=== PATIENT | female | born 1955 | race Caucasian/White ===

== ENCOUNTER 2021-05-05 17:00 | Inpatient (IN) | payer MEDICARE ==
[2021-05-05] MEDS ORDERED: Sodium Chloride 0.9% 1000 ML 1,000 ML IV STA ×2 (17:17→19:02)
[2021-05-05] MEDS ORDERED: Sodium Chloride 0.9% 1000 ML 1,000 ML ONE ×2 (17:22→19:10)
[2021-05-05 18:01] LABS: Hematocrit 45.9 % (35-47); Hemoglobin 16.2 gm/dl (12.0-16.0); Mean Cell Volume 93.1 fl (78-100); Mean Corpuscular Hemoglobin 32.9 pg (26-32); Mean Corpuscular Hgb Concent. 35.3 g/dl (32-36); Mean Platelet Volume 10.5 fl (7.5-11.0); Platelet Count 322 K/mm3 (150-450); Red Blood Count 4.93 M/mm3 (4.1-5.4); Red Cell Distribution Width 14.4 % (11.5-14.0); White Blood Count 21.2 K/mm3 (4.0-10.5)
[2021-05-05 18:03] LABS: INR 2.05 (0.8-3.0); PROTIME 24.2 SECONDS (9.4-12.5)
[2021-05-05 18:13] LABS: COVID AG -BINAX NOW RAPID TEST NEGATIVE (NEGATIVE)
--- NOTE | 2021-05-05 18:13 | ERPHSYRPT ---
- History of Present Illness Time Seen by Provider: 05/05/21 17:10 Source: patient Exam Limitations: no limitations Patient Subjective Stated Complaint: pt here for chills, cough, sob, aches and weakness for 9 days now, Triage Nursing Assessment: pt alert, resp easy, skin w/d/p, face mask in place, no edema noted, Physician History: Patient is a 65-year-old white female who has been sick for 9 days with fever weakness coughing body aches and soa. She has been vaccinated fully she has known COVID exposure. She has not to this point been tested for COVID or flu. She has a history of daily alcohol intake but has had none for 9 days. When I went in to discuss admission with the patient she suddenly remembered that she has a diagnosis of large granular leukemia. She is followed by Dr. House in [place] for her leukemia. Timing/Duration: day(s) (9) Cough Quality/Degree: dry cough Possible Cause: no prior episodes Modifying Factors: Improves With: coughing Associated Symptoms: fever (At home), chest pain/soreness, cough, headache, muscle aches, nasal drainage, shortness of breath, wheezing Allergies/Adverse Reactions: codeine Allergy (Mild, Verified 03/03/16 15:21) Swelling SWELLING AND VOMITTING methylprednisolone [From Medrol] Allergy (Mild, Verified 03/03/16 15:21) Swelling Sulfa (Sulfonamide Antibiotics) Allergy (Mild, Verified 03/03/16 15:21) Swelling Home Medications: Amlodipine Besylate 5 mg [Norvasc 5 mg] 1 tab PO DAILY 10/01/14 [History] Atorvastatin Calcium 20 mg PO HS 10/01/14 [History] Citalopram Hydrobromide [Celexa] 1 tab PO DAILY 10/01/14 [History] Duloxetine HCl 1 tab PO DAILY 10/01/14 [History] Estrogens, Conjugated [Premarin] 0.3 mg PO DAILY 10/01/14 [History] Levothyroxine Sodium 75 Mcg [Synthroid 75 Mcg] 1 tab PO DAILY 10/01/14 [History] Medroxyprogesterone 2.5 mg [Provera 2.5 MG] 1 tab PO DAILY 10/01/14 [History] Pantoprazole Sodium [Protonix] 1 tab PO DAILY 10/01/14 [History] Potassium Chloride 1 tab PO DAILY 10/01/14 [History] Pregabalin [Lyrica] 100 mg PO TID 10/01/14 [History] EPINEPHrine [Epipen 2-Ralph] 0.3 mg IM DAILY PRN PRN 01/01/15 [History] Famotidine 20 mg [Pepcid 20 MG] 20 mg PO BID 01/01/15 [History] Metoprolol Succinate 25 mg Xl* [Toprol-Xl 25MG Tablets] 25 mg PO DAILY 01/01/15 [History] Tizanidine HCl 4 mg [Zanaflex 4 MG] 4 mg PO HS 01/01/15 [History] Estradiol 1 mg [Estrace 1 mg] 1 mg PO DAILY 06/19/15 [History] Oxycodone HCl/Acetaminophen [Percocet 5-325 mg Tablet] 1 each PO Q4-6HPRN PRN 03/03/16 [History] Hx Tetanus, Diphtheria Vaccination/Date Given: Yes (up to date) Hx Influenza Vaccination/Date Given: Yes Hx Pneumococcal Vaccination/Date Given: No Immunizations Up to Date: Yes Travel Risk - International Travel Have you traveled outside of the country in past 3 weeks: No - Coronavirus Screening Are you exhibiting any of the following symptoms?: Yes Symptoms: Fever, Cough: New Onset, Shortness of Breath, Headaches/Body Aches/Fatigue - Vaccine Status Have you recieved a Covid-19 vaccination: Yes [place]: Moderna - Vaccination Dates Date of 2cond Vaccination (if applicable): 2020 - Review of Systems Constitutional: No Fever, No Chills Eyes: No Symptoms Ears, Nose, & Throat: No Symptoms, Nose Congestion, Nose Discharge Respiratory: Cough, Dyspnea, Dyspnea on Exertion ([place]) Cardiac: No Chest Pain, No Edema, No Syncope Abdominal/Gastrointestinal: Appetite Changes (Decreased appetite), No Abdominal Pain, No Nausea, No Vomiting, No Diarrhea Genitourinary Symptoms: No Dysuria Musculoskeletal: Arthralgias, Myalgias, No Back Pain, No Neck Pain Skin: No Rash Neurological: Headache, No Dizziness, No Focal Weakness, No Sensory Changes Psychological: No Symptoms Endocrine: No Symptoms All Other Systems: Reviewed and Negative - Past Medical History Pertinent Past Medical History: Yes Neurological History: No Pertinent History ENT History: No Pertinent History Cardiac History: No Pertinent History Respiratory History: Asthma, Bronchitis, COPD, Emphysema, Other Endocrine Medical History: No Pertinent History Musculoskeletal History: Degenerative Disk Disease, Fibromyalgia, Rheumatoid Arthritis, Other GI Medical History: GERD History: No Pertinent History Psycho-Social History: Anxiety, Depression Female Reproductive Disorders: No Pertinent History Other Medical History: lupus, - Past Surgical History Past Surgical History: Yes Neuro Surgical History: No Pertinent History Cardiac: No Pertinent History Respiratory: No Pertinent History Gastrointestinal: Cholecystectomy, Hernia Repair Female Surgical History: Tubal Ligation Other Surgical History: bilat carpal tunnel, left ovarian cyst removed,bilat cataract,. tonsillectomy as a child - Social History Smoking Status: Current every day smoker How long have you smoked: 45 Exposure to second hand smoke: Yes Drug Use: none Patient Lives Alone: No - Female History Hx Last Menstrual Period: post - Nursing Vital Signs Nursing Vital Signs: Initial Vital Signs Temperature 97.2 F 05/05/21 17:00 Pulse Rate 62 05/05/21 17:00 Respiratory Rate 18 05/05/21 17:00 Blood Pressure 142/102 05/05/21 17:00 O2 Sat by Pulse Oximetry 93 L 05/05/21 17:00 Pain Scale Pain Intensity 0 - Physical Exam General Appearance: moderate distress Eye Exam: PERRL/EOMI, eyes nml inspection Ears, Nose, Throat Exam: TMs normal, pharynx normal, dry mucous membranes Neck Exam: normal inspection, non-tender, supple, full range of motion Respiratory Exam: respiratory distress, crackles/rales, rhonchi, wheezing Cardiovascular Exam: regular rate/rhythm, normal heart sounds Gastrointestinal/Abdomen Exam: soft, No tenderness Back Exam: normal inspection, No CVA tenderness, No vertebral tenderness Extremity Exam: normal inspection, normal range of motion Neurologic Exam: alert, oriented x 3, cooperative, normal mood/affect, sensation nml, No motor deficits Skin Exam: normal color SpO2 Interpretation: normal SpO2: 93 O2 Delivery: Room Air - Course Nursing assessment & vital signs reviewed: Yes EKG Interpreted by Me: RATE (87), Sinus Rhythm, NORMAL AXIS, NORMAL INTERVALS, Right Bundle Branch Block, Non-specific ST Changes - Radiology Exams Chest X-ray Interpretation: Reviewed by me, Pneumonia - CT Exams Chest CT Interpretation: Tele-radiologist Report Ordered Tests: Active Orders 24 hr Category Date Time Status EKG-ER Only STAT Care 05/05/21 17:20 Active CHEST 1 VIEW (PORTABLE) Stat Exams 05/05/21 17:29 Taken CHEST WITH CONTRAST [CT] Stat Exams 05/05/21 18:55 Taken BLOOD CULTURE Stat Lab 05/05/21 17:52 Received CBC W DIFF Stat Lab 05/05/21 17:52 Completed CMP Stat Lab 05/05/21 17:52 Completed COVID AG-BINAX NOW RAPID TEST Stat Lab 05/05/21 17:52 Completed CULTURE,URINE Stat Lab 05/05/21 17:25 Received D-DIMER QUANTITATIVE Stat Lab 05/05/21 17:52 Completed INFLUENZA A+B ELISA Stat Lab 05/05/21 17:52 Received Lactic Acid Stat Lab 05/05/21 17:42 Completed Lactic Acid Stat Lab 05/05/21 19:47 Received MAGNESIUM Stat Lab 05/05/21 17:52 Completed Manual Differential NC Stat Lab 05/05/21 17:52 Completed NT PRO BNP Stat Lab 05/05/21 17:52 Completed PROTIME WITH INR Stat Lab 05/05/21 17:52 Completed TROPONIN Q3H Lab 05/05/21 17:52 Completed TROPONIN Q3H Lab 05/05/21 20:30 Ordered TROPONIN Q3H Lab 05/05/21 23:30 Ordered TROPONIN Q3H Lab 05/06/21 02:30 Ordered TROPONIN Q3H Lab 05/06/21 05:30 Ordered UA W/RFX UR CULTURE Stat Lab 05/05/21 17:25 Completed Medication Summary Generic Name Dose Route Start Last Admin Trade Name Freq PRN Reason Stop Dose Admin Sodium Chloride 1,000 mls @ 999 mls/hr 05/05/21 19:02 05/05/21 19:11 Sodium Chloride 0.9% 1000 Ml IV 05/05/21 20:02 999 mls/hr .Q1H1M STA Administration Levofloxacin/Dextrose 750 mg in 150 mls @ 100 mls/hr 05/05/21 19:25 05/05/21 19:30 Levofloxacin 750mg/150ml D5w IV 05/05/21 20:54 100 mls/hr STAT STA 100 mls/hr Administration Discontinued Medications Generic Name Dose Route Start Last Admin Trade Name Freq PRN Reason Stop Dose Admin Sodium Chloride 1,000 mls @ 999 mls/hr 05/05/21 17:17 05/05/21 19:08 Sodium Chloride 0.9% 1000 Ml IV 05/05/21 18:17 Infused .Q1H1M STA Infusion Sodium Chloride Confirm 05/05/21 17:22 Sodium Chloride 0.9% 1000 Ml Administered 05/05/21 17:23 Dose 1,000 mls @ ud .ROUTE .STK-MED ONE Ceftriaxone Sodium/Dextrose 1 g in 50 mls @ 100 mls/hr 05/05/21 18:14 05/05/21 19:08 Rocephin 1 Gm-D5w 50 Ml Bag IV 05/05/21 18:43 Infused STAT STA Infusion Ceftriaxone Sodium/Dextrose Confirm 05/05/21 18:31 Rocephin 1 Gm-D5w 50 Ml Bag Administered 05/05/21 18:32 Dose 1 g in 50 mls @ ud IV .STK-MED ONE Sodium Chloride Confirm 05/05/21 19:10 Sodium Chloride 0.9% 1000 Ml Administered 05/05/21 19:11 Dose 1,000 mls @ ud .ROUTE .STK-MED ONE Levofloxacin/Dextrose Confirm 05/05/21 19:29 Levofloxacin 750mg/150ml D5w Administered 05/05/21 19:30 Dose 750 mg in 150 mls @ ud IV .STK-MED ONE Lab/Rad Data: Laboratory Result Diagrams 05/05/21 17:52 05/05/21 17:52 Laboratory Results 05/05/21 05/05/21 05/05/21 Range/Units 18:28 17:52 17:52 WBC (4.0-10.5) K/mm3 RBC (4.1-5.4) M/mm3 Hgb (12.0-16.0) gm/dl Hct (35-47) % MCV (78-100) fl MCH (26-32) pg MCHC (32-36) g/dl RDW (11.5-14.0) % Plt Count (150-450) K/mm3 MPV (7.5-11.0) fl PT (9.4-12.5) SECONDS INR (0.8-3.0) D-Dimer (215-500) ng/mL Sodium (137-145) mmol/L Potassium (3.5-5.1) mmol/L Chloride (98-107) mmol/L Carbon Dioxide (22-30) mmol/L Anion Gap (5-15) MEQ/L BUN (7-17) mg/dL Creatinine (0.52-1.04) mg/dL Estimated GFR ML/MIN Glucose (74-106) mg/dL Lactic Acid (0.4-2.0) Calcium (8.4-10.2) mg/dL Magnesium (1.6-2.3) mg/dL Total Bilirubin (0.2-1.3) mg/dL AST (14-36) U/L ALT (0-35) U/L Alkaline Phosphatase (38-126) U/L Troponin I < 0.012 (0.000-0.034) ng/mL NT-Pro-B Natriuret Pep (0-900) pg/mL Serum Total Protein (6.3-8.2) g/dL Albumin (3.5-5.0) g/dL Urine Color (YELLOW) Urine Appearance (CLEAR) Urine pH (5-6) Ur Specific [place] (1.005-1.025) Urine Protein (Negative) Urine Ketones (NEGATIVE) Urine Blood (0-5) Serg/ul Urine Nitrite (NEGATIVE) Urine Bilirubin (NEGATIVE) Urine Urobilinogen (0-1) mg/dL Ur Leukocyte Esterase (NEGATIVE) Urine WBC (Auto) (0-5) /HPF Urine RBC (Auto) (0-2) /HPF U Epithel Cells (Auto) (FEW) /HPF Urine Bacteria (Auto) (NEGATIVE) /HPF Urine Mucus (Auto) (NEGATIVE) /HPF Urine Culture Reflexed (NO) Urine Glucose (NEGATIVE) mg/dL Influenza Type A Ag NEGATIVE (NEGATIVE) Influenza Type B Ag NEGATIVE (NEGATIVE) RSV (PCR) NEGATIVE (Negative) SARS-CoV-2 (PCR) NEGATIVE (NEGATIVE) SARS-CoV-2 Ag (Rapid) NEGATIVE (NEGATIVE) 05/05/21 05/05/21 05/05/21 Range/Units 17:52 17:52 17:52 WBC 21.2 H (4.0-10.5) K/mm3 RBC 4.93 (4.1-5.4) M/mm3 Hgb 16.2 H (12.0-16.0) gm/dl Hct 45.9 (35-47) % MCV 93.1 (78-100) fl MCH 32.9 H (26-32) pg MCHC 35.3 (32-36) g/dl RDW 14.4 H (11.5-14.0) % Plt Count 322 (150-450) K/mm3 MPV 10.5 (7.5-11.0) fl PT 24.2 H (9.4-12.5) SECONDS INR 2.05 (0.8-3.0) D-Dimer 1386 H* (215-500) ng/mL Sodium 132 L (137-145) mmol/L Potassium 3.5 (3.5-5.1) mmol/L Chloride 91 L (98-107) mmol/L Carbon Dioxide 27 (22-30) mmol/L Anion Gap 17.6 H (5-15) MEQ/L BUN 22 H (7-17) mg/dL Creatinine 0.66 (0.52-1.04) mg/dL Estimated GFR > 60.0 ML/MIN Glucose 126 H (74-106) mg/dL Lactic Acid (0.4-2.0) Calcium 9.3 (8.4-10.2) mg/dL Magnesium 2.3 (1.6-2.3) mg/dL Total Bilirubin 4.10 H (0.2-1.3) mg/dL AST 554 H (14-36) U/L ALT 1627 H (0-35) U/L Alkaline Phosphatase 240 H (38-126) U/L Troponin I (0.000-0.034) ng/mL NT-Pro-B Natriuret Pep 161 (0-900) pg/mL Serum Total Protein 6.6 (6.3-8.2) g/dL Albumin 3.4 L (3.5-5.0) g/dL Urine Color (YELLOW) Urine Appearance (CLEAR) Urine pH (5-6) Ur Specific [place] (1.005-1.025) Urine Protein (Negative) Urine Ketones (NEGATIVE) Urine Blood (0-5) Serg/ul Urine Nitrite (NEGATIVE) Urine Bilirubin (NEGATIVE) Urine Urobilinogen (0-1) mg/dL Ur Leukocyte Esterase (NEGATIVE) Urine WBC (Auto) (0-5) /HPF Urine RBC (Auto) (0-2) /HPF U Epithel Cells (Auto) (FEW) /HPF Urine Bacteria (Auto) (NEGATIVE) /HPF Urine Mucus (Auto) (NEGATIVE) /HPF Urine Culture Reflexed (NO) Urine Glucose (NEGATIVE) mg/dL Influenza Type A Ag (NEGATIVE) Influenza Type B Ag (NEGATIVE) RSV (PCR) (Negative) SARS-CoV-2 (PCR) (NEGATIVE) SARS-CoV-2 Ag (Rapid) (NEGATIVE) 05/05/21 05/05/21 Range/Units 17:42 17:25 WBC (4.0-10.5) K/mm3 RBC (4.1-5.4) M/mm3 Hgb (12.0-16.0) gm/dl Hct (35-47) % MCV (78-100) fl MCH (26-32) pg MCHC (32-36) g/dl RDW (11.5-14.0) % Plt Count (150-450) K/mm3 MPV (7.5-11.0) fl PT (9.4-12.5) SECONDS INR (0.8-3.0) D-Dimer (215-500) ng/mL Sodium (137-145) mmol/L Potassium (3.5-5.1) mmol/L Chloride (98-107) mmol/L Carbon Dioxide (22-30) mmol/L Anion Gap (5-15) MEQ/L BUN (7-17) mg/dL Creatinine (0.52-1.04) mg/dL Estimated GFR ML/MIN Glucose (74-106) mg/dL Lactic Acid 2.9 H (0.4-2.0) Calcium (8.4-10.2) mg/dL Magnesium (1.6-2.3) mg/dL Total Bilirubin (0.2-1.3) mg/dL AST (14-36) U/L ALT (0-35) U/L Alkaline Phosphatase (38-126) U/L Troponin I (0.000-0.034) ng/mL NT-Pro-B Natriuret Pep (0-900) pg/mL Serum Total Protein (6.3-8.2) g/dL Albumin (3.5-5.0) g/dL Urine Color DREW (YELLOW) Urine Appearance CLOUDY (CLEAR) Urine pH 5.0 (5-6) Ur Specific [place] 1.034 (1.005-1.025) Urine Protein 100 (Negative) Urine Ketones SMALL (NEGATIVE) Urine Blood NEGATIVE (0-5) Serg/ul Urine Nitrite POSITIVE (NEGATIVE) Urine Bilirubin SMALL (NEGATIVE) Urine Urobilinogen 4 (0-1) mg/dL Ur Leukocyte Esterase NEGATIVE (NEGATIVE) Urine WBC (Auto) 6-10 (0-5) /HPF Urine RBC (Auto) 6-10 (0-2) /HPF U Epithel Cells (Auto) MANY (FEW) /HPF Urine Bacteria (Auto) PACKED (NEGATIVE) /HPF Urine Mucus (Auto) MANY (NEGATIVE) /HPF Urine Culture Reflexed YES (NO) Urine Glucose NEGATIVE (NEGATIVE) mg/dL Influenza Type A Ag (NEGATIVE) Influenza Type B Ag (NEGATIVE) RSV (PCR) (Negative) SARS-CoV-2 (PCR) (NEGATIVE) SARS-CoV-2 Ag (Rapid) (NEGATIVE) - Progress Progress: unchanged Air Movement: fair Blood Culture(s) Obtained: Yes Antibiotics given: Yes Discussed with : Riley Will see patient in: hospital (full admit) - Departure Departure Disposition: In-patient Admission Clinical Impression: Left lower lobe pneumonia Condition: Fair Critical Care Time: No Referrals: CLAUDIA CERVANTES NP [Primary Care Provider] - Follow up/PCP as directed
[2021-05-05] MEDS ORDERED: ROCEPHIN 1 Gm-D5w 50 ml Bag** 1 G/50 ML IVPB IV STA (18:14)
[2021-05-05 18:15] LABS: Appearance CLOUDY (CLEAR); Bacteria PACKED /HPF (NEGATIVE); Bilirubin SMALL (NEGATIVE); Blood NEGATIVE Ery/ul (0-5); Epithelial Cells MANY /HPF (FEW); Glucose NEGATIVE (NEGATIVE); Ketones SMALL (NEGATIVE); Leukocyte Esterase NEGATIVE (NEGATIVE); Mucus MANY /HPF (NEGATIVE); Nitrite POSITIVE (NEGATIVE); Protein,Urine Dip 100 (Negative); Specific Gravity 1.034 (1.005-1.025); Urobilinogen 4 mg/dL (0-1)
[2021-05-05 18:16] LABS: ALBUMIN 3.4 g/dL (3.5-5.0); ALKALINE PHOSPHATASE 240 U/L (38-126); ANION GAP 17.6 MEQ/L (5-15); BLOOD UREA NITROGEN 22 mg/dL (7-17); CHLORIDE 91 mmol/L (98-107); Calcium 9.3 mg/dL (8.4-10.2); Carbon Dioxide 27 mmol/L (22-30); Creatinine 1 0.66 mg/dL (0.52-1.04); EST GLOMERULAR FILTRATION RATE > 60.0 ML/MIN; Glucose 126 mg/dL (74-106); MAGNESIUM 2.3 mg/dL (1.6-2.3); NT PRO BNP 161 pg/mL (0-900); Potassium 3.5 mmol/L (3.5-5.1); SGOT/AST 554 U/L (14-36); SODIUM 132 mmol/L (137-145); Total Protein 6.6 g/dL (6.3-8.2)
[2021-05-05 18:21] LABS: SGPT/ALT 1627 U/L (0-35)
[2021-05-05] MEDS ORDERED: ROCEPHIN 1 Gm-D5w 50 ml Bag** 1 G/50 ML IVPB IV ONE (18:31)
[2021-05-05 19:11] LABS: INFLUENZA A NEGATIVE (NEGATIVE); INFLUENZA B NEGATIVE (NEGATIVE); RESPIRATORY SYNCTIAL VIRUS NEGATIVE (Negative); SARS-CoV-2 Xpert Express NEGATIVE (NEGATIVE)
[2021-05-05] MEDS ORDERED: LEVOFLOXACIN 750MG/150ML D5W 750 MG/150 ML BAG IV STA (19:25)
[2021-05-05] MEDS ORDERED: LEVOFLOXACIN 750MG/150ML D5W 750 MG/150 ML BAG IV ONE (19:29)
[2021-05-05 19:50] LABS: BAND 11 % (0.0-2.0); Dohle Bodies 1+; Lymphocytes 14 % (24-44); Monocyte 5 % (0.0-12.0); Neutrophils 70 % (36.0-66.0); Platelet Estimate NORMAL (NORMAL); Total Cells Counted 100; Toxic Granulation 1+
[2021-05-05 19:51] LABS: INFLUENZA A NEGATIVE (NEGATIVE); INFLUENZA B NEGATIVE (NEGATIVE)
[2021-05-05] MEDS: Sodium Chloride 0.9% 1000 ML 1,000 ML IV SCH (21:44)
[2021-05-05] MEDS: LYRICA 100MG PO SCH (21:44)
[2021-05-05] MEDS: Zofran 4 MG/2 ML VIAL IV PRN (21:53)
[2021-05-05] MEDS ORDERED: VENTOLIN COMMON CANISTER IH PRN (22:15)
[2021-05-05 22:23] LABS: A-aADO2 105; ABG POTASSIUM 3.3 (3.5-5.1); ABG SITE LEFT BRACHIAL; ARTERIAL BLD GAS O2 SATURATION 98.7 % (95-100); ARTERIAL BLOOD GAS BASE EXCESS 0.3 (-2.0-2.0); ARTERIAL BLOOD GAS FIO2 36 %; ARTERIAL BLOOD GAS PCO2 33 mmHg (35-45); ARTERIAL BLOOD GAS PO2 110 mmHg (75-100); ARTERIAL BLOOD GAS pH 7.46 (7.35-7.45); CARBOXYHEMOGLOBIN 0.9 % THgb (0.0-6.9); HCO3- 23.5 (22-28); HGB O2 SAT 96.6 g/dF (94-100); Methhemoglobin 1.2 % (1.4-1.5)
[2021-05-06 05:54] LABS: Hematocrit 38.8 % (35-47); Hemoglobin 13.5 gm/dl (12.0-16.0); Mean Cell Volume 94.2 fl (78-100); Mean Corpuscular Hemoglobin 32.8 pg (26-32); Mean Corpuscular Hgb Concent. 34.8 g/dl (32-36); Mean Platelet Volume 10.6 fl (7.5-11.0); Platelet Count 286 K/mm3 (150-450); Red Blood Count 4.12 M/mm3 (4.1-5.4); Red Cell Distribution Width 14.6 % (11.5-14.0); White Blood Count 24.1 K/mm3 (4.0-10.5)
[2021-05-06 06:13] LABS: ALBUMIN 2.7 g/dL (3.5-5.0); ALKALINE PHOSPHATASE 213 U/L (38-126); ANION GAP 15.7 MEQ/L (5-15); BLOOD UREA NITROGEN 13 mg/dL (7-17); CHLORIDE 95 mmol/L (98-107); Calcium 7.9 mg/dL (8.4-10.2); Carbon Dioxide 24 mmol/L (22-30); Creatinine 1 0.59 mg/dL (0.52-1.04); EST GLOMERULAR FILTRATION RATE > 60.0 ML/MIN; Glucose 60 mg/dL (74-106); Potassium 3.6 mmol/L (3.5-5.1); SGOT/AST 237 U/L (14-36); SODIUM 131 mmol/L (137-145); Total Protein 5.7 g/dL (6.3-8.2)
[2021-05-06 06:43] LABS: SGPT/ALT 1004 U/L (0-35)
[2021-05-06] MEDS ORDERED: Advair Hfa 230/21 Mcg COMMON CANISTER IH SCH (07:00)
[2021-05-06 07:47] LABS: BAND 2 % (0.0-2.0); Lymphocytes 8 % (24-44); Monocyte 2 % (0.0-12.0); Neutrophils 88 % (36.0-66.0); Total Cells Counted 100
[2021-05-06 07:48] LABS: Platelet Estimate NORMAL (NORMAL)
[2021-05-06] MEDS: Sodium Chloride 0.9% 1000 ML 1,000 ML IV SCH ×2 (08:27→19:32)
--- NOTE | 2021-05-06 08:59 | XRAY ---
Indication: Short of breath. Elevated d-dimer. Multiple contiguous axial images obtained through the chest using 80 cc Isovue 370 contrast and PE protocol. Comparison: March 10, 2018. There is good opacification of the pulmonary arteries including lobar and segmental branches. No pulmonary embolus. Heart is not enlarged. Aorta is mildly arteriosclerotic without aneurysm/dissection. Stable small mediastinal and right hilar calcified nodes. No pathologic mediastinal/hilar lymphadenopathy. Lungs demonstrates new left lower lobe consolidating/nonconsolidating airspace disease without effusion. Remaining lungs again demonstrate scattered peripheral fibrosis/scarring. Bony thorax intact again with mild osteopenia and mild/moderate degenerative changes throughout the thoracic spine. Incidental new finding nondisplaced right humeral head fracture. Limited upper abdomen including adrenal glands are unremarkable. Impression: 1. Negative pulmonary embolus. 2. New left lower lobe consolidating/nonconsolidating pneumonia. 3. New nondisplaced right humeral head fracture. 4. Again scattered pulmonary fibrosis/scarring, chronic bony findings, and old granulomatous disease. Comment: Preliminary interpretation made by [facility]. No critical discrepancy.
--- NOTE | 2021-05-06 09:03 | XRAY ---
Indication: Fever, cough, body ache, and weakness. Suspect Covid 19. Comparison: January 01, 2015. Portable apical lordotic chest demonstrates new left lower lobe consolidating pneumonia. Remaining heart and lungs unremarkable. Bony thorax demonstrates osteopenia and new nondisplaced right humeral head fracture of uncertain chronicity.
[2021-05-06] MEDS: SYNTHROID 75 MCG PO SCH (10:35)
[2021-05-06] MEDS: LYRICA 100MG PO SCH ×2 (10:35→23:01)
[2021-05-06] MEDS ORDERED: TYLENOL 325 MG ONE (13:51)
[2021-05-06] MEDS: TYLENOL 325 MG PO PRN (13:52)
[2021-05-06] MEDS: Zofran 4 MG/2 ML VIAL IV PRN ×2 (13:52→23:01)
[2021-05-06] MEDS ORDERED: Ventolin Hfa MDI IH ONE (18:53)
[2021-05-06] MEDS ORDERED: LEVOFLOXACIN 750MG/150ML D5W 750 MG/150 ML BAG IV SCH (22:00)
[2021-05-06] MEDS: ROCEPHIN 1 Gm-D5w 50 ml Bag** 1 G/50 ML IVPB IV SCH (23:02)
[2021-05-07] MEDS: TYLENOL 325 MG PO PRN ×3 (02:51→19:47)
[2021-05-07] MEDS: SYNTHROID 75 MCG PO SCH (07:03)
[2021-05-07] MEDS: Sodium Chloride 0.9% 1000 ML 1,000 ML IV SCH ×2 (07:54→17:43)
[2021-05-07] MEDS: Cymbalta 30 MG Capsule PO SCH ×2 (10:26→10:51)
[2021-05-07] MEDS ORDERED: Cymbalta 30 MG Capsule PO SCH (10:45)
[2021-05-07] MEDS ORDERED: Advair Hfa 115/21 Common canister IH SCH (10:45)
[2021-05-07] MEDS: FOLATE 1 MG PO SCH (10:51)
[2021-05-07] MEDS: LYRICA 100MG PO SCH ×2 (10:51→22:27)
[2021-05-07] MEDS: MYRBETRIQ PO SCH (10:52)
[2021-05-07] MEDS: VITAMIN D PO SCH (10:52)
[2021-05-07 11:32] LABS: Hematocrit 34.7 % (35-47); Hemoglobin 11.9 gm/dl (12.0-16.0); Mean Cell Volume 96.1 fl (78-100); Mean Corpuscular Hgb Concent. 34.3 g/dl (32-36); Platelet Count 242 K/mm3 (150-450); Red Blood Count 3.61 M/mm3 (4.1-5.4); Red Cell Distribution Width 14.9 % (11.5-14.0); White Blood Count 15.6 K/mm3 (4.0-10.5)
[2021-05-07] MEDS: Vitamin E 400 UNIT SOFTGEL PO SCH (12:39)
[2021-05-07] MEDS ORDERED: LYRICA 100MG PO SCH (15:00)
[2021-05-07] MEDS ORDERED: Zithromax 500 MG/ 250 ML NaCl Premix 500 MG/250 ML IVPB IV SCH (18:00)
[2021-05-07] MEDS ORDERED: NON-FORMULARY ITEM (Duloxetine Hcl [Duloxetine Hcl] 60 MG Capsule.Dr) PO SCH (22:00)
[2021-05-07] MEDS: ROCEPHIN 1 Gm-D5w 50 ml Bag** 1 G/50 ML IVPB IV SCH (22:26)
[2021-05-08] MEDS: Sodium Chloride 0.9% 1000 ML 1,000 ML IV SCH ×2 (00:48→03:39)
[2021-05-08 05:19] LABS: Hematocrit 32.8 % (35-47); Hemoglobin 11.2 gm/dl (12.0-16.0); Mean Cell Volume 95.9 fl (78-100); Mean Corpuscular Hemoglobin 32.7 pg (26-32); Mean Corpuscular Hgb Concent. 34.1 g/dl (32-36); Mean Platelet Volume 10.2 fl (7.5-11.0); Platelet Count 229 K/mm3 (150-450); Red Blood Count 3.42 M/mm3 (4.1-5.4); Red Cell Distribution Width 15.2 % (11.5-14.0); White Blood Count 11.1 K/mm3 (4.0-10.5)
[2021-05-08 05:51] LABS: ANION GAP 9.3 MEQ/L (5-15); BLOOD UREA NITROGEN 5 mg/dL (7-17); CHLORIDE 98 mmol/L (98-107); Calcium 7.2 mg/dL (8.4-10.2); Carbon Dioxide 27 mmol/L (22-30); Creatinine 1 0.35 mg/dL (0.52-1.04); EST GLOMERULAR FILTRATION RATE > 60.0 ML/MIN; Glucose 90 mg/dL (74-106); SODIUM 131 mmol/L (137-145)
[2021-05-08] MEDS: SYNTHROID 75 MCG PO SCH (06:11)
[2021-05-08 06:13] LABS: Potassium 3.7 mmol/L (3.5-5.1)
[2021-05-08 07:27] LABS: ANISOCYTOSIS 1+; ATYPICAL LYMPHS 1 %; Lymphocytes 22 % (24-44); Monocyte 6 % (0.0-12.0); Neutrophils 71 % (36.0-66.0); Platelet Estimate NORMAL (NORMAL); Total Cells Counted 100; Toxic Granulation 1+
[2021-05-08] MEDS: TYLENOL 325 MG PO PRN (07:34)
[2021-05-08 08:12] VITALS: PULSE 80; O2SAT 94
[2021-05-08] MEDS: VITAMIN D PO SCH (09:24)
[2021-05-08] MEDS: Vitamin E 400 UNIT SOFTGEL PO SCH (09:25)
[2021-05-08] MEDS: Cymbalta 30 MG Capsule PO SCH (09:25)
[2021-05-08] MEDS: MYRBETRIQ PO SCH (09:25)
[2021-05-08] MEDS: FOLATE 1 MG PO SCH (09:25)
[2021-05-08] MEDS: LYRICA 100MG PO SCH (09:25)
[2021-05-08] MEDS ORDERED: NON-FORMULARY ITEM (Fluticasone/Vilanterol [Breo Ellipta 100-25 Mcg Inh] 1 EACH Blst.W.Dev IH SCH (10:00)
[2021-05-08] MEDS ORDERED: NON-FORMULARY ITEM (Cholecalciferol (Vitamin D3) [Vitamin D3] 50 MCG Tablet) PO SCH (10:00)
[2021-05-08] MEDS ORDERED: LIORESAL 10 MG PO SCH (10:00)
[2021-05-08] MEDS ORDERED: NON-FORMULARY ITEM (Mirabegron [Myrbetriq] 50 MG Tab.Er.24h) PO SCH (10:00)
[2021-05-08] MEDS ORDERED: SYNTHROID 75 MCG PO SCH (10:00)
[2021-05-08] MEDS ORDERED: VITAMIN E 180 MG PO SCH (10:00)
[2021-05-08 12:22] VITALS: BP 123/78
--- NOTE | 2021-05-08 17:08 | PCM.HP ---
History of Present Illness - Chief Complaint Chief Complaint: LLL pneumonia Date: 05/06/21 History of Present Illness: is a 65 year old female. Presented to Er with history of 9 days of fever, cough, dyspnea and general malaise, found to be hypoxic and had a LLL pneuonia in ER and was admitted for iv hydration, antibiotics and oxygen supplementation with scheduled nebulizer treatments. - Review of Systems Constitutional: Fever Eyes: No Symptoms Ears, Nose, & Throat: No Symptoms Respiratory: Cough, Short Of Breath, Wheezing Cardiac: No Chest Pain, No Edema, No Syncope Abdominal/Gastrointestinal: No Abdominal Pain, No Nausea, No Vomiting, No Diarrhea Genitourinary Symptoms: No Dysuria Musculoskeletal: No Back Pain, No Neck Pain Skin: No Rash Neurological: No Dizziness, No Focal Weakness, No Sensory Changes Psychological: No Symptoms Endocrine: No Symptoms Hematologic/Lymphatic: No Symptoms Immunological/Allergic: No Symptoms Medications & Allergies Home Medications: Home Medication List Atorvastatin Calcium 20 mg PO HS 10/01/14 [History Confirmed 05/05/21] Duloxetine HCl 2 tab PO BID 10/01/14 [History Confirmed 05/05/21] Levothyroxine Sodium 75 Mcg [Synthroid 75 Mcg] 1 tab PO DAILY 10/01/14 [History Confirmed 05/05/21] Pregabalin [Lyrica] 200 mg PO TID 10/01/14 [History Confirmed 05/05/21] Albuterol/Ipratropium 3ml Neb* [DUONEB 0.5-3 MG/3 ml Neb] 3 ml IH Q4H PRN PRN #30 ampul.neb 03/03/16 [Rx Confirmed 05/05/21] Baclofen 10 mg [Lioresal 10 mg] 10 mg PO DAILY 05/05/21 [History Confirmed 05/05/21] Cholecalciferol (Vitamin D3) [Vitamin D3] 50 mcg PO DAILY 05/05/21 [History Confirmed 05/05/21] Fluticasone/Vilanterol [Breo Ellipta 100-25 Mcg INH] 1 puff IH DAILY 05/05/21 [History Confirmed 05/05/21] Folic Acid 1 mg [Folate 1 mg] 1 mg PO DAILY 05/05/21 [History Confirmed 05/05/21] Mirabegron [Myrbetriq] 1 tab PO DAILY 05/05/21 [History Confirmed 05/05/21] Vitamin E (Dl,Tocopheryl Acet) [Vitamin E] 180 mg PO DAILY 05/05/21 [History Confirmed 05/05/21] Amoxicillin/Potassium Clav [Augmentin 875-125 Tablet] 1 each PO BID 10 Days #20 tablet 05/08/21 [Rx] Azithromycin [Azithromycin 250 mg Pack] 250 mg PO UD #6 tablet 05/08/21 [Rx] Allergies/Adverse Reactions: Allergies Allergy/AdvReac Type Severity Reaction Status Date / Time codeine Allergy Mild Swelling Verified 03/03/16 15:21 methylprednisolone Allergy Mild Swelling Verified 03/03/16 15:21 [From Medrol] Sulfa (Sulfonamide Allergy Mild Swelling Verified 03/03/16 15:21 Antibiotics) - Past Medical History Past Medical History: Yes Neurological History: No Pertinent History ENT History: No Pertinent History Cardiac History: No Pertinent History Respiratory History: Asthma, Bronchitis, COPD, Emphysema, Other Endocrine Medical History: No Pertinent History Musculoskelatal History: Degenerative Disk Disease, Fibromyalgia, Rheumatoid Arthritis, Other GI Medical History: GERD History: No Pertinent History Pyscho-Social History: Anxiety, Depression Reproductive Disorders: No Pertinent History Comment: lupus, - Female History Hx Last Menstrual Period: post Are you now?: No - Past Surgical History Past Surgical History: Yes Neuro Surgical History: No Pertinent History Cardiac History: No Pertinent History Respiratory Surgery: No Pertinent History GI Surgical History: Cholecystectomy, Hernia Repair Female Surgical History: Tubal Ligation Other Surgical History: bilat carpal tunnel, left ovarian cyst removed,bilat cataract,. tonsillectomy as a child - Social History Smoking Status: Current every day smoker How long have you smoked: 45 Exposure to second hand smoke: Yes Alcohol: Daily Drug Use: none - Physical Exam Vital Signs: Vital Signs - 24 hr Temp Pulse Resp BP Pulse Ox 05/08/21 12:00 96.3 F 80 16 123/78 94 L 05/08/21 08:10 80 18 94 L 05/08/21 07:36 97.2 F 77 17 132/72 90 L 05/08/21 04:00 97.3 F 77 18 142/84 96 05/08/21 00:00 96.3 F 78 18 121/71 95 05/07/21 20:00 98.0 F 83 18 122/78 93 L 05/07/21 18:39 83 18 93 L General Appearance: no apparent distress, alert Neurologic Exam: alert, oriented x 3, cooperative, normal mood/affect, nml cerebellar function, nml station & gait, sensation nml, No motor deficits Eye Exam: PERRL/EOMI, eyes nml inspection Ears, Nose, Throat Exam: normal ENT inspection, TMs normal, pharynx normal, moist mucous membranes Neck Exam: normal inspection, non-tender, supple, full range of motion Respiratory Exam: lungs clear, diminished breath sounds, prolonged expirations, No respiratory distress Cardiovascular Exam: regular rate/rhythm, normal heart sounds, normal peripheral pulses Gastrointestinal/Abdomen Exam: soft, normal bowel sounds, No tenderness, No mass Back Exam: normal inspection, normal range of motion, No CVA tenderness, No vertebral tenderness Extremity Exam: normal inspection, normal range of motion, pelvis stable Skin Exam: normal color, warm, dry, No rash Lymphatic Exam: No adenopathy Results - Labs Lab/Micro Results: Lab Results-Last 24 Hours 05/07/21 05/08/21 05/08/21 Range/Units 20:34 05:13 05:13 WBC 11.1 H (4.0-10.5) K/mm3 RBC 3.42 L (4.1-5.4) M/mm3 Hgb 11.2 L (12.0-16.0) gm/dl Hct 32.8 L (35-47) % MCV 95.9 (78-100) fl MCH 32.7 H (26-32) pg MCHC 34.1 (32-36) g/dl RDW 15.2 H (11.5-14.0) % Plt Count 229 (150-450) K/mm3 MPV 10.2 (7.5-11.0) fl Segmented Neutrophils 71 H (36.0-66.0) % Lymphocytes (Manual) 22 L (24-44) % Monocytes (Manual) 6 (0.0-12.0) % Atypical Lymphocytes 1 % Toxic Granulation 1+ Platelet Estimate NORMAL (NORMAL) RBC Morphology ABNORMAL Anisocytosis 1+ Sodium 131 L (137-145) mmol/L Potassium 3.7 (3.5-5.1) mmol/L Chloride 98 (98-107) mmol/L Carbon Dioxide 27 (22-30) mmol/L Anion Gap 9.3 (5-15) MEQ/L BUN 5 L (7-17) mg/dL Creatinine 0.35 L (0.52-1.04) mg/dL Estimated GFR > 60.0 ML/MIN Glucose 90 (74-106) mg/dL POC Glucometer 136 H (74 to 106) mg/dL Calcium 7.2 L (8.4-10.2) mg/dL 05/08/21 05/08/21 Range/Units 07:20 11:38 WBC (4.0-10.5) K/mm3 RBC (4.1-5.4) M/mm3 Hgb (12.0-16.0) gm/dl Hct (35-47) % MCV (78-100) fl MCH (26-32) pg MCHC (32-36) g/dl RDW (11.5-14.0) % Plt Count (150-450) K/mm3 MPV (7.5-11.0) fl Segmented Neutrophils (36.0-66.0) % Lymphocytes (Manual) (24-44) % Monocytes (Manual) (0.0-12.0) % Atypical Lymphocytes % Toxic Granulation Platelet Estimate (NORMAL) RBC Morphology Anisocytosis Sodium (137-145) mmol/L Potassium (3.5-5.1) mmol/L Chloride (98-107) mmol/L Carbon Dioxide (22-30) mmol/L Anion Gap (5-15) MEQ/L BUN (7-17) mg/dL Creatinine (0.52-1.04) mg/dL Estimated GFR ML/MIN Glucose (74-106) mg/dL POC Glucometer 104 118 H (74 to 106) mg/dL Calcium (8.4-10.2) mg/dL Microbiology 05/05/21 17:25 Urine Culture - Final Urine, Void Escherichia Coli 05/05/21 17:51 Blood Culture - Preliminary Blood NO GROWTH TO DATE 05/05/21 17:52 Blood Culture - Preliminary Blood NO GROWTH TO DATE Accuchecks Date 05/08/21 Date 05/07/21 Time 07:36 Time 22:00 Assessment/Plan (1) COPD exacerbation Status: Acute Assessment & Plan: iv antibiotics, steroids and oxygen supplementation Code(s): J44.1 - CHRONIC OBSTRUCTIVE PULMONARY DISEASE W (ACUTE) EXACERBATION (2) Left lower lobe pneumonia Status: Acute Code(s): J18.9 - PNEUMONIA, UNSPECIFIED ORGANISM
--- NOTE | 2021-05-08 17:11 | PCM.DS ---
Discharge Summary Date of Admission: 05/05/21 20:17 Date of Discharge: 05/08/2021 Admitting Physician: YOVANA SORENSEN Primary Care Provider: CLAUDIA CERVANTES Allergies Allergies codeine Allergy (Mild, Verified 03/03/16 15:21) Swelling SWELLING AND VOMITTING methylprednisolone [From Medrol] Allergy (Mild, Verified 03/03/16 15:21) Swelling Sulfa (Sulfonamide Antibiotics) Allergy (Mild, Verified 03/03/16 15:21) Swelling Hospital Summary - Hospital Course Hospital Course: Pt. admitted to hospital with dyspnea, LLL pneumonia. Pt. initially saw a bump in wbc, but slowly improved and by 05/08 was no longer requiring additional oxygen support and holding 94% on room air. Pt. feeling much better and very ready to go home with home health care and continued oral antibiotics. - Vitals & Intake/Output Vital Signs: Vital Signs Temperature 96.3 F 05/08/21 12:00 Pulse Rate 80 05/08/21 12:00 Respiratory Rate 16 05/08/21 12:00 Blood Pressure 123/78 05/08/21 12:00 O2 Sat by Pulse Oximetry 94 L 05/08/21 12:00 Intake & Output: Intake & Output 05/06/21 05/07/21 05/08/21 05/09/21 11:59 11:59 11:59 11:59 Intake Total 480 2944 3367 Output Total 1300 Balance 480 1644 3367 Weight 69.5 kg 70 kg 70 kg - Lab Result Diagrams: 05/08/21 05:13 05/08/21 05:13 Lab Results-Last 24 Hrs: Lab Results-Last 24 Hours 05/07/21 05/08/21 05/08/21 Range/Units 20:34 05:13 05:13 WBC 11.1 H (4.0-10.5) K/mm3 RBC 3.42 L (4.1-5.4) M/mm3 Hgb 11.2 L (12.0-16.0) gm/dl Hct 32.8 L (35-47) % MCV 95.9 (78-100) fl MCH 32.7 H (26-32) pg MCHC 34.1 (32-36) g/dl RDW 15.2 H (11.5-14.0) % Plt Count 229 (150-450) K/mm3 MPV 10.2 (7.5-11.0) fl Segmented Neutrophils 71 H (36.0-66.0) % Lymphocytes (Manual) 22 L (24-44) % Monocytes (Manual) 6 (0.0-12.0) % Atypical Lymphocytes 1 % Toxic Granulation 1+ Platelet Estimate NORMAL (NORMAL) RBC Morphology ABNORMAL Anisocytosis 1+ Sodium 131 L (137-145) mmol/L Potassium 3.7 (3.5-5.1) mmol/L Chloride 98 (98-107) mmol/L Carbon Dioxide 27 (22-30) mmol/L Anion Gap 9.3 (5-15) MEQ/L BUN 5 L (7-17) mg/dL Creatinine 0.35 L (0.52-1.04) mg/dL Estimated GFR > 60.0 ML/MIN Glucose 90 (74-106) mg/dL POC Glucometer 136 H (74 to 106) mg/dL Calcium 7.2 L (8.4-10.2) mg/dL 05/08/21 05/08/21 Range/Units 07:20 11:38 WBC (4.0-10.5) K/mm3 RBC (4.1-5.4) M/mm3 Hgb (12.0-16.0) gm/dl Hct (35-47) % MCV (78-100) fl MCH (26-32) pg MCHC (32-36) g/dl RDW (11.5-14.0) % Plt Count (150-450) K/mm3 MPV (7.5-11.0) fl Segmented Neutrophils (36.0-66.0) % Lymphocytes (Manual) (24-44) % Monocytes (Manual) (0.0-12.0) % Atypical Lymphocytes % Toxic Granulation Platelet Estimate (NORMAL) RBC Morphology Anisocytosis Sodium (137-145) mmol/L Potassium (3.5-5.1) mmol/L Chloride (98-107) mmol/L Carbon Dioxide (22-30) mmol/L Anion Gap (5-15) MEQ/L BUN (7-17) mg/dL Creatinine (0.52-1.04) mg/dL Estimated GFR ML/MIN Glucose (74-106) mg/dL POC Glucometer 104 118 H (74 to 106) mg/dL Calcium (8.4-10.2) mg/dL Micro Results-Entire Visit: Microbiology 05/05/21 17:25 Urine Culture - Final Urine, Void Escherichia Coli 05/05/21 17:51 Blood Culture - Preliminary Blood NO GROWTH TO DATE 05/05/21 17:52 Blood Culture - Preliminary Blood NO GROWTH TO DATE Accuchecks Date 05/08/21 Date 05/07/21 Time 07:36 Time 22:00 - Procedures and Test Procedures and Tests throughout Hospitalization: Therapy Orders & Screens 05/05/21 19:53 Oxygen Nasal Cannula 2 lpm Comment: Respiratory Therapy Consult ROUTINE Comment: Reason For Exam: 05/05/21 22:17 Respiratory Therapy Assessment DAILY Comment: Diagnosis: LLL pneumonia 05/06/21 19:50 Flutter Therapy UD Comment: Diagnosis: LLL pneumonia Discharge Exam General Appearance: no apparent distress, alert Neurologic Exam: alert, oriented x 3, cooperative, normal mood/affect, nml cerebellar function, sensation nml, No motor deficits Eye Exam: PERRL, EOMI, eyes nml inspection Ears, Nose, Throat Exam: normal ENT inspection, pharynx normal, moist mucous membranes Neck Exam: normal inspection, non-tender, supple, full range of motion Respiratory Exam: normal breath sounds, lungs clear, No respiratory distress Cardiovascular Exam: regular rate/rhythm, normal heart sounds Gastrointestinal/Abdomen Exam: soft, No tenderness, No mass Pelvic Exam: deferred Rectal Exam: deferred Back Exam: normal inspection, normal range of motion, No CVA tenderness, No vertebral tenderness Extremity Exam: normal inspection, normal range of motion Skin Exam: normal color, warm, dry Final Diagnosis/Problem List - Final Discharge Diagnosis/Problem (1) COPD exacerbation Status: Acute Code(s): J44.1 - CHRONIC OBSTRUCTIVE PULMONARY DISEASE W (ACUTE) EXACERBATION (2) Left lower lobe pneumonia Status: Acute Code(s): J18.9 - PNEUMONIA, UNSPECIFIED ORGANISM - Discharge Discharge Date: 05/08/21 Disposition: HOME HEALTH SERVICE Condition: Fair Prescriptions: New Amoxicillin/Potassium Clav [Augmentin 875-125 Tablet] 1 each PO BID 10 Days #20 tablet Azithromycin [Azithromycin 250 mg Pack] 250 mg PO UD #6 tablet Continue Atorvastatin Calcium 20 mg PO HS Levothyroxine Sodium 75 Mcg [Synthroid 75 Mcg] 1 tab PO DAILY Duloxetine HCl 2 tab PO BID Pregabalin [Lyrica] 200 mg PO TID Albuterol/Ipratropium 3ml Neb* [DUONEB 0.5-3 MG/3 ml Neb] 3 ml IH Q4H PRN PRN #30 ampul.neb PRN Reason: DIFFICULTY BREATHING Vitamin E (Dl,Tocopheryl Acet) [Vitamin E] 180 mg PO DAILY Fluticasone/Vilanterol [Breo Ellipta 100-25 Mcg INH] 1 puff IH DAILY Cholecalciferol (Vitamin D3) [Vitamin D3] 50 mcg PO DAILY Baclofen 10 mg [Lioresal 10 mg] 10 mg PO DAILY Folic Acid 1 mg [Folate 1 mg] 1 mg PO DAILY Mirabegron [Myrbetriq] 1 tab PO DAILY Instructions: Pneumonia, Adult (DC) Additional Instructions: [facility] HAS ACCEPTED FOR FOLLOW UP CARE AFTER DISCHARGE. THEY WILL CALL YOU FOR YOUR FIRST VISIT, BUT YOU MAY CALL THEM AT [phone] WITH ANY NEEDS. Follow up with: CLAUDIA CERVANTES NP [Primary Care Provider] - Call for Appointment (CALL FOR APPT IN 1 WEEK.) Forms: Discharge Instructions
== END 2021-05-08 13:40 | disposition home health service (06) | DRG 190 ==
LOC: ED 17:00 → MED SURG 20:17
PROVIDERS: ADMIT Family Medicine; ATTEND Family Medicine
DX: J44.1 Chronic obstructive pulmonary disease with (acute) exacerbation (principal); J18.9 Pneumonia, unspecified organism; R09.02 Hypoxemia; Z79.899 Other long term (current) drug therapy; Z72.0 Tobacco use; Z20.828 Contact with and (suspected) exposure to other viral communicable diseases
CPT/HCPCS: 0241U; 36000; 36415; 36600; 71045; 71260; 80048; 80053; 81001; 82375; 82803; 82947; 83605; 83735; 83880; 84484; 85025; 85027; 85379; 85610; 87040; 87077; 87086; 87186; 87400; 93005; 94640; 94667; 94762; 96360; 99000; 99285; J0456; J0696; J1956; J2405; A9270-GY

== ENCOUNTER 2021-09-21 10:29 | Emergency (ER) | payer MEDICARE ==
[2021-09-21] MEDS ORDERED: DUONEB 0.5-3 MG/3 ml Neb IH ONE ×3 (10:57→11:53)
[2021-09-21] MEDS ORDERED: PULMICORT 0.5 MG/2 ML RESPULES IH ONE ×2 (10:59→11:41)
--- NOTE | 2021-09-21 11:23 | ERPHSYRPT ---
- History of Present Illness Time Seen by Provider: 09/21/21 11:21 Source: patient Patient Subjective Stated Complaint: Pt became short of breath yesterday but did not do a breathing treatment today Triage Nursing Assessment: Pt brought self to the ER, hypertensive, denies pain, pulses normal, skin n/w/d, smokes, no edema, doesn't appear to be in any distress Physician History: Patient is 65-year-old female came to the emergency room with complaining of worsening shortness of breath for last 2 days. Patient states that her shortness of breath started last Thursday and she thought it will get better but it got worse in last 2 days and today she could not breathe so she came to the emergency room. She was tachypneic when she came to the emergency room although she walked into the emergency room and got into the room by herself. She has a long history of COPD and rheumatoid arthritis. She is using nebulizer treatment but she has not been using it yesterday and today. She denies any fever chills nausea vomiting diarrhea chest pain headache. Timing/Duration: day(s) (5 days), worse Activities at Onset: none Severity of Dyspnea-Max: moderate Severity of Dyspnea-Current: moderate Possible Cause: frequent episodes Modifying Factors: Improves With: activity, exertion Associated Symptoms: denies symptoms Allergies/Adverse Reactions: codeine Allergy (Mild, Verified 09/21/21 10:48) Swelling SWELLING AND VOMITTING methylprednisolone [From Medrol] Allergy (Mild, Verified 09/21/21 10:48) Swelling Sulfa (Sulfonamide Antibiotics) Allergy (Mild, Verified 09/21/21 10:48) Swelling Home Medications: Atorvastatin Calcium 20 mg PO HS 10/01/14 [History] Duloxetine HCl 2 tab PO BID 10/01/14 [History] Levothyroxine Sodium 75 Mcg [Synthroid 75 Mcg] 1 tab PO DAILY 10/01/14 [History] Pregabalin [Lyrica] 200 mg PO TID 10/01/14 [History] Baclofen 10 mg [Lioresal 10 mg] 10 mg PO DAILY 05/05/21 [History] Cholecalciferol (Vitamin D3) [Vitamin D3] 50 mcg PO DAILY 05/05/21 [History] Fluticasone/Vilanterol [Breo Ellipta 100-25 Mcg INH] 1 puff IH DAILY 05/05/21 [History] Folic Acid 1 mg [Folate 1 mg] 1 mg PO DAILY 05/05/21 [History] Mirabegron [Myrbetriq] 1 tab PO DAILY 05/05/21 [History] Vitamin E (Dl,Tocopheryl Acet) [Vitamin E] 180 mg PO DAILY 05/05/21 [History] Hx Tetanus, Diphtheria Vaccination/Date Given: Yes (up to date) Hx Influenza Vaccination/Date Given: Yes Hx Pneumococcal Vaccination/Date Given: No Travel Risk - International Travel Have you traveled outside of the country in past 3 weeks: No - Coronavirus Screening Are you exhibiting any of the following symptoms?: No - Vaccine Status Have you recieved a Covid-19 vaccination: Yes [employer]arf [employer]: Moderna - Vaccination Dates Date of 2cond Vaccination (if applicable): unknown Comment: unknown vacination dates - Review of Systems Constitutional: No Fever, No Chills Eyes: No Symptoms Ears, Nose, & Throat: No Symptoms Respiratory: Dyspnea, Dyspnea on Exertion ([place]), Wheezing, No Cough Cardiac: No Chest Pain, No Edema, No Syncope Abdominal/Gastrointestinal: No Abdominal Pain, No Nausea, No Vomiting, No Diarrhea Genitourinary Symptoms: No Dysuria Musculoskeletal: No Back Pain, No Neck Pain Skin: No Rash Neurological: No Dizziness, No Focal Weakness, No Sensory Changes Psychological: No Symptoms Endocrine: No Symptoms All Other Systems: Reviewed and Negative - Past Medical History Pertinent Past Medical History: Yes Neurological History: No Pertinent History ENT History: No Pertinent History Cardiac History: No Pertinent History Respiratory History: Asthma, Bronchitis, COPD, Emphysema, Other Endocrine Medical History: No Pertinent History Musculoskeletal History: Degenerative Disk Disease, Fibromyalgia, Rheumatoid Arthritis, Other GI Medical History: GERD History: No Pertinent History Psycho-Social History: Anxiety, Depression Female Reproductive Disorders: No Pertinent History Other Medical History: lupus, - Past Surgical History Past Surgical History: Yes Neuro Surgical History: No Pertinent History Cardiac: No Pertinent History Respiratory: No Pertinent History Gastrointestinal: Cholecystectomy, Hernia Repair Female Surgical History: Tubal Ligation Other Surgical History: bilat carpal tunnel, left ovarian cyst removed,bilat cataract,. tonsillectomy as a child - Social History Smoking Status: Current every day smoker How long have you smoked: 45 Exposure to second hand smoke: Yes Drug Use: none Patient Lives Alone: No - Nursing Vital Signs Nursing Vital Signs: Initial Vital Signs Pulse Rate 88 09/21/21 10:36 Respiratory Rate 22 09/21/21 10:36 Blood Pressure 170/100 09/21/21 10:36 O2 Sat by Pulse Oximetry 95 09/21/21 10:36 Pain Scale Pain Intensity 0 - Physical Exam General Appearance: no apparent distress, alert Eye Exam: PERRL/EOMI Neck Exam: normal inspection, supple Respiratory Exam: diminished breath sounds, accessory muscle use, rhonchi, wheezing Cardiovascular/Chest Exam: normal heart sounds, regular rate/rhythm Abdominal/Gastrointestinal Exam: soft, No tenderness, No distention, No mass Extremity Exam: non-tender, normal range of motion, normal inspection, no calf tenderness, no pedal edema Neurologic Exam: alert, oriented x 3, cooperative, camp coordinator II-XII nml as tested, sensation nml, No motor deficits Skin Exam: normal color, warm, No dry SpO2 Interpretation: normal SpO2: 95 O2 Delivery: Room Air - Course Nursing assessment & vital signs reviewed: Yes EKG Interpreted by Me: Sinus Rhythm - Radiology Exams Chest X-ray Interpretation: Reviewed by me Ordered Tests: Active Orders 24 hr Category Date Time Status CHEST 2 VIEWS (PA AND LAT) Stat Exams 09/21/21 10:58 Taken CBC W DIFF Stat Lab 09/21/21 11:21 Completed CMP Stat Lab 09/21/21 11:21 Completed CULTURE,URINE Stat Lab 09/21/21 Received NT PRO BNP Stat Lab 09/21/21 11:21 Completed TROPONIN Stat Lab 09/21/21 11:21 Completed UA W/RFX CULTURE Stat Lab 09/21/21 Completed Respiratory Therapy Assessment DAILY RT 09/21/21 12:03 Completed Medication Summary Discontinued Medications Generic Name Dose Route Start Last Admin Trade Name Freq PRN Reason Stop Dose Admin Albuterol/Ipratropium 3 ml 09/21/21 10:57 09/21/21 11:46 Ipratropium/Albuterol Sulfate 3 Ml Ampul.Neb IH 09/21/21 10:58 3 ml STAT ONE Administration Albuterol/Ipratropium Confirm 09/21/21 11:45 Ipratropium/Albuterol Sulfate 3 Ml Ampul.Neb Administered 09/21/21 11:46 Dose 3 ml IH .STK-MED ONE Albuterol/Ipratropium Confirm 09/21/21 11:53 Ipratropium/Albuterol Sulfate 3 Ml Ampul.Neb Administered 09/21/21 11:54 Dose 3 ml IH .STK-MED ONE Budesonide 0.5 mg 09/21/21 10:59 09/21/21 11:47 Budesonide 0.5 Mg/2 Ml Ampul.Neb. IH 09/21/21 11:00 0.5 mg ONCE ONE Administration Ceftriaxone Sodium/Dextrose 1 g in 50 mls @ 100 mls/hr 09/21/21 12:08 09/21/21 12:21 Rocephin 1 Gm-D5w 50 Ml Bag IV 09/21/21 12:37 100 mls/hr STAT STA 100 mls/hr Administration Ceftriaxone Sodium/Dextrose Confirm 09/21/21 12:18 Rocephin 1 Gm-D5w 50 Ml Bag Administered 09/21/21 12:19 Dose 1 g in 50 mls @ ud IV .STK-MED ONE Lab/Rad Data: Laboratory Result Diagrams 09/21/21 11:21 09/21/21 11:21 Laboratory Results 09/21/21 09/21/21 09/21/21 Range/Units Unknown 11:21 11:21 WBC 15.9 H (4.0-10.5) x10^3/uL RBC 4.61 (4.1-5.4) x10^6/uL Hgb 14.9 (12.0-16.0) g/dL Hct 45.0 (35-47) % MCV 97.6 (78-100) fL MCH 32.3 H (26-32) pg MCHC 33.1 (32-36) g/dL RDW 13.5 (11.5-14.0) % Plt Count 266 (150-450) x10^3/uL MPV 10.0 (7.5-11.0) fL Gran % 67.3 H (36.0-66.0) % Immature Gran % (Auto) 0.5 H (0.00-0.4) % Nucleat RBC Rel Count 0.0 (0.00-0.1) % Eos # (Auto) 0.09 (0-0.5) x10^3/uL Immature Gran # (Auto) 0.08 H (0.00-0.03) x10^3u/L Absolute Lymphs (auto) 3.27 (1.0-4.6) x10^3/uL Absolute Monos (auto) 1.70 H (0.0-1.3) x10^3/uL Absolute Nucleated RBC 0.00 (0.00-0.01) x10^3u/L Lymphocytes % 20.5 L (24.0-44.0) % Monocytes % 10.7 (0.0-12.0) % Eosinophils % 0.6 (0.00-5.0) % Basophils % 0.4 (0.0-0.4) % Absolute Granulocytes 10.72 H (1.4-6.9) x10^3/uL Basophils # 0.06 (0-0.4) x10^3/uL Sodium 137 (137-145) mmol/L Potassium 3.4 L (3.5-5.1) mmol/L Chloride 96 L (98-107) mmol/L Carbon Dioxide 32 H (22-30) mmol/L Anion Gap 12.7 (5-15) MEQ/L BUN 5 L (7-17) mg/dL Creatinine 0.56 (0.52-1.04) mg/dL Estimated GFR > 60.0 ML/MIN Glucose 124 H (74-106) mg/dL Calcium 9.7 (8.4-10.2) mg/dL Total Bilirubin 1.00 (0.2-1.3) mg/dL AST 37 H (14-36) U/L ALT 46 H (0-35) U/L Alkaline Phosphatase 103 (38-126) U/L Troponin I < 0.012 (0.000-0.034) ng/mL NT-Pro-B Natriuret Pep 308 (0-900) pg/mL Serum Total Protein 8.4 H (6.3-8.2) g/dL Albumin 4.5 (3.5-5.0) g/dL Urinalys Dipstick Clnc MAIN LAB Urine Color YELLOW (YELLOW) Urine Appearance SLIGHTLY CLOUDY (CLEAR) Urine pH 5.5 (5-6) Ur Specific [place] 1.025 (1.005-1.025) POC Urine Protein Conf 100 (Negative) Urine Ketones SMALL-15 (NEGATIVE) Urine Nitrite POSITIVE (NEGATIVE) Urine Bilirubin MODERATE (NEGATIVE) Urine Urobilinogen 0.2 (0-1) mg/dL Urine Leukocytes SMALL (NEGATIVE) Urine WBC (Auto) 26-50 (0-5) /HPF Urine RBC (Auto) 3-5 (0-2) /HPF U Epithel Cells (Auto) FEW (FEW) /HPF Urine Bacteria (Auto) MODERATE (NEGATIVE) /HPF Urine RBC NEGATIVE (0-5) Serg/ul Urine Mucus (Auto) SLIGHT (NEGATIVE) /HPF Ur Culture Indicated? YES Urine Glucose NEGATIVE (NEGATIVE) mg/dL - Progress Progress: improved, re-examined Air Movement: good Blood Culture(s) Obtained: No Antibiotics given: Yes Counseled pt/family regarding: lab results, diagnosis, need for follow-up, rad results, smoking cessation - Departure Departure Disposition: Home Clinical Impression: COPD exacerbation, UTI (urinary tract infection) due to Enterococcus Condition: Stable Critical Care Time: Yes Critical Care Time(excluding separately billable procedures): Critical 30-74 mins Referrals: CLAUDIA CERVANTES NP [Primary Care Provider] - Follow up/PCP as directed Instructions: Chronic Obstructive Pulmonary Disease, Exacerbation of COPD (DC), Shortness of Breath (Dyspnea) (DC), Urinary Tract Infection, Adult (DC) Additional Instructions: Discharge/Care Plan JOSEFINA YOUNGER was seen on 09/21/21 in the Emergency Room. The patient was counseled regarding Diagnosis,Lab results, Imaging studies, need for follow up and when to return to the Emergency Room. Prescriptions given: Discharge Note I have spoken with the patient and/or caregivers. I have explained the patient's condition, diagnosis and treatment plan based on the information available to me at this time. I have answered the patient's and/or caregiver's questions and addressed any concerns. The patient and/or caregivers have as good understanding of the patient's diagnosis, condition and treatment plan as can be expected at this point. The vital signs have been stable. The patient's condition is stable and appropriate for discharge from the emergency department. The patient will pursue further outpatient evaluation with the primary care physician or other designated or consulting physician as outlined in the discharge instructions. The patient and/or caregivers are agreeable to this plan of care and follow-up instructions have been explained in detail. The patient and/or caregivers have received these instruction. The patient/and or caregivers are aware that any significant change in condition or worsening of symptoms should prompt an immediate return to this or the closest emergency department or call 911. JOSEFINA YOUNGER was seen on 09/21/21 n the Emergency Room. At that time you were treated for an emergent condition, during your visit Laboratory, Radiology and /or other procedures may have been ordered. It is very important that you follow-up with your Primary Care Physician CLAUDIA CERVANTES within the next 24-48 hours to review your Emergency Room visit and the final results of testing that was ordered. Some test results such as Urine Cultures, Blood Cultures, and other cultures if ordered will not be finalized for 24-48 hours. If you do not have a Primary Care Provider please call the medical records d epartment at [phone] ext [phone] to obtain a copy of your results or you may sign into our patient portal to obtain these results by visiting us @ [email or web address] and completing the following steps: 1. Click on the Patient Portal link 2. Click the Patient Self Enrollment Link to complete the enrollment form and entering your 3. Once the enrollment form is completed you will receive an email with a temporary ID and password at the email address you provided. 4. Next choose a user name and password. Your user name must be at least 4 characters long and your password must be at least 4 characters long. 5. Choose a security question from the list and provide your answer to the question. If you already have signed into the Health Portal you may access your Health Care Information 03/11 by the following steps: 1. Login to our website @ [email or web address] 2. Enter your original user name and password. FAQS The [facility] Portal is an online tool that contains your Lab Results, Radiology Reports, Visit History, Discharge Instructions and Health Summary Lab and Radiology Results will not be available for 72 hours on the portal. The Portal is a secure site, passwords are encryted and URLs are re-written so they cannot be copied and pasted. You and authorized family members are the only ones who can access your Portal. Also there is a timeout feature that protects your information if you leave the Portal page open. If you have technical difficulty please use the Contact Us link on the page this will allow you to submit any questions you have regarding the Portal or you may contact the Medical Record Department at [phone] ext [phone]. Continue using nebulizer treatment at home every 6 hours. Please try to quit smoking VLADIMIR as it is affecting your lungs more and more. Follow-up with your primary care physician in next 2 to 3 days. Prescriptions: Levofloxacin [Levaquin 500 MG Tablet] 500 mg PO QAM #7 tablet
[2021-09-21 11:24] LABS: Absolute Neutrophil Ct (ANC) 10.72 x10^3/uL (1.4-6.9); Basophil (Absolute #) 0.06 x10^3/uL (0-0.4); Eosinophil % 0.6 % (0.00-5.0); Eosinophil (Absolute #) 0.09 x10^3/uL (0-0.5); Hemoglobin 14.9 g/dL (12.0-16.0); Lymphocyte (Absolute #) 3.27 x10^3/uL (1.0-4.6); Lymphocytes % 20.5 % (24.0-44.0); Mean Cell Volume 97.6 fL (78-100); Mean Corpuscular Hemoglobin 32.3 pg (26-32); Mean Corpuscular Hgb Concent. 33.1 g/dL (32-36); Monocytes % 10.7 % (0.0-12.0); Neutrophil % 67.3 % (36.0-66.0); Platelet Count 266 x10^3/uL (150-450); Red Blood Count 4.61 x10^6/uL (4.1-5.4); Red Cell Distribution Width 13.5 % (11.5-14.0); White Blood Count 15.9 x10^3/uL (4.0-10.5)
[2021-09-21 11:44] VITALS: BP 168/88
[2021-09-21 11:44] LABS: ALBUMIN 4.5 g/dL (3.5-5.0); ALKALINE PHOSPHATASE 103 U/L (38-126); ANION GAP 12.7 MEQ/L (5-15); BLOOD UREA NITROGEN 5 mg/dL (7-17); CHLORIDE 96 mmol/L (98-107); Calcium 9.7 mg/dL (8.4-10.2); Carbon Dioxide 32 mmol/L (22-30); Creatinine 1 0.56 mg/dL (0.52-1.04); EST GLOMERULAR FILTRATION RATE > 60.0 ML/MIN; Glucose 124 mg/dL (74-106); NT PRO BNP 308 pg/mL (0-900); Potassium 3.4 mmol/L (3.5-5.1); SGOT/AST 37 U/L (14-36); SGPT/ALT 46 U/L (0-35); SODIUM 137 mmol/L (137-145); TROPONIN < 0.012 ng/mL (0.000-0.034); Total Protein 8.4 g/dL (6.3-8.2)
[2021-09-21 12:00] LABS: Appearance SLIGHTLY CLOUDY (CLEAR); Bacteria MODERATE /HPF (NEGATIVE); Bilirubin MODERATE (NEGATIVE); Epithelial Cells FEW /HPF (FEW); Glucose NEGATIVE (NEGATIVE); Ketones SMALL-15 (NEGATIVE); Mucus SLIGHT /HPF (NEGATIVE); WBC 26-50 /HPF (0-5)
[2021-09-21 12:01] LABS: Dipstick done @ ? MAIN LAB; Nitrite POSITIVE (NEGATIVE); Ph 5.5 (5-6); Protein,Urine Dip 100 (Negative); RBC NEGATIVE Ery/ul (0-5); Specific Gravity 1.025 (1.005-1.025); Urine Cultured Indicated? YES; Urobilinogen 0.2 mg/dL (0-1)
[2021-09-21] MEDS ORDERED: ROCEPHIN 1 Gm-D5w 50 ml Bag** 1 G/50 ML IVPB IV STA (12:08)
[2021-09-21] MEDS ORDERED: ROCEPHIN 1 Gm-D5w 50 ml Bag** 1 G/50 ML IVPB IV ONE (12:18)
[2021-09-21 12:55] VITALS: PULSE 66
[2021-09-21 12:57] VITALS: O2SAT 95
[2021-09-21 14:32] LABS: Slide Review 1 YES
--- NOTE | 2021-09-21 19:36 | XRAY ---
Indication: Cough and short of breath. COPD. Comparison: May 05, 2021. PA/lateral chest demonstrates clearing previous left lung airspace disease with now minimal residual and left base pleural tenting. Remaining heart and right lung unremarkable. Bony thorax intact again with osteopenia.
== END 2021-09-21 13:07 | disposition home or self-care (01) ==
LOC: ED 10:29
DX: J44.1 Chronic obstructive pulmonary disease with (acute) exacerbation (principal); N39.0 Urinary tract infection, site not specified; B95.2 Enterococcus as the cause of diseases classified elsewhere; R06.02 Shortness of breath; Z72.0 Tobacco use; Z79.899 Other long term (current) drug therapy
CPT/HCPCS: 36000; 36415; 71046; 80053; 81015; 83880; 84484; 85025; 87077; 87086; 87186; 94640; 96365; 99284; J0696; A9270-GY

== ENCOUNTER 2021-12-13 11:12 | Emergency (ER) | payer MEDICARE ==
[2021-12-13 11:33] VITALS: BP 172/98
[2021-12-13] MEDS ORDERED: MORPHINE SULFATE 4 MG INJ IM ONE (12:05)
--- NOTE | 2021-12-13 12:13 | XRAY ---
Indication: Pain and swelling following fall. Comparison: None 3 view left wrist demonstrates tiny cortical fracture triquetrium best seen oblique view with soft tissue swelling. Elsewhere osteopenia, mild/moderate 1st metacarpal multangular scaphoid degenerative changes, ulnar carpal degenerative chondrocalcinosis, and tiny hamate heterotopic ossification presumed degenerative versus old injury.
[2021-12-13] MEDS ORDERED: MORPHINE SULFATE 4 MG INJ ONE (12:29)
--- NOTE | 2021-12-13 12:42 | ERPHSYRPT ---
- History of Present Illness Time Seen by Provider: 12/13/21 12:05 Source: patient Exam Limitations: no limitations Patient Subjective Stated Complaint: pt fell backwards yesterday and tried to catch self with her left hand and injured her left wrist/hand with deformity Triage Nursing Assessment: Pt brought to the ER by her , hypertensive, rates pain as 8/10, left wrist swollen and disfigured, pulses normal, cap refill normal, no other c/o at this time Physician History: 66-year-old female presented in the ER with chief complaint of left wrist pain after she fell backward yesterday and tried to catch self with outstretched hand. Patient reports moderate to severe sharp pain with movements at rest and partial relief with ice and being still. Has pain with movements of fingers but no tingling or numbness. Did not hit her head, no loss of consciousness. Has swelling more on the medial aspect of the wrist. Occurred: yesterday Method of Injury: fell Quality: sharpness Severity of Pain-Max: severe Severity of Pain-Current: moderate Extremities Pain Location: wrist: left, hand: left Modifying Factors: Improves With: immobilization. Worsens With: movement Associated Symptoms: none Allergies/Adverse Reactions: codeine Allergy (Mild, Verified 09/21/21 10:48) Swelling SWELLING AND VOMITTING methylprednisolone [From Medrol] Allergy (Mild, Verified 09/21/21 10:48) Swelling Sulfa (Sulfonamide Antibiotics) Allergy (Mild, Verified 12/13/21 11:33) Swelling Home Medications: Atorvastatin Calcium 20 mg PO HS 10/01/14 [History] Duloxetine HCl 2 tab PO BID 10/01/14 [History] Levothyroxine Sodium 75 Mcg [Synthroid 75 Mcg] 1 tab PO DAILY 10/01/14 [History] Pregabalin [Lyrica] 200 mg PO TID 10/01/14 [History] Baclofen 10 mg [Lioresal 10 mg] 10 mg PO DAILY 05/05/21 [History] Cholecalciferol (Vitamin D3) [Vitamin D3] 50 mcg PO DAILY 05/05/21 [History] Fluticasone/Vilanterol [Breo Ellipta 100-25 Mcg INH] 1 puff IH DAILY 05/05/21 [History] Folic Acid 1 mg [Folate 1 mg] 1 mg PO DAILY 05/05/21 [History] Mirabegron [Myrbetriq] 1 tab PO DAILY 05/05/21 [History] Vitamin E (Dl,Tocopheryl Acet) [Vitamin E] 180 mg PO DAILY 05/05/21 [History] Amlodipine Besylate 10 mg PO DAILY 12/13/21 [History] Aripiprazole 10 mg [Abilify 10 MG] 10 mg PO DAILY 12/13/21 [History] PANTOPRAZOLE 40 mg Tablet [Protonix 40MG Tablet] 40 mg PO QAM 12/13/21 [History] Hx Tetanus, Diphtheria Vaccination/Date Given: No Hx Influenza Vaccination/Date Given: Yes Hx Pneumococcal Vaccination/Date Given: No Travel Risk - International Travel Have you traveled outside of the country in past 3 weeks: No - Coronavirus Screening Are you exhibiting any of the following symptoms?: No - Vaccine Status Have you recieved a Covid-19 vaccination: Yes Therapy Assistant: [employer] - Vaccination Dates Date of 2cond Vaccination (if applicable): unknown Comment: unknown vacination dates - Review of Systems Constitutional: No Symptoms Eyes: No Symptoms Ears, Nose, & Throat: No Symptoms Respiratory: No Symptoms Cardiac: No Symptoms Abdominal/Gastrointestinal: No Symptoms Genitourinary Symptoms: No Symptoms Musculoskeletal: Fall, Injury, Joint Pain, Joint Swelling Neurological: No Symptoms Psychological: No Symptoms Endocrine: No Symptoms Hematologic/Lymphatic: No Symptoms Immunological/Allergic: No Symptoms - Past Medical History Pertinent Past Medical History: Yes Neurological History: No Pertinent History ENT History: No Pertinent History Cardiac History: No Pertinent History Respiratory History: Asthma, Bronchitis, COPD, Emphysema, Other Endocrine Medical History: No Pertinent History Musculoskeletal History: Degenerative Disk Disease, Fibromyalgia, Rheumatoid Arthritis, Other GI Medical History: GERD History: No Pertinent History Psycho-Social History: Anxiety, Depression Female Reproductive Disorders: No Pertinent History Other Medical History: lupus, - Past Surgical History Past Surgical History: Yes Neuro Surgical History: No Pertinent History Cardiac: No Pertinent History Respiratory: No Pertinent History Gastrointestinal: Cholecystectomy, Hernia Repair Female Surgical History: Tubal Ligation Other Surgical History: bilat carpal tunnel, left ovarian cyst removed,bilat cataract,. tonsillectomy as a child - Social History Smoking Status: Current every day smoker How long have you smoked: 45 Exposure to second hand smoke: Yes Drug Use: none, marijuana Patient Lives Alone: No - Nursing Vital Signs Nursing Vital Signs: Initial Vital Signs Temperature 96.9 F 12/13/21 11:18 Blood Pressure 172/98 12/13/21 11:18 Pain Scale Pain Intensity 8 - Physical Exam General Appearance: no apparent distress, alert Eyes, Ears, Nose, Throat Exam: normal ENT inspection, pharynx normal Neck Exam: normal inspection, non-tender, supple, full range of motion Cardiovascular/Respiratory Exam: chest non-tender, normal breath sounds, regular rate/rhythm Abdominal Exam: non-tender, soft Back Exam: normal inspection, normal range of motion Shoulder Exam: normal inspection, non-tender Elbow/Forearm Exam: normal inspection, non-tender, no evidence of injury, normal ROM Wrist Exam: bone tenderness, limited ROM (Left wrist with swelling, tenderness specially on the medial aspect. Also having soft tissue swelling on medial aspect), pain, soft tissue tenderness, swelling Hand Exam: normal inspection Neuro/Tendon Exam: normal sensation, normal motor functions Mental Status Exam: alert, oriented x 3, cooperative Skin Exam: normal color SpO2 Interpretation: normal SpO2: 96 O2 Delivery: Room Air Ordered Tests: Active Orders 24 hr Category Date Time Status Cold Application STAT Care 12/13/21 11:25 Active WRIST (MIN 3 VIEWS) Stat Exams 12/13/21 11:24 Completed Medication Summary Discontinued Medications Generic Name Dose Route Start Last Admin Trade Name Courtney PRN Reason Stop Dose Admin Morphine Sulfate 4 mg 12/13/21 12:05 Morphine Sulfate 4 Mg/Ml Injection IM 12/13/21 12:06 STAT ONE - Progress Progress: improved, pain not gone completely, re-examined Progress Note: 12/13/21 12:28 She is given symptomatic treatment for pain. She has a fracture triquetral with adjacent soft tissue swelling. Placed in a posterior splint Ortho-Glass by RN. Intact distal neurovascular before and after splint placement. Recommended outpatient Ortho/hand surgery follow-up. Discussed signs symptoms of worsening needing return to ER which he seems understanding. Counseled pt/family regarding: diagnosis, need for follow-up, rad results - Departure Departure Disposition: Home Clinical Impression: Hand fracture, left, Fall Condition: Stable Critical Care Time: No Referrals: CLAUDIA CERVANTES NP [Primary Care Provider] - Follow up/PCP as directed EAGLE HOPPER MD [NON-STAFF PHY W/O PRIVILEGES] - Follow up/PCP as directed (Call for appointment for reevaluation) ORTHO - SHREYA SKELTON NP [NON-STAFF PHY W/O PRIVILEGES] - Follow up/PCP as directed (In 3 days for reevaluation) Instructions: Hand Fracture (DC), Common Wrist Injuries (DC) Additional Instructions: Take pain medications as needed. Follow-up with hand surgery/Ortho for reevaluation. Intermittent ice application, keep it elevated. Return to ER for worsening pain swelling, difficulty movements of fingers etc. Prescriptions: Hydrocodone/Acetaminophen [Hydrocodone-Acetamin 5-325 mg] 1 tab PO Q6HPRN PRN 3 Days #12 tablet MDD 4 PRN Reason: Pain
[2021-12-13 12:52] VITALS: PULSE 69; O2SAT 95
== END 2021-12-13 12:58 | disposition home or self-care (01) ==
LOC: ED 11:12
DX: S62.112A Displaced fracture of triquetrum [cuneiform] bone, left wrist, initial encounter for closed fracture (principal); W19.XXXA Unspecified fall, initial encounter; M25.532 Pain in left wrist; J43.9 Emphysema, unspecified; Z72.0 Tobacco use; Z79.899 Other long term (current) drug therapy; Z79.891 Long term (current) use of opiate analgesic
CPT/HCPCS: 29125; 73110; 96372; 99283; J2270

== ENCOUNTER 2023-03-17 13:53 | Observation (INO) | payer MEDICARE ==
[2023-03-17] MEDS ORDERED: solu-MEDROL 125 MG, Sterile H2O 10 ml 2 ML IV ONE ×2 (14:50)
--- NOTE | 2023-03-17 14:50 | ERPHSYRPT ---
- History of Present Illness Time Seen by Provider: 03/17/23 14:47 Source: patient Exam Limitations: no limitations Patient Subjective Stated Complaint: pt states that she has been sick for the past couple weeks. pt states that she is on her second z-ralph. pt states that she is more short of breath Triage Nursing Assessment: pt ambulated into the er; pt is axo x4; c/o SOB; pt states her chest feels full; expiratory wheezing in all lobes; clear apical heart tone; moist, hacking cough; hypoxia on arrival; O2 88% on arrival, pt placed on 3L via NC; hypertensive; tachypnea Physician History: Patient is a 67-year-old female history of COPD current smoker who presents to our ED for evaluation of shortness of breath and cough. Patient states she has been experiencing the symptoms for 2 weeks. Patient tested negative for COVID shortly after onset of symptoms approximately 2 weeks ago. Patient states she requires oxygen at home however apparently has not been applying the supplemental oxygen. Upon arrival to our ED patient's saturation on room air was 88%. Patient states she also completed 2 courses of antibiotics. Patient reports being on Z-Ralph's. Patient has had no significant improvement. Symptoms have been progressive. Symptoms are moderate in intensity. No specific worsening improving factors. No associated nausea vomiting or diaphoresis. No chest pain. Family at bedside. Patient voices no other complaints or concerns at this time. Portions of this note were created with voice recognition technology. There may be grammatical, spelling, punctuation or sound alike errors Timing/Duration: today Activities at Onset: none Severity of Dyspnea-Max: moderate Severity of Dyspnea-Current: mild Possible Cause: occasional episodes Modifying Factors: Improves With: activity Associated Symptoms: cough, No dizziness Allergies/Adverse Reactions: codeine Allergy (Mild, Verified 03/17/23 13:56) Swelling SWELLING AND VOMITTING Sulfa (Sulfonamide Antibiotics) Allergy (Mild, Verified 03/17/23 13:56) Swelling Home Medications: Atorvastatin Calcium 20 mg PO HS 10/01/14 [History] Duloxetine HCl 1 tab PO BID 10/01/14 [History] Levothyroxine Sodium 75 Mcg [Synthroid 75 Mcg] 50 mcg PO DAILY 10/01/14 [History] Baclofen 10 mg [Lioresal 10 mg] 10 mg PO TID 05/05/21 [History] Cholecalciferol (Vitamin D3) [Vitamin D3] 50 mcg PO DAILY 05/05/21 [History] Fluticasone/Vilanterol [Breo Ellipta 100-25 Mcg Inhalr] 1 puff IH DAILY 05/05/21 [History] Folic Acid 1 mg [Folate 1 mg] 1 mg PO DAILY 05/05/21 [History] Mirabegron [Myrbetriq] 1 tab PO DAILY 05/05/21 [History] Vitamin E (Dl,Tocopheryl Acet) [Vitamin E] 180 mg PO DAILY 05/05/21 [History] Amlodipine Besylate 10 mg PO DAILY 12/13/21 [History] Aripiprazole 10 mg [Abilify 10 MG] 10 mg PO DAILY 12/13/21 [History] PANTOPRAZOLE 40 mg Tablet [Protonix 40MG Tablet] 40 mg PO QAM 12/13/21 [History] Azithromycin [Azithromycin 250 mg Pack] 250 mg PO UD 03/17/23 [History] Prednisone 10 mg [Deltasone 10 mg] 20 mg PO DAILY 03/17/23 [History] Hx Tetanus, Diphtheria Vaccination/Date Given: No Hx Influenza Vaccination/Date Given: No Hx Pneumococcal Vaccination/Date Given: Yes Travel Risk - International Travel Have you traveled outside of the country in past 3 weeks: No - Coronavirus Screening Are you exhibiting any of the following symptoms?: Yes Symptoms: Fever, Cough: New Onset, Shortness of Breath, Headaches/Body Aches/Fatigue Close contact with a COVID-19 positive Pt in past 14-21 Days: No - Vaccine Status Have you recieved a Covid-19 vaccination: Yes Sand Filler: Moderna - Vaccination Dates Date of 2cond Vaccination (if applicable): 2020 - Review of Systems Constitutional: No Symptoms Eyes: No Symptoms Ears, Nose, & Throat: No Symptoms Respiratory: No Symptoms Cardiac: No Symptoms Abdominal/Gastrointestinal: No Symptoms Genitourinary Symptoms: No Symptoms Musculoskeletal: No Symptoms Skin: No Symptoms Neurological: No Symptoms Psychological: No Symptoms Endocrine: No Symptoms Hematologic/Lymphatic: No Symptoms Immunological/Allergic: No Symptoms - Past Medical History Pertinent Past Medical History: Yes Neurological History: No Pertinent History ENT History: No Pertinent History Cardiac History: No Pertinent History Respiratory History: Asthma, Bronchitis, COPD, Emphysema, Other Endocrine Medical History: No Pertinent History Musculoskeletal History: Degenerative Disk Disease, Fibromyalgia, Rheumatoid Arthritis, Other GI Medical History: GERD History: No Pertinent History Psycho-Social History: Anxiety, Depression Female Reproductive Disorders: No Pertinent History Other Medical History: lupus, - Past Surgical History Past Surgical History: Yes Neuro Surgical History: No Pertinent History Cardiac: No Pertinent History Respiratory: No Pertinent History Gastrointestinal: Cholecystectomy, Hernia Repair Genitourinary: No Pertinent History Female Surgical History: Tubal Ligation Other Surgical History: bilat carpal tunnel, left ovarian cyst removed,bilat cataract,. tonsillectomy as a child - Social History Smoking Status: Current every day smoker How long have you smoked: 45 Exposure to second hand smoke: Yes Drug Use: marijuana Patient Lives Alone: No - Nursing Vital Signs Nursing Vital Signs: Initial Vital Signs Temperature 98.1 F 03/17/23 13:53 Pulse Rate 90 03/17/23 13:53 Respiratory Rate 25 H 03/17/23 13:53 Blood Pressure 153/97 03/17/23 13:53 O2 Sat by Pulse Oximetry 88 L 03/17/23 13:53 Pain Scale Pain Intensity 0 - Physical Exam General Appearance: no apparent distress, alert, other (Intact oxygen nasal cannula) Eye Exam: PERRL/EOMI, eyes nml inspection Ears, Nose, Throat Exam: hearing grossly normal, normal ENT inspection, normal pharynx Neck Exam: normal inspection, supple Respiratory Exam: airway intact, diminished breath sounds, crackles/rales, wheezing, No respiratory distress Cardiovascular/Chest Exam: normal heart sounds, regular rate/rhythm Abdominal/Gastrointestinal Exam: soft, No tenderness, No distention, No mass Extremity Exam: non-tender, normal range of motion, normal inspection, no calf tenderness, no pedal edema Neurologic Exam: alert, oriented x 3, cooperative, file drawer finisher II-XII nml as tested, sensation nml, No motor deficits Skin Exam: normal color, warm, No dry Lymphatic Exam: No adenopathy SpO2 Interpretation: normal SpO2: 94 O2 Delivery: Room Air - Course Nursing assessment & vital signs reviewed: Yes EKG Interpreted by Me: RATE ([id number]), Sinus Rhythm, NORMAL AXIS, NORMAL INTERVALS Ordered Tests: Active Orders 24 hr Category Date Time Status Procedures Rn STAT Care 03/17/23 14:26 Active EKG-ER Only STAT Care 03/17/23 14:26 Active IV Insertion STAT Care 03/17/23 14:26 Active Pulse Oximetry (ED) STAT Care 03/17/23 14:26 Active Telemetry q6h Care 03/17/23 15:59 Active BLOOD CULTURE Stat Lab 03/17/23 14:52 Received CBC W DIFF Stat Lab 03/17/23 14:43 Completed CMP Stat Lab 03/17/23 14:43 Completed D-DIMER QUANTITATIVE Stat Lab 03/17/23 14:43 Completed NT PRO BNPII Stat Lab 03/17/23 14:43 Completed PROTIME WITH INR Stat Lab 03/17/23 14:43 Completed PTT Stat Lab 03/17/23 14:43 Completed TROPONIN Q4H Lab 03/17/23 14:43 Completed TROPONIN Q4H Lab 03/17/23 18:10 Completed TROPONIN Q4H Lab 03/17/23 22:50 Completed Respiratory Therapy Assessment DAILY RT 03/17/23 15:15 Active Medication Summary Generic Name Dose Route Start Last Admin Trade Name Freq PRN Reason Stop Dose Admin Albuterol Sulfate 2.5 mg 03/17/23 17:48 Albuterol Sulfate 2.5 Mg/3 Ml [facility] 04/16/23 17:47 Q2H PRN PRN SHORTNESS OF BREATH/WHEEZING Albuterol/Ipratropium 3 ml 03/17/23 19:00 03/17/23 19:17 Ipratropium/Albuterol Sulfate 3 Ml Ampul.[facility] 04/16/23 18:59 3 ml QIDRT CANDY Administration Albuterol/Ipratropium 3 ml 03/17/23 18:42 Ipratropium/Albuterol Sulfate 3 Ml Ampul.[facility] 04/16/23 18:41 Q4H PRN PRN DIFFICULTY BREATHING Aripiprazole 10 mg 03/18/23 10:00 Aripiprazole 10 Mg Tablet PO 04/17/23 09:59 DAILY CANDY Baclofen 10 mg 03/17/23 22:00 03/17/23 20:34 Baclofen 10 Mg Tablet PO 04/16/23 21:59 10 mg TID CANDY Administration Methylprednisolone Sodium 0 mg 03/17/23 22:00 03/17/23 20:31 Succinate 40 mg/ Sterile Water IV 04/16/23 21:59 40 mg 1 ml Q8HT CANDY Administration Duloxetine HCl 60 mg 03/17/23 22:00 03/17/23 20:39 Duloxetine Hcl 30 Mg Cap PO 04/16/23 21:59 60 mg BID CANDY Administration Enoxaparin Sodium 40 mg 03/18/23 10:00 Enoxaparin Sodium 40 Mg/0.4 Ml Syringe SQ 04/17/23 09:59 DAILY CANDY Folic Acid 1 mg 03/18/23 10:00 Folic Acid 1 Mg Tablet PO 04/17/23 09:59 DAILY CANDY Sodium Chloride 1,000 mls @ 100 mls/hr 03/17/23 16:15 03/17/23 16:12 Sodium Chloride 0.9% 1000 Ml IV 04/16/23 16:14 100 mls/hr .Q10H CANDY Administration Ceftriaxone Sodium/Dextrose 1 g in 50 mls @ 100 mls/hr 03/18/23 10:00 Rocephin 1 Gm-D5w 50 Ml Bag IV 03/21/23 09:59 Q24H10 CANDY Azithromycin 500 mg in 250 mls @ 250 mls/hr 03/18/23 10:00 Zithromax 500 Mg/ 250 Ml Nacl Premix IV 04/17/23 09:59 Q24H10 CANDY Potassium Chloride 20 meq in 100 mls @ 50 mls/hr 03/17/23 19:00 03/18/23 01:39 Potassium Chloride 20 Meq In Water 100ml IV 03/17/23 22:59 Not Given Q2H CANDY Levothyroxine Sodium 50 mcg 03/18/23 10:00 Levothyroxine Sodium 75 Mcg Tablet PO 04/17/23 09:59 DAILY CANDY Nicotine 14 mg 03/17/23 18:45 03/17/23 20:35 Nicotine 14 Mg/Patch Patch TOP 04/16/23 18:44 Not Given Q24H CANDY Non-Formulary Medication 10 mg 03/18/23 10:00 Amlodipine Besylate [Amlodipine Besylate] PO 04/17/23 09:59 DAILY CANDY Non-Formulary Medication 1 puff 03/18/23 10:00 Fluticasone/Vilanterol [Breo Ellipta 100-25 Mcg Inhalr] IH 04/17/23 09:59 DAILY CANDY Non-Formulary Medication 1 tab 03/18/23 10:00 Mirabegron [Myrbetriq] PO 04/17/23 09:59 DAILY CANDY Non-Formulary Medication 50 mcg 03/18/23 10:00 Cholecalciferol (Vitamin D3) [Vitamin D3] PO 04/17/23 09:59 DAILY CANDY Pantoprazole Sodium 40 mg 03/18/23 10:00 Protonix (Pantoprazole) 40 Mg Tablet PO 04/17/23 09:59 QAM CANDY Patient Own Medication 1 each 03/18/23 10:00 Patient Own Med Misc 04/17/23 09:59 DAILY CANDY Simvastatin 20 mg 03/17/23 22:00 03/17/23 20:40 Simvastatin 20 Mg Tablet PO 04/16/23 21:59 20 mg HS CANDY Administration Discontinued Medications Generic Name Dose Route Start Last Admin Trade Name Freq PRN Reason Stop Dose Admin Albuterol/Ipratropium 3 ml 03/17/23 14:51 03/17/23 15:12 Ipratropium/Albuterol Sulfate 3 Ml Ampul.Neb IH 03/17/23 14:52 3 ml STAT ONE Administration Albuterol/Ipratropium Confirm 03/17/23 15:11 Ipratropium/Albuterol Sulfate 3 Ml Ampul.Neb Administered 03/17/23 15:12 Dose 3 ml IH .STK-MED ONE Methylprednisolone Sodium 0 mg 03/17/23 14:50 03/17/23 14:52 Succinate 125 mg/ Sterile IV 03/17/23 14:51 125 mg Water 2 ml STAT ONE Administration Duloxetine HCl Confirm 03/17/23 20:12 Duloxetine Hcl 30 Mg Cap Administered 03/17/23 20:13 Dose 60 mg .ROUTE .STK-MED ONE Magnesium Sulfate/Dextrose 100 mls @ 100 mls/hr 03/17/23 16:00 03/17/23 16:44 Magnesium 1 Gm / 100 Ml D5w IV 03/17/23 17:59 100 mls/hr Q1H CANDY Administration Potassium Chloride 20 meq in 100 mls @ 50 mls/hr 03/17/23 16:00 03/17/23 19:56 Potassium Chloride 20 Meq In Water 100ml IV 03/17/23 19:59 50 mls/hr Q2H CANDY Administration Ceftriaxone Sodium/Dextrose 2 g in 50 mls @ 100 mls/hr 03/17/23 15:59 03/17/23 16:28 Rocephin 2 Gm-D5w 50ml Bag IV 03/17/23 16:28 100 mls/hr STAT STA 100 mls/hr Administration Azithromycin 500 mg in 250 mls @ 250 mls/hr 03/17/23 15:59 03/17/23 17:42 Zithromax 500 Mg/ 250 Ml Nacl Premix IV 03/17/23 16:58 250 mls/hr STAT STA Administration Sodium Chloride Confirm 03/17/23 16:01 Sodium Chloride 0.9% 1000 Ml Administered 03/17/23 16:02 Dose 1,000 mls @ ud .ROUTE .STK-MED ONE Ceftriaxone Sodium/Dextrose Confirm 03/17/23 16:26 Rocephin 2 Gm-D5w 50ml Bag Administered 03/17/23 16:27 Dose 2 g in 50 mls @ ud IV .STK-MED ONE Methylprednisolone Sodium Succinate Confirm 03/17/23 14:51 Methylprednis Sod Succ 125 Mg/2 Ml Vial Administered 03/17/23 14:52 Dose 125 mg .ROUTE .STK-MED ONE Methylprednisolone Sodium Succinate Confirm 03/17/23 20:12 Methylprednisolone Sod Suc 40m 40 Mg/Ml Vial Administered 03/17/23 20:13 Dose 40 mg .ROUTE .STK-MED ONE Non-Formulary Medication 20 mg 03/17/23 22:00 Atorvastatin Calcium [Atorvastatin Calcium] PO 04/16/23 21:59 HS [facility] Non-Formulary Medication 1 tab 03/17/23 22:00 Duloxetine Hcl [Duloxetine Hcl] PO 04/16/23 21:59 BID CANDY Simvastatin Confirm 03/17/23 20:13 Simvastatin 20 Mg Tablet Administered 03/17/23 20:14 Dose 20 mg .ROUTE .STK-MED ONE Sterile Water Confirm 03/17/23 14:51 Water For Injection,Sterile 10 Ml Vial Administered 03/17/23 14:52 Dose 10 ml IJ .STK-MED ONE Sterile Water Confirm 03/17/23 20:14 Water For Injection,Sterile 10 Ml Vial Administered 03/17/23 20:15 Dose 10 ml IJ .STK-MED ONE Lab/Rad Data: Laboratory Result Diagrams 03/17/23 14:43 03/17/23 14:43 Laboratory Results 03/17/23 03/17/23 03/17/23 Range/Units 14:43 14:43 14:43 WBC (4.0-10.5) x10^3/uL RBC (4.1-5.4) x10^6/uL Hgb (12.0-16.0) g/dL Hct (35-47) % MCV (78-100) fL MCH (26-32) pg MCHC (32-36) g/dL RDW (11.5-14.0) % Plt Count (150-450) x10^3/uL MPV (7.5-11.0) fL Gran % (36.0-66.0) % Immature Gran % (Auto) (0.00-0.4) % Nucleat RBC Rel Count (0.00-0.1) % Eos # (Auto) (0-0.5) x10^3/uL Immature Gran # (Auto) (0.00-0.03) x10^3u/L Absolute Lymphs (auto) (1.0-4.6) x10^3/uL Absolute Monos (auto) (0.0-1.3) x10^3/uL Absolute Nucleated RBC (0.00-0.01) x10^3u/L Lymphocytes % (24.0-44.0) % Monocytes % (0.0-12.0) % Eosinophils % (0.00-5.0) % Basophils % (0.0-0.4) % Absolute Granulocytes (1.4-6.9) x10^3/uL Basophils # (0-0.4) x10^3/uL PT 10.3 (9.4-12.5) SECONDS INR 0.94 (0.8-3.0) APTT 24.1 L (25.1-36.5) SECONDS D-Dimer 0.55 H (0.0-0.50) mg/L Sodium (137-145) mmol/L Potassium (3.5-5.1) mmol/L Chloride (98-107) mmol/L Carbon Dioxide (22-30) mmol/L Anion Gap (5-15) MEQ/L BUN (7-17) mg/dL Creatinine (0.52-1.04) mg/dL Estimated GFR ML/MIN Glucose (74-106) mg/dL Calcium (8.4-10.2) mg/dL Total Bilirubin (0.2-1.3) mg/dL AST (14-36) U/L ALT (0-35) U/L Alkaline Phosphatase (38-126) U/L Troponin I < 0.012 (0.000-0.034) ng/mL NT-Pro-B Natriuret Pep 274 (<300) pg/mL Serum Total Protein (6.3-8.2) g/dL Albumin (3.5-5.0) g/dL 03/17/23 03/17/23 Range/Units 14:43 14:43 WBC 5.3 (4.0-10.5) x10^3/uL RBC 3.75 L (4.1-5.4) x10^6/uL Hgb 13.0 (12.0-16.0) g/dL Hct 37.3 (35-47) % MCV 99.5 (78-100) fL MCH 34.7 H (26-32) pg MCHC 34.9 (32-36) g/dL RDW 12.7 (11.5-14.0) % Plt Count 355 (150-450) x10^3/uL MPV 8.4 (7.5-11.0) fL Gran % 37.5 (36.0-66.0) % Immature Gran % (Auto) 0.8 H (0.00-0.4) % Nucleat RBC Rel Count 0.0 (0.00-0.1) % Eos # (Auto) 0 (0-0.5) x10^3/uL Immature Gran # (Auto) 0.04 H (0.00-0.03) x10^3u/L Absolute Lymphs (auto) 2.85 (1.0-4.6) x10^3/uL Absolute Monos (auto) 0.40 (0.0-1.3) x10^3/uL Absolute Nucleated RBC 0.00 (0.00-0.01) x10^3u/L Lymphocytes % 53.9 H (24.0-44.0) % Monocytes % 7.6 (0.0-12.0) % Eosinophils % 0.0 (0.00-5.0) % Basophils % 0.2 (0.0-0.4) % Absolute Granulocytes 1.99 (1.4-6.9) x10^3/uL Basophils # 0.01 (0-0.4) x10^3/uL PT (9.4-12.5) SECONDS INR (0.8-3.0) APTT (25.1-36.5) SECONDS D-Dimer (0.0-0.50) mg/L Sodium 134 L (137-145) mmol/L Potassium 2.8 L* (3.5-5.1) mmol/L Chloride 96 L (98-107) mmol/L Carbon Dioxide 29 (22-30) mmol/L Anion Gap 12.3 (5-15) MEQ/L BUN 6 L (7-17) mg/dL Creatinine 0.48 L (0.52-1.04) mg/dL Estimated GFR 103.1 ML/MIN Glucose 133 H (74-106) mg/dL Calcium 9.1 (8.4-10.2) mg/dL Total Bilirubin 0.70 (0.2-1.3) mg/dL AST 51 H (14-36) U/L ALT 35 (0-35) U/L Alkaline Phosphatase 57 (38-126) U/L Troponin I (0.000-0.034) ng/mL NT-Pro-B Natriuret Pep (<300) pg/mL Serum Total Protein 7.4 (6.3-8.2) g/dL Albumin 4.5 (3.5-5.0) g/dL - Progress Progress: improved Air Movement: good Progress Note: Patient states she is not allergic to methylprednisolone 03/17/23 14:50 67-year-old female history of COPD presents to our ED for evaluation of shortness of breath. Treatment rendered. Patient reassessed. Symptoms improved but not resolved. CBC essentially nonre markable. CMP reveals a potassium of 2.8. Patient received potassium replacement along with magnesium. Patient received Solu-Medrol DuoNeb and antibiotic coverage including Rocephin and azithromycin. D-dimer positive however age-adjusted D-dimer is negative. Patient agrees to admission at [facility] for further evaluation and treatment. Case discussed with hospitalist who accepts admission to observation. Patient sent to floor before COVID testing and chest x-ray could be completed. Chest x-ray not initially ordered is aware awaiting results of D-dimer. Complexity of problems addressed is moderate acute complicated No critical care time Complex of data reviewed and analyzed is extensive. Test ordered test reviewed. Results analyzed and correlated clinically. Management discussed with hospitalist who accepts admission to observation. Risk complication and a risk morbidity/mortality of patient management is high. Patient requires hospitalization for further evaluation and treatment. Patient received nebulizer treatment. Vital stable. Plan of care established for shared decision making. Patient voiced no other complaints or concerns at this time. Portions of this note were created with voice recognition technology. There may be grammatical, spelling, punctuation or sound alike errors 03/18/23 03:29 Blood Culture(s) Obtained: Yes Antibiotics given: Yes Counseled pt/family regarding: lab results, diagnosis, rad results - Departure Departure Disposition: Observation Clinical Impression: COPD exacerbation, Hypokalemia, Shortness of breath Condition: Stable Critical Care Time: No
[2023-03-17] MEDS ORDERED: Sterile H2O 10 ml IJ ONE ×2 (14:51→20:14)
[2023-03-17] MEDS ORDERED: solu-MEDROL ONE ×2 (14:51→20:12)
[2023-03-17] MEDS ORDERED: DUONEB 0.5-3 MG/3 ml Neb IH ONE ×2 (14:51→15:11)
[2023-03-17 14:56] LABS: Absolute Neutrophil Ct (ANC) 1.99 x10^3/uL (1.4-6.9); BASOPHIL % 0.2 % (0.0-0.4); Basophil (Absolute #) 0.01 x10^3/uL (0-0.4); Eosinophil (Absolute #) 0 x10^3/uL (0-0.5); Hematocrit 37.3 % (35-47); IMMATURE GRAN # 0.04 x10^3u/L (0.00-0.03); IMMATURE GRAN % 0.8 % (0.00-0.4); Lymphocyte (Absolute #) 2.85 x10^3/uL (1.0-4.6); Lymphocytes % 53.9 % (24.0-44.0); Mean Cell Volume 99.5 fL (78-100); Mean Corpuscular Hemoglobin 34.7 pg (26-32); Mean Corpuscular Hgb Concent. 34.9 g/dL (32-36); Mean Platelet Volume 8.4 fL (7.5-11.0); Monocytes % 7.6 % (0.0-12.0); Neutrophil % 37.5 % (36.0-66.0); Platelet Count 355 x10^3/uL (150-450); Red Blood Count 3.75 x10^6/uL (4.1-5.4); Red Cell Distribution Width 12.7 % (11.5-14.0); White Blood Count 5.3 x10^3/uL (4.0-10.5)
[2023-03-17 15:13] LABS: D-DIMER QUANTITATIVE 0.55 mg/L (0.0-0.50); INR 0.94 (0.8-3.0); PROTIME 10.3 SECONDS (9.4-12.5); PTT 24.1 SECONDS (25.1-36.5)
[2023-03-17 15:26] LABS: ALBUMIN 4.5 g/dL (3.5-5.0); ANION GAP 12.3 MEQ/L (5-15); BILIRUBIN,TOTAL 0.7 mg/dL (0.2-1.3); Calcium 9.1 mg/dL (8.4-10.2); Creatinine 1 0.48 mg/dL (0.52-1.04); EST GLOMERULAR FILTRATION RATE 103.1 ML/MIN; Total Protein 7.4 g/dL (6.3-8.2)
[2023-03-17 15:37] LABS: Potassium 2.8 mmol/L (3.5-5.1)
[2023-03-17] MEDS ORDERED: Zithromax 500 MG/ 250 ML NaCl Premix 500 MG/250 ML IVPB IV STA (15:59)
[2023-03-17] MEDS ORDERED: ROCEPHIN 2 Gm-D5w 50ML BAG** 2 G/50 ML IVPB IV STA (15:59)
[2023-03-17] MEDS ORDERED: Sodium Chloride 0.9% 1000 ML 1,000 ML ONE (16:01)
[2023-03-17] MEDS: Sodium Chloride 0.9% 1000 ML 1,000 ML IV SCH (16:12)
[2023-03-17] MEDS: POTASSIUM CHLORIDE 20 mEq IN WATER 100ML 20 MEQ/100 ML BAG IV SCH ×2 (16:13→19:56)
[2023-03-17] MEDS: Magnesium 1 Gm / 100 Ml D5W*** 100 ML IV SCH ×2 (16:13→16:44)
[2023-03-17] MEDS ORDERED: ROCEPHIN 2 Gm-D5w 50ML BAG** 2 G/50 ML IVPB IV ONE (16:26)
[2023-03-17] MEDS ORDERED: PROVENTIL 2.5 MG/3 ML NEB IH PRN (17:48)
--- NOTE | 2023-03-17 18:32 | PCM.HP ---
History of Present Illness - Chief Complaint Chief Complaint: COPD Exac, SOB Date: 03/17/23 (1800) History of Present Illness: is a 67 year old female who is admitted with dyspnea and cough. She reports dyspnea for a couple of weeks. She came in today because it was her 3rd day of Zithromax and she was not getting better. She has had cough productive of yellow phlegm. She reports fever to 99.7 and chills. She reports sore throat and had nause and vomiting yesterday. She's had mild diarrhea for several days. No chest pain and no edema. PMH includes HTN, HLD, hypothyroid, COPD, Fibromyalgia, RA, and lupus. 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 - Review of Systems Constitutional: Fever, Chills, Fatigue Eyes: No Symptoms Ears, Nose, & Throat: Throat Pain, No Ear Pain Respiratory: Cough, Orthopnea, Short Of Breath Cardiac: No Chest Pain, No Edema, No Palpitations, No Syncope Abdominal/Gastrointestinal: Nausea, No No Symptoms Genitourinary Symptoms: No Symptoms, No Dysuria, No Frequency Musculoskeletal: No Symptoms Skin: No Symptoms Neurological: No Symptoms Psychological: No Symptoms Endocrine: No Symptoms Hematologic/Lymphatic: No Symptoms Immunological/Allergic: No Symptoms All Other Systems: Reviewed and Negative Medications & Allergies Home Medications: Home Medication List Atorvastatin Calcium 20 mg PO HS 10/01/14 [History Confirmed 03/17/23] Duloxetine HCl 1 tab PO BID 10/01/14 [History Confirmed 03/17/23] Levothyroxine Sodium 75 Mcg [Synthroid 75 Mcg] 50 mcg PO DAILY 10/01/14 [History Confirmed 03/17/23] Albuterol/Ipratropium 3ml Neb* [DUONEB 0.5-3 MG/3 ml Neb] 3 ml IH Q4H PRN PRN #30 ampul.neb 03/03/16 [Rx Confirmed 03/17/23] Baclofen 10 mg [Lioresal 10 mg] 10 mg PO TID 05/05/21 [History Confirmed 03/17/23] Cholecalciferol (Vitamin D3) [Vitamin D3] 50 mcg PO DAILY 05/05/21 [History Confirmed 03/17/23] Fluticasone/Vilanterol [Breo Ellipta 100-25 Mcg Inhalr] 1 puff IH DAILY 05/05/21 [History Confirmed 03/17/23] Folic Acid 1 mg [Folate 1 mg] 1 mg PO DAILY 05/05/21 [History Confirmed 03/17/23] Mirabegron [Myrbetriq] 1 tab PO DAILY 05/05/21 [History Confirmed 03/17/23] Vitamin E (Dl,Tocopheryl Acet) [Vitamin E] 180 mg PO DAILY 05/05/21 [History Confirmed 03/17/23] Amlodipine Besylate 10 mg PO DAILY 12/13/21 [History Confirmed 03/17/23] Aripiprazole 10 mg [Abilify 10 MG] 10 mg PO DAILY 12/13/21 [History Confirmed 03/17/23] PANTOPRAZOLE 40 mg Tablet [Protonix 40MG Tablet] 40 mg PO QAM 12/13/21 [History Confirmed 03/17/23] Azithromycin [Azithromycin 250 mg Pack] 250 mg PO UD 03/17/23 [History Confirmed 03/17/23] Prednisone 10 mg [Deltasone 10 mg] 20 mg PO DAILY 03/17/23 [History Confirmed 03/17/23] Allergies/Adverse Reactions: Allergies Allergy/AdvReac Type Severity Reaction Status Date / Time codeine Allergy Mild Swelling Verified 03/17/23 13:56 Sulfa (Sulfonamide Allergy Mild Swelling Verified 03/17/23 13:56 Antibiotics) - Past Medical History Past Medical History: Yes (history of leukemia) Neurological History: No Pertinent History ENT History: No Pertinent History Cardiac History: No Pertinent History Respiratory History: Asthma, Bronchitis, COPD, Emphysema, Other Endocrine Medical History: No Pertinent History Musculoskelatal History: Degenerative Disk Disease, Fibromyalgia, Rheumatoid Arthritis, Other GI Medical History: GERD History: No Pertinent History Pyscho-Social History: Anxiety, Depression Reproductive Disorders: No Pertinent History Comment: lupus, - Female History Are you now?: No - Past Surgical History Past Surgical History: Yes Neuro Surgical History: No Pertinent History Cardiac History: No Pertinent History Respiratory Surgery: No Pertinent History GI Surgical History: Cholecystectomy, Hernia Repair Genitourinary Surgical Hx: No Pertinent History Female Surgical History: Tubal Ligation Other Surgical History: bilat carpal tunnel, left ovarian cyst removed,bilat cataract,. tonsillectomy as a child - Social History Smoking Status: Current every day smoker How long have you smoked: 45 Exposure to second hand smoke: Yes Alcohol: Daily (admits to 3-4 daily) Drug Use: marijuana (several times daily) - Physical Exam Vital Signs: Vital Signs - 24 hr Temp Pulse Resp BP BP Pulse Ox 03/17/23 17:49 81 24 95 03/17/23 17:05 97.2 F 79 20 116/82 92 L 03/17/23 16:30 79 20 120/78 93 L 03/17/23 16:01 94 L 03/17/23 16:00 82 23 111/72 91 L 03/17/23 15:30 120/76 96 03/17/23 15:15 83 22 96 03/17/23 15:05 127/85 95 03/17/23 15:03 82 127/85 96 03/17/23 14:30 80 113/81 96 03/17/23 14:26 94 L 03/17/23 14:00 83 21 137/84 94 L 03/17/23 13:53 98.1 F 90 25 H 153/97 88 L General Appearance: moderate distress, cachetic, thin Neurologic Exam: alert, oriented x 3, cooperative, 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 Eye Exam: PERRL/EOMI, eyes nml inspection Ears, Nose, Throat Exam: normal ENT inspection Neck Exam: normal inspection, non-tender, supple, full range of motion Respiratory Exam: crackles/rales, rhonchi, wheezing Cardiovascular Exam: regular rate/rhythm, normal heart sounds, normal peripheral pulses Gastrointestinal/Abdomen Exam: soft, normal bowel sounds, No tenderness, No distention, No mass Pelvic Exam: not done Rectal Exam: deferred Back Exam: normal inspection Extremity Exam: normal inspection, No pedal edema Skin Exam: normal color, warm, dry Lymphatic Exam: No adenopathy Results - Labs Lab/Micro Results: Lab Results-Last 24 Hours 03/17/23 03/17/23 03/17/23 Range/Units 14:43 14:43 14:43 WBC 5.3 (4.0-10.5) x10^3/uL RBC 3.75 L (4.1-5.4) x10^6/uL Hgb 13.0 (12.0-16.0) g/dL Hct 37.3 (35-47) % MCV 99.5 (78-100) fL MCH 34.7 H (26-32) pg MCHC 34.9 (32-36) g/dL RDW 12.7 (11.5-14.0) % Plt Count 355 (150-450) x10^3/uL MPV 8.4 (7.5-11.0) fL Gran % 37.5 (36.0-66.0) % Immature Gran % (Auto) 0.8 H (0.00-0.4) % Nucleat RBC Rel Count 0.0 (0.00-0.1) % Eos # (Auto) 0 (0-0.5) x10^3/uL Immature Gran # (Auto) 0.04 H (0.00-0.03) x10^3u/L Absolute Lymphs (auto) 2.85 (1.0-4.6) x10^3/uL Absolute Monos (auto) 0.40 (0.0-1.3) x10^3/uL Absolute Nucleated RBC 0.00 (0.00-0.01) x10^3u/L Lymphocytes % 53.9 H (24.0-44.0) % Monocytes % 7.6 (0.0-12.0) % Eosinophils % 0.0 (0.00-5.0) % Basophils % 0.2 (0.0-0.4) % Absolute Granulocytes 1.99 (1.4-6.9) x10^3/uL Basophils # 0.01 (0-0.4) x10^3/uL PT 10.3 (9.4-12.5) SECONDS INR 0.94 (0.8-3.0) APTT 24.1 L (25.1-36.5) SECONDS D-Dimer 0.55 H (0.0-0.50) mg/L Sodium 134 L (137-145) mmol/L Potassium 2.8 L* (3.5-5.1) mmol/L Chloride 96 L (98-107) mmol/L Carbon Dioxide 29 (22-30) mmol/L Anion Gap 12.3 (5-15) MEQ/L BUN 6 L (7-17) mg/dL Creatinine 0.48 L (0.52-1.04) mg/dL Estimated GFR 103.1 ML/MIN Glucose 133 H (74-106) mg/dL Calcium 9.1 (8.4-10.2) mg/dL Total Bilirubin 0.70 (0.2-1.3) mg/dL AST 51 H (14-36) U/L ALT 35 (0-35) U/L Alkaline Phosphatase 57 (38-126) U/L Troponin I (0.000-0.034) ng/mL NT-Pro-B Natriuret Pep (<300) pg/mL Serum Total Protein 7.4 (6.3-8.2) g/dL Albumin 4.5 (3.5-5.0) g/dL 03/17/23 03/17/23 Range/Units 14:43 14:43 WBC (4.0-10.5) x10^3/uL RBC (4.1-5.4) x10^6/uL Hgb (12.0-16.0) g/dL Hct (35-47) % MCV (78-100) fL MCH (26-32) pg MCHC (32-36) g/dL RDW (11.5-14.0) % Plt Count (150-450) x10^3/uL MPV (7.5-11.0) fL Gran % (36.0-66.0) % Immature Gran % (Auto) (0.00-0.4) % Nucleat RBC Rel Count (0.00-0.1) % Eos # (Auto) (0-0.5) x10^3/uL Immature Gran # (Auto) (0.00-0.03) x10^3u/L Absolute Lymphs (auto) (1.0-4.6) x10^3/uL Absolute Monos (auto) (0.0-1.3) x10^3/uL Absolute Nucleated RBC (0.00-0.01) x10^3u/L Lymphocytes % (24.0-44.0) % Monocytes % (0.0-12.0) % Eosinophils % (0.00-5.0) % Basophils % (0.0-0.4) % Absolute Granulocytes (1.4-6.9) x10^3/uL Basophils # (0-0.4) x10^3/uL PT (9.4-12.5) SECONDS INR (0.8-3.0) APTT (25.1-36.5) SECONDS D-Dimer (0.0-0.50) mg/L Sodium (137-145) mmol/L Potassium (3.5-5.1) mmol/L Chloride (98-107) mmol/L Carbon Dioxide (22-30) mmol/L Anion Gap (5-15) MEQ/L BUN (7-17) mg/dL Creatinine (0.52-1.04) mg/dL Estimated GFR ML/MIN Glucose (74-106) mg/dL Calcium (8.4-10.2) mg/dL Total Bilirubin (0.2-1.3) mg/dL AST (14-36) U/L ALT (0-35) U/L Alkaline Phosphatase (38-126) U/L Troponin I < 0.012 (0.000-0.034) ng/mL NT-Pro-B Natriuret Pep 274 (<300) pg/mL Serum Total Protein (6.3-8.2) g/dL Albumin (3.5-5.0) g/dL - Other Procedures and Tests Respiratory Therapy 03/17/23 15:15 Respiratory Therapy Assessment DAILY 03/17/23 17:47 Oxygen Nasal Cannula 2 lpm Assessment/Plan (1) COPD exacerbation Current Visit: Yes Status: Acute Assessment & Plan: Patient admitted with COPD and dyspnea. Hypoxia in ER. Continue oxygen as needed. Productive cough. No edema. No cxray or CT was done. Will order these No COVID, Influenza testing or RSV was ordered. Will order these Plan IV antibiotics. Treat for community acquired infection. Unclear if she has pneumonia. Treat with steroids and bronchodilators. Code(s): J44.1 - CHRONIC OBSTRUCTIVE PULMONARY DISEASE W (ACUTE) EXACERBATION (2) Hypokalemia Current Visit: Yes Status: Acute Assessment & Plan: K=2.8. Replacement ordered. Code(s): E87.6 - HYPOKALEMIA (3) Hypertension Current Visit: Yes Status: Chronic Assessment & Plan: Continue home meds Code(s): I10 - ESSENTIAL (PRIMARY) HYPERTENSION (4) Hyperlipidemia Current Visit: Yes Status: Chronic Assessment & Plan: Continue home meds Code(s): E78.5 - HYPERLIPIDEMIA, UNSPECIFIED (5) Arthritis Current Visit: Yes Status: Acute Assessment & Plan: Patient reports history of fibromyalgia, RA and Lupus. No symptoms reported at present. Code(s): M19.90 - UNSPECIFIED OSTEOARTHRITIS, UNSPECIFIED SITE Telemedicine Encounter - Telemedicine Encounter Telemedicine Encounter: The entirety of this encounter was performed via Telemedicine after consent obtained. Labs and imaging reviewed. Discussed with ER provider. 70 minutes spent on the care of this patient. Dhiraj Miranda MD [facility]
[2023-03-17] MEDS ORDERED: DUONEB 0.5-3 MG/3 ml Neb IH PRN (18:42)
[2023-03-17] MEDS ORDERED: NICODERM CQ 14 MG TOP SCH (18:45)
[2023-03-17 18:55] LABS: INFLUENZA A NEGATIVE (NEGATIVE); INFLUENZA B NEGATIVE (NEGATIVE); RESPIRATORY SYNCTIAL VIRUS NEGATIVE (NEGATIVE); SARS-CoV-2 Xpert Express NEGATIVE (NEGATIVE)
[2023-03-17] MEDS: DUONEB 0.5-3 MG/3 ml Neb IH SCH (19:17)
[2023-03-17] MEDS ORDERED: Cymbalta 30 MG Capsule ONE (20:12)
[2023-03-17] MEDS ORDERED: ZOCOR 20MG ONE (20:13)
[2023-03-17] MEDS: solu-MEDROL 40 MG, Sterile H2O 10 ml 1 ML IV SCH ×2 (20:31)
[2023-03-17] MEDS: LIORESAL 10 MG PO SCH (20:34)
[2023-03-17] MEDS: Cymbalta 30 MG Capsule PO SCH (20:39)
[2023-03-17] MEDS: ZOCOR 20MG PO SCH (20:40)
[2023-03-17] MEDS ORDERED: NON-FORMULARY ITEM (Duloxetine Hcl [Duloxetine Hcl] 60 MG Capsule.Dr) PO SCH (22:00)
[2023-03-17] MEDS ORDERED: NON-FORMULARY ITEM (Atorvastatin Calcium [Atorvastatin Calcium] 20 MG Tablet) PO SCH (22:00)
[2023-03-18] MEDS: POTASSIUM CHLORIDE 20 mEq IN WATER 100ML 20 MEQ/100 ML BAG IV SCH (01:39)
[2023-03-18] MEDS: Sodium Chloride 0.9% 1000 ML 1,000 ML IV SCH (02:50)
[2023-03-18] MEDS: DUONEB 0.5-3 MG/3 ml Neb IH SCH ×4 (05:09→19:17)
[2023-03-18 05:12] LABS: A-aADO2 60; ABG HEMOGLOBIN 11.3; ABG POTASSIUM 3.3 (3.5-5.1); ABG SITE RIGHT BRACHIAL; ARTERIAL BLOOD GAS BASE EXCESS 4.2 (-2.0-2.0); ARTERIAL BLOOD GAS FIO2 28 %; ARTERIAL BLOOD GAS PCO2 40 mmHg (35-45); ARTERIAL BLOOD GAS PO2 90 mmHg (75-100); ARTERIAL BLOOD GAS pH 7.46 (7.35-7.45); CARBOXYHEMOGLOBIN 0.1 % THgb (0.0-6.9); HCO3- 28.4 (22-28); HGB O2 SAT 96.9 g/dF (94-100)
[2023-03-18 05:18] LABS: ADD URINE CULTURE? NO (NO); Appearance Clear (Clear); Bacteria None Seen /HPF (None Seen); Bilirubin Negative (Negative); Blood Negative (Negative); Epithelial Cells Rare /HPF (None Seen); Glucose, Urine Negative (Negative); Hyaline Casts NONE SEEN /LPF (0-2); Ketones Negative (Negative); Leukocyte Esterase Negative (Negative); Nitrite Negative (Negative); Ph 6.5 (4.6-8.0); Protein,Urine Dip Trace (Negative); RBC 0-2 /HPF (0-5); Specific Gravity 1.015 (1.005-1.030); Urobilinogen 0.2 mg/dL (0.2); WBC 0-2 /HPF (0-5)
[2023-03-18 05:28] LABS: Absolute Neutrophil Ct (ANC) 2.98 x10^3/uL (1.4-6.9); BASOPHIL % 0.2 % (0.0-0.4); Basophil (Absolute #) 0.01 x10^3/uL (0-0.4); Eosinophil (Absolute #) 0 x10^3/uL (0-0.5); IMMATURE GRAN # 0.08 x10^3u/L (0.00-0.03); IMMATURE GRAN % 1.7 % (0.00-0.4); Lymphocyte (Absolute #) 1.44 x10^3/uL (1.0-4.6); Lymphocytes % 30.1 % (24.0-44.0); Mean Cell Volume 100.6 fL (78-100); Mean Corpuscular Hemoglobin 34.6 pg (26-32); Mean Corpuscular Hgb Concent. 34.4 g/dL (32-36); Mean Platelet Volume 8.7 fL (7.5-11.0); Monocyte (Absolute #) 0.28 x10^3/uL (0.0-1.3); Monocytes % 5.8 % (0.0-12.0); Neutrophil % 62.2 % (36.0-66.0); Platelet Count 311 x10^3/uL (150-450); Red Blood Count 3.18 x10^6/uL (4.1-5.4); Red Cell Distribution Width 12.5 % (11.5-14.0); White Blood Count 4.8 x10^3/uL (4.0-10.5)
[2023-03-18] MEDS ORDERED: Sterile H2O 10 ml IJ ONE (06:04)
[2023-03-18] MEDS ORDERED: solu-MEDROL ONE (06:04)
[2023-03-18] MEDS: solu-MEDROL 40 MG, Sterile H2O 10 ml 1 ML IV SCH ×6 (06:06→21:25)
[2023-03-18 06:12] LABS: ALBUMIN 3.8 g/dL (3.5-5.0); ANION GAP 10.5 MEQ/L (5-15); BILIRUBIN,TOTAL 0.3 mg/dL (0.2-1.3); Calcium 8.2 mg/dL (8.4-10.2); Creatinine 1 0.4 mg/dL (0.52-1.04); EST GLOMERULAR FILTRATION RATE 107.7 ML/MIN; Potassium 3.3 mmol/L (3.5-5.1); Total Protein 6.4 g/dL (6.3-8.2)
[2023-03-18] MEDS ORDERED: PATIENT OWN MEDICATION IH SCH (07:00)
[2023-03-18] MEDS ORDERED: Klor Con PO ONE (07:41)
--- NOTE | 2023-03-18 08:46 | XRAY ---
Indication: Dyspnea. Hypoxia. Comparison: September 21, 2021 PA/lateral chest again demonstrates COPD and left base pleural tenting. No focal infiltrate, consolidation, or large effusion. Heart and mediastinal structures within normal limits. Bony thorax intact again with osteopenia and mild degenerative changes. Impression: Nonacute chest with chronic features.
[2023-03-18] MEDS ORDERED: NON-FORMULARY ITEM (Fluticasone/Vilanterol [Breo Ellipta 100-25 Mcg Inhalr] 1 EACH Blst.W. IH SCH (10:00)
[2023-03-18] MEDS: Protonix 40MG Tablet PO SCH (10:03)
[2023-03-18] MEDS: VITAMIN D PO SCH (10:03)
[2023-03-18] MEDS: MYRBETRIQ PO SCH (10:03)
[2023-03-18] MEDS: SYNTHROID 50 MCG PO SCH (10:04)
[2023-03-18] MEDS: NORVASC 5 MG PO SCH (10:04)
[2023-03-18] MEDS: FOLATE 1 MG PO SCH (10:04)
[2023-03-18] MEDS: Abilify 10 MG PO SCH (10:04)
[2023-03-18] MEDS: Cymbalta 30 MG Capsule PO SCH ×2 (10:04→21:24)
[2023-03-18] MEDS: LIORESAL 10 MG PO SCH ×4 (10:04→21:24)
[2023-03-18] MEDS: ENOXAPARIN SODIUM SQ SCH (10:04)
[2023-03-18] MEDS: NICODERM CQ 14 MG TOP SCH (10:26)
[2023-03-18] MEDS: ROCEPHIN 1 Gm-D5w 50 ml Bag** 1 G/50 ML IVPB IV SCH (10:27)
[2023-03-18] MEDS: Zithromax 500 MG/ 250 ML NaCl Premix 500 MG/250 ML IVPB IV SCH (11:52)
[2023-03-18] MEDS ORDERED: TYLENOL 325 MG PO PRN (12:14)
--- NOTE | 2023-03-18 13:01 | PCM.NOTE ---
Date and Time: 03/18/23 4632 Subjective Assessment: is a 67 year old female with PMHX of asthma, bronchitis, COPD, empyysema, DDD, fibromyalgia, RA, GERD, anxiety, depression, lupus, sleep apnea (wears Cpap @ [facility]), and daily smoker. 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 She was admitted yesterday with dyspnea and cough. She reports dyspnea for a couple of weeks. She came in because it was her 3rd day of Zithromax and she was not getting better. She has had cough productive of yellow phlegm. She reported a fever of 99.7 and chills. She reports she also had a sore throat, nausea, and vomiting. She's had mild diarrhea for several days. No chest pain and no edema. She is feeling better today and wanting to go home however she is SOB, wheezing, and requiring 2LNC. Advised pt on smoking cessation she then asked to go out and smoke. Advised against this. She is refusing a nicotine patch. She denies CP, Abd. pain, N/V/D - Review of Systems Constitutional: No Fever, No Chills Eyes: No Symptoms Ears, Nose, & Throat: No Symptoms Respiratory: Wheezing, No Cough, No Short Of Breath Cardiac: No Chest Pain, No Edema, No Syncope Abdominal/Gastrointestinal: No Abdominal Pain, No Nausea, No Vomiting, No Diarrhea Genitourinary Symptoms: No Dysuria Musculoskeletal: No Back Pain, No Neck Pain Skin: No Rash Neurological: No Dizziness, No Focal Weakness, No Sensory Changes Psychological: No Symptoms Endocrine: No Symptoms Hematologic/Lymphatic: No Symptoms Immunological/Allergic: No Symptoms Objective Exam General Appearance: no apparent distress, alert, thin Neurologic Exam: alert, oriented x 3, cooperative, normal mood/affect, nml cerebellar function, sensation nml, No motor deficits Skin Exam: normal color, warm, dry Eye Exam: PERRL, EOMI, eyes nml inspection Ears, Nose, Throat Exam: normal ENT inspection, pharynx normal, moist mucous membranes Neck Exam: normal inspection, non-tender, supple, full range of motion Respiratory Exam: wheezing (throughout), No respiratory distress Cardiovascular Exam: regular rate/rhythm, normal heart sounds Gastrointestinal/Abdomen Exam: soft, No tenderness, No mass Extremity Exam: normal inspection, normal range of motion Back Exam: normal inspection, normal range of motion, No CVA tenderness, No vertebral tenderness Pelvic Exam: deferred Rectal Exam: deferred OBJECTIVE DATA Vital Signs: Vital Signs - 24 hr Temp Pulse Resp BP BP Pulse Ox 03/18/23 12:00 97.5 F 85 22 133/72 98 03/18/23 11:24 84 18 93 L 03/18/23 08:00 97.4 F 82 18 122/63 82 L 03/18/23 05:12 74 22 93 L 03/18/23 04:00 96.8 F 96 H 22 148/83 98 03/18/23 03:45 94 L 03/18/23 00:00 97.8 F 79 20 137/79 91 L 03/17/23 21:00 97.8 F 80 20 108/58 94 L 03/17/23 19:15 100 H 26 H 88 L 03/17/23 17:49 81 24 95 03/17/23 17:05 97.2 F 79 20 116/82 92 L 03/17/23 16:30 79 20 120/78 93 L 03/17/23 16:00 82 23 111/72 91 L 03/17/23 15:30 120/76 96 03/17/23 15:15 83 22 96 03/17/23 15:05 127/85 95 03/17/23 15:03 82 127/85 96 03/17/23 14:30 80 113/81 96 03/17/23 14:26 94 L 03/17/23 14:00 83 21 137/84 94 L 03/17/23 13:53 98.1 F 90 25 H 153/97 88 L Pain Assessment - Last Documented Pain Intensity 0 Intake and Output: Intake & Output 03/16/23 03/17/23 03/18/23 03/19/23 11:59 11:59 11:59 11:59 Intake Total 2498 120 Balance 2498 120 Weight 54.9 kg Lab Results: Lab Results-Last 24 Hours 03/17/23 03/17/23 03/17/23 Range/Units 05:08 14:43 14:43 WBC 5.3 (4.0-10.5) x10^3/uL RBC 3.75 L (4.1-5.4) x10^6/uL Hgb 13.0 (12.0-16.0) g/dL Hct 37.3 (35-47) % MCV 99.5 (78-100) fL MCH 34.7 H (26-32) pg MCHC 34.9 (32-36) g/dL RDW 12.7 (11.5-14.0) % Plt Count 355 (150-450) x10^3/uL MPV 8.4 (7.5-11.0) fL Gran % 37.5 (36.0-66.0) % Immature Gran % (Auto) 0.8 H (0.00-0.4) % Nucleat RBC Rel Count 0.0 (0.00-0.1) % Eos # (Auto) 0 (0-0.5) x10^3/uL Immature Gran # (Auto) 0.04 H (0.00-0.03) x10^3u/L Absolute Lymphs (auto) 2.85 (1.0-4.6) x10^3/uL Absolute Monos (auto) 0.40 (0.0-1.3) x10^3/uL Absolute Nucleated RBC 0.00 (0.00-0.01) x10^3u/L Lymphocytes % 53.9 H (24.0-44.0) % Monocytes % 7.6 (0.0-12.0) % Eosinophils % 0.0 (0.00-5.0) % Basophils % 0.2 (0.0-0.4) % Absolute Granulocytes 1.99 (1.4-6.9) x10^3/uL Basophils # 0.01 (0-0.4) x10^3/uL PT (9.4-12.5) SECONDS INR (0.8-3.0) APTT (25.1-36.5) SECONDS D-Dimer (0.0-0.50) mg/L Puncture Site pCO2 (35-45) mmHg pO2 (75-100) mmHg Base Excess (-2.0-2.0) O2 Saturation (94-100) g/dF ABG pH (7.35-7.45) ABG HCO3 (22-28) ABG O2 Sat (Measured) (95-100) % Alejandro Test A-a Gradient a/A Ratio Hemoglobin Carboxyhemoglobin (0.0-6.9) % THgb Methemoglobin (1.4-1.5) % Temperature C POC O2 Flow Rate % Sodium 134 L (137-145) mmol/L Potassium 2.8 L* (3.5-5.1) mmol/L Chloride 96 L (98-107) mmol/L Carbon Dioxide 29 (22-30) mmol/L Anion Gap 12.3 (5-15) MEQ/L BUN 6 L (7-17) mg/dL Creatinine 0.48 L (0.52-1.04) mg/dL Estimated GFR 103.1 ML/MIN Glucose 133 H (74-106) mg/dL Calcium 9.1 (8.4-10.2) mg/dL Total Bilirubin 0.70 (0.2-1.3) mg/dL AST 51 H (14-36) U/L ALT 35 (0-35) U/L Alkaline Phosphatase 57 (38-126) U/L Troponin I (0.000-0.034) ng/mL NT-Pro-B Natriuret Pep (<300) pg/mL Serum Total Protein 7.4 (6.3-8.2) g/dL Albumin 4.5 (3.5-5.0) g/dL Urine Color Yellow (Yellow) Urine Appearance Clear (Clear) Urine pH 6.5 (4.6-8.0) Ur Specific [place] 1.015 (1.005-1.030) Urine Protein Trace A (Negative) Urine Glucose (UA) Negative (Negative) mg/dL Urine Ketones Negative (Negative) Urine Blood Negative (Negative) Urine Nitrite Negative (Negative) Urine Bilirubin Negative (Negative) Urine Urobilinogen 0.2 (0.2) mg/dL Ur Leukocyte Esterase Negative (Negative) U Hyaline Cast (Auto) NONE SEEN (0-2) /LPF Urine Microscopic RBC 0-2 (0-5) /HPF Urine Microscopic WBC 0-2 (0-5) /HPF Ur Epithelial Cells Rare (None Seen) /HPF Urine Bacteria None Seen (None Seen) /HPF Urine Culture Reflexed NO (NO) Influenza Type A Ag (NEGATIVE) Influenza Type B Ag (NEGATIVE) RSV (PCR) (NEGATIVE) SARS-CoV-2 (PCR) (NEGATIVE) 03/17/23 03/17/23 03/17/23 Range/Units 14:43 14:43 14:43 WBC (4.0-10.5) x10^3/uL RBC (4.1-5.4) x10^6/uL Hgb (12.0-16.0) g/dL Hct (35-47) % MCV (78-100) fL MCH (26-32) pg MCHC (32-36) g/dL RDW (11.5-14.0) % Plt Count (150-450) x10^3/uL MPV (7.5-11.0) fL Gran % (36.0-66.0) % Immature Gran % (Auto) (0.00-0.4) % Nucleat RBC Rel Count (0.00-0.1) % Eos # (Auto) (0-0.5) x10^3/uL Immature Gran # (Auto) (0.00-0.03) x10^3u/L Absolute Lymphs (auto) (1.0-4.6) x10^3/uL Absolute Monos (auto) (0.0-1.3) x10^3/uL Absolute Nucleated RBC (0.00-0.01) x10^3u/L Lymphocytes % (24.0-44.0) % Monocytes % (0.0-12.0) % Eosinophils % (0.00-5.0) % Basophils % (0.0-0.4) % Absolute Granulocytes (1.4-6.9) x10^3/uL Basophils # (0-0.4) x10^3/uL PT 10.3 (9.4-12.5) SECONDS INR 0.94 (0.8-3.0) APTT 24.1 L (25.1-36.5) SECONDS D-Dimer 0.55 H (0.0-0.50) mg/L Puncture Site pCO2 (35-45) mmHg pO2 (75-100) mmHg Base Excess (-2.0-2.0) O2 Saturation (94-100) g/dF ABG pH (7.35-7.45) ABG HCO3 (22-28) ABG O2 Sat (Measured) (95-100) % Alejandro Test A-a Gradient a/A Ratio Hemoglobin Carboxyhemoglobin (0.0-6.9) % THgb Methemoglobin (1.4-1.5) % Temperature C POC O2 Flow Rate % Sodium (137-145) mmol/L Potassium (3.5-5.1) mmol/L Chloride (98-107) mmol/L Carbon Dioxide (22-30) mmol/L Anion Gap (5-15) MEQ/L BUN (7-17) mg/dL Creatinine (0.52-1.04) mg/dL Estimated GFR ML/MIN Glucose (74-106) mg/dL Calcium (8.4-10.2) mg/dL Total Bilirubin (0.2-1.3) mg/dL AST (14-36) U/L ALT (0-35) U/L Alkaline Phosphatase (38-126) U/L Troponin I < 0.012 (0.000-0.034) ng/mL NT-Pro-B Natriuret Pep 274 (<300) pg/mL Serum Total Protein (6.3-8.2) g/dL Albumin (3.5-5.0) g/dL Urine Color (Yellow) Urine Appearance (Clear) Urine pH (4.6-8.0) Ur Specific [place] (1.005-1.030) Urine Protein (Negative) Urine Glucose (UA) (Negative) mg/dL Urine Ketones (Negative) Urine Blood (Negative) Urine Nitrite (Negative) Urine Bilirubin (Negative) Urine Urobilinogen (0.2) mg/dL Ur Leukocyte Esterase (Negative) U Hyaline Cast (Auto) (0-2) /LPF Urine Microscopic RBC (0-5) /HPF Urine Microscopic WBC (0-5) /HPF Ur Epithelial Cells (None Seen) /HPF Urine Bacteria (None Seen) /HPF Urine Culture Reflexed (NO) Influenza Type A Ag (NEGATIVE) Influenza Type B Ag (NEGATIVE) RSV (PCR) (NEGATIVE) SARS-CoV-2 (PCR) (NEGATIVE) 03/17/23 03/17/23 03/17/23 Range/Units 18:10 18:10 22:50 WBC (4.0-10.5) x10^3/uL RBC (4.1-5.4) x10^6/uL Hgb (12.0-16.0) g/dL Hct (35-47) % MCV (78-100) fL MCH (26-32) pg MCHC (32-36) g/dL RDW (11.5-14.0) % Plt Count (150-450) x10^3/uL MPV (7.5-11.0) fL Gran % (36.0-66.0) % Immature Gran % (Auto) (0.00-0.4) % Nucleat RBC Rel Count (0.00-0.1) % Eos # (Auto) (0-0.5) x10^3/uL Immature Gran # (Auto) (0.00-0.03) x10^3u/L Absolute Lymphs (auto) (1.0-4.6) x10^3/uL Absolute Monos (auto) (0.0-1.3) x10^3/uL Absolute Nucleated RBC (0.00-0.01) x10^3u/L Lymphocytes % (24.0-44.0) % Monocytes % (0.0-12.0) % Eosinophils % (0.00-5.0) % Basophils % (0.0-0.4) % Absolute Granulocytes (1.4-6.9) x10^3/uL Basophils # (0-0.4) x10^3/uL PT (9.4-12.5) SECONDS INR (0.8-3.0) APTT (25.1-36.5) SECONDS D-Dimer (0.0-0.50) mg/L Puncture Site pCO2 (35-45) mmHg pO2 (75-100) mmHg Base Excess (-2.0-2.0) O2 Saturation (94-100) g/dF ABG pH (7.35-7.45) ABG HCO3 (22-28) ABG O2 Sat (Measured) (95-100) % Alejandro Test A-a Gradient a/A Ratio Hemoglobin Carboxyhemoglobin (0.0-6.9) % THgb Methemoglobin (1.4-1.5) % Temperature C POC O2 Flow Rate % Sodium (137-145) mmol/L Potassium (3.5-5.1) mmol/L Chloride (98-107) mmol/L Carbon Dioxide (22-30) mmol/L Anion Gap (5-15) MEQ/L BUN (7-17) mg/dL Creatinine (0.52-1.04) mg/dL Estimated GFR ML/MIN Glucose (74-106) mg/dL Calcium (8.4-10.2) mg/dL Total Bilirubin (0.2-1.3) mg/dL AST (14-36) U/L ALT (0-35) U/L Alkaline Phosphatase (38-126) U/L Troponin I < 0.012 < 0.012 (0.000-0.034) ng/mL NT-Pro-B Natriuret Pep (<300) pg/mL Serum Total Protein (6.3-8.2) g/dL Albumin (3.5-5.0) g/dL Urine Color (Yellow) Urine Appearance (Clear) Urine pH (4.6-8.0) Ur Specific [place] (1.005-1.030) Urine Protein (Negative) Urine Glucose (UA) (Negative) mg/dL Urine Ketones (Negative) Urine Blood (Negative) Urine Nitrite (Negative) Urine Bilirubin (Negative) Urine Urobilinogen (0.2) mg/dL Ur Leukocyte Esterase (Negative) U Hyaline Cast (Auto) (0-2) /LPF Urine Microscopic RBC (0-5) /HPF Urine Microscopic WBC (0-5) /HPF Ur Epithelial Cells (None Seen) /HPF Urine Bacteria (None Seen) /HPF Urine Culture Reflexed (NO) Influenza Type A Ag NEGATIVE (NEGATIVE) Influenza Type B Ag NEGATIVE (NEGATIVE) RSV (PCR) NEGATIVE (NEGATIVE) SARS-CoV-2 (PCR) NEGATIVE (NEGATIVE) 03/18/23 03/18/23 03/18/23 Range/Units 00:15 04:41 04:41 WBC 4.8 (4.0-10.5) x10^3/uL RBC 3.18 L (4.1-5.4) x10^6/uL Hgb 11.0 L (12.0-16.0) g/dL Hct 32.0 L (35-47) % MCV 100.6 H (78-100) fL MCH 34.6 H (26-32) pg MCHC 34.4 (32-36) g/dL RDW 12.5 (11.5-14.0) % Plt Count 311 (150-450) x10^3/uL MPV 8.7 (7.5-11.0) fL Gran % 62.2 (36.0-66.0) % Immature Gran % (Auto) 1.7 H (0.00-0.4) % Nucleat RBC Rel Count 0.0 (0.00-0.1) % Eos # (Auto) 0 (0-0.5) x10^3/uL Immature Gran # (Auto) 0.08 H (0.00-0.03) x10^3u/L Absolute Lymphs (auto) 1.44 (1.0-4.6) x10^3/uL Absolute Monos (auto) 0.28 (0.0-1.3) x10^3/uL Absolute Nucleated RBC 0.00 (0.00-0.01) x10^3u/L Lymphocytes % 30.1 (24.0-44.0) % Monocytes % 5.8 (0.0-12.0) % Eosinophils % 0.0 (0.00-5.0) % Basophils % 0.2 (0.0-0.4) % Absolute Granulocytes 2.98 (1.4-6.9) x10^3/uL Basophils # 0.01 (0-0.4) x10^3/uL PT (9.4-12.5) SECONDS INR (0.8-3.0) APTT (25.1-36.5) SECONDS D-Dimer (0.0-0.50) mg/L Puncture Site pCO2 (35-45) mmHg pO2 (75-100) mmHg Base Excess (-2.0-2.0) O2 Saturation (94-100) g/dF ABG pH (7.35-7.45) ABG HCO3 (22-28) ABG O2 Sat (Measured) (95-100) % Alejandro Test A-a Gradient a/A Ratio Hemoglobin Carboxyhemoglobin (0.0-6.9) % THgb Methemoglobin (1.4-1.5) % Temperature C POC O2 Flow Rate % Sodium 131 L (137-145) mmol/L Potassium 3.4 L D 3.3 L (3.5-5.1) mmol/L Chloride 99 (98-107) mmol/L Carbon Dioxide 25 (22-30) mmol/L Anion Gap 10.5 (5-15) MEQ/L BUN 6 L (7-17) mg/dL Creatinine 0.40 L (0.52-1.04) mg/dL Estimated GFR 107.7 ML/MIN Glucose 148 H (74-106) mg/dL Calcium 8.2 L (8.4-10.2) mg/dL Total Bilirubin 0.30 (0.2-1.3) mg/dL AST 34 (14-36) U/L ALT 30 (0-35) U/L Alkaline Phosphatase 48 (38-126) U/L Troponin I (0.000-0.034) ng/mL NT-Pro-B Natriuret Pep (<300) pg/mL Serum Total Protein 6.4 (6.3-8.2) g/dL Albumin 3.8 (3.5-5.0) g/dL Urine Color (Yellow) Urine Appearance (Clear) Urine pH (4.6-8.0) Ur Specific [place] (1.005-1.030) Urine Protein (Negative) Urine Glucose (UA) (Negative) mg/dL Urine Ketones (Negative) Urine Blood (Negative) Urine Nitrite (Negative) Urine Bilirubin (Negative) Urine Urobilinogen (0.2) mg/dL Ur Leukocyte Esterase (Negative) U Hyaline Cast (Auto) (0-2) /LPF Urine Microscopic RBC (0-5) /HPF Urine Microscopic WBC (0-5) /HPF Ur Epithelial Cells (None Seen) /HPF Urine Bacteria (None Seen) /HPF Urine Culture Reflexed (NO) Influenza Type A Ag (NEGATIVE) Influenza Type B Ag (NEGATIVE) RSV (PCR) (NEGATIVE) SARS-CoV-2 (PCR) (NEGATIVE) 03/18/23 Range/Units 05:00 WBC (4.0-10.5) x10^3/uL RBC (4.1-5.4) x10^6/uL Hgb (12.0-16.0) g/dL Hct (35-47) % MCV (78-100) fL MCH (26-32) pg MCHC (32-36) g/dL RDW (11.5-14.0) % Plt Count (150-450) x10^3/uL MPV (7.5-11.0) fL Gran % (36.0-66.0) % Immature Gran % (Auto) (0.00-0.4) % Nucleat RBC Rel Count (0.00-0.1) % Eos # (Auto) (0-0.5) x10^3/uL Immature Gran # (Auto) (0.00-0.03) x10^3u/L Absolute Lymphs (auto) (1.0-4.6) x10^3/uL Absolute Monos (auto) (0.0-1.3) x10^3/uL Absolute Nucleated RBC (0.00-0.01) x10^3u/L Lymphocytes % (24.0-44.0) % Monocytes % (0.0-12.0) % Eosinophils % (0.00-5.0) % Basophils % (0.0-0.4) % Absolute Granulocytes (1.4-6.9) x10^3/uL Basophils # (0-0.4) x10^3/uL PT (9.4-12.5) SECONDS INR (0.8-3.0) APTT (25.1-36.5) SECONDS D-Dimer (0.0-0.50) mg/L Puncture Site RIGHT BRACHIAL pCO2 40 (35-45) mmHg pO2 90 (75-100) mmHg Base Excess 4.2 H (-2.0-2.0) O2 Saturation 96.9 (94-100) g/dF ABG pH 7.46 H (7.35-7.45) ABG HCO3 28.4 H (22-28) ABG O2 Sat (Measured) 97.0 (95-100) % Alejandro Test NOT APPLICABLE A-a Gradient 60 a/A Ratio 0.60 Hemoglobin 11.3 Carboxyhemoglobin 0.1 (0.0-6.9) % THgb Methemoglobin 0.0 L (1.4-1.5) % Temperature 37.0 C POC O2 Flow Rate 28 % Sodium (137-145) mmol/L Potassium 3.3 L (3.5-5.1) mmol/L Chloride (98-107) mmol/L Carbon Dioxide (22-30) mmol/L Anion Gap (5-15) MEQ/L BUN (7-17) mg/dL Creatinine (0.52-1.04) mg/dL Estimated GFR ML/MIN Glucose (74-106) mg/dL Calcium (8.4-10.2) mg/dL Total Bilirubin (0.2-1.3) mg/dL AST (14-36) U/L ALT (0-35) U/L Alkaline Phosphatase (38-126) U/L Troponin I (0.000-0.034) ng/mL NT-Pro-B Natriuret Pep (<300) pg/mL Serum Total Protein (6.3-8.2) g/dL Albumin (3.5-5.0) g/dL Urine Color (Yellow) Urine Appearance (Clear) Urine pH (4.6-8.0) Ur Specific [place] (1.005-1.030) Urine Protein (Negative) Urine Glucose (UA) (Negative) mg/dL Urine Ketones (Negative) Urine Blood (Negative) Urine Nitrite (Negative) Urine Bilirubin (Negative) Urine Urobilinogen (0.2) mg/dL Ur Leukocyte Esterase (Negative) U Hyaline Cast (Auto) (0-2) /LPF Urine Microscopic RBC (0-5) /HPF Urine Microscopic WBC (0-5) /HPF Ur Epithelial Cells (None Seen) /HPF Urine Bacteria (None Seen) /HPF Urine Culture Reflexed (NO) Influenza Type A Ag (NEGATIVE) Influenza Type B Ag (NEGATIVE) RSV (PCR) (NEGATIVE) SARS-CoV-2 (PCR) (NEGATIVE) Radiology Exams: Radiology Procedures Category Date Time Status CHEST 2 VIEWS (PA AND LAT) Stat Exams 03/17/23 18:43 Completed Assessment/Plan (1) COPD exacerbation Current Visit: Yes Status: Acute Assessment & Plan: Patient admitted with COPD and dyspnea. Hypoxia in ER. Continue oxygen as needed. Productive cough. No edema. No cxray or CT was done. Will order these No COVID, Influenza testing or RSV was ordered. Will order these Plan IV antibiotics. Treat for community acquired infection. Unclear if she has pneumonia. Treat with steroids and bronchodilators. 03/18 -Chest XR 03/17/23 Impression: Nonacute chest with chronic features. - 2LNC- 93%,- BL RA - COVID Flu, RSV negative Code(s): J44.1 - CHRONIC OBSTRUCTIVE PULMONARY DISEASE W (ACUTE) EXACERBATION (2) Hypokalemia Current Visit: Yes Status: Acute Assessment & Plan: K=2.8. Replacement ordered. 03/18 - K+ 3.3- replaced - recheck at 14:00 Code(s): E87.6 - HYPOKALEMIA (3) Hypertension Current Visit: Yes Status: Chronic Assessment & Plan: -Continue home meds - BP stable Code(s): I10 - ESSENTIAL (PRIMARY) HYPERTENSION (4) Hyperlipidemia Current Visit: Yes Status: Chronic Assessment & Plan: -Continue home meds Code(s): E78.5 - HYPERLIPIDEMIA, UNSPECIFIED (5) Smoker Current Visit: Yes Status: Acute Assessment & Plan: - advised smoking cessation - refused nicotine patch Code(s): F17.200 - NICOTINE DEPENDENCE, UNSPECIFIED, UNCOMPLICATED (6) Sleep apnea Current Visit: Yes Status: Acute Assessment & Plan: - Cpap at [facility] Code(s): G47.30 - SLEEP APNEA, UNSPECIFIED (7) Arthritis Current Visit: Yes Status: Acute Assessment & Plan: -Patient reports history of fibromyalgia, RA and Lupus. - Continue home meds - Tylenol for pain VTE: Lovenox PPI: protonix Next of Kin:Friend- Jeremias Mcleod, D/C plan: 1-2 days Code(s): M19.90 - UNSPECIFIED OSTEOARTHRITIS, UNSPECIFIED SITE
[2023-03-18 13:29] LABS: ANION GAP 12.1 MEQ/L (5-15); Potassium 3.6 mmol/L (3.5-5.1)
[2023-03-18] MEDS: PATIENT OWN MEDICATION IH SCH (18:19)
[2023-03-18] MEDS: ZOCOR 20MG PO SCH (21:24)
[2023-03-19] MEDS: solu-MEDROL 40 MG, Sterile H2O 10 ml 1 ML IV SCH ×2 (06:15)
[2023-03-19] MEDS: DUONEB 0.5-3 MG/3 ml Neb IH SCH ×2 (07:20→12:11)
[2023-03-19] MEDS: PATIENT OWN MEDICATION IH SCH (07:24)
[2023-03-19 08:25] VITALS: BP 133/83; PULSE 79; RESP 16; TEMP 97.8; O2SAT 97
[2023-03-19] MEDS: ROCEPHIN 1 Gm-D5w 50 ml Bag** 1 G/50 ML IVPB IV SCH (08:47)
[2023-03-19] MEDS: Zithromax 500 MG/ 250 ML NaCl Premix 500 MG/250 ML IVPB IV SCH (08:47)
[2023-03-19] MEDS: LIORESAL 10 MG PO SCH (08:48)
[2023-03-19] MEDS: NICODERM CQ 14 MG TOP SCH (08:49)
[2023-03-19 09:07] LABS: Hematocrit 35.7 % (35-47); Hemoglobin 11.9 g/dL (12.0-16.0); Mean Cell Volume 103.5 fL (78-100); Mean Corpuscular Hemoglobin 34.5 pg (26-32); Mean Corpuscular Hgb Concent. 33.3 g/dL (32-36); Mean Platelet Volume 8.6 fL (7.5-11.0); Platelet Count 427 x10^3/uL (150-450); Red Blood Count 3.45 x10^6/uL (4.1-5.4); Red Cell Distribution Width 13.5 % (11.5-14.0); White Blood Count 14.2 x10^3/uL (4.0-10.5)
[2023-03-19] MEDS: NORVASC 5 MG PO SCH (09:10)
[2023-03-19] MEDS: VITAMIN D PO SCH (09:10)
[2023-03-19] MEDS: Cymbalta 30 MG Capsule PO SCH (09:10)
[2023-03-19] MEDS: Protonix 40MG Tablet PO SCH (09:10)
[2023-03-19] MEDS: MYRBETRIQ PO SCH (09:10)
[2023-03-19] MEDS: SYNTHROID 50 MCG PO SCH (09:10)
[2023-03-19] MEDS: FOLATE 1 MG PO SCH (09:10)
[2023-03-19] MEDS: Abilify 10 MG PO SCH (09:11)
[2023-03-19] MEDS: ENOXAPARIN SODIUM SQ SCH (09:13)
[2023-03-19 09:23] LABS: ANION GAP 17.6 MEQ/L (5-15); BILIRUBIN,TOTAL 0.5 mg/dL (0.2-1.3); Creatinine 1 0.43 mg/dL (0.52-1.04); EST GLOMERULAR FILTRATION RATE 105.9 ML/MIN; Total Protein 7.8 g/dL (6.3-8.2)
[2023-03-19 09:39] LABS: Potassium 2.8 mmol/L (3.5-5.1)
[2023-03-19] MEDS ORDERED: Klor Con PO ONE (11:09)
--- NOTE | 2023-03-19 11:16 | PCM.DS ---
Discharge Summary Date of Admission: 03/17/23 16:53 Date of Discharge: 03/19/23 Admitting Physician: ULI CARMICHAEL MD Primary Care Provider: CLAUDIA CERVANTES Allergies Allergies codeine Allergy (Mild, Verified 03/17/23 13:56) Swelling SWELLING AND VOMITTING Sulfa (Sulfonamide Antibiotics) Allergy (Mild, Verified 03/17/23 13:56) Swelling Hospital Summary - Hospital Course Hospital Course: 03/18/23 is a 67 year old female with PMHX of asthma, bronchitis, COPD, empyysema, DDD, fibromyalgia, RA, GERD, anxiety, depression, lupus, sleep apnea (wears Cpap @ [facility]), and daily smoker. 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 She was admitted yesterday with dyspnea and cough. She reports dyspnea for a couple of weeks. She came in because it was her 3rd day of Zithromax and she was not getting better. She has had cough p roductive of yellow phlegm. She reported a fever of 99.7 and chills. She reports she also had a sore throat, nausea, and vomiting. She's had mild diarrhea for several days. No chest pain and no edema. She is feeling better today and wanting to go home however she is SOB, wheezing, and requiring 2LNC. Advised pt on smoking cessation she then asked to go out and smoke. Advised against this. She is refusing a nicotine patch. She denies CP, Abd. pain, N/V/D. 03/19/23 Pt sitting up in the chair. She is feeling much better and wants to go home. She is no longer SOB. She is agreeable to smoking cessation. potassium is low and replaced. Will d/c with antibiotics, steroids, potassium, and nicotine patches. She has an upcoming appointment with pulmonology. She would be a good candidate for pulmonary rehab and will make a referral. - Vitals & Intake/Output Vital Signs: Vital Signs Temperature 97.8 F 03/19/23 08:00 Pulse Rate 79 03/19/23 08:00 Respiratory Rate 16 03/19/23 08:00 Blood Pressure 133/83 03/19/23 08:00 O2 Sat by Pulse Oximetry 97 03/19/23 08:00 Intake & Output: Intake & Output 12/04/03/17/23 03/18/23 03/19/23 11:59 11:59 11:59 11:59 Intake Total 2498 1100 Output Total 1800 Balance 2498 -700 Weight 54.9 kg - Lab Result Diagrams: 03/19/23 08:47 03/19/23 08:47 Lab Results-Last 24 Hrs: Lab Results-Last 24 Hours 03/18/23 03/19/23 03/19/23 Range/Units 14:00 08:47 08:47 WBC 14.2 H (4.0-10.5) x10^3/uL RBC 3.45 L (4.1-5.4) x10^6/uL Hgb 11.9 L (12.0-16.0) g/dL Hct 35.7 (35-47) % MCV 103.5 H (78-100) fL MCH 34.5 H (26-32) pg MCHC 33.3 (32-36) g/dL RDW 13.5 (11.5-14.0) % Plt Count 427 D (150-450) x10^3/uL MPV 8.6 (7.5-11.0) fL Sodium 132 L 133 L (137-145) mmol/L Potassium 3.6 2.8 L* D (3.5-5.1) mmol/L Chloride 99 94 L (98-107) mmol/L Carbon Dioxide 25 25 (22-30) mmol/L Anion Gap 12.1 17.6 H (5-15) MEQ/L BUN 5 L (7-17) mg/dL Creatinine 0.43 L (0.52-1.04) mg/dL Estimated GFR 105.9 ML/MIN Glucose 157 H (74-106) mg/dL Calcium 9.0 (8.4-10.2) mg/dL Magnesium (1.6-2.3) mg/dL Total Bilirubin 0.50 (0.2-1.3) mg/dL AST 104 H (14-36) U/L ALT 94 H (0-35) U/L Alkaline Phosphatase 49 (38-126) U/L Serum Total Protein 7.8 (6.3-8.2) g/dL Albumin 5.0 (3.5-5.0) g/dL 03/19/23 Range/Units 09:27 WBC (4.0-10.5) x10^3/uL RBC (4.1-5.4) x10^6/uL Hgb (12.0-16.0) g/dL Hct (35-47) % MCV (78-100) fL MCH (26-32) pg MCHC (32-36) g/dL RDW (11.5-14.0) % Plt Count (150-450) x10^3/uL MPV (7.5-11.0) fL Sodium (137-145) mmol/L Potassium (3.5-5.1) mmol/L Chloride (98-107) mmol/L Carbon Dioxide (22-30) mmol/L Anion Gap (5-15) MEQ/L BUN (7-17) mg/dL Creatinine (0.52-1.04) mg/dL Estimated GFR ML/MIN Glucose (74-106) mg/dL Calcium (8.4-10.2) mg/dL Magnesium 1.7 (1.6-2.3) mg/dL Total Bilirubin (0.2-1.3) mg/dL AST (14-36) U/L ALT (0-35) U/L Alkaline Phosphatase (38-126) U/L Serum Total Protein (6.3-8.2) g/dL Albumin (3.5-5.0) g/dL - Radiology Exams Ordered Rad Exams-Entire Visit: Radiology Procedures Category Date Time Status CHEST 2 VIEWS (PA AND LAT) Stat Exams 03/17/23 18:43 Completed - Procedures and Test Procedures and Tests throughout Hospitalization: Therapy Orders & Screens 03/17/23 15:15 Respiratory Therapy Assessment DAILY Comment: 03/17/23 17:16 Smoking Cessation Education ONCE Comment: Diagnosis: COPD Exac, SOB Smoking Status: Current every day smoker How long have you smoked: 45 Have you smoked in the past 12 months: Yes Approximately how many cigarettes per day: one pack a day Do you dip or chew tobacco: No 03/17/23 17:47 Oxygen Nasal Cannula 2 lpm Comment: Diagnosis: COPD Exac, SOB 03/18/23 02:51 BiPap/CPAP ROUTINE Comment: Diagnosis: COPD Exac, SOB 03/19/23 07:00 Respiratory MDI DAILY Comment: Diagnosis: COPD Exac, SOB Discharge Exam General Appearance: no apparent distress, alert Neurologic Exam: alert, oriented x 3, cooperative, normal mood/affect, nml cerebellar function, sensation nml, No motor deficits Eye Exam: PERRL, EOMI, eyes nml inspection Ears, Nose, Throat Exam: normal ENT inspection, pharynx normal, moist mucous membranes Neck Exam: normal inspection, non-tender, supple, full range of motion Respiratory Exam: normal breath sounds, lungs clear, No respiratory distress Cardiovascular Exam: regular rate/rhythm, normal heart sounds Gastrointestinal/Abdomen Exam: soft, No tenderness, No mass Pelvic Exam: deferred Rectal Exam: deferred Back Exam: normal inspection, normal range of motion, No CVA tenderness, No vertebral tenderness Extremity Exam: normal inspection, normal range of motion Skin Exam: normal color, warm, dry Final Diagnosis/Problem List - Final Discharge Diagnosis/Problem (1) COPD exacerbation Current Visit: Yes Status: Acute Code(s): J44.1 - CHRONIC OBSTRUCTIVE PULMONARY DISEASE W (ACUTE) EXACERBATION (2) Hypokalemia Current Visit: Yes Status: Acute Code(s): E87.6 - HYPOKALEMIA (3) Hypertension Current Visit: Yes Status: Chronic Code(s): I10 - ESSENTIAL (PRIMARY) HY PERTENSION (4) Hyperlipidemia Current Visit: Yes Status: Chronic Code(s): E78.5 - HYPERLIPIDEMIA, UNSPEC IFIED (5) Smoker Current Visit: Yes Status: Acute Code(s): F17.200 - NICOTINE DEPENDENCE, UNSPECIFIED, UNCOMPLICATED (6) Sleep apnea Current Visit: Yes Status: Acute Code(s): G47.30 - SLEEP APNEA, UNSPECIFIED (7) Arthritis Current Visit: Yes Status: Acute Assessment & Plan: (1) COPD exacerbation Current Visit: Yes Status: Acute Assessment & Plan: Patient admitted with COPD and dyspnea. Hypoxia in ER. Continue oxygen as needed. Productive cough. No edema. No cxray or CT was done. Will order these No COVID, Influenza testing or RSV was ordered. Will order these Plan IV antibiotics. Treat for community acquired infection. Unclear if she has pneumonia. Treat with steroids and bronchodilators. 03/18 -Chest XR 03/17/23 Impression: Nonacute chest with chronic features. - 2LNC- 93%,- BL RA - COVID Flu, RSV negative 03/19/23 - Pulm rehab consult - RA 91% - D/C with antibiotics and steroids - F/u withing the week with PCP Code(s): J44.1 - CHRONIC OBSTRUCTIVE PULMONARY DISEASE W (ACUTE) EXACERBATION (2) Hypokalemia Current Visit: Yes Status: Acute Assessment & Plan: K=2.8. Replacement ordered. 03/18 - K+ 3.3- replaced - recheck at 14:00 03/19 -K+ 2.8 replaced - Will d/c with potassium - F/U with PCP for lab recheck Code(s): E87.6 - HYPOKALEMIA (3) Hypertension Current Visit: Yes Status: Chronic Assessment & Plan: -Continue home meds - BP stable Code(s): I10 - ESSENTIAL (PRIMARY) HYPERTENSION (4) Hyperlipidemia Current Visit: Yes Status: Chronic Assessment & Plan: -Continue home meds Code(s): E78.5 - HYPERLIPIDEMIA, UNSPECIFIED (5) Smoker Current Visit: Yes Status: Acute Assessment & Plan: - advised smoking cessation - refused nicotine patch 03/19 - agreeable to smoking cessation Code(s): F17.200 - NICOTINE DEPENDENCE, UNSPECIFIED, UNCOMPLICATED (6) Sleep apnea Current Visit: Yes Status: Acute Assessment & Plan: - Cpap at [facility] 03/19 - OP Cpap broken per pt, advised to f/u with company that supplied and [employer] for new Cpap machine Code(s): G47.30 - SLEEP APNEA, UNSPECIFIED (7) Arthritis Current Visit: Yes Status: Acute Assessment & Plan: - Patient reports history of fibromyalgia, RA and Lupus. - Continue home meds - Tylenol for pain Code(s): M19.90 - UNSPECIFIED OSTEOARTHRITIS, UNSPECIFIED SITE - Discharge Discharge Date: 03/19/23 Disposition: Home, Self-Care Condition: Stable Prescriptions: New Nicotine 14 mg [Nicoderm Cq 14 mg] 14 mg TOP Q24H10 28 Days #28 patch Continue Atorvastatin Calcium 20 mg PO HS Levothyroxine Sodium 75 Mcg [Synthroid 75 Mcg] 50 mcg PO DAILY Duloxetine HCl 1 tab PO BID Albuterol/Ipratropium 3ml Neb* [DUONEB 0.5-3 MG/3 ml Neb] 3 ml IH Q4H PRN PRN #30 ampul.neb PRN Reason: DIFFICULTY BREATHING Vitamin E (Dl,Tocopheryl Acet) [Vitamin E] 180 mg PO DAILY Cholecalciferol (Vitamin D3) [Vitamin D3] 50 mcg PO DAILY Baclofen 10 mg [Lioresal 10 mg] 10 mg PO TID Folic Acid 1 mg [Folate 1 mg] 1 mg PO DAILY Mirabegron [Myrbetriq] 1 tab PO DAILY PANTOPRAZOLE 40 mg Tablet [Protonix 40MG Tablet] 40 mg PO QAM Aripiprazole 10 mg [Abilify 10 MG] 10 mg PO DAILY Amlodipine Besylate 10 mg PO DAILY Prednisone 10 mg [Deltasone 10 mg] 20 mg PO DAILY Azithromycin [Azithromycin 250 mg Pack] 250 mg PO UD Fluticasone/Umeclidin/Vilanter [Trelegy Ellipta 100-62.5-25] 1 inh IH DAILY Follow up with: BONINE GARNER [NON-STAFF PHY W/O PRIVILEGES] - 04/01/23 10:00 am (April Santana) CLAUDIA CERVANTES NP [Primary Care Provider] - 03/27/23 10:45 am
== END 2023-03-19 11:46 | disposition home or self-care (01) ==
LOC: ED 13:53 → MED SURG 16:53
PROVIDERS: ADMIT Internal Medicine; ATTEND Internal Medicine
DX: J44.1 Chronic obstructive pulmonary disease with (acute) exacerbation (principal); E87.6 Hypokalemia; I10 Essential (primary) hypertension; E78.5 Hyperlipidemia, unspecified; F17.200 Nicotine dependence, unspecified, uncomplicated; G47.30 Sleep apnea, unspecified; M19.90 Unspecified osteoarthritis, unspecified site; R06.02 Shortness of breath; R19.7 Diarrhea, unspecified; E03.9 Hypothyroidism, unspecified; Z79.899 Other long term (current) drug therapy; Z20.828 Contact with and (suspected) exposure to other viral communicable diseases
CPT/HCPCS: 0241U; 36000; 36415; 36600; 71046; 80051; 80053; 81001; 82375; 82803; 83735; 83880; 84132; 84484; 85025; 85027; 85379; 85610; 85730; 87040; 93005; 93268; 94640; 94760; 94762; 96374; 99285; J0456; J0696; J1650; J2920; J2930; J3475; J3480; Q3014; A9270-GY; G0378

== ENCOUNTER 2023-05-13 16:57 | Inpatient (IN) | payer MEDICARE ==
[2023-05-13 17:40] LABS: A-aADO2 618; ABG HEMOGLOBIN 14.1; ABG POTASSIUM 3.3 (3.5-5.1); ARTERIAL BLD GAS O2 SATURATION 89.5 % (95-100); ARTERIAL BLOOD GAS BASE EXCESS -3.2 (-2.0-2.0); ARTERIAL BLOOD GAS FIO2 100 %; ARTERIAL BLOOD GAS PCO2 29 mmHg (35-45); ARTERIAL BLOOD GAS PO2 59 mmHg (75-100); ARTERIAL BLOOD GAS pH 7.44 (7.35-7.45); CARBOXYHEMOGLOBIN 1.1 % THgb (0.0-6.9); HCO3- 19.7 (22-28); HGB O2 SAT 88.2 g/dF (94-100); Lactic Acid 5.1 (0.4-2.0); Methhemoglobin 0.3 % (1.4-1.5); paO2 pAO1 0.09
[2023-05-13 17:41] LABS: ABG SITE RIGHT BRACHIAL
--- NOTE | 2023-05-13 18:16 | ERPHSYRPT ---
- History of Present Illness Time Seen by Provider: 05/13/23 17:00 Source: patient, EMS, old records Exam Limitations: clinical condition Patient Subjective Stated Complaint: C/O SOB that is worse today. Unsure of onset of SOB. Triage Nursing Assessment: Patient arrived by ambulance wearing a CPAP when entering the ER. She is alert and anxious. Patient only able to give one word answers due to SOB. She is incontinent of stool. Skin is cool to touch. Knees appear slightly mottled. RT is at bedside. Cough is present. No edema. Patient denies pain. Physician History: 67 y/o white female pt brought into ED by paramedics on cpap secondary to sob. pt has sig copd. covid positive dx last week. continues to smoke cigarettes daily. o2 sats on cpap 88%. denies cp. denies fever. always has a cough. denies abd pain Timing/Duration: today, worse Activities at Onset: activity Severity of Dyspnea-Max: moderate Severity of Dyspnea-Current: moderate Possible Cause: frequent episodes Modifying Factors: Improves With: activity, coughing Associated Symptoms: anxiety, No chest pain/discomfort Allergies/Adverse Reactions: codeine Allergy (Mild, Verified 05/13/23 17:21) Swelling SWELLING AND VOMITTING Sulfa (Sulfonamide Antibiotics) Allergy (Mild, Verified 05/13/23 17:21) Swelling Home Medications: Atorvastatin Calcium 20 mg PO HS 10/01/14 [History] Duloxetine HCl 1 tab PO BID 10/01/14 [History] Levothyroxine Sodium 75 Mcg [Synthroid 75 Mcg] 50 mcg PO DAILY 10/01/14 [History] Baclofen 10 mg [Lioresal 10 mg] 10 mg PO TID 05/05/21 [History] Cholecalciferol (Vitamin D3) [Vitamin D3] 50 mcg PO DAILY 05/05/21 [History] Folic Acid 1 mg [Folate 1 mg] 1 mg PO DAILY 05/05/21 [History] Mirabegron [Myrbetriq] 1 tab PO DAILY 05/05/21 [History] Vitamin E (Dl,Tocopheryl Acet) [Vitamin E] 180 mg PO DAILY 05/05/21 [History] Amlodipine Besylate 10 mg PO DAILY 12/13/21 [History] Aripiprazole 10 mg [Abilify 10 MG] 10 mg PO DAILY 12/13/21 [History] PANTOPRAZOLE 40 mg Tablet [Protonix 40MG Tablet] 40 mg PO QAM 12/13/21 [History] Azithromycin [Azithromycin 250 mg Pack] 250 mg PO UD 03/17/23 [History] Prednisone 10 mg [Deltasone 10 mg] 20 mg PO DAILY 03/17/23 [History] Fluticasone/Umeclidin/Vilanter [Trelegy Ellipta 100-62.5-25] 1 inh IH DAILY 03/18/23 [History] Hx Tetanus, Diphtheria Vaccination/Date Given: No Hx Influenza Vaccination/Date Given: No Hx Pneumococcal Vaccination/Date Given: Yes Travel Risk - International Travel Have you traveled outside of the country in past 3 weeks: No - Coronavirus Screening Are you exhibiting any of the following symptoms?: Yes Symptoms: Cough: New Onset, Shortness of Breath Close contact with a COVID-19 positive Pt in past 14-21 Days: No - Vaccine Status Have you recieved a Covid-19 vaccination: Yes Protective Signal Installer: Moderna - Vaccination Dates Date of 2cond Vaccination (if applicable): 2020 - Review of Systems Constitutional: No Symptoms Eyes: No Symptoms Ears, Nose, & Throat: No Symptoms Respiratory: Cough, Dyspnea, Wheezing Cardiac: No Symptoms Abdominal/Gastrointestinal: No Symptoms Genitourinary Symptoms: No Symptoms Musculoskeletal: No Symptoms Skin: No Symptoms Neurological: No Symptoms Psychological: No Symptoms Endocrine: No Symptoms Hematologic/Lymphatic: No Symptoms Immunological/Allergic: No Symptoms All Other Systems: Reviewed and Negative - Past Medical History Pertinent Past Medical History: Yes Neurological History: No Pertinent History ENT History: No Pertinent History Cardiac History: No Pertinent History Respiratory History: Asthma, Bronchitis, COPD, Emphysema, Other Endocrine Medical History: No Pertinent History Musculoskeletal History: Degenerative Disk Disease, Fibromyalgia, Rheumatoid Arthritis, Other GI Medical History: GERD, Gallbladder Disease, Hernia History: No Pertinent History Psycho-Social History: Anxiety, Depression Female Reproductive Disorders: No Pertinent History Other Medical History: lupus, - Past Surgical History Past Surgical History: Yes Neuro Surgical History: No Pertinent History Cardiac: No Pertinent History Respiratory: No Pertinent History Gastrointestinal: Cholecystectomy, Hernia Repair Genitourinary: No Pertinent History Female Surgical History: Tubal Ligation Other Surgical History: bilat carpal tunnel, left ovarian cyst removed,bilat cataract,. tonsillectomy as a child - Social History Smoking Status: Current every day smoker How long have you smoked: "years" Exposure to second hand smoke: Yes Drug Use: marijuana Patient Lives Alone: No - Nursing Vital Signs Nursing Vital Signs: Initial Vital Signs Temperature 96.7 F 05/13/23 16:57 Pulse Rate 130 H 05/13/23 16:57 Respiratory Rate 24 05/13/23 16:57 Blood Pressure 80/50 05/13/23 16:57 O2 Sat by Pulse Oximetry 84 L 05/13/23 16:57 Pain Scale Pain Intensity 0 - Physical Exam General Appearance: mild distress (to mod) Eye Exam: PERRL/EOMI, eyes nml inspection Ears, Nose, Throat Exam: hearing grossly normal, normal ENT inspection, normal pharynx Neck Exam: normal inspection, non-tender, supple, full range of motion Respiratory Exam: respiratory distress, rhonchi, wheezing, No chest tenderness Cardiovascular/Chest Exam: tachycardia Abdominal/Gastrointestinal Exam: soft, normal bowel sounds, No tenderness Rectal Exam: not done Extremity Exam: non-tender, normal range of motion, pelvis stable Neurologic Exam: alert, oriented x 3, cooperative, joy operator helper II-XII nml as tested Skin Exam: mottled Lymphatic Exam: No adenopathy SpO2 Interpretation: hypoxic SpO2: 82 - Course Nursing assessment & vital signs reviewed: Yes EKG Interpreted by Me: RATE ([id number]), Sinus Tach, NORMAL AXIS, NORMAL INTERVALS, NORMAL QRS, Other (no acute ischemia. computer read out supraventricular bigeminy) Ordered Tests: Active Orders 24 hr Category Date Time Status IV Insertion STAT Care 05/13/23 17:40 Active Telemetry q4h Care 05/13/23 18:54 Active CHEST 1 VIEW (PORTABLE) Stat Exams 05/13/23 17:45 Taken ABG [ARTERIAL BLOOD GASES] Stat Lab 05/13/23 17:15 Completed BLOOD CULTURE Stat Lab 05/13/23 17:09 Received CBC W DIFF Stat Lab 05/13/23 18:15 Completed CMP Stat Lab 05/13/23 18:15 Completed D-DIMER QUANTITATIVE Stat Lab 05/13/23 18:21 Completed Lactic Acid Stat Lab 05/13/23 17:15 Completed Manual Differential NC Stat Lab 05/13/23 18:15 Completed NT PRO BNPII Stat Lab 05/13/23 18:15 Completed TROPONIN Q4H Lab 05/13/23 18:15 Completed TROPONIN Q4H Lab 05/13/23 21:45 Ordered TROPONIN Q4H Lab 05/14/23 01:45 Ordered BiPap/CPAP STAT RT 05/13/23 17:24 Active Transfer Order Routine Transfer 05/13/23 Ordered Medication Summary Generic Name Dose Route Start Last Admin Trade Name Courtney PRN Reason Stop Dose Admin Potassium Chloride 20 meq in 100 mls @ 50 mls/hr 05/13/23 18:54 05/13/23 19:29 Potassium Chloride 20 Meq In Water 100ml IV 05/13/23 20:53 50 mls/hr STAT ONE Administration Magnesium Sulfate/Water 2 gm in 50 mls @ 100 mls/hr 05/13/23 19:13 05/13/23 19:30 Magnesium Sulf 2 G/50 Ml Bag IV 05/13/23 19:42 100 ml/hr ONCE ONE 100 mls/hr Administration Sodium Chloride 1,000 mls @ 100 mls/hr 05/13/23 19:30 05/13/23 19:30 Sodium Chloride 0.9% 1000 Ml IV 06/12/23 19:29 100 mls/hr .Q10H CANDY Administration Discontinued Medications Generic Name Dose Route Start Last Admin Trade Name Courtney PRN Reason Stop Dose Admin Methylprednisolone Sodium 0 mg 05/13/23 18:20 05/13/23 18:31 Succinate 125 mg/ Sterile IV 05/13/23 18:21 125 mg Water 2 ml STAT ONE Administration Furosemide 40 mg 05/13/23 19:14 05/13/23 19:29 Furosemide 40 Mg/4 Ml Vial IV 05/13/23 19:15 40 mg STAT ONE Administration Furosemide Confirm 05/13/23 19:24 Furosemide 40 Mg/4 Ml Vial Administered 05/13/23 19:25 Dose 40 mg .ROUTE .STK-MED ONE Magnesium Sulfate/Water Confirm 05/13/23 19:24 Magnesium Sulf 2 G/50 Ml Bag Administered 05/13/23 19:25 Dose 2 gm in 50 mls @ ud IV .STK-MED ONE Potassium Chloride Confirm 05/13/23 19:24 Potassium Chloride 20 Meq In Water 100ml Administered 05/13/23 19:25 Dose 100 mls @ ud IV .STK-MED ONE Methylprednisolone Sodium Succinate Confirm 05/13/23 18:31 Methylprednis Sod Succ 125 Mg/2 Ml Vial Administered 05/13/23 18:32 Dose 125 mg .ROUTE .STK-MED ONE Sterile Water Confirm 05/13/23 18:31 Water For Injection,Sterile 10 Ml Vial Administered 05/13/23 18:32 Dose 10 ml IJ .STK-MED ONE Lab/Rad Data: Laboratory Result Diagrams 05/13/23 18:15 05/13/23 18:15 Laboratory Results 05/13/23 05/13/23 05/13/23 Range/Units 18:21 18:15 18:15 WBC (4.0-10.5) x10^3/uL RBC (4.1-5.4) x10^6/uL Hgb (12.0-16.0) g/dL Hct (35-47) % MCV (78-100) fL MCH (26-32) pg MCHC (32-36) g/dL RDW (11.5-14.0) % Plt Count (150-450) x10^3/uL MPV (7.5-11.0) fL D-Dimer 0.69 H* (0.0-0.50) mg/L Puncture Site pCO2 (35-45) mmHg pO2 (75-100) mmHg Base Excess (-2.0-2.0) O2 Saturation (94-100) g/dF ABG pH (7.35-7.45) ABG HCO3 (22-28) ABG O2 Sat (Measured) (95-100) % Alejandro Test A-a Gradient a/A Ratio Hemoglobin Carboxyhemoglobin (0.0-6.9) % THgb Methemoglobin (1.4-1.5) % Potassium 3.0 L* (3.5-5.1) Temperature C POC O2 Flow Rate % Sodium 130 L (137-145) mmol/L Chloride 94 L (98-107) mmol/L Carbon Dioxide 24 (22-30) mmol/L Anion Gap 14.9 (5-15) MEQ/L BUN 21 H (7-17) mg/dL Creatinine 1.74 H (0.52-1.04) mg/dL Estimated GFR 31.6 ML/MIN Glucose 96 (74-106) mg/dL Lactic Acid (0.4-2.0) Calcium 8.3 L (8.4-10.2) mg/dL Total Bilirubin 1.30 (0.2-1.3) mg/dL AST 62 H (14-36) U/L ALT 35 (0-35) U/L Alkaline Phosphatase 37 L (38-126) U/L Troponin I 0.026 (0.000-0.034) ng/mL NT-Pro-B Natriuret Pep 01381 (<300) pg/mL Serum Total Protein 6.5 (6.3-8.2) g/dL Albumin 4.0 (3.5-5.0) g/dL 05/13/23 05/13/23 Range/Units 18:15 17:15 WBC 5.3 (4.0-10.5) x10^3/uL RBC 3.88 L (4.1-5.4) x10^6/uL Hgb 13.4 (12.0-16.0) g/dL Hct 40.1 (35-47) % MCV 103.4 H (78-100) fL MCH 34.5 H (26-32) pg MCHC 33.4 (32-36) g/dL RDW 13.4 (11.5-14.0) % Plt Count 355 (150-450) x10^3/uL MPV 8.8 (7.5-11.0) fL D-Dimer (0.0-0.50) mg/L Puncture Site RIGHT BRACHIAL pCO2 29 L (35-45) mmHg pO2 59 L (75-100) mmHg Base Excess -3.2 L (-2.0-2.0) O2 Saturation 88.2 L (94-100) g/dF ABG pH 7.44 (7.35-7.45) ABG HCO3 19.7 L (22-28) ABG O2 Sat (Measured) 89.5 L (95-100) % Alejandro Test NOT APPLICABLE A-a Gradient 618 a/A Ratio 0.09 Hemoglobin 14.1 Carboxyhemoglobin 1.1 (0.0-6.9) % THgb Methemoglobin 0.3 L (1.4-1.5) % Potassium 3.3 L (3.5-5.1) Temperature 37.0 C POC O2 Flow Rate 100 % Sodium (137-145) mmol/L Chloride (98-107) mmol/L Carbon Dioxide (22-30) mmol/L Anion Gap (5-15) MEQ/L BUN (7-17) mg/dL Creatinine (0.52-1.04) mg/dL Estimated GFR ML/MIN Glucose (74-106) mg/dL Lactic Acid 5.1 H (0.4-2.0) Calcium (8.4-10.2) mg/dL Total Bilirubin (0.2-1.3) mg/dL AST (14-36) U/L ALT (0-35) U/L Alkaline Phosphatase (38-126) U/L Troponin I (0.000-0.034) ng/mL NT-Pro-B Natriuret Pep (<300) pg/mL Serum Total Protein (6.3-8.2) g/dL Albumin (3.5-5.0) g/dL - Progress Progress: improved, re-examined Air Movement: poor Progress Note: 05/13/23 18:18 moderate to high complexity. pt with sig copd. recent dx of covid positive. reviewed medlist, allergy list, hx and performed exam. iv, abg, rt eval, solumedrol, bipap cxr, bnp, ddimer, troponin, ekg, cbc, cmp 05/13/23 19:[address] acevedo. he is aware. transfer of care to dr. leonard at shift change. he will follow up on tests and admit to hospital pending lab results Blood Culture(s) Obtained: No Antibiotics given: No Counseled pt/family regarding: lab results, diagnosis, rad results Medical Desision Making - Independent Historian Additional History obtained from: Medicinal Chemist/EMT - Diagnostic Testing Diagnostic test were ordered, analyzed, and reviewed by me: Yes - Risk of complications The pt has a high risk of morbidity or mortality based on: Decision regarding h ospitilization or escalation of hosp level of care - Departure Departure Disposition: In-patient Admission Clinical Impression: SOB (shortness of breath), Hypoxia Condition: Fair Critical Care Time: No Referrals: CLAUDIA CERVANTES, CERTIFIED CODING SPECIALIST [Primary Care Provider] - Follow up/PCP as directed
[2023-05-13] MEDS ORDERED: solu-MEDROL 125 MG, Sterile H2O 10 ml 2 ML IV ONE ×2 (18:20)
[2023-05-13 18:23] LABS: Hematocrit 40.1 % (35-47); Hemoglobin 13.4 g/dL (12.0-16.0); Mean Cell Volume 103.4 fL (78-100); Mean Corpuscular Hemoglobin 34.5 pg (26-32); Mean Corpuscular Hgb Concent. 33.4 g/dL (32-36); Mean Platelet Volume 8.8 fL (7.5-11.0); Platelet Count 355 x10^3/uL (150-450); Red Blood Count 3.88 x10^6/uL (4.1-5.4); Red Cell Distribution Width 13.4 % (11.5-14.0); White Blood Count 5.3 x10^3/uL (4.0-10.5)
[2023-05-13] MEDS ORDERED: Sterile H2O 10 ml IJ ONE (18:31)
[2023-05-13] MEDS ORDERED: solu-MEDROL ONE (18:31)
[2023-05-13 18:36] LABS: ANION GAP 14.9 MEQ/L (5-15); BILIRUBIN,TOTAL 1.3 mg/dL (0.2-1.3); Calcium 8.3 mg/dL (8.4-10.2); Creatinine 1 1.74 mg/dL (0.52-1.04); EST GLOMERULAR FILTRATION RATE 31.6 ML/MIN; Total Protein 6.5 g/dL (6.3-8.2)
[2023-05-13] MEDS ORDERED: POTASSIUM CHLORIDE 20 mEq IN WATER 100ML 20 MEQ/100 ML BAG IV ONE (18:54)
[2023-05-13] MEDS ORDERED: MAGNESIUM SULF 2 G/50 ML BAG 2 GM/50 ML PIGGYBACK IV ONE ×2 (19:13→19:24)
[2023-05-13] MEDS ORDERED: Lasix 40 MG/4 ML IV ONE (19:14)
[2023-05-13] MEDS ORDERED: Lasix 40 MG/4 ML ONE (19:24)
[2023-05-13] MEDS ORDERED: Sodium Chloride 0.9% 1000 ML 1,000 ML ONE (19:24)
[2023-05-13] MEDS ORDERED: POTASSIUM CHLORIDE 20 mEq IN WATER 100ML 100 ML IV ONE (19:24)
[2023-05-13] MEDS ORDERED: Sodium Chloride 0.9% 1000 ML 1,000 ML IV SCH (19:30)
[2023-05-13 19:45] LABS: BAND 17 % (0.0-2.0); Lymphocytes 26 % (24-44); Monocyte 16 % (0.0-12.0); Neutrophils 41 % (36.0-66.0); Platelet Estimate NORMAL (NORMAL); Total Cells Counted 100
[2023-05-13 19:46] LABS: ANISOCYTOSIS 2+
[2023-05-13] MEDS ORDERED: Docusate Sodium 100 MG PO PRN (23:51)
[2023-05-13] MEDS ORDERED: TYLENOL 325 MG PO PRN (23:51)
[2023-05-13 23:56] LABS: INFLUENZA A NEGATIVE (NEGATIVE); INFLUENZA B NEGATIVE (NEGATIVE); RESPIRATORY SYNCTIAL VIRUS NEGATIVE (NEGATIVE); SARS-CoV-2 Xpert Express NEGATIVE (NEGATIVE)
[2023-05-13] MEDS ORDERED: DUONEB 0.5-3 MG/3 ml Neb IH ONE (23:58)
[2023-05-14] MEDS: DUONEB 0.5-3 MG/3 ml Neb IH SCH ×4 (00:06→19:24)
--- NOTE | 2023-05-14 00:07 | PCM.HP ---
History of Present Illness - Chief Complaint Chief Complaint: respiratory distress, covid positive Date: 05/13/23 History of Present Illness: is a 67 year old female with a known history of COPD (not on home oxygen, and follows with Dr. Colindres) and a recent COVID infection last week who now presents to the hospital with significant dyspnea. She also reported stool incontinence but denied chest pain or history of CHF. She has had a cough but denies hemoptysis or cough productive of sputum. The shortness of breath was worse with activity. She was brought to the hospital wearing a CPAP and was placed on supplemental oxygen. Due to the persistent hypoxia despite treatment, a request for admission was placed. - Review of Systems Constitutional: No Symptoms Eyes: No Symptoms Ears, Nose, & Throat: No Symptoms Respiratory: Cough, Short Of Breath, Wheezing Cardiac: No Symptoms Abdominal/Gastrointestinal: No Symptoms Genitourinary Symptoms: No Symptoms Musculoskeletal: No Symptoms Skin: No Symptoms Neurological: No Symptoms Psychological: No Symptoms Endocrine: No Symptoms Hematologic/Lymphatic: No Symptoms Immunological/Allergic: No Symptoms All Other Systems: Reviewed and Negative Medications & Allergies Home Medications: Home Medication List Atorvastatin Calcium 20 mg PO HS 10/01/14 [History Confirmed 03/17/23] Duloxetine HCl 1 tab PO BID 10/01/14 [History Confirmed 03/17/23] Levothyroxine Sodium 75 Mcg [Synthroid 75 Mcg] 50 mcg PO DAILY 10/01/14 [History Confirmed 03/17/23] Albuterol/Ipratropium 3ml Neb* [DUONEB 0.5-3 MG/3 ml Neb] 3 ml IH Q4H PRN PRN #30 ampul.neb 03/03/16 [Rx Confirmed 03/17/23] Baclofen 10 mg [Lioresal 10 mg] 10 mg PO TID 05/05/21 [History Confirmed 03/18/23] Cholecalciferol (Vitamin D3) [Vitamin D3] 50 mcg PO DAILY 05/05/21 [History Confirmed 03/17/23] Folic Acid 1 mg [Folate 1 mg] 1 mg PO DAILY 05/05/21 [History Confirmed 03/17/23] Mirabegron [Myrbetriq] 1 tab PO DAILY 05/05/21 [History Confirmed 03/17/23] Vitamin E (Dl,Tocopheryl Acet) [Vitamin E] 180 mg PO DAILY 05/05/21 [History Confirmed 03/17/23] Amlodipine Besylate 10 mg PO DAILY 12/13/21 [History Confirmed 03/17/23] Aripiprazole 10 mg [Abilify 10 MG] 10 mg PO DAILY 12/13/21 [History Confirmed 03/17/23] PANTOPRAZOLE 40 mg Tablet [Protonix 40MG Tablet] 40 mg PO QAM 12/13/21 [History Confirmed 03/17/23] Azithromycin [Azithromycin 250 mg Pack] 250 mg PO UD 03/17/23 [History Confirmed 03/17/23] Prednisone 10 mg [Deltasone 10 mg] 20 mg PO DAILY 03/17/23 [History Confirmed 03/17/23] Fluticasone/Umeclidin/Vilanter [Trelegy Ellipta 100-62.5-25] 1 inh IH DAILY 03/18/23 [History Confirmed 03/18/23] Doxycycline Monohydrate 100 mg PO BID PRN 5 Days #10 cap 03/19/23 [Rx] Nicotine 14 mg [Nicoderm Cq 14 mg] 14 mg TOP Q24H10 28 Days #28 patch 03/19/23 [Rx] Potassium Chloride Tab* [Klor Con] 20 meq PO BID 5 Days #20 tab 03/19/23 [Rx] Potassium Chloride Tab* [Klor Con] 40 meq PO HS 1 Days #4 tab 03/19/23 [Rx] Prednisone 20 mg [Deltasone 20 mg] 20 mg PO BID 5 Days #10 tablet 03/19/23 [Rx] Allergies/Adverse Reactions: Allergies Allergy/AdvReac Type Severity Reaction Status Date / Time codeine Allergy Mild Swelling Verified 05/13/23 17:21 Sulfa (Sulfonamide Allergy Mild Swelling Verified 05/13/23 17:21 Antibiotics) - Past Medical History Past Medical History: Yes Neurological History: No Pertinent History ENT History: No Pertinent History Cardiac History: No Pertinent History Respiratory History: Asthma, Bronchitis, COPD, Emphysema, Other Endocrine Medical History: No Pertinent History Musculoskelatal History: Degenerative Disk Disease, Fibromyalgia, Rheumatoid Arthritis, Other GI Medical History: GERD, Gallbladder Disease, Hernia History: No Pertinent History Pyscho-Social History: Anxiety, Depression Reproductive Disorders: No Pertinent History Comment: lupus, - Past Surgical History Past Surgical History: Yes Neuro Surgical History: No Pertinent History Cardiac History: No Pertinent History Respiratory Surgery: No Pertinent History GI Surgical History: Cholecystectomy, Hernia Repair Genitourinary Surgical Hx: No Pertinent History Female Surgical History: Tubal Ligation Other Surgical History: bilat carpal tunnel, left ovarian cyst removed,bilat cataract,. tonsillectomy as a child - Social History Smoking Status: Current every day smoker How long have you smoked: 50y Exposure to second hand smoke: Yes Alcohol: Daily Drug Use: marijuana - Physical Exam Vital Signs: Vital Signs - 24 hr Temp Pulse Resp BP BP Pulse Ox 05/13/23 22:41 97.6 F 100 H 25 H 115/76 80 L 05/13/23 19:41 82 L 05/13/23 19:01 26 H 149/102 90 L 05/13/23 19:00 104 H 35 H 98 05/13/23 18:50 109 H 29 H 99 05/13/23 18:40 109 H 29 H 100 05/13/23 18:32 109 H 34 H 100 05/13/23 18:01 112 H 34 H 181/53 100 05/13/23 17:43 104 H 32 H 164/69 82 L 05/13/23 17:42 102 H 31 H 85 L 05/13/23 17:40 103 H 33 H 05/13/23 17:30 110 H 28 H 90 L 05/13/23 17:20 122 H 29 H 05/13/23 17:10 114 H 18 89 L 05/13/23 16:57 96.7 F 130 H 24 80/50 84 L General Appearance: moderate distress, alert Neurologic Exam: alert, oriented x 3, cooperative, deputy director of nursing II-XII nml as tested, normal mood/affect, nml cerebellar function Eye Exam: PERRL/EOMI, eyes nml inspection Ears, Nose, Throat Exam: normal ENT inspection Neck Exam: normal inspection, non-tender, supple, full range of motion Respiratory Exam: respiratory distress, diminished breath sounds, accessory muscle use, prolonged expirations, wheezing Cardiovascular Exam: regular rate/rhythm, normal heart sounds Gastrointestinal/Abdomen Exam: soft, normal bowel sounds Back Exam: normal range of motion Extremity Exam: normal inspection, normal range of motion Skin Exam: normal color Results - Labs Lab/Micro Results: Lab Results-Last 24 Hours 05/13/23 05/13/23 05/13/23 Range/Units 17:15 18:15 18:15 WBC 5.3 (4.0-10.5) x10^3/uL RBC 3.88 L (4.1-5.4) x10^6/uL Hgb 13.4 (12.0-16.0) g/dL Hct 40.1 (35-47) % MCV 103.4 H (78-100) fL MCH 34.5 H (26-32) pg MCHC 33.4 (32-36) g/dL RDW 13.4 (11.5-14.0) % Plt Count 355 (150-450) x10^3/uL MPV 8.8 (7.5-11.0) fL Segmented Neutrophils 41 (36.0-66.0) % Band Neutrophils 17 H (0.0-2.0) % Lymphocytes (Manual) 26 (24-44) % Monocytes (Manual) 16 H (0.0-12.0) % Platelet Estimate NORMAL (NORMAL) RBC Morphology ABNORMAL Anisocytosis 2+ D-Dimer (0.0-0.50) mg/L Puncture Site RIGHT BRACHIAL pCO2 29 L (35-45) mmHg pO2 59 L (75-100) mmHg Base Excess -3.2 L (-2.0-2.0) O2 Saturation 88.2 L (94-100) g/dF ABG pH 7.44 (7.35-7.45) ABG HCO3 19.7 L (22-28) ABG O2 Sat (Measured) 89.5 L (95-100) % Alejandro Test NOT APPLICABLE A-a Gradient 618 a/A Ratio 0.09 Hemoglobin 14.1 Carboxyhemoglobin 1.1 (0.0-6.9) % THgb Methemoglobin 0.3 L (1.4-1.5) % Potassium 3.3 L 3.0 L* (3.5-5.1) Temperature 37.0 C POC O2 Flow Rate 100 % Sodium 130 L (137-145) mmol/L Chloride 94 L (98-107) mmol/L Carbon Dioxide 24 (22-30) mmol/L Anion Gap 14.9 (5-15) MEQ/L BUN 21 H (7-17) mg/dL Creatinine 1.74 H (0.52-1.04) mg/dL Estimated GFR 31.6 ML/MIN Glucose 96 (74-106) mg/dL Lactic Acid 5.1 H (0.4-2.0) Calcium 8.3 L (8.4-10.2) mg/dL Total Bilirubin 1.30 (0.2-1.3) mg/dL AST 62 H (14-36) U/L ALT 35 (0-35) U/L Alkaline Phosphatase 37 L (38-126) U/L Troponin I (0.000-0.034) ng/mL NT-Pro-B Natriuret Pep 63717 (<300) pg/mL Serum Total Protein 6.5 (6.3-8.2) g/dL Albumin 4.0 (3.5-5.0) g/dL Influenza Type A Ag (NEGATIVE) Influenza Type B Ag (NEGATIVE) RSV (PCR) (NEGATIVE) SARS-CoV-2 (PCR) (NEGATIVE) 05/13/23 05/13/23 05/13/23 Range/Units 18:15 18:21 19:55 WBC (4.0-10.5) x10^3/uL RBC (4.1-5.4) x10^6/uL Hgb (12.0-16.0) g/dL Hct (35-47) % MCV (78-100) fL MCH (26-32) pg MCHC (32-36) g/dL RDW (11.5-14.0) % Plt Count (150-450) x10^3/uL MPV (7.5-11.0) fL Segmented Neutrophils (36.0-66.0) % Band Neutrophils (0.0-2.0) % Lymphocytes (Manual) (24-44) % Monocytes (Manual) (0.0-12.0) % Platelet Estimate (NORMAL) RBC Morphology Anisocytosis D-Dimer 0.69 H* (0.0-0.50) mg/L Puncture Site pCO2 (35-45) mmHg pO2 (75-100) mmHg Base Excess (-2.0-2.0) O2 Saturation (94-100) g/dF ABG pH (7.35-7.45) ABG HCO3 (22-28) ABG O2 Sat (Measured) (95-100) % Alejandro Test A-a Gradient a/A Ratio Hemoglobin Carboxyhemoglobin (0.0-6.9) % THgb Methemoglobin (1.4-1.5) % Potassium (3.5-5.1) Temperature C POC O2 Flow Rate % Sodium (137-145) mmol/L Chloride (98-107) mmol/L Carbon Dioxide (22-30) mmol/L Anion Gap (5-15) MEQ/L BUN (7-17) mg/dL Creatinine (0.52-1.04) mg/dL Estimated GFR ML/MIN Glucose (74-106) mg/dL Lactic Acid 3.8 H (0.4-2.0) Calcium (8.4-10.2) mg/dL Total Bilirubin (0.2-1.3) mg/dL AST (14-36) U/L ALT (0-35) U/L Alkaline Phosphatase (38-126) U/L Troponin I 0.026 (0.000-0.034) ng/mL NT-Pro-B Natriuret Pep (<300) pg/mL Serum Total Protein (6.3-8.2) g/dL Albumin (3.5-5.0) g/dL Influenza Type A Ag (NEGATIVE) Influenza Type B Ag (NEGATIVE) RSV (PCR) (NEGATIVE) SARS-CoV-2 (PCR) (NEGATIVE) 05/13/23 05/13/23 Range/Units 20:10 23:10 WBC (4.0-10.5) x10^3/uL RBC (4.1-5.4) x10^6/uL Hgb (12.0-16.0) g/dL Hct (35-47) % MCV (78-100) fL MCH (26-32) pg MCHC (32-36) g/dL RDW (11.5-14.0) % Plt Count (150-450) x10^3/uL MPV (7.5-11.0) fL Segmented Neutrophils (36.0-66.0) % Band Neutrophils (0.0-2.0) % Lymphocytes (Manual) (24-44) % Monocytes (Manual) (0.0-12.0) % Platelet Estimate (NORMAL) RBC Morphology Anisocytosis D-Dimer (0.0-0.50) mg/L Puncture Site pCO2 (35-45) mmHg pO2 (75-100) mmHg Base Excess (-2.0-2.0) O2 Saturation (94-100) g/dF ABG pH (7.35-7.45) ABG HCO3 (22-28) ABG O2 Sat (Measured) (95-100) % Alejandro Test A-a Gradient a/A Ratio Hemoglobin Carboxyhemoglobin (0.0-6.9) % THgb Methemoglobin (1.4-1.5) % Potassium (3.5-5.1) Temperature C POC O2 Flow Rate % Sodium (137-145) mmol/L Chloride (98-107) mmol/L Carbon Dioxide (22-30) mmol/L Anion Gap (5-15) MEQ/L BUN (7-17) mg/dL Creatinine (0.52-1.04) mg/dL Estimated GFR ML/MIN Glucose (74-106) mg/dL Lactic Acid (0.4-2.0) Calcium (8.4-10.2) mg/dL Total Bilirubin (0.2-1.3) mg/dL AST (14-36) U/L ALT (0-35) U/L Alkaline Phosphatase (38-126) U/L Troponin I 0.026 (0.000-0.034) ng/mL NT-Pro-B Natriuret Pep (<300) pg/mL Serum Total Protein (6.3-8.2) g/dL Albumin (3.5-5.0) g/dL Influenza Type A Ag NEGATIVE (NEGATIVE) Influenza Type B Ag NEGATIVE (NEGATIVE) RSV (PCR) NEGATIVE (NEGATIVE) SARS-CoV-2 (PCR) NEGATIVE (NEGATIVE) - Radiology Impressions Radiology Exams & Impressions: Radiology Procedures Category Date Time Status CHEST 1 VIEW (PORTABLE) Routine Exams 05/14/23 07:00 Ordered CHEST 1 VIEW (PORTABLE) Stat Exams 05/13/23 17:45 Taken - Other Procedures and Tests Respiratory Therapy 05/13/23 22:15 Oxygen High Flow per RT 50% 05/13/23 23:45 Respiratory Therapy Assessment DAILY 05/14/23 09:00 RT Screen per Nursing Assess ONCE Smoking Cessation Education ONCE Assessment/Plan (1) COPD exacerbation Current Visit: No Status: Acute Assessment & Plan: Patient will require admission to the ICU for closer monitoring and administration of CPAP and potentially BIPAP. Patient is full code. Preliminary CXR read conveyed by ED was that it was negative for infiltrate or pulmonary edema; will need to follow up on final read. Nebulizers and steroids. This is carmela brito represents post COVID sequelae with acute hypoxic respiratory failure. Code(s): J44.1 - CHRONIC OBSTRUCTIVE PULMONARY DISEASE W (ACUTE) EXACERBATION (2) Hypoxia Current Visit: Yes Status: Acute Assessment & Plan: Plan as above. D-dimer noted to be elevated but cannot have a CTA due to acute kidney injury. If creatinine improved in AM, could consider CTA or alternatively pursue a VQ scan. Not on home oxygen so will need eventually to have ambulatory oxygen assessment prior to discharge. Code(s): R09.02 - HYPOXEMIA (3) Hypokalemia Current Visit: No Status: Acute Assessment & Plan: Acute kidney injury with hypokalemia noted. Received K and Mg in ED. Will trend and monitor on tele. Code(s): E87.6 - HYPOKALEMIA Telemedicine Encounter - Telemedicine Encounter Telemedicine Encounter: The entirety of this encounter was performed via Telemedicine" Please note that this critical care encounter required 92 minutes to complete.
[2023-05-14] MEDS ORDERED: Nicoderm CQ 21 MG TOP SCH (00:15)
[2023-05-14] MEDS ORDERED: Sterile H2O 10 ml IJ ONE ×2 (01:23→05:34)
[2023-05-14] MEDS ORDERED: solu-MEDROL ONE ×2 (01:23→05:34)
[2023-05-14] MEDS: solu-MEDROL 40 MG, Sterile H2O 10 ml 1 ML IV SCH ×12 (01:30→23:56)
[2023-05-14] MEDS: xanAX 0.5 MG PO PRN ×2 (02:50→22:15)
[2023-05-14 05:01] LABS: Hematocrit 36.2 % (35-47); Hemoglobin 12.2 g/dL (12.0-16.0); Mean Cell Volume 104.6 fL (78-100); Mean Corpuscular Hemoglobin 35.3 pg (26-32); Mean Corpuscular Hgb Concent. 33.7 g/dL (32-36); Platelet Count 277 x10^3/uL (150-450); Red Blood Count 3.46 x10^6/uL (4.1-5.4); Red Cell Distribution Width 13.4 % (11.5-14.0); White Blood Count 13.4 x10^3/uL (4.0-10.5)
[2023-05-14 05:18] LABS: A-aADO2 337; ABG HEMOGLOBIN 12.7; ABG POTASSIUM 3.4 (3.5-5.1); ARTERIAL BLD GAS O2 SATURATION 98.7 % (95-100); ARTERIAL BLOOD GAS BASE EXCESS -4.1 (-2.0-2.0); ARTERIAL BLOOD GAS FIO2 70 %; ARTERIAL BLOOD GAS PCO2 32 mmHg (35-45); ARTERIAL BLOOD GAS PO2 122 mmHg (75-100); CARBOXYHEMOGLOBIN 0.5 % THgb (0.0-6.9); HCO3- 19.8 (22-28); HGB O2 SAT 98.1 g/dF (94-100); Methhemoglobin 0.1 % (1.4-1.5); paO2 pAO1 0.27
[2023-05-14 05:26] LABS: ABG SITE LEFT RADIAL; ALLEN TEST OK? Yes
[2023-05-14 05:27] LABS: BIPAP(E) 8; BIPAP(I) 16
--- NOTE | 2023-05-14 05:36 | PCM.NOTE ---
Date and Time: 05/14/23526 Subjective Assessment: is a 67 year old female with a known history of COPD (not on home oxygen, and follows with Dr. Colindres), leukemia (sees Dr. Miguel, no treatment) smoker, and recent COVID positive last week presented to ED 05/12/23 with complaints of dysnea and non productive cough. Upon arrival spo2 was @ 84% on cpap she brought from EMS, hypotensive, and tachypneic. EKG interpreted by ED physician showed RATE (113), Sinus Tach, NORMAL AXIS, NORMAL INTERVALS, NORMAL QRS, Other (no acute ischemia. CXR with showing Right middle and lower lobe consolidation. Lab findings significant for hyponatremia with sodium at 130, hypokalemia with potassium at 3.0, LEONA with BUN at 21 and creat at 1.74, lactic acid 2.4<3.8, BNP 24245 trops x 2 negative. Respiratory viral panel negative. Patient currently on 8L oxymizer. 05/14: Met with patient and bedside. Patient states that her shortness of breath has improved, still with cough. Coarse lung sounds on auscultation. Discussed lab findings, LEONA improving although creat still at 1.38, GFR 42.4. Will have to obtain VQ vs CTA due to LEONA. WBC elevated at 13.4. Blood cultures positive for gram + cocci in chains x 2. Will repeat. Plan to start empiric abx vanc/zosyn, continue with steroids, obtain echo/vq scan. Fluid restriction. Will consult pulm, julia recs. - Review of Systems Constitutional: No Symptoms Eyes: No Symptoms Ears, Nose, & Throat: No Symptoms Respiratory: Cough, Short Of Breath Cardiac: No Symptoms Abdominal/Gastrointestinal: No Symptoms Genitourinary Symptoms: No Symptoms Musculoskeletal: No Symptoms Skin: No Symptoms Neurological: No Symptoms Psychological: No Symptoms Endocrine: No Symptoms Hematologic/Lymphatic: No Symptoms Immunological/Allergic: No Symptoms Objective Exam General Appearance: mild distress Neurologic Exam: alert, oriented x 3, cooperative Skin Exam: normal color Wound Assessment: Skin/Wound Assessment Wound/Incision Assessment Start: 05/13/23 23:57 Text: Status: Active Freq: Q6H Protocol: Document 05/14/23 02:00 AB (Rec: 05/14/23 02:47 AB [id number]) Wound Photo Photo Taken No Eye Exam: PERRL Ears, Nose, Throat Exam: normal ENT inspection Neck Exam: normal inspection Respiratory Exam: diminished breath sounds, crackles/rales Cardiovascular Exam: regular rate/rhythm, normal heart sounds Gastrointestinal/Abdomen Exam: soft, normal bowel sounds Extremity Exam: normal inspection Back Exam: normal inspection Pelvic Exam: deferred Rectal Exam: deferred OBJECTIVE DATA Vital Signs: Vital Signs - 24 hr Temp Pulse Resp BP BP Pulse Ox 05/14/23 03:45 90 21 84/68 93 L 05/14/23 03:40 93 H 22 96 05/14/23 03:33 102 H 28 H 91 L 05/14/23 03:15 107 H 32 H 115/71 92 L 05/14/23 03:00 86 22 99/71 100 05/14/23 02:45 87 30 H 109/68 80 L 05/14/23 02:31 90 20 104/80 99 05/14/23 02:15 97 H 19 117/47 91 L 05/14/23 02:01 84 22 98/70 91 L 05/14/23 01:31 86 18 100/65 93 L 05/14/23 01:22 90 24 83/64 95 05/14/23 01:21 94 H 26 H 05/14/23 01:20 94 H 19 86 L 05/14/23 01:10 94 H 22 95 05/14/23 01:00 90 21 52 L 05/14/23 00:50 89 24 99 05/14/23 00:40 92 H 23 98 05/14/23 00:30 89 22 96 05/14/23 00:24 92 H 24 99 05/14/23 00:20 94 H 21 98 05/14/23 00:10 96 H 29 H 05/14/23 00:00 97 H 22 95 05/13/23 23:50 99 H 21 96 05/13/23 23:40 95 H 21 92 L 05/13/23 23:30 94 H 27 H 96 05/13/23 23:16 86 L 05/13/23 22:50 28 H 89 L 05/13/23 22:41 97.6 F 100 H 25 H 115/76 80 L 05/13/23 19:41 82 L 05/13/23 19:01 26 H 149/102 90 L 05/13/23 19:00 104 H 35 H 98 05/13/23 18:50 109 H 29 H 99 05/13/23 18:40 109 H 29 H 100 05/13/23 18:32 109 H 34 H 100 05/13/23 18:01 112 H 34 H 181/53 100 05/13/23 17:43 104 H 32 H 164/69 82 L 05/13/23 17:42 102 H 31 H 85 L 05/13/23 17:40 103 H 33 H 05/13/23 17:30 110 H 28 H 90 L 05/13/23 17:20 122 H 29 H 05/13/23 17:10 114 H 18 89 L 05/13/23 16:57 96.7 F 130 H 24 80/50 84 L Pain Assessment - Last Documented Pain Intensity 0 Intake and Output: Intake & Output 05/11/23 05/12/23 05/13/23 05/14/23 11:59 11:59 11:59 11:59 Intake Total 300 Output Total 0 Balance 300 Weight 53.3 kg Lab Results: Lab Results-Last 24 Hours 05/13/23 05/13/23 05/13/23 Range/Units 17:15 18:15 18:15 WBC 5.3 (4.0-10.5) x10^3/uL RBC 3.88 L (4.1-5.4) x10^6/uL Hgb 13.4 (12.0-16.0) g/dL Hct 40.1 (35-47) % MCV 103.4 H (78-100) fL MCH 34.5 H (26-32) pg MCHC 33.4 (32-36) g/dL RDW 13.4 (11.5-14.0) % Plt Count 355 (150-450) x10^3/uL MPV 8.8 (7.5-11.0) fL Segmented Neutrophils 41 (36.0-66.0) % Band Neutrophils 17 H (0.0-2.0) % Lymphocytes (Manual) 26 (24-44) % Monocytes (Manual) 16 H (0.0-12.0) % Platelet Estimate NORMAL (NORMAL) RBC Morphology ABNORMAL Anisocytosis 2+ D-Dimer (0.0-0.50) mg/L Puncture Site RIGHT BRACHIAL pCO2 29 L (35-45) mmHg pO2 59 L (75-100) mmHg Base Excess -3.2 L (-2.0-2.0) O2 Saturation 88.2 L (94-100) g/dF ABG pH 7.44 (7.35-7.45) ABG HCO3 19.7 L (22-28) ABG O2 Sat (Measured) 89.5 L (95-100) % Alejandro Test NOT APPLICABLE A-a Gradient 618 a/A Ratio 0.09 Hemoglobin 14.1 Carboxyhemoglobin 1.1 (0.0-6.9) % THgb Methemoglobin 0.3 L (1.4-1.5) % Potassium 3.3 L 3.0 L* (3.5-5.1) Temperature 37.0 C POC O2 Flow Rate 100 % Sodium 130 L (137-145) mmol/L Chloride 94 L (98-107) mmol/L Carbon Dioxide 24 (22-30) mmol/L Anion Gap 14.9 (5-15) MEQ/L BUN 21 H (7-17) mg/dL Creatinine 1.74 H (0.52-1.04) mg/dL Estimated GFR 31.6 ML/MIN Glucose 96 (74-106) mg/dL Lactic Acid 5.1 H (0.4-2.0) Calcium 8.3 L (8.4-10.2) mg/dL Total Bilirubin 1.30 (0.2-1.3) mg/dL AST 62 H (14-36) U/L ALT 35 (0-35) U/L Alkaline Phosphatase 37 L (38-126) U/L Troponin I (0.000-0.034) ng/mL NT-Pro-B Natriuret Pep 35808 (<300) pg/mL Serum Total Protein 6.5 (6.3-8.2) g/dL Albumin 4.0 (3.5-5.0) g/dL Influenza Type A Ag (NEGATIVE) Influenza Type B Ag (NEGATIVE) RSV (PCR) (NEGATIVE) SARS-CoV-2 (PCR) (NEGATIVE) 05/13/23 05/13/23 05/13/23 Range/Units 18:15 18:21 19:55 WBC (4.0-10.5) x10^3/uL RBC (4.1-5.4) x10^6/uL Hgb (12.0-16.0) g/dL Hct (35-47) % MCV (78-100) fL MCH (26-32) pg MCHC (32-36) g/dL RDW (11.5-14.0) % Plt Count (150-450) x10^3/uL MPV (7.5-11.0) fL Segmented Neutrophils (36.0-66.0) % Band Neutrophils (0.0-2.0) % Lymphocytes (Manual) (24-44) % Monocytes (Manual) (0.0-12.0) % Platelet Estimate (NORMAL) RBC Morphology Anisocytosis D-Dimer 0.69 H* (0.0-0.50) mg/L Puncture Site pCO2 (35-45) mmHg pO2 (75-100) mmHg Base Excess (-2.0-2.0) O2 Saturation (94-100) g/dF ABG pH (7.35-7.45) ABG HCO3 (22-28) ABG O2 Sat (Measured) (95-100) % Alejandro Test A-a Gradient a/A Ratio Hemoglobin Carboxyhemoglobin (0.0-6.9) % THgb Methemoglobin (1.4-1.5) % Potassium (3.5-5.1) Temperature C POC O2 Flow Rate % Sodium (137-145) mmol/L Chloride (98-107) mmol/L Carbon Dioxide (22-30) mmol/L Anion Gap (5-15) MEQ/L BUN (7-17) mg/dL Creatinine (0.52-1.04) mg/dL Estimated GFR ML/MIN Glucose (74-106) mg/dL Lactic Acid 3.8 H (0.4-2.0) Calcium (8.4-10.2) mg/dL Total Bilirubin (0.2-1.3) mg/dL AST (14-36) U/L ALT (0-35) U/L Alkaline Phosphatase (38-126) U/L Troponin I 0.026 (0.000-0.034) ng/mL NT-Pro-B Natriuret Pep (<300) pg/mL Serum Total Protein (6.3-8.2) g/dL Albumin (3.5-5.0) g/dL Influenza Type A Ag (NEGATIVE) Influenza Type B Ag (NEGATIVE) RSV (PCR) (NEGATIVE) SARS-CoV-2 (PCR) (NEGATIVE) 05/13/23 05/13/23 05/14/23 Range/Units 20:10 23:10 04:35 WBC (4.0-10.5) x10^3/uL RBC (4.1-5.4) x10^6/uL Hgb (12.0-16.0) g/dL Hct (35-47) % MCV (78-100) fL MCH (26-32) pg MCHC (32-36) g/dL RDW (11.5-14.0) % Plt Count (150-450) x10^3/uL MPV (7.5-11.0) fL Segmented Neutrophils (36.0-66.0) % Band Neutrophils (0.0-2.0) % Lymphocytes (Manual) (24-44) % Monocytes (Manual) (0.0-12.0) % Platelet Estimate (NORMAL) RBC Morphology Anisocytosis D-Dimer (0.0-0.50) mg/L Puncture Site Pending pCO2 32 L (35-45) mmHg pO2 122 H* (75-100) mmHg Base Excess -4.1 L (-2.0-2.0) O2 Saturation 98.1 (94-100) g/dF ABG pH 7.40 (7.35-7.45) ABG HCO3 19.8 L (22-28) ABG O2 Sat (Measured) 98.7 (95-100) % Alejandro Test Pending A-a Gradient 337 a/A Ratio 0.27 Hemoglobin 12.7 Carboxyhemoglobin 0.5 (0.0-6.9) % THgb Methemoglobin 0.1 L (1.4-1.5) % Potassium 3.4 L (3.5-5.1) Temperature 37.0 C POC O2 Flow Rate 70 % Sodium (137-145) mmol/L Chloride (98-107) mmol/L Carbon Dioxide (22-30) mmol/L Anion Gap (5-15) MEQ/L BUN (7-17) mg/dL Creatinine (0.52-1.04) mg/dL Estimated GFR ML/MIN Glucose (74-106) mg/dL Lactic Acid (0.4-2.0) Calcium (8.4-10.2) mg/dL Total Bilirubin (0.2-1.3) mg/dL AST (14-36) U/L ALT (0-35) U/L Alkaline Phosphatase (38-126) U/L Troponin I 0.026 (0.000-0.034) ng/mL NT-Pro-B Natriuret Pep (<300) pg/mL Serum Total Protein (6.3-8.2) g/dL Albumin (3.5-5.0) g/dL Influenza Type A Ag NEGATIVE (NEGATIVE) Influenza Type B Ag NEGATIVE (NEGATIVE) RSV (PCR) NEGATIVE (NEGATIVE) SARS-CoV-2 (PCR) NEGATIVE (NEGATIVE) 05/14/23 Range/Units 04:35 WBC (4.0-10.5) x10^3/uL RBC (4.1-5.4) x10^6/uL Hgb (12.0-16.0) g/dL Hct (35-47) % MCV (78-100) fL MCH (26-32) pg MCHC (32-36) g/dL RDW (11.5-14.0) % Plt Count (150-450) x10^3/uL MPV (7.5-11.0) fL Segmented Neutrophils (36.0-66.0) % Band Neutrophils (0.0-2.0) % Lymphocytes (Manual) (24-44) % Monocytes (Manual) (0.0-12.0) % Platelet Estimate (NORMAL) RBC Morphology Anisocytosis D-Dimer (0.0-0.50) mg/L Puncture Site pCO2 (35-45) mmHg pO2 (75-100) mmHg Base Excess (-2.0-2.0) O2 Saturation (94-100) g/dF ABG pH (7.35-7.45) ABG HCO3 (22-28) ABG O2 Sat (Measured) (95-100) % Alejandro Test A-a Gradient a/A Ratio Hemoglobin Carboxyhemoglobin (0.0-6.9) % THgb Methemoglobin (1.4-1.5) % Potassium (3.5-5.1) Temperature C POC O2 Flow Rate % Sodium (137-145) mmol/L Chloride (98-107) mmol/L Carbon Dioxide (22-30) mmol/L Anion Gap (5-15) MEQ/L BUN (7-17) mg/dL Creatinine (0.52-1.04) mg/dL Estimated GFR ML/MIN Glucose (74-106) mg/dL Lactic Acid 2.4 H (0.4-2.0) Calcium (8.4-10.2) mg/dL Total Bilirubin (0.2-1.3) mg/dL AST (14-36) U/L ALT (0-35) U/L Alkaline Phosphatase (38-126) U/L Troponin I (0.000-0.034) ng/mL NT-Pro-B Natriuret Pep (<300) pg/mL Serum Total Protein (6.3-8.2) g/dL Albumin (3.5-5.0) g/dL Influenza Type A Ag (NEGATIVE) Influenza Type B Ag (NEGATIVE) RSV (PCR) (NEGATIVE) SARS-CoV-2 (PCR) (NEGATIVE) Radiology Exams: Radiology Procedures Category Date Time Status CHEST 1 VIEW (PORTABLE) Routine Exams 05/14/23 07:00 Ordered CHEST 1 VIEW (PORTABLE) Stat Exams 05/13/23 17:45 Taken Multi-Disciplinary Progress Notes: Multi-Disciplinary Progress Notes 05/13/23 22:52 Respiratory Note by Richelle Acevedo 2250 increased FiO2 to 100% for desat while moving patient Initialized on 05/13/23 22:52 - END OF NOTE 05/13/23 22:18 Respiratory Note by Richelle Acevedo 2100 patient remains on Heated high flow @ 50LPM and 90% FIO2, sat 96% Initialized on 05/13/23 22:18 - END OF NOTE 05/13/23 22:17 Respiratory Note by Richelle Acevedo 1830 weaned FiO2 to 90% Initialized on 05/13/23 22:17 - END OF NOTE 05/13/23 22:17 Respiratory Note by Richelle Acevedo 1800 patient off BiPAP, on O2 via heated high flow, 50LPM, 100% FiO2 Initialized on 05/13/23 22:17 - END OF NOTE 05/13/23 18:36 Respiratory Note by Mary Kate Real PLACED ON 50L HHF @ 100% Initialized on 05/13/23 18:36 - END OF NOTE Assessment/Plan (1) Sepsis Current Visit: Yes Status: Acute Onset Date: ~05/13/23 Qualifiers: Sepsis acute organ dysfunction status: with acute organ dysfunction Severe sepsis acute organ dysfunction type: acute renal failure Severe sepsis shock status: without septic shock Assessment & Plan: -Unknown source of infection -Aggressive hydration contraindicated -Bcult positive x 2 for gram +cocci in rods -Vanc/zosyn initiated -LA downtrending 2.4<3.8 -Procal elevated at 31.100 -Plan for VQ scan -Urinalysis -ECHO -DVT prophylaxis (2) Bacteremia Current Visit: Yes Status: Acute Assessment & Plan: -Blood cultures pre-stevens positive for gram + cocci in rods -Procal 31.100 -Vanc/zosyn started Code(s): R78.81 - BACTEREMIA (3) Acute respiratory failure with hypoxia Current Visit: Yes Status: Acute Assessment & Plan: -Ddimer elevated -Initial cxr with no cardiopulmonary process -supplemental oxygen with spo2 goal >92% -RT eval CPAP/BIPAP as needed -DuoNebs/bronchodilators/steroids -VQ scan as kidney function elevated -vanc/zosyn for bacteremia Code(s): J96.01 - ACUTE RESPIRATORY FAILURE WITH HYPOXIA (4) LEONA (acute kidney injury) Current Visit: Yes Status: Acute Assessment & Plan: -creat improving 1.22 -Monitor renal/lytes daily -gentle hydration -avoid nephrotoxic agents NSAIDS/MARILU/ARB Code(s): N17.9 - ACUTE KIDNEY FAILURE, UNSPECIFIED (5) Lactic acid acidosis Current Visit: Yes Status: Acute Assessment & Plan: -Secondary to infection, positive bcult x 2 Vanc/zosyn started, VQ scan pendidng continue to trend Code(s): E87.20 - ACIDOSIS, UNSPECIFIED (6) COPD exacerbation Current Visit: No Status: Acute Assessment & Plan: -see ARF Code(s): J44.1 - CHRONIC OBSTRUCTIVE PULMONARY DISEASE W (ACUTE) EXACERBATION (7) Hypokalemia Current Visit: No Status: Acute Assessment & Plan: -Patient received potassium 20meq in ED, will re-eval, potassium at 3.4, will continue potassium protocol, replenish -tele -continue to monitor renal/lytes daily Code(s): E87.6 - HYPOKALEMIA (8) Hyponatremia Current Visit: Yes Status: Acute Assessment & Plan: -urine sodium, unable to obtain serum osmo at this facility -Pt received lasix in ED, may be secondary to hypovolemia Code(s): E87.1 - HYPO-OSMOLALITY AND HYPONATREMIA
[2023-05-14 07:30] LABS: BAND 30 % (0.0-2.0); Lymphocytes 5 % (24-44); Monocyte 2 % (0.0-12.0); Neutrophils 63 % (36.0-66.0); Platelet Estimate NORMAL (NORMAL); Total Cells Counted 100
[2023-05-14 07:32] LABS: ANISOCYTOSIS 1+; Macrocytosis 1+
--- NOTE | 2023-05-14 08:42 | XRAY ---
Indication: Short of breath. Comparison: March 17, 2023 Portable apical lordotic chest again hyperinflated with new consolidating/nonconsolidating right mid to lower lung airspace disease. Remaining heart and left lung unremarkable. Bony thorax intact again with osteopenia, mild degenerative changes, and partial healing distal left clavicle fracture.
--- NOTE | 2023-05-14 08:44 | XRAY ---
Indication: Hypoxia. Comparison: One day earlier Portable apical lordotic chest again hyperinflated with minimally improving right mid to lower lung consolidating/nonconsolidating airspace disease. Remaining heart and left lung unremarkable. No new cardiopulmonary abnormalities.
[2023-05-14 08:46] LABS: ALBUMIN 3.6 g/dL (3.5-5.0); ANION GAP 16.7 MEQ/L (5-15); BILIRUBIN,TOTAL 0.9 mg/dL (0.2-1.3); Calcium 7.9 mg/dL (8.4-10.2); Creatinine 1 1.36 mg/dL (0.52-1.04); EST GLOMERULAR FILTRATION RATE 42.4 ML/MIN; MAGNESIUM 1.6 mg/dL (1.6-2.3); PREALBUMIN 16.32 mg/dL (17.6-36.0); Potassium 3.4 mmol/L (3.5-5.1); Total Protein 6.2 g/dL (6.3-8.2)
[2023-05-14] MEDS ORDERED: ROCEPHIN 1 GM / 100 ML NaCl 1 GM/100 ML IVPB IV SCH (09:30)
[2023-05-14] MEDS ORDERED: Zithromax 500 MG/ 250 ML NaCl Premix 500 MG/250 ML IVPB IV SCH (10:00)
[2023-05-14] MEDS ORDERED: MEDICATION INTERVENTION MC SCH (10:00)
[2023-05-14] MEDS ORDERED: UPADACITINIB 15 MG PO SCH (10:00)
[2023-05-14] MEDS: Pepcid 20 MG PO SCH ×2 (10:19→22:15)
[2023-05-14] MEDS: NORVASC 5 MG PO SCH (10:19)
[2023-05-14] MEDS: MYRBETRIQ PO SCH (10:19)
[2023-05-14] MEDS: Requip 0.5 MG PO SCH ×3 (10:19→22:15)
[2023-05-14] MEDS: Klor Con PO SCH ×4 (10:19→15:36)
[2023-05-14] MEDS: SYNTHROID 25 MCG PO SCH (10:19)
[2023-05-14] MEDS: Vitamin B-6 (Pyridoxine) 100 MG PO SCH (10:20)
[2023-05-14] MEDS: SODIUM BICARBONATE PO SCH ×2 (10:21→22:15)
[2023-05-14] MEDS: HEPARIN 5000 UNITS/0.5 ML (HIGH RISK MED) SQ SCH ×2 (10:23→22:16)
[2023-05-14] MEDS: Sodium Chloride 0.9% 1000 ML 1,000 ML IV SCH ×2 (10:27→19:12)
[2023-05-14] MEDS ORDERED: PHARMACY DOSING REQUEST MC ONE (10:47)
[2023-05-14] MEDS ORDERED: PHARMACY RENAL DOSING MC ONE (10:47)
[2023-05-14] MEDS: Piperacillin/Tazobactam 2.25 GM 2.25 GM in Sodium Chloride 100ML MINI-BAG PLUS 100 ML IV SCH ×3 (12:19→23:55)
[2023-05-14 12:31] LABS: ANION GAP 15.4 MEQ/L (5-15); Calcium 7.4 mg/dL (8.4-10.2); Creatinine 1 1.22 mg/dL (0.52-1.04); EST GLOMERULAR FILTRATION RATE 48.3 ML/MIN; Potassium 3.3 mmol/L (3.5-5.1)
--- NOTE | 2023-05-14 12:53 | ECHO ---
Transthoracic echocardiographic examination and color Doppler was done on 05/14/2023. INDICATION: Shortness of breath, elevated BNP. IMPRESSION: 1) NO REGIONAL WALL MOTION ABNORMALITY. ESTIMATED GLOBAL LEFT VENTRICULAR EJECTION FRACTION BETWEEN 55 TO 60%. 2) TRACE MITRAL REGURGITATION. 3) MILD TRICUSPID REGURGITATION. RIGHT VENTRICULAR SYSTOLIC PRESSURE OF 25 MM OF MERCURY. 4) LEFT VENTRICULAR HYPERTROPHY. 5) MILDLY DILATED RIGHT SIDED CHAMBER. The left ventricle is visualized and demonstrated adequate motion of all the segments. Estimated global left ventricular ejection fraction between 55 to 60%. There is mild left ventricular hypertrophy. The mitral valve is seen and this opens adequately. There is trace mitral regurgitation. Left atrium is normal. The aortic valve opens adequately. The peak gradient across the aortic valve is 7 mm of Mercury. The right side chambers are mildly dilated. There is trace tricuspid regurgitation. The right ventricular systolic pressure of 25 mm of Mercury.
[2023-05-14] MEDS ORDERED: VANCOCIN 500 MG VIAL*** 500 MG in Sodium Chloride 100ML MINI-BAG PLUS 100 ML IV SCH (14:00)
[2023-05-14] MEDS ORDERED: Sodium Chloride 0.9% 500 ML 500 ML IV ONE ×2 (14:00→16:30)
[2023-05-14 15:57] LABS: ANION GAP 12.6 MEQ/L (5-15); Calcium 6.7 mg/dL (8.4-10.2); Creatinine 1 0.95 mg/dL (0.52-1.04); EST GLOMERULAR FILTRATION RATE 65.3 ML/MIN; Potassium 3.5 mmol/L (3.5-5.1)
--- NOTE | 2023-05-14 16:33 | XRAY ---
Indication: Hypoxia. COPD. Elevated d-dimer. Multiple contiguous axial images obtained through the chest using 80 cc Isovue 370 contrast and PE protocol. Comparison: May 05, 2021 Good opacification of the pulmonary arteries to include the lobar and segmental branches. Again no pulmonary embolus. Heart not enlarged. Aorta is normal in course and caliber again with minimal scattered arteriosclerotic calcifications. Stable tiny mediastinal and right hilar calcified nodes pain no pathologic mediastinal/hilar lymphadenopathy. Lungs demonstrates new diffuse right lower lobe consolidating/nonconsolidating airspace disease without effusion. Remaining lungs again demonstrates scattered peripheral fibrosis/scarring bilaterally. Bony thorax intact again with osteopenia and mild/moderate degenerative changes throughout the thoracic spine. Limited upper abdomen including adrenal glands are unremarkable. Impression: 1. Continued negative pulmonary embolus. 2. New right lower lobe consolidating/nonconsolidating airspace disease. 3. Again chronic findings including pulmonary fibrosis/scarring, chronic bony findings, and old granulomatous disease.
[2023-05-14 17:20] LABS: Appearance Cloudy (Clear); Bilirubin Negative (Negative); Blood Trace (Negative); Epithelial Cells Many /HPF (None Seen); Glucose, Urine Negative (Negative); Ketones Negative (Negative); Leukocyte Esterase Negative (Negative); Nitrite Negative (Negative); Ph 5.5 (4.6-8.0); Protein,Urine Dip 30 (Negative); RBC 0-2 /HPF (0-5); Specific Gravity >=1.030 (1.005-1.030); Urobilinogen 0.2 mg/dL (0.2); WBC 0-2 /HPF (0-5)
[2023-05-14 17:21] LABS: ADD URINE CULTURE? YES (NO); Bacteria Few /HPF (None Seen); Hyaline Casts None Seen /LPF (0-2)
[2023-05-14 18:26] LABS: CREATININE,URINE RANDOM 52.2 MG/DL; Sodium, Urine < 5 mmol/L (30-90)
[2023-05-14 19:44] LABS: ANION GAP 13.4 MEQ/L (5-15); Calcium 6.9 mg/dL (8.4-10.2); Creatinine 1 0.83 mg/dL (0.52-1.04); EST GLOMERULAR FILTRATION RATE 76.7 ML/MIN; Potassium 3.7 mmol/L (3.5-5.1)
[2023-05-14] MEDS: ZOCOR 20MG PO SCH (22:16)
[2023-05-14] MEDS: Nicoderm CQ 21 MG TOP SCH (22:16)
[2023-05-14 23:39] LABS: ANION GAP 10.9 MEQ/L (5-15); Calcium 6.4 mg/dL (8.4-10.2); Creatinine 1 0.77 mg/dL (0.52-1.04); Potassium 3.2 mmol/L (3.5-5.1)
[2023-05-15] MEDS: DUONEB 0.5-3 MG/3 ml Neb IH SCH ×4 (00:59→19:03)
[2023-05-15 04:50] LABS: Hematocrit 30.6 % (35-47); Hemoglobin 10.4 g/dL (12.0-16.0); Mean Cell Volume 103.7 fL (78-100); Mean Corpuscular Hemoglobin 35.3 pg (26-32); Mean Platelet Volume 9.3 fL (7.5-11.0); Platelet Count 244 x10^3/uL (150-450); Red Blood Count 2.95 x10^6/uL (4.1-5.4); Red Cell Distribution Width 13.6 % (11.5-14.0); White Blood Count 17.3 x10^3/uL (4.0-10.5)
[2023-05-15 05:04] LABS: ALBUMIN 3.4 g/dL (3.5-5.0); ANION GAP 10.1 MEQ/L (5-15); BILIRUBIN,TOTAL 0.8 mg/dL (0.2-1.3); Calcium 6.8 mg/dL (8.4-10.2); Creatinine 1 0.71 mg/dL (0.52-1.04); EST GLOMERULAR FILTRATION RATE 92.6 ML/MIN; Potassium 3.4 mmol/L (3.5-5.1); Total Protein 6.1 g/dL (6.3-8.2)
--- NOTE | 2023-05-15 05:47 | PCM.NOTE ---
Date and Time: 05/15/23 0536 Subjective Assessment: is a 67 year old female with a known history of COPD (not on home oxygen, and follows with Dr. Colindres), leukemia (sees Dr. Miguel, no treatment) smoker, and recent COVID positive last week presented to ED 05/12/23 with complaints of dysnea and non productive cough. Upon arrival spo2 was @ 84% on cpap she brought from EMS, hypotensive, and tachypneic. EKG interpreted by ED physician showed RATE (113), Sinus Tach, NORMAL AXIS, NORMAL INTERVALS, NORMAL QRS, Other (no acute ischemia). CXR with showing Right middle and lower lobe consolidation. CT chest demonstrating no PE and New right lower lobe consolidating/nonconsolidating airspace disease Lab findings on presentation significant for hyponatremia with sodium at 130, hypokalemia with potassium at 3.0, LEONA with BUN at 21 and creat at 1.74, lactic acid 2.4<3.8, BNP 28831 trops x 2 negative. Respiratory viral panel negative. Patient admitted with acute respiratory failure/hypoxia with sepsis secondary to pneumonia/copd exacerbation. Blood culture x 2 positive for gram + cocci in rods. Current treatment with vanc/zosyn. 2/2: Met with patient bedside. No overnight events noted. Endorses improvement of dyspnea and cough. Weaned to 2L NC. Lung sounds with increased aeration with fine crackles in bilateral bases, no wheezing. Discussed CT of chest findings showing new right lower lobe consolidating/nonconsolidating airspace disease. Blood cultures were positive x 2 with gram+cocci in rods. These have been redrawn and pending. Will continue current management with vanc/zosyn for now. Patient reports to me this morning that she has been having watery diarrhea for about a week now. Will collect stools for evaluation of infectious process. Denies fever,cp, abdominal pain, HAGAN, dizziness, N/V/D. - Review of Systems Constitutional: No Symptoms Eyes: No Symptoms Ears, Nose, & Throat: No Symptoms Respiratory: Cough, Short Of Breath Cardiac: No Symptoms Abdominal/Gastrointestinal: Diarrhea Genitourinary Symptoms: No Symptoms Musculoskeletal: No Symptoms Skin: No Symptoms Neurological: No Symptoms Psychological: No Symptoms Endocrine: No Symptoms Hematologic/Lymphatic: No Symptoms Immunological/Allergic: No Symptoms Objective Exam General Appearance: no apparent distress Neurologic Exam: alert, oriented x 3, cooperative Skin Exam: normal color Eye Exam: PERRL Ears, Nose, Throat Exam: normal ENT inspection Neck Exam: normal inspection Respiratory Exam: crackles/rales Cardiovascular Exam: regular rate/rhythm, normal heart sounds Gastrointestinal/Abdomen Exam: soft, normal bowel sounds Extremity Exam: normal inspection Back Exam: normal inspection Pelvic Exam: deferred Rectal Exam: deferred OBJECTIVE DATA Vital Signs: Vital Signs - 24 hr Temp Pulse Resp BP Pulse Ox 05/15/23 05:30 79 20 107/73 100 05/15/23 05:00 78 14 123/80 82 L 05/15/23 04:59 75 19 100 05/15/23 04:45 78 18 100 05/15/23 04:32 81 21 86 L 05/15/23 04:00 77 23 92/65 100 05/15/23 03:30 86 19 89/65 100 05/15/23 03:00 82 20 103/70 100 05/15/23 02:30 81 20 110/77 100 05/15/23 02:01 80 23 116/85 100 05/15/23 01:30 83 20 111/76 99 05/15/23 01:18 84 24 100 05/15/23 01:00 86 22 125/83 98 05/15/23 00:30 87 28 H 117/87 100 05/15/23 00:00 87 22 99/68 99 05/14/23 23:30 88 20 112/79 100 05/14/23 23:01 87 20 114/72 96 05/14/23 22:30 94 H 21 122/83 88 L 05/14/23 22:00 91 H 29 H 128/88 97 05/14/23 21:30 104 H 21 127/91 92 L 05/14/23 21:00 86 18 115/77 97 05/14/23 20:33 92 H 23 109/76 96 05/14/23 20:31 90 30 H 70/52 96 05/14/23 20:00 90 24 111/84 98 05/14/23 19:30 98.3 F 93 H 24 116/77 97 05/14/23 19:27 88 22 98 05/14/23 18:30 90 20 115/77 98 05/14/23 18:00 88 21 97/77 98 05/14/23 17:33 90 25 H 118/84 97 05/14/23 17:00 87 20 125/77 05/14/23 16:00 97.4 F 91 H 27 H 100/76 100 05/14/23 15:31 91 H 18 112/82 99 05/14/23 15:25 93 H 22 94 L 05/14/23 14:31 91 H 26 H 107/69 98 05/14/23 14:30 93 H 18 99 05/14/23 14:15 92 H 17 99 05/14/23 13:31 106/60 05/14/23 13:30 91 H 26 H 96 05/14/23 12:47 93 L 05/14/23 12:00 97.6 F 91 H 23 118/72 97 05/14/23 11:30 85 19 112/76 95 05/14/23 11:00 93 H 104/79 99 05/14/23 10:30 88 23 125/81 97 05/14/23 10:00 86 19 123/80 97 05/14/23 09:00 92 H 24 113/79 98 05/14/23 08:45 97.9 F 84 26 H 99 05/14/23 08:01 84 32 H 106/67 96 05/14/23 08:00 82 05/14/23 07:45 91 H 21 103/65 98 05/14/23 07:30 94 H 21 104/65 98 05/14/23 07:08 86 21 104/68 100 05/14/23 06:45 84 30 H 128/89 100 05/14/23 06:32 100 05/14/23 06:30 94 H 23 110/73 98 05/14/23 06:15 87 21 106/88 99 05/14/23 06:00 90 21 111/68 100 05/14/23 05:46 85 20 92/55 100 05/14/23 05:40 83 21 100 Pain Assessment - Last Documented Pain Intensity 0 Intake and Output: Intake & Output 05/12/23 05/13/23 05/14/23 05/15/23 11:59 11:59 11:59 11:59 Intake Total 500 2787 Output Total 0 650 Balance 500 2137 Weight 53.3 kg Lab Results: Lab Results-Last 24 Hours 05/14/23 05/14/23 05/14/23 Range/Units 05:00 05:00 05:00 WBC 13.4 H (4.0-10.5) x10^3/uL RBC 3.46 L (4.1-5.4) x10^6/uL Hgb 12.2 (12.0-16.0) g/dL Hct 36.2 (35-47) % MCV 104.6 H (78-100) fL MCH 35.3 H (26-32) pg MCHC 33.7 (32-36) g/dL RDW 13.4 (11.5-14.0) % Plt Count 277 (150-450) x10^3/uL MPV 9.0 (7.5-11.0) fL Segmented Neutrophils 63 (36.0-66.0) % Band Neutrophils 30 H (0.0-2.0) % Lymphocytes (Manual) 5 L (24-44) % Monocytes (Manual) 2 (0.0-12.0) % Platelet Estimate NORMAL (NORMAL) RBC Morphology ABNORMAL Anisocytosis 1+ Macrocytosis 1+ Sodium 126 L (137-145) mmol/L Potassium 3.4 L (3.5-5.1) mmol/L Chloride 97 L (98-107) mmol/L Carbon Dioxide 16 L* (22-30) mmol/L Anion Gap 16.7 H (5-15) MEQ/L BUN 28 H (7-17) mg/dL Creatinine 1.36 H (0.52-1.04) mg/dL Estimated GFR 42.4 ML/MIN Glucose 119 H (74-106) mg/dL Calcium 7.9 L (8.4-10.2) mg/dL Magnesium 1.6 (1.6-2.3) mg/dL Total Bilirubin 0.90 (0.2-1.3) mg/dL AST 54 H (14-36) U/L ALT 34 (0-35) U/L Alkaline Phosphatase 32 L (38-126) U/L Troponin I 0.013 (0.000-0.034) ng/mL NT-Pro-B Natriuret Pep 81708 (<300) pg/mL Serum Total Protein 6.2 L (6.3-8.2) g/dL Albumin 3.6 (3.5-5.0) g/dL Prealbumin 16.32 L (17.6-36.0) mg/dL Procalcitonin (0.030-0.080) ng/mL Urine Color (Yellow) Urine Appearance (Clear) Urine pH (4.6-8.0) Ur Specific [place] (1.005-1.030) Urine Protein (Negative) Urine Glucose (UA) (Negative) mg/dL Urine Ketones (Negative) Urine Blood (Negative) Urine Nitrite (Negative) Urine Bilirubin (Negative) Urine Urobilinogen (0.2) mg/dL Ur Leukocyte Esterase (Negative) U Hyaline Cast (Auto) (0-2) /LPF Urine Microscopic RBC (0-5) /HPF Urine Microscopic WBC (0-5) /HPF Ur Epithelial Cells (None Seen) /HPF Urine Bacteria (None Seen) /HPF Urine Culture Reflexed (NO) Ur Random Creatinine MG/DL Urine Sodium (30-90) mmol/L 05/14/23 05/14/23 05/14/23 Range/Units 05:20 12:10 15:35 WBC (4.0-10.5) x10^3/uL RBC (4.1-5.4) x10^6/uL Hgb (12.0-16.0) g/dL Hct (35-47) % MCV (78-100) fL MCH (26-32) pg MCHC (32-36) g/dL RDW (11.5-14.0) % Plt Count (150-450) x10^3/uL MPV (7.5-11.0) fL Segmented Neutrophils (36.0-66.0) % Band Neutrophils (0.0-2.0) % Lymphocytes (Manual) (24-44) % Monocytes (Manual) (0.0-12.0) % Platelet Estimate (NORMAL) RBC Morphology Anisocytosis Macrocytosis Sodium 127 L 126 L (137-145) mmol/L Potassium 3.3 L 3.5 (3.5-5.1) mmol/L Chloride 95 L 95 L (98-107) mmol/L Carbon Dioxide 20 L 22 (22-30) mmol/L Anion Gap 15.4 H 12.6 (5-15) MEQ/L BUN 31 H 31 H (7-17) mg/dL Creatinine 1.22 H 0.95 (0.52-1.04) mg/dL Estimated GFR 48.3 65.3 ML/MIN Glucose 140 H 128 H (74-106) mg/dL Calcium 7.4 L 6.7 L (8.4-10.2) mg/dL Magnesium (1.6-2.3) mg/dL Total Bilirubin (0.2-1.3) mg/dL AST (14-36) U/L ALT (0-35) U/L Alkaline Phosphatase (38-126) U/L Troponin I (0.000-0.034) ng/mL NT-Pro-B Natriuret Pep (<300) pg/mL Serum Total Protein (6.3-8.2) g/dL Albumin (3.5-5.0) g/dL Prealbumin (17.6-36.0) mg/dL Procalcitonin 31.100 H* (0.030-0.080) ng/mL Urine Color (Yellow) Urine Appearance (Clear) Urine pH (4.6-8.0) Ur Specific [place] (1.005-1.030) Urine Protein (Negative) Urine Glucose (UA) (Negative) mg/dL Urine Ketones (Negative) Urine Blood (Negative) Urine Nitrite (Negative) Urine Bilirubin (Negative) Urine Urobilinogen (0.2) mg/dL Ur Leukocyte Esterase (Negative) U Hyaline Cast (Auto) (0-2) /LPF Urine Microscopic RBC (0-5) /HPF Urine Microscopic WBC (0-5) /HPF Ur Epithelial Cells (None Seen) /HPF Urine Bacteria (None Seen) /HPF Urine Culture Reflexed (NO) Ur Random Creatinine MG/DL Urine Sodium (30-90) mmol/L 05/14/23 05/14/23 05/14/23 Range/Units 16:40 16:40 19:20 WBC (4.0-10.5) x10^3/uL RBC (4.1-5.4) x10^6/uL Hgb (12.0-16.0) g/dL Hct (35-47) % MCV (78-100) fL MCH (26-32) pg MCHC (32-36) g/dL RDW (11.5-14.0) % Plt Count (150-450) x10^3/uL MPV (7.5-11.0) fL Segmented Neutrophils (36.0-66.0) % Band Neutrophils (0.0-2.0) % Lymphocytes (Manual) (24-44) % Monocytes (Manual) (0.0-12.0) % Platelet Estimate (NORMAL) RBC Morphology Anisocytosis Macrocytosis Sodium 127 L (137-145) mmol/L Potassium 3.7 (3.5-5.1) mmol/L Chloride 98 (98-107) mmol/L Carbon Dioxide 19 L (22-30) mmol/L Anion Gap 13.4 (5-15) MEQ/L BUN 29 H (7-17) mg/dL Creatinine 0.83 (0.52-1.04) mg/dL Estimated GFR 76.7 ML/MIN Glucose 131 H (74-106) mg/dL Calcium 6.9 L (8.4-10.2) mg/dL Magnesium (1.6-2.3) mg/dL Total Bilirubin (0.2-1.3) mg/dL AST (14-36) U/L ALT (0-35) U/L Alkaline Phosphatase (38-126) U/L Troponin I (0.000-0.034) ng/mL NT-Pro-B Natriuret Pep (<300) pg/mL Serum Total Protein (6.3-8.2) g/dL Albumin (3.5-5.0) g/dL Prealbumin (17.6-36.0) mg/dL Procalcitonin (0.030-0.080) ng/mL Urine Color Yellow (Yellow) Urine Appearance Cloudy A (Clear) Urine pH 5.5 (4.6-8.0) Ur Specific [place] >=1.030 A (1.005-1.030) Urine Protein 30 (Negative) Urine Glucose (UA) Negative (Negative) mg/dL Urine Ketones Negative (Negative) Urine Blood Trace (Negative) Urine Nitrite Negative (Negative) Urine Bilirubin Negative (Negative) Urine Urobilinogen 0.2 (0.2) mg/dL Ur Leukocyte Esterase Negative (Negative) U Hyaline Cast (Auto) None Seen (0-2) /LPF Urine Microscopic RBC 0-2 (0-5) /HPF Urine Microscopic WBC 0-2 (0-5) /HPF Ur Epithelial Cells Many A (None Seen) /HPF Urine Bacteria Few A (None Seen) /HPF Urine Culture Reflexed YES (NO) Ur Random Creatinine 52.2 MG/DL Urine Sodium < 5 L (30-90) mmol/L 05/14/23 05/15/23 Range/Units 23:24 04:45 WBC 17.3 H (4.0-10.5) x10^3/uL RBC 2.95 L (4.1-5.4) x10^6/uL Hgb 10.4 L (12.0-16.0) g/dL Hct 30.6 L (35-47) % MCV 103.7 H (78-100) fL MCH 35.3 H (26-32) pg MCHC 34.0 (32-36) g/dL RDW 13.6 (11.5-14.0) % Plt Count 244 (150-450) x10^3/uL MPV 9.3 (7.5-11.0) fL Segmented Neutrophils (36.0-66.0) % Band Neutrophils (0.0-2.0) % Lymphocytes (Manual) (24-44) % Monocytes (Manual) (0.0-12.0) % Platelet Estimate (NORMAL) RBC Morphology Anisocytosis Macrocytosis Sodium 127 L (137-145) mmol/L Potassium 3.2 L (3.5-5.1) mmol/L Chloride 101 (98-107) mmol/L Carbon Dioxide 18 L (22-30) mmol/L Anion Gap 10.9 (5-15) MEQ/L BUN 24 H (7-17) mg/dL Creatinine 0.77 (0.52-1.04) mg/dL Estimated GFR 84.0 ML/MIN Glucose 129 H (74-106) mg/dL Calcium 6.4 L (8.4-10.2) mg/dL Magnesium (1.6-2.3) mg/dL Total Bilirubin (0.2-1.3) mg/dL AST (14-36) U/L ALT (0-35) U/L Alkaline Phosphatase (38-126) U/L Troponin I (0.000-0.034) ng/mL NT-Pro-B Natriuret Pep (<300) pg/mL Serum Total Protein (6.3-8.2) g/dL Albumin (3.5-5.0) g/dL Prealbumin (17.6-36.0) mg/dL Procalcitonin (0.030-0.080) ng/mL Urine Color (Yellow) Urine Appearance (Clear) Urine pH (4.6-8.0) Ur Specific [place] (1.005-1.030) Urine Protein (Negative) Urine Glucose (UA) (Negative) mg/dL Urine Ketones (Negative) Urine Blood (Negative) Urine Nitrite (Negative) Urine Bilirubin (Negative) Urine Urobilinogen (0.2) mg/dL Ur Leukocyte Esterase (Negative) U Hyaline Cast (Auto) (0-2) /LPF Urine Microscopic RBC (0-5) /HPF Urine Microscopic WBC (0-5) /HPF Ur Epithelial Cells (None Seen) /HPF Urine Bacteria (None Seen) /HPF Urine Culture Reflexed (NO) Ur Random Creatinine MG/DL Urine Sodium (30-90) mmol/L Radiology Exams: Radiology Procedures Category Date Time Status CHEST 1 VIEW (PORTABLE) Routine Exams 05/14/23 07:00 Completed CHEST 1 VIEW (PORTABLE) Stat Exams 05/13/23 17:45 Completed CHEST WITH CONTRAST [CT] Urgent Exams 05/14/23 13:22 Completed ECHO W/2D AND DOPPLER [US] Urgent Exams 05/14/23 09:34 Draft Multi-Disciplinary Progress Notes: Multi-Disciplinary Progress Notes 05/14/23 23:43 Respiratory Note by Kaley Arroyo Placed pt on bipap 16/8 with 40% fio2 for the night. Pt wears cpap at home. Initialized on 05/14/23 23:43 - END OF NOTE 05/14/23 11:04 Pharmacy Note by Rodrigo White Profile reviewed for renal dosing. Meds are ok at current doses. Will continue to monitor. Initialized on 05/14/23 11:04 - END OF NOTE 05/14/23 11:03 Pharmacy Note by Rodrigo White Zosyn renally dosed at 2.25gm iv q6h. Vancomycin dosed at 500mg iv q18h. Will watch creat and order levels and adjust as needed. Initialized on 05/14/23 11:03 - END OF NOTE Assessment/Plan (1) Sepsis Current Visit: Yes Status: Acute Onset Date: ~05/13/23 Qualifiers: Sepsis acute organ dysfunction status: with acute organ dysfunction Severe sepsis acute organ dysfunction type: acute renal failure Severe sepsis shock status: without septic shock Assessment & Plan: -Unknown source of infection -most likely pneumonia -Aggressive hydration contraindicated -Bcult positive x 2 for gram +cocci in rods -Vanc/zosyn initiated -LA downtrending 2.4<3.8 -Procal elevated at 31.100 -Plan for VQ scan -Urinalysis -ECHO -DVT prophylaxis 2/2: -WBC uptrending but is on steroids, will continue to monitor -continue zosyn, blood cultures with possible strep pneumo- sensitivity pending -bcult repeated, final read pending -UA unremarkable (2) Bacteremia Current Visit: Yes Status: Acute Assessment & Plan: -Blood cultures pre-stevens positive for gram + cocci in rods, possible strep pneumo, sent out for confirmation, pending -Procal 31.100 -Dc vanc, continut zosyn Code(s): R78.81 - BACTEREMIA (3) Acute respiratory failure with hypoxia Current Visit: Yes Status: Acute Assessment & Plan: -Ddimer elevated -supplemental oxygen with spo2 goal >92% -RT eval CPAP/BIPAP as needed -DuoNebs/bronchodilators/steroids -VQ scan as kidney function elevated -vanc/zosyn for bacteremia 2/2: -CT showing diffuse consolidation, no PE -taper solumedrol Code(s): J96.01 - ACUTE RESPIRATORY FAILURE WITH HYPOXIA (4) LEONA (acute kidney injury) Current Visit: Yes Status: Acute Assessment & Plan: -creat improving 1.22 -Monitor renal/lytes daily -gentle hydration -avoid nephrotoxic agents NSAIDS/MARILU/ARB 2/2: -CREAT now wnl, continue to monitor Code(s): N17.9 - ACUTE KIDNEY FAILURE, UNSPECIFIED (5) Lactic acid acidosis Current Visit: Yes Status: Acute Assessment & Plan: -Secondary to infection, positive bcult x 2 Vanc/zosyn started, CTA showing consolidation, will continue current management with vanc/zosyn pending final cultures (6) COPD exacerbation Current Visit: No Status: Acute Assessment & Plan: -see ARF Code(s): J44.1 - CHRONIC OBSTRUCTIVE PULMONARY DISEASE W (ACUTE) EXACERBATION (7) Hypokalemia Current Visit: No Status: Acute Assessment & Plan: -Patient received potassium 20meq in ED, will re-eval, potassium at 3.4, will continue potassium protocol, replenish -tele -continue to monitor renal/lytes daily /2: -Potassium at 3.4 today, will replenish per protocol Code(s): E87.6 - HYPOKALEMIA (8) Hyponatremia Current Visit: Yes Status: Acute Assessment & Plan: -urine sodium, unable to obtain serum osmo at this facility -Pt received lasix in ED, may be secondary to hypovolemia 2/2: -improving, increase fluids to 100ml/hr (9) [place] [address] -ECHO from 05/14/23 IMPRESSION: 1) NO REGIONAL WALL MOTION ABNORMALITY. ESTIMATED GLOBAL LEFT VENTRICULAR EJECTION FRACTION BETWEEN 55 TO 60%. 2) TRACE MITRAL REGURGITATION. 3) MILD TRICUSPID REGURGITATION. RIGHT VENTRICULAR SYSTOLIC PRESSURE OF 25 MM OF MERCURY. 4) LEFT VENTRICULAR HYPERTROPHY. 5) MILDLY DILATED RIGHT SIDED CHAMBER. (10) Diarrhea -Stool studies for cdiff, culture, O&P, giardia (2) Bacteremia Current Visit: Yes Status: Acute Code(s): R78.81 - BACTEREMIA (3) Acute respiratory failure with hypoxia Current Visit: Yes Status: Acute Code(s): J96.01 - ACUTE RESPIRATORY FAILURE WITH HYPOXIA (4) LEONA (acute kidney injury) Current Visit: Yes Status: Acute Code(s): N17.9 - ACUTE KIDNEY FAILURE, UNSPECIFIED (5) Lactic acid acidosis Current Visit: Yes Status: Acute Code(s): E87.20 - ACIDOSIS, UNSPECIFIED (6) COPD exacerbation Current Visit: No Status: Acute Code(s): J44.1 - CHRONIC OBSTRUCTIVE PULMONARY DISEASE W (ACUTE) EXACERBATION (7) Hypokalemia Current Visit: No Status: Acute Code(s): E87.6 - HYPOKALEMIA (8) Hyponatremia Current Visit: Yes Status: Acute Code(s): E87.1 - HYPO-OSMOLALITY AND HYPONATREMIA
[2023-05-15] MEDS: Sodium Chloride 0.9% 1000 ML 1,000 ML IV SCH ×3 (06:20→22:32)
[2023-05-15] MEDS: Piperacillin/Tazobactam 2.25 GM 2.25 GM in Sodium Chloride 100ML MINI-BAG PLUS 100 ML IV SCH (06:25)
[2023-05-15] MEDS: solu-MEDROL 40 MG, Sterile H2O 10 ml 1 ML IV SCH ×6 (06:25→22:34)
[2023-05-15] MEDS ORDERED: VANCOCIN 500 MG VIAL*** 500 MG in Sodium Chloride 100ML MINI-BAG PLUS 100 ML IV SCH (08:00)
[2023-05-15] MEDS: Klor Con PO SCH ×4 (08:14→14:38)
[2023-05-15] MEDS: Requip 0.5 MG PO SCH ×3 (09:13→22:33)
[2023-05-15] MEDS: SYNTHROID 25 MCG PO SCH (09:13)
[2023-05-15] MEDS: NORVASC 5 MG PO SCH (09:13)
[2023-05-15] MEDS: MYRBETRIQ PO SCH (09:13)
[2023-05-15] MEDS: Pepcid 20 MG PO SCH ×2 (09:14→22:33)
[2023-05-15] MEDS: Vitamin B-6 (Pyridoxine) 100 MG PO SCH (09:14)
[2023-05-15] MEDS: SODIUM BICARBONATE PO SCH (09:14)
[2023-05-15] MEDS: HEPARIN 5000 UNITS/0.5 ML (HIGH RISK MED) SQ SCH ×2 (09:14→22:34)
[2023-05-15 11:33] LABS: ISTAT CREA 0.6 mg/dL (0.6-1.3); ISTAT K 3.4 mmol/L (3.5-4.9); ISTAT iCA 0.89 mmol/L (1.12-1.32)
[2023-05-15] MEDS: Zofran 4 MG/2 ML VIAL IV PRN (11:36)
[2023-05-15] MEDS: PIPERACILLIN/TAZOBACTAM 3.375 GM in Sodium Chloride 100ML MINI-BAG PLUS 100 ML IV SCH ×2 (11:36→18:33)
[2023-05-15 11:38] LABS: 027 TOX PROD PRESUMPTIVE NEGATIVE (NEGATIVE)
[2023-05-15 11:47] LABS: TOXIGENIC C. DIFF ORG POSITIVE (NEGATIVE)
[2023-05-15] MEDS: VANCOMYCIN HCL CAPSULE PO SCH ×3 (12:29→22:34)
[2023-05-15] MEDS ORDERED: VANCOCIN 500 MG VIAL PO SCH (13:00)
[2023-05-15] MEDS: ZOCOR 20MG PO SCH (22:33)
[2023-05-15] MEDS: Nicoderm CQ 21 MG TOP SCH (22:34)
[2023-05-16] MEDS: DUONEB 0.5-3 MG/3 ml Neb IH SCH ×4 (01:10→18:41)
[2023-05-16] MEDS: PIPERACILLIN/TAZOBACTAM 3.375 GM in Sodium Chloride 100ML MINI-BAG PLUS 100 ML IV SCH ×4 (01:14→17:12)
--- NOTE | 2023-05-16 05:08 | PCM.NOTE ---
Date and Time: 05/16/23 0505 Subjective Assessment: Subjective Assessment: is a 67 year old female with a known history of COPD (not on home oxygen, and follows with Dr. Colindres), leukemia (sees Dr. Miguel, no treatment) smoker, and recent COVID positive last week presented to ED 05/12/23 with complaints of dysnea and non productive cough. Upon arrival spo2 was @ 84% on cpap she brought from EMS, hypotensive, and tachypneic. EKG interpreted by ED physician showed RATE (113), Sinus Tach, NORMAL AXIS, NORMAL INTERVALS, NORMAL QRS, Other (no acute ischemia). CXR with showing Right middle and lower lobe consolidation. CT chest demonstrating no PE and New right lower lobe consolidating/nonconsolidating airspace disease Lab findings on presentation si gnificant for hyponatremia with sodium at 130, hypokalemia with potassium at 3.0, LEONA with BUN at 21 and creat at 1.74, lactic acid 2.4<3.8, BNP 66657 trops x 2 negative. Respiratory viral panel negative. Patient admitted with acute respiratory failure/hypoxia with sepsis secondary to pneumonia/copd exacerbation. Blood culture x 2 positive for Strep pneumo. Repeat bcult NGTD. CDiff also negative. Current treatment with IV zosyn. 2/3: Met with patient bedside. No overnight events noted. Endorses improvement of dyspnea and cough. Oxygen remains at 2L NC. Lung sounds with increased aeration with fine crackles in bilateral bases, as well as exp wheezing. Blood cultures were positive x 2 with strep pneumo and pending sensitivity. These have been redrawn and current negative. Diarrhea has improved. CDIff negative, stool cultures pending. Plan to continue zosyn one more day and start oral abx tomorrow, taper steroid.Denies fever,cp, abdominal pain, HAGAN, dizziness, N/V/D. - Review of Systems Constitutional: No Symptoms Eyes: No Symptoms Ears, Nose, & Throat: No Symptoms Respiratory: Cough, Short Of Breath, Wheezing Cardiac: No Symptoms Abdominal/Gastrointestinal: No Symptoms Genitourinary Symptoms: No Symptoms Musculoskeletal: No Symptoms Skin: No Symptoms Neurological: No Symptoms Psychological: No Symptoms Hematologic/Lymphatic: No Symptoms Immunological/Allergic: No Symptoms Objective Exam General Appearance: no apparent distress Neurologic Exam: alert, oriented x 3, cooperative Skin Exam: normal color Eye Exam: PERRL Ears, Nose, Throat Exam: normal ENT inspection Neck Exam: normal inspection Respiratory Exam: diminished breath sounds, crackles/rales, wheezing Cardiovascular Exam: regular rate/rhythm, normal heart sounds Gastrointestinal/Abdomen Exam: soft, normal bowel sounds Extremity Exam: normal inspection Back Exam: normal inspection Pelvic Exam: deferred Rectal Exam: deferred OBJECTIVE DATA Vital Signs: Vital Signs - 24 hr Temp Pulse Resp BP BP Pulse Ox 05/16/23 03:00 76 20 108/78 97 05/16/23 02:10 88 24 97 05/15/23 23:00 98.7 F 79 20 99/70 99 05/15/23 19:42 97.7 F 90 20 117/82 94 L 05/15/23 19:06 86 18 97 05/15/23 16:00 97.7 F 86 24 136/70 93 L 05/15/23 14:01 85 17 114/73 94 L 05/15/23 13:00 95 H 34 H 107/91 05/15/23 12:02 83 20 98 05/15/23 12:01 97.5 F 81 22 102/68 100 05/15/23 12:00 87 05/15/23 11:01 87 18 117/74 94 L 05/15/23 10:00 92 H 22 131/86 05/15/23 09:45 85 18 05/15/23 09:30 82 16 05/15/23 09:15 107 H 20 97 05/15/23 09:02 87 16 98 05/15/23 08:59 84 15 110/74 87 L 05/15/23 08:30 82 19 121/89 99 05/15/23 08:22 83 22 123/98 97 05/15/23 08:21 81 18 97 05/15/23 08:15 79 21 95 05/15/23 08:02 78 15 97 05/15/23 07:50 97.6 F 78 32 H 114/81 91 L 05/15/23 07:39 89 05/15/23 07:31 71 16 139/114 97 05/15/23 07:30 95 05/15/23 07:26 79 18 122/81 84 L 05/15/23 07:02 89 27 H 135/93 96 05/15/23 06:54 75 20 95 05/15/23 06:31 77 21 122/93 89 L 05/15/23 06:00 80 18 102/68 97 05/15/23 05:30 79 20 107/73 100 Pain Assessment - Last Documented Pain Intensity 0 Pain Scale Used [facility] Intake and Output: Intake & Output 05/13/23 05/14/23 05/15/23 05/16/23 11:59 11:59 11:59 11:59 Intake Total 500 3027 840 Output Total 0 950 Balance 500 2077 840 Weight 53.3 kg 52 kg 52 kg Lab Results: Lab Results-Last 24 Hours 05/15/23 05/15/23 05/15/23 Range/Units 04:45 04:45 10:49 Sodium 127 L (137-145) mmol/L Sodium Direct 131 L (138-146) mmol/L Potassium 3.4 L 3.4 L (3.5-5.1) mmol/L Chloride 99 98 (98-107) mmol/L Carbon Dioxide 22 23 L (22-30) mmol/L Anion Gap 10.1 (5-15) MEQ/L BUN 23 H (7-17) mg/dL Venous BUN 22 (8-26) mg/dL Creatinine 0.71 0.6 (0.52-1.04) mg/dL Estimated GFR 92.6 ML/MIN Glucose 130 H 172 H (74-106) mg/dL Calcium 6.8 L (8.4-10.2) mg/dL Ionized Calcium 0.89 L (1.12-1.32) mmol/L Magnesium 1.7 (1.6-2.3) mg/dL Total Bilirubin 0.80 (0.2-1.3) mg/dL AST 42 H (14-36) U/L ALT 37 H (0-35) U/L Alkaline Phosphatase 44 (38-126) U/L Serum Total Protein 6.1 L (6.3-8.2) g/dL Albumin 3.4 L (3.5-5.0) g/dL C. difficile Screen (NEGATIVE) C.difficile 027-NAP1-B1 (NEGATIVE) 05/15/23 05/15/23 Range/Units 10:50 17:55 Sodium (137-145) mmol/L Sodium Direct (138-146) mmol/L Potassium 4.0 (3.5-5.1) mmol/L Chloride (98-107) mmol/L Carbon Dioxide (22-30) mmol/L Anion Gap (5-15) MEQ/L BUN (7-17) mg/dL Venous BUN (8-26) mg/dL Creatinine (0.52-1.04) mg/dL Estimated GFR ML/MIN Glucose (74-106) mg/dL Calcium (8.4-10.2) mg/dL Ionized Calcium (1.12-1.32) mmol/L Magnesium (1.6-2.3) mg/dL Total Bilirubin (0.2-1.3) mg/dL AST (14-36) U/L ALT (0-35) U/L Alkaline Phosphatase (38-126) U/L Serum Total Protein (6.3-8.2) g/dL Albumin (3.5-5.0) g/dL C. difficile Screen POSITIVE (NEGATIVE) C.difficile 027-NAP1-B1 PRESUMPTIVE NEGATIVE (NEGATIVE) Radiology Exams: Radiology Procedures Category Date Time Status CHEST 1 VIEW (PORTABLE) Routine Exams 05/14/23 07:00 Completed CHEST WITH CONTRAST [CT] Urgent Exams 05/14/23 13:22 Completed ECHO W/2D AND DOPPLER [US] Urgent Exams 05/14/23 09:34 Draft Multi-Disciplinary Progress Notes: Multi-Disciplinary Progress Notes 05/15/23 12:00 (created 05/15/23 12:59) Case Management Note by Estella Mir S/W PATIENT AGAIN ABOUT NEEDS AT DC. SHE WOULD LIKE TO PLAN TO RETURN HOME WITH [facility] IF STRONG ENOUGH AT TIME OF DC. SHE REPORTS SHE HAS HAD [facility] IN THE PAST AND WOULD LIKE TO HAVE THEM AGAIN. REFERRAL SENT. PATIENT GIVEN DME OPTIONS IF SHE HAS TO HAVE OXYGEN - SHE WOULD LIKE TO USE [facility]. PROVIDER PREFERENCE FORM GIVEN AND SIGNED FOR BOTH [facility] DME PROVIDERS. [facility] GIVEN OXYGEN ORDER FORM FOR WEEKEND IF NEEDED. PATIENT REPORTS HER IS HOME ON THE WEEKENDS BUT DURING THE WEEK SHE WILL NOT HAVE ASSISTANCE. IF PATIENT FEELS SHE NEEDS REHAB AT TIME OF DC, REFERRAL PROCESS CAN BE STARTED. IT WILL REQUIRE A PRECERT. AGAIN PATIENT IS HOPEFUL TO RETURN HOME WITH [facility] Initialized on 05/15/23 12:59 - END OF NOTE 05/15/23 11:32 Case Management Note by Estella Mir REFERRAL FAXED TO [facility]. THEY WILL NEED NOTIFIED AT TIME OF DC AT [phone]. THEY WILL NEED FAXED THE DC INSTRUCTIONS, DC MED LIST, AND DC SUMMARY TO [phone] Initialized on 05/15/23 11:32 - END OF NOTE 05/15/23 09:47 Pharmacy Note by Rodrigo White Zosyn dose increased to 3.375gm. Creat improved to. 0.7. Initialized on 05/15/23 09:47 - END OF NOTE Assessment/Plan (1) Sepsis Current Visit: Yes Status: Acute Onset Date: ~05/13/23 Qualifiers: Sepsis acute organ dysfunction status: with acute organ dysfunction Severe sepsis acute organ dysfunction type: acute renal failure Severe sepsis shock status: without septic shock Assessment & Plan: -Unknown source of infection -most likely pneumonia -Aggressive hydration contraindicated -Bcult positive x 2 for gram +cocci in rods -Vanc/zosyn initiated -LA downtrending 2.4<3.8 -Procal elevated at 31.100 -Plan for VQ scan -Urinalysis -ECHO -DVT prophylaxis 2/2: -WBC uptrending but is on steroids, will continue to monitor -continue zosyn, blood cultures with possible strep pneumo- sensitivity pending -bcult repeated, final read pending -UA unremarkable 2/3: -No longer meets criteria -Repeat bcult NGTD -Continue Zosyn (2) Bacteremia Current Visit: Yes Status: Acute Assessment & Plan: -Blood cultures pre-stevens positive for gram + cocci in rods, possible strep pneumo, sent out for confirmation, pending -Procal 31.100 -Dc vanc, continue zosyn -change to oral abx tomorrow -Repeat cultures NGTD Code(s): R78.81 - BACTEREMIA (3) Acute respiratory failure with hypoxia Current Visit: Yes Status: Acute Assessment & Plan: -Ddimer elevated -supplemental oxygen with spo2 goal >92% -RT eval CPAP/BIPAP as needed -DuoNebs/bronchodilators/steroids -VQ scan as kidney function elevated -vanc/zosyn for bacteremia 2/2: -CT showing diffuse consolidation, no PE -taper solumedrol Code(s): J96.01 - ACUTE RESPIRATORY FAILURE WITH HYPOXIA (4) LEONA (acute kidney injury) Current Visit: Yes Status: Acute Assessment & Plan: -creat improving 1.22 -Monitor renal/lytes daily -gentle hydration -avoid nephrotoxic agents NSAIDS/MARILU/ARB 2/2: -CREAT now wnl, continue to monitor Code(s): N17.9 - ACUTE KIDNEY FAILURE, UNSPECIFIED (5) Lactic acid acidosis Current Visit: Yes Status: Acute Assessment & Plan: -Secondary to infection, positive bcult x 2 Vanc/zosyn started, CTA showing consolidation, will continue current management with vanc/zosyn pending final cultures 2/3: -no longer meeting sepsis criteria, underlying infection treatment with zosyn (6) COPD exacerbation Current Visit: No Status: Acute Assessment & Plan: -see ARF Code(s): J44.1 - CHRONIC OBSTRUCTIVE PULMONARY DISEASE W (ACUTE) EXACERBATION (7) Hypokalemia Current Visit: No Status: Acute Assessment & Plan: -Patient received potassium 20meq in ED, will re-eval, potassium at 3.4, will continue potassium protocol, replenish -tele -continue to monitor renal/lytes daily 2/2: -Potassium at 3.4 today, will replenish per protocol 2/3: -Resolved Code(s): E87.6 - HYPOKALEMIA (8) Hyponatremia Current Visit: Yes Status: Acute Assessment & Plan: -urine sodium, unable to obtain serum osmo at this facility -Pt received lasix in ED, may be secondary to hypovolemia 2/2: -improving, increase fluids to 100ml/hr (9) [place] [address] -ECHO from 05/14/23 IMPRESSION: 1) NO REGIONAL WALL MOTION ABNORMALITY. ESTIMATED GLOBAL LEFT VENTRICULAR EJECTION FRACTION BETWEEN 55 TO 60%. 2) TRACE MITRAL REGURGITATION. 3) MILD TRICUSPID REGURGITATION. RIGHT VENTRICULAR SYSTOLIC PRESSURE OF 25 MM OF MERCURY. 4) LEFT VENTRICULAR HYPERTROPHY. 5) MILDLY DILATED RIGHT SIDED CHAMBER. (10) Diarrhea -Stool studies for cdiff, culture, O&P, giardia 2/3: -CDiff negative (2) Bacteremia Current Visit: Yes Status: Acute Code(s): R78.81 - BACTEREMIA (3) Acute respiratory failure with hypoxia Current Visit: Yes Status: Acute Code(s): J96.01 - ACUTE RESPIRATORY FAILURE WITH HYPOXIA (4) LEONA (acute kidney injury) Current Visit: Yes Status: Acute Code(s): N17.9 - ACUTE KIDNEY FAILURE, UNSPECIFIED (5) Lactic acid acidosis Current Visit: Yes Status: Acute Code(s): E87.20 - ACIDOSIS, UNSPECIFIED (6) COPD exacerbation Current Visit: No Status: Acute Code(s): J44.1 - CHRONIC OBSTRUCTIVE PULMONARY DISEASE W (ACUTE) EXACERBATION (7) Hypokalemia Current Visit: No Status: Acute Code(s): E87.6 - HYPOKALEMIA (8) Hyponatremia Current Visit: Yes Status: Acute Code(s): E87.1 - HYPO-OSMOLALITY AND HYPONATREMIA
[2023-05-16 05:38] LABS: Hematocrit 31.1 % (35-47); Hemoglobin 10.3 g/dL (12.0-16.0); Mean Cell Volume 105.1 fL (78-100); Mean Corpuscular Hemoglobin 34.8 pg (26-32); Mean Corpuscular Hgb Concent. 33.1 g/dL (32-36); Mean Platelet Volume 9.5 fL (7.5-11.0); Platelet Count 245 x10^3/uL (150-450); Red Blood Count 2.96 x10^6/uL (4.1-5.4); Red Cell Distribution Width 13.6 % (11.5-14.0)
[2023-05-16 05:52] LABS: ALBUMIN 3.5 g/dL (3.5-5.0); ANION GAP 10.8 MEQ/L (5-15); BILIRUBIN,TOTAL 0.9 mg/dL (0.2-1.3); Calcium 7.3 mg/dL (8.4-10.2); Creatinine 1 0.55 mg/dL (0.52-1.04); EST GLOMERULAR FILTRATION RATE 99.8 ML/MIN; Potassium 3.8 mmol/L (3.5-5.1); Total Protein 6.3 g/dL (6.3-8.2)
[2023-05-16] MEDS ORDERED: solu-MEDROL ONE (06:23)
[2023-05-16] MEDS: solu-MEDROL 40 MG, Sterile H2O 10 ml 1 ML IV SCH ×4 (06:28→22:02)
[2023-05-16] MEDS ORDERED: TROUGH DRUG LEVELS IJ ONE (07:30)
[2023-05-16] MEDS: Sodium Chloride 0.9% 1000 ML 1,000 ML IV SCH ×3 (07:55→17:11)
[2023-05-16] MEDS: MYRBETRIQ PO SCH (09:15)
[2023-05-16] MEDS: Requip 0.5 MG PO SCH ×3 (09:16→22:03)
[2023-05-16] MEDS: HEPARIN 5000 UNITS/0.5 ML (HIGH RISK MED) SQ SCH ×2 (09:16→22:03)
[2023-05-16] MEDS: SYNTHROID 25 MCG PO SCH (09:16)
[2023-05-16] MEDS: Pepcid 20 MG PO SCH ×2 (09:16→22:03)
[2023-05-16] MEDS: NORVASC 5 MG PO SCH (09:16)
[2023-05-16] MEDS: Vitamin B-6 (Pyridoxine) 100 MG PO SCH (09:18)
[2023-05-16] MEDS ORDERED: solu-MEDROL 40 MG, Sterile H2O 10 ml 1 ML IV SCH ×2 (10:00)
[2023-05-16] MEDS: MARY'S MOUTHWASH PO PRN ×2 (10:04→14:13)
[2023-05-16] MEDS: Zofran 4 MG/2 ML VIAL IV PRN (11:24)
[2023-05-16] MEDS: ZOCOR 20MG PO SCH (22:00)
[2023-05-16] MEDS: Nicoderm CQ 21 MG TOP SCH (22:04)
[2023-05-17] MEDS: PIPERACILLIN/TAZOBACTAM 3.375 GM in Sodium Chloride 100ML MINI-BAG PLUS 100 ML IV SCH ×3 (00:37→12:21)
[2023-05-17] MEDS: DUONEB 0.5-3 MG/3 ml Neb IH SCH ×3 (01:40→13:28)
--- NOTE | 2023-05-17 05:25 | PCM.NOTE ---
Date and Time: 05/17/23523 Subjective Assessment: is a 67 year old female with a known history of COPD (not on home oxygen, and follows with Dr. Colindres), leukemia (sees Dr. Miguel, no treatment) smoker, and recent COVID positive last week presented to ED 05/12/23 with complaints of dysnea and non productive cough. Upon arrival spo2 was @ 84% on cpap she brought from EMS, hypotensive, and tachypneic. EKG interpreted by ED physician showed RATE (113), Sinus Tach, NORMAL AXIS, NORMAL INTERVALS, NORMAL QRS, Other (no acute ischemia). CXR with showing Right middle and lower lobe consolidation. CT chest demonstrating no PE and New right lower lobe consolidating/nonconsolidating airspace disease Lab findings on presentation significant for hyponatremia with sodium at 130, hypokalemia with potassium at 3.0, LEONA with BUN at 21 and creat at 1.74, lactic acid 2.4<3.8, BNP 85750 trops x 2 negative. Respiratory viral panel negative. Patient admitted with acute respiratory failure/hypoxia with sepsis secondary to pneumonia/copd exacerbation. Blood culture x 2 positive for Strep pneumo. Repeat bcult NGTD. CDiff also negative. Current treatment with IV zosyn. OBJECTIVE DATA Vital Signs: Vital Signs - 24 hr Temp Pulse Resp BP Pulse Ox 05/17/23 03:43 98.5 F 81 28 H 127/84 97 05/17/23 02:01 73 22 98 05/16/23 23:53 85 19 95 05/16/23 19:43 98.5 F 85 23 127/76 92 L 05/16/23 18:41 82 18 92 L 05/16/23 16:00 98.0 F 83 23 132/56 96 05/16/23 13:49 85 18 95 05/16/23 11:00 97.6 F 88 21 124/82 95 05/16/23 07:40 74 17 96 05/16/23 07:00 97.9 F 74 17 150/86 94 L Pain Assessment - Last Documented Pain Intensity 0 Pain Scale Used [facility] Intake and Output: Intake & Output 05/14/23 05/15/23 05/16/23 05/17/23 11:59 11:59 11:59 11:59 Intake Total 500 3027 4539 3122 Output Total 0 950 1500 480 Balance 500 4467 9170 7248 Weight 53.3 kg 52 kg 52 kg Lab Results: Lab Results-Last 24 Hours 05/16/23 05/16/23 05/16/23 Range/Units 05:30 05:30 09:40 WBC 18.0 H (4.0-10.5) x10^3/uL RBC 2.96 L (4.1-5.4) x10^6/uL Hgb 10.3 L (12.0-16.0) g/dL Hct 31.1 L (35-47) % MCV 105.1 H (78-100) fL MCH 34.8 H (26-32) pg MCHC 33.1 (32-36) g/dL RDW 13.6 (11.5-14.0) % Plt Count 245 (150-450) x10^3/uL MPV 9.5 (7.5-11.0) fL Sodium 131 L (137-145) mmol/L Potassium 3.8 (3.5-5.1) mmol/L Chloride 103 (98-107) mmol/L Carbon Dioxide 21 L (22-30) mmol/L Anion Gap 10.8 (5-15) MEQ/L BUN 9 (7-17) mg/dL Creatinine 0.55 (0.52-1.04) mg/dL Estimated GFR 99.8 ML/MIN Glucose 134 H (74-106) mg/dL Lactic Acid 4.6 H (0.4-2.0) Calcium 7.3 L (8.4-10.2) mg/dL Total Bilirubin 0.90 (0.2-1.3) mg/dL AST 47 H (14-36) U/L ALT 48 H (0-35) U/L Alkaline Phosphatase 66 (38-126) U/L Serum Total Protein 6.3 (6.3-8.2) g/dL Albumin 3.5 (3.5-5.0) g/dL Assessment/Plan (1) Sepsis Current Visit: Yes Status: Acute Onset Date: ~05/13/23 Qualifiers: Sepsis acute organ dysfunction status: with acute organ dysfunction Severe sepsis acute organ dysfunction type: acute renal failure Severe sepsis shock status: without septic shock Assessment & Plan: - -most likely secondary to pneumonia -Aggressive hydration contraindicated -Bcult positive x 2 for gram +cocci in rods -Vanc/zosyn initiated -LA downtrending 2.4<3.8 -Procal elevated at 31.100 -Plan for VQ scan -Urinalysis -ECHO -DVT prophylaxis 2/2: -WBC uptrending but is on steroids, will continue to monitor -continue zosyn, blood cultures with possible strep pneumo- sensitivity pending -bcult repeated, final read pending -UA unremarkable 2/3: -No longer meets criteria -Repeat bcult NGTD -Continue Zosyn (2) Bacteremia Current Visit: Yes Status: Acute Assessment & Plan: -Blood cultures pre-stevens positive for gram + cocci in rods, possible strep pneumo, sent out for confirmation, pending -Procal 31.100 -Dc vanc, continue zosyn -change to oral abx tomorrow -Repeat cultures NGTD Code(s): R78.81 - BACTEREMIA (3) Acute respiratory failure with hypoxia Current Visit: Yes Status: Acute Assessment & Plan: -Ddimer elevated -supplemental oxygen with spo2 goal >92% -RT eval CPAP/BIPAP as needed -DuoNebs/bronchodilators/steroids -VQ scan as kidney function elevated -vanc/zosyn for bacteremia 2/2: -CT showing diffuse consolidation, no PE -taper solumedrol Code(s): J96.01 - ACUTE RESPIRATORY FAILURE WITH HYPOXIA (4) LEONA (acute kidney injury) Current Visit: Yes Status: Acute Assessment & Plan: -creat improving 1.22 -Monitor renal/lytes daily -gentle hydration -avoid nephrotoxic agents NSAIDS/MARILU/ARB 2/2: -CREAT now wnl, continue to monitor Code(s): N17.9 - ACUTE KIDNEY FAILURE, UNSPECIFIED (5) Lactic acid acidosis Current Visit: Yes Status: Acute Assessment & Plan: -Secondary to infection, positive bcult x 2 Vanc/zosyn started, CTA showing consolidation, will continue current management with vanc/zosyn pending final cultures 2/3: -no longer meeting sepsis criteria, underlying infection treatment with zosyn (6) COPD exacerbation Current Visit: No Status: Acute Assessment & Plan: -see ARF Code(s): J44.1 - CHRONIC OBSTRUCTIVE PULMONARY DISEASE W (ACUTE) EXACERBATION (7) Hypokalemia Current Visit: No Status: Acute Assessment & Plan: -Patient received potassium 20meq in ED, will re-eval, potassium at 3.4, will continue potassium protocol, replenish -tele -continue to monitor renal/lytes daily 05/15: -Potassium at 3.4 today, will replenish per protocol 05/16: -Resolved Code(s): E87.6 - HYPOKALEMIA (8) Hyponatremia Current Visit: Yes Status: Acute Assessment & Plan: -urine sodium, unable to obtain serum osmo at this facility -Pt received lasix in ED, may be secondary to hypovolemia /: -improving, increase fluids to 100ml/hr (9) [place] [address] -ECHO from 05/14/23 IMPRESSION: 1) NO REGIONAL WALL MOTION ABNORMALITY. ESTIMATED GLOBAL LEFT VENTRICULAR EJECTION FRACTION BETWEEN 55 TO 60%. 2) TRACE MITRAL REGURGITATION. 3) MILD TRICUSPID REGURGITATION. RIGHT VENTRICULAR SYSTOLIC PRESSURE OF 25 MM OF MERCURY. 4) LEFT VENTRICULAR HYPERTROPHY. 5) MILDLY DILATED RIGHT SIDED CHAMBER. (10) Diarrhea -Stool studies for cdiff, culture, O&P, giardia 2: -CDiff negative (2) Bacteremia Current Visit: Yes Status: Acute Code(s): R78.81 - BACTEREMIA (3) Acute respiratory failure with hypoxia Current Visit: Yes Status: Acute Code(s): J96.01 - ACUTE RESPIRATORY FAILURE WITH HYPOXIA (4) LEONA (acute kidney injury) Current Visit: Yes Status: Acute Code(s): N17.9 - ACUTE KIDNEY FAILURE, UNSPECIFIED (5) Lactic acid acidosis Current Visit: Yes Status: Acute Code(s): E87.20 - ACIDOSIS, UNSPECIFIED (6) COPD exacerbation Current Visit: No Status: Acute Code(s): J44.1 - CHRONIC OBSTRUCTIVE PULMONARY DISEASE W (ACUTE) EXACERBATION (7) Hypokalemia Current Visit: No Status: Acute Code(s): E87.6 - HYPOKALEMIA (8) Hyponatremia Current Visit: Yes Status: Acute Code(s): E87.1 - HYPO-OSMOLALITY AND HYPONATREMIA
[2023-05-17] MEDS: Sodium Chloride 0.9% 1000 ML 1,000 ML IV SCH (05:39)
[2023-05-17 05:54] LABS: Hematocrit 31.4 % (35-47); Hemoglobin 10.5 g/dL (12.0-16.0); Mean Cell Volume 104.3 fL (78-100); Mean Corpuscular Hemoglobin 34.9 pg (26-32); Mean Corpuscular Hgb Concent. 33.4 g/dL (32-36); Mean Platelet Volume 9.7 fL (7.5-11.0); Platelet Count 234 x10^3/uL (150-450); Red Blood Count 3.01 x10^6/uL (4.1-5.4); Red Cell Distribution Width 13.7 % (11.5-14.0); White Blood Count 14.1 x10^3/uL (4.0-10.5)
[2023-05-17 06:24] LABS: ALBUMIN 3.5 g/dL (3.5-5.0); ANION GAP 10.6 MEQ/L (5-15); BILIRUBIN,TOTAL 0.7 mg/dL (0.2-1.3); Creatinine 1 0.49 mg/dL (0.52-1.04); EST GLOMERULAR FILTRATION RATE 102.6 ML/MIN; Potassium 3.5 mmol/L (3.5-5.1); Total Protein 6.3 g/dL (6.3-8.2)
[2023-05-17] MEDS: MYRBETRIQ PO SCH (09:46)
[2023-05-17] MEDS: Pepcid 20 MG PO SCH (09:47)
[2023-05-17] MEDS: Requip 0.5 MG PO SCH (09:47)
[2023-05-17] MEDS: NORVASC 5 MG PO SCH (09:47)
[2023-05-17] MEDS: SYNTHROID 25 MCG PO SCH (09:47)
[2023-05-17] MEDS: Vitamin B-6 (Pyridoxine) 100 MG PO SCH (09:48)
[2023-05-17] MEDS: solu-MEDROL 40 MG, Sterile H2O 10 ml 1 ML IV SCH ×2 (09:48)
[2023-05-17] MEDS: HEPARIN 5000 UNITS/0.5 ML (HIGH RISK MED) SQ SCH (09:49)
[2023-05-17] MEDS: MARY'S MOUTHWASH PO PRN (09:56)
--- NOTE | 2023-05-17 10:47 | PCM.DS ---
Discharge Summary Date of Admission: 05/13/23 23:51 Date of Discharge: 05/17/23 Admitting Physician: ENRICO RAUSCH MD Consults: Consults on Case 05/14/23 09:36 Consult Pulmonology ROUTINE Primary Care Provider: CLAUDIA CERVANTES Allergies Allergies codeine Allergy (Mild, Verified 05/14/23 00:12) Swelling SWELLING AND VOMITTING Sulfa (Sulfonamide Antibiotics) Allergy (Mild, Verified 05/14/23 00:12) Swelling Hospital Summary - Hospital Course Hospital Course: is a 67 year old female with a known history of COPD (not on home oxygen, and follows with Dr. Colindres), leukemia (sees Dr. Miguel, no treatment) smoker, and recent COVID positive last week presented to ED 05/12/23 with complaints of dysnea and non productive cough. Upon arrival spo2 was @ 84% on cpap she brought from EMS, hypotensive, and tachypneic. EKG interpreted by ED physician showed RATE (113), Sinus Tach, NORMAL AXIS, NORMAL INTERVALS, NORMAL QRS, Other (no acute ischemia). CXR with showing Right middle and lower lobe c onsolidation. CT chest demonstrating no PE and New right lower lobe consolidating/nonconsolidating airspace disease Lab findings on presentation significant for hyponatremia with sodium at 130, hypokalemia with potassium at 3.0, LEONA with BUN at 21 and creat at 1.74, lactic acid 2.4<3.8, BNP 70656 trops x 2 negative. Respiratory viral panel negative. Patient admitted with acute respiratory failure/hypoxia with sepsis secondary to pneumonia/copd exacerbation. Blood culture x 2 positive for Strep pneumo. Repeat bcult NGTD. CDiff also negative. IP treatment with IV zosyn. Dyspnea/cough have improved. Patient does have desaturation requiring 2L of oxygen. She has been qualified for home oxygen and will be set up for home use on discharge. Labs and vitals stable. Patient to discharge with cefpodoxime/doxycycline, medrol dose pack. She has home nebulizer for PRN use as well as prescribed bronchodilators. She has requested nicotine patches. Patient advised follow up with pulmonology and PCP. She is agreeable to plan and ready for discharge. Discharge Note New Diagnosis:ARF secondary to pneumonia New Medications:cefpodoxime/medrol dose pack/ doxycycline Follow Up: PCP/Pulm Results pending: Blood culture final results Latest Assessment & Plan (1) Sepsis Current Visit: Yes Status: Acute Onset Date: ~05/13/23 Qualifiers: Sepsis acute organ dysfunction status: with acute organ dysfunction Severe sepsis acute organ dysfunction type: acute renal failure Severe sepsis shock status: without septic shock Assessment & Plan: - -most likely secondary to pneumonia -Aggressive hydration contraindicated -Bcult positive x 2 for gram +cocci in rods -Vanc/zosyn initiated -LA downtrending 2.4<3.8 -Procal elevated at 31.100 -Plan for VQ scan -Urinalysis -ECHO -DVT prophylaxis 2/2: -WBC uptrending but is on steroids, will continue to monitor -continue zosyn, blood cultures with possible strep pneumo- sensitivity pending -bcult repeated, final read pending -UA unremarkable 2/3: -No longer meets criteria -Repeat bcult NGTD -Continue Zosyn (2) Bacteremia Current Visit: Yes Status: Acute Assessment & Plan: -Blood cultures pre-stevens positive for gram + cocci in rods, possible strep pneumo, sent out for confirmation, pending -Procal 31.100 -Dc vanc, continue zosyn -change to oral abx tomorrow -Repeat cultures NGTD Code(s): R78.81 - BACTEREMIA (3) Acute respiratory failure with hypoxia Current Visit: Yes Status: Acute Assessment & Plan: -Ddimer elevated -supplemental oxygen with spo2 goal >92% -RT eval CPAP/BIPAP as needed -DuoNebs/bronchodilators/steroids -VQ scan as kidney function elevated -vanc/zosyn for bacteremia 2/2: -CT showing diffuse consolidation, no PE -taper solumedrol Code(s): J96.01 - ACUTE RESPIRATORY FAILURE WITH HYPOXIA (4) LEONA (acute kidney injury) Current Visit: Yes Status: Acute Assessment & Plan: -creat improving 1.22 -Monitor renal/lytes daily -gentle hydration -avoid nephrotoxic agents NSAIDS/MARILU/ARB 2/2: -CREAT now wnl, continue to monitor Code(s): N17.9 - ACUTE KIDNEY FAILURE, UNSPECIFIED (5) Lactic acid acidosis Current Visit: Yes Status: Acute Assessment & Plan: -Secondary to infection, positive bcult x 2 Vanc/zosyn started, CTA showing consolidation, will continue current management with vanc/zosyn pending final cultures /3: -no longer meeting sepsis criteria, underlying infection treatment with zosyn (6) COPD exacerbation Current Visit: No Status: Acute Assessment & Plan: -see ARF Code(s): J44.1 - CHRONIC OBSTRUCTIVE PULMONARY DISEASE W (ACUTE) EXACERBATION (7) Hypokalemia Current Visit: No Status: Acute Assessment & Plan: -Patient received potassium 20meq in ED, will re-eval, potassium at 3.4, will continue potassium protocol, replenish -tele -continue to monitor renal/lytes daily 05/15: -Potassium at 3.4 today, will replenish per protocol 05/16: -Resolved Code(s): E87.6 - HYPOKALEMIA (8) Hyponatremia Current Visit: Yes Status: Acute Assessment & Plan: -urine sodium, unable to obtain serum osmo at this facility -Pt received lasix in ED, may be secondary to hypovolemia 05/15: -improving, increase fluids to 100ml/hr (9) [place] [address] -ECHO from 05/14/23 IMPRESSION: 1) NO REGIONAL WALL MOTION ABNORMALITY. ESTIMATED GLOBAL LEFT VENTRICULAR EJECTION FRACTION BETWEEN 55 TO 60%. 2) TRACE MITRAL REGURGITATION. 3) MILD TRICUSPID REGURGITATION. RIGHT VENTRICULAR SYSTOLIC PRESSURE OF 25 MM OF MERCURY. 4) LEFT VENTRICULAR HYPERTROPHY. 5) MILDLY DILATED RIGHT SIDED CHAMBER. (10) Diarrhea -Stool studies for cdiff, culture, O&P, giardia 05/16: -CDiff negative I spent 35 minutes [id number] with the patient on the day of discharge performing discharge exam, discussing hospital stay and discharge instructions with patient and caregivers, preparation of discharge records, prescriptions & referral forms and addressing any questions/concerns the patient had as documented above. - Vitals & Intake/Output Vital Signs: Vital Signs Temperature 97.8 F 05/17/23 07:33 Pulse Rate 86 05/17/23 07:33 Respiratory Rate 27 H 05/17/23 07:33 Blood Pressure 128/80 05/17/23 07:33 O2 Sat by Pulse Oximetry 97 05/17/23 07:33 Intake & Output: Intake & Output 05/14/23 05/15/23 05/16/23 05/17/23 11:59 11:59 11:59 11:59 Intake Total 500 0436 7747 3492 Output Total 0 950 1500 480 Balance 500 9246 0444 3126 Weight 53.3 kg 52 kg 52 kg - Lab Result Diagrams: 05/17/23 05:40 05/17/23 05:40 Lab Results-Last 24 Hrs: Lab Results-Last 24 Hours 05/17/23 05/17/23 Range/Units 05:40 05:40 WBC 14.1 H (4.0-10.5) x10^3/uL RBC 3.01 L (4.1-5.4) x10^6/uL Hgb 10.5 L (12.0-16.0) g/dL Hct 31.4 L (35-47) % MCV 104.3 H (78-100) fL MCH 34.9 H (26-32) pg MCHC 33.4 (32-36) g/dL RDW 13.7 (11.5-14.0) % Plt Count 234 (150-450) x10^3/uL MPV 9.7 (7.5-11.0) fL Sodium 135 L (137-145) mmol/L Potassium 3.5 (3.5-5.1) mmol/L Chloride 104 (98-107) mmol/L Carbon Dioxide 23 (22-30) mmol/L Anion Gap 10.6 (5-15) MEQ/L BUN 4 L (7-17) mg/dL Creatinine 0.49 L (0.52-1.04) mg/dL Estimated GFR 102.6 ML/MIN Glucose 130 H (74-106) mg/dL Calcium 8.0 L (8.4-10.2) mg/dL Total Bilirubin 0.70 (0.2-1.3) mg/dL AST 47 H (14-36) U/L ALT 63 H (0-35) U/L Alkaline Phosphatase 73 (38-126) U/L Serum Total Protein 6.3 (6.3-8.2) g/dL Albumin 3.5 (3.5-5.0) g/dL Micro Results-Entire Visit: Microbiology 05/15/23 10:50 Giardia lamblia (PCR) - Final Stool Cryptosporidium Antigen - Final 05/13/23 17:02 Aerobic Organism ID Result 1 - Final Blood Not Reportable Aerobic Organism ID Result 2 - Final Not Reportable Aerobic Organism ID Result 3 - Final Not Reportable Aerobic Organism ID Result 4 - Final Not Reportable Aerobic Bacterial Sensitivity - Final Not Reportable 05/14/23 16:40 Urine Culture - Final Clean Catch Midstream <10K NORMAL SKIN EVANS PROBABLE SKIN CONTAMINANT 05/14/23 12:10 Blood Culture - Preliminary Blood 05/14/23 11:40 Blood Culture - Preliminary Blood 05/13/23 17:09 Blood Culture Gram Stain - Final Blood Blood Culture - Preliminary ADDITIONAL TESTING IS REQUIRED TO OBTAIN ID AND SENSITIVITY. SPECIMEN HAS BEEN SENT TO REFERENCE LAB, WITH FINAL RESULT EXPECTED WITHIN 96 HOURS. 05/13/23 17:02 Blood Culture Gram Stain - Final Blood Blood Culture - Preliminary ADDITIONAL TESTING IS REQUIRED TO OBTAIN ID AND SENSITIVITY. SPECIMEN HAS BEEN SENT TO REFERENCE LAB, WITH FINAL RESULT EXPECTED WITHIN 96 HOURS. 05/13/23 17:09 Aerobic Organism ID Result 1 - Final Blood Not Reportable Aerobic Organism ID Result 2 - Final Not Reportable Aerobic Organism ID Result 3 - Final Not Reportable Aerobic Organism ID Result 4 - Final Not Reportable Aerobic Bacterial Sensitivity - Final Not Reportable - Procedures and Test Procedures and Tests throughout Hospitalization: Therapy Orders & Screens 05/13/23 17:24 BiPap/CPAP STAT Comment: 05/13/23 22:15 Oxygen High Flow per RT 50% Comment: 05/13/23 23:45 Respiratory Therapy Assessment DAILY Comment: Diagnosis: respiratory distress, covid positive 05/14/23 00:24 BiPap/CPAP ROUTINE Comment: Diagnosis: respiratory distress, covid positive 05/14/23 09:00 OT Screen per Nursing Assess ONCE Comment: Protocol Order Physician Instructions: Greater than 3 points order OT Admission Screening Reason For Exam: Triggered on Admission Diagnosis: respiratory distress, covid positive Open Wound/Cellutlitis/Pressure Ulcers: No Acute Fx/ORIF/Change in wt bearing status: No Severe MUSCULOSKELETAL pain: No ADL Dysfunction: Yes Acute CVA w/Hemiparesis/Hemiplegia: No Decreased Functional Mobility/Strength: Yes Sprain/Strain: No Acute Post-op Mobility Dysfunction: No Total Points: 4 PT Screen per Nursing Assess ONCE Comment: Protocol Order Physician Instructions: Greater than 3 points order PT Admission Screenin Reason For Exam: Triggered on Admission Diagnosis: respiratory distress, covid positive Open Wound/Cellutlitis/Pressure Ulcers: No Acute Fx/ORIF/Change in wt bearing status: No Severe MUSCULOSKELETAL pain: No ADL Dysfunction: Yes Acute CVA w/Hemiparesis/Hemiplegia: No Decreased Functional Mobility/Strength: Yes Sprain/Strain: No Acute Post-op Mobility Dysfunction: No Total Points: 4 RT Screen per Nursing Assess ONCE Comment: Protocol Order Physician Instructions: Greater than 3 points order RT Admission Screen Reason For Exam: Triggered on Admission Diagnosis: respiratory distress, covid positive Diagnosis: respiratory distress, covid positive Pneumonia: Yes Asthma: No CHF: Yes Home CPAP/BIPAP: Yes Home Nebs/MDI: Yes Total Points: 16 Smoking Cessation Education ONCE Comment: Diagnosis: respiratory distress, covid positive Smoking Status: Current every day smoker How long have you smoked: 50y Have you smoked in the past 12 months: Yes Approximately how many cigarettes per day: 1ppd Do you dip or chew tobacco: No ST Screen per Nursing Assess ONCE Comment: Protocol Order Physician Instructions: Greater than [address] Admission Screening Reason For Exam: Triggered on Admission Diagnosis: respiratory distress, covid positive CVA/Dyshpagia/Aphasia: No Cognitive Deficits: No Dehydration/Nutrition Deficit: No Reflux: No Oral-Motor Difficulties: No Pneumonia: Yes Retirement Resident: No Total Points: 5 05/15/23 01:01 Oxygen Oxymizer LPM 4 lpm Comment: Diagnosis: respiratory distress, covid positive 05/17/23 07:23 Oxygen Nasal Cannula 2 lpm Comment: Diagnosis: respiratory distress, covid positive Discharge Exam General Appearance: no apparent distress Neurologic Exam: alert, oriented x 3, cooperative Eye Exam: PERRL Ears, Nose, Throat Exam: normal ENT inspection Neck Exam: normal inspection Respiratory Exam: crackles/rales Cardiovascular Exam: regular rate/rhythm, normal heart sounds Gastrointestinal/Abdomen Exam: soft, normal bowel sounds Pelvic Exam: deferred Rectal Exam: deferred Back Exam: normal inspection Extremity Exam: normal inspection Skin Exam: normal color Final Diagnosis/Problem List - Final Discharge Diagnosis/Problem (1) Pneumonia Current Visit: Yes Status: Acute Code(s): J18.9 - PNEUMONIA, UNSPECIFIED ORGANISM (2) Sepsis Current Visit: Yes Status: Acute Onset Date: ~05/13/23 (3) Bacteremia Current Visit: Yes Status: Acute Code(s): R78.81 - BACTEREMIA (4) Acute respiratory failure with hypoxia Current Visit: Yes Status: Acute Code(s): J96.01 - ACUTE RESPIRATORY FAILURE WITH HYPOXIA (5) LEONA (acute kidney injury) Current Visit: Yes Status: Acute Code(s): N17.9 - ACUTE KIDNEY FAILURE, UNSPECIFIED (6) Lactic acid acidosis Current Visit: Yes Status: Acute Code(s): E87.20 - ACIDOSIS, UNSPECIFIED (7) COPD exacerbation Current Visit: No Status: Acute Code(s): J44.1 - CHRONIC OBSTRUCTIVE PULMONARY DISEASE W (ACUTE) EXACERBATION (8) Hypokalemia Current Visit: No Status: Acute Code(s): E87.6 - HYPOKALEMIA (9) Hyponatremia Current Visit: Yes Status: Acute Code(s): E87.1 - HYPO-OSMOLALITY AND HYPONATREMIA - Discharge Disposition: Home, Self-Care Condition: Stable Prescriptions: New Methylprednisolone Packet [Medrol Dosepack] 4 mg PO UD #30 packet Nicotine 21 mg [Nicoderm CQ 21 MG] 21 mg TOP HS 42 Days #42 patch Cefpodoxime Proxetil 200 mg [Vantin 200 mg] 200 mg PO BID 7 Days #14 tablet Doxycycline Hyclate 100 mg [Vibramycin 100 MG] 100 mg PO BID 10 Days #20 tab Continue Albuterol/Ipratropium 3ml Neb* [DUONEB 0.5-3 MG/3 ml Neb] 3 ml IH Q4H PRN PRN #30 ampul.neb PRN Reason: DIFFICULTY BREATHING Folic Acid 1 mg [Folate 1 mg] 1 mg PO DAILY Mirabegron [Myrbetriq] 50 mg PO DAILY PANTOPRAZOLE 40 mg Tablet [Protonix 40MG Tablet] 40 mg PO QAM Amlodipine Besylate 10 mg PO DAILY Potassium Chloride Tab* [Klor Con] 20 meq PO BID 5 Days #20 tab Terbinafine HCl [Terbinafine] 1 applic TOP BID Ropinirole HCl 0.5 mg [Requip 0.5 MG] 0.5 mg PO TID Upadacitinib [Rinvoq] 15 mg PO DAILY Alendronate Sodium 70 mg [Fosamax 70 MG] 70 mg PO WEEKLY Levothyroxine Sodium [Synthroid] 25 mcg PO DAILY Atorvastatin Calcium 80 mg PO QHS Pyridoxine HCl (Vitamin B6) [Vitamin B-6] 100 mg PO DAILY Discontinued Nicotine 14 mg [Nicoderm Cq 14 mg] 14 mg TOP Q24H10 28 Days #28 patch Prednisone 20 mg [Deltasone 20 mg] 20 mg PO BID 5 Days #10 tablet Additional Instructions: REFERRAL SENT TO [facility]. Follow up with: CLAUDIA CERVANTES NP [Primary Care Provider] - (Call Thursday for appt) RAPHAEL COLINDRES [CONSULTING PHYSICIAN] -
[2023-05-17 12:09] VITALS: BP 138/95; PULSE 87; TEMP 97.7
[2023-05-17 13:32] VITALS: RESP 20; O2SAT 86
== END 2023-05-17 14:00 | disposition home health service (06) | DRG 193 ==
LOC: ED 16:57 → MED SURG 22:41 → ICU 23:51 → OBSVTOIN 23:51
PROVIDERS: ADMIT Internal Medicine; ATTEND Internal Medicine
DX: J18.9 Pneumonia, unspecified organism (principal); A41.9 Sepsis, unspecified organism; J96.01 Acute respiratory failure with hypoxia; N17.9 Acute kidney failure, unspecified; E87.20 Acidosis, unspecified; J44.1 Chronic obstructive pulmonary disease with (acute) exacerbation; E87.1 Hypo-osmolality and hyponatremia; C95.90 Leukemia, unspecified not having achieved remission; E87.6 Hypokalemia; F17.200 Nicotine dependence, unspecified, uncomplicated; R19.7 Diarrhea, unspecified; R79.89 Other specified abnormal findings of blood chemistry; Z79.899 Other long term (current) drug therapy; Z20.828 Contact with and (suspected) exposure to other viral communicable diseases; Z86.16 Personal history of COVID-19
CPT/HCPCS: 0241U; 36000; 36415; 36600; 71045; 71260; 80047; 80048; 80053; 81001; 82375; 82570; 82803; 83605; 83735; 83880; 84132; 84134; 84145; 84300; 84484; 85025; 85027; 85379; 87040; 87045; 87046; 87077; 87086; 87177; 87209; 87328; 87329; 87427; 87493; 93306; 94002; 94003; 94640; 94762; 96374; 96375; 99285; Q3014; J0696; J1644; J1940; J2405; J2543; J2920; J2930; J3370; J3480; A9270-GY; J3475

== ENCOUNTER 2024-03-30 11:40 | Emergency (ER) | payer MEDICARE ==
--- NOTE | 2024-03-30 12:04 | ERPHSYRPT ---
- History of Present Illness Time Seen by Provider: 03/30/24 12:04 Source: patient Exam Limitations: no limitations Physician History: This is a 68-year-old white female patient who presents to the emergency department accompanied by her significant other by private vehicle. Patient's primary complaint is neck pain that has been worsening over the last week. She denies any type of acute trauma to the area. She has had injections into her neck which have helped her in the past. She has significant arthritis in her neck. Patient denies numbness in her hand and she denies any loss of motor function. Patient has not been taking anything stronger than plain Tylenol. This is not helping her much. Patient states she is allergic codeine but has taken [place] and Percocet in the past without any adverse effects. Patient is a daily smoker of tobacco cigarettes. She has a [id number] smoking history. Patient has a history of hypertension, gastroesophageal reflux disease, hypothyroidism, hyperlipidemia, asthma, COPD, anxiety and depression. Timing/Duration: week(s) (1), worse Severity: moderate Modifying Factors: Improves With: movement Associated Symptoms: denies symptoms Allergies/Adverse Reactions: codeine Allergy (Mild, Verified 05/14/23 00:12) Swelling SWELLING AND VOMITTING Sulfa (Sulfonamide Antibiotics) Allergy (Mild, Verified 05/14/23 00:12) Swelling Home Medications: Folic Acid 1 mg [Folate 1 mg] 1 mg PO DAILY 05/05/21 [History] Mirabegron [Myrbetriq] 50 mg PO DAILY 05/05/21 [History] Amlodipine Besylate 10 mg PO DAILY 12/13/21 [History] PANTOPRAZOLE 40 mg Tablet [Protonix 40MG Tablet] 40 mg PO QAM 12/13/21 [History] Alendronate Sodium 70 mg [Fosamax 70 MG] 70 mg PO WEEKLY 05/13/23 [History] Atorvastatin Calcium 80 mg PO QHS 05/13/23 [History] Levothyroxine Sodium [Synthroid] 25 mcg PO DAILY 05/13/23 [History] Pyridoxine HCl (Vitamin B6) [Vitamin B-6] 100 mg PO DAILY 05/13/23 [History] Ropinirole HCl 0.5 mg [Requip 0.5 MG] 0.5 mg PO TID 05/13/23 [History] Upadacitinib [Rinvoq] 15 mg PO DAILY 05/13/23 [History] terbinafine HCL [Terbinafine] 1 applic TOP BID 05/13/23 [History] Hx Tetanus, Diphtheria Vaccination/Date Given: No Hx Influenza Vaccination/Date Given: No Hx Pneumococcal Vaccination/Date Given: Yes Travel Risk - International Travel Have you traveled outside of the country in past 3 weeks: No - Emerging Infectious Disease Are you exhibiting symptoms associated with any current EIDs: No - Review of Systems Constitutional: No Symptoms Eyes: No Symptoms Ears, Nose, & Throat: No Symptoms Respiratory: No Symptoms Cardiac: No Symptoms Abdominal/Gastrointestinal: No Symptoms Genitourinary Symptoms: No Symptoms Musculoskeletal: Neck Pain, No Injury Skin: No Symptoms Neurological: No Symptoms Psychological: No Symptoms Endocrine: No Symptoms Hematologic/Lymphatic: No Symptoms Immunological/Allergic: No Symptoms All Other Systems: Reviewed and Negative - Past Medical History Pertinent Past Medical History: Yes Neurological History: No Pertinent History ENT History: No Pertinent History Cardiac History: No Pertinent History Respiratory History: Asthma, Bronchitis, COPD, Emphysema, Other Endocrine Medical History: No Pertinent History Musculoskeletal History: Degenerative Disk Disease, Fibromyalgia, Rheumatoid Arthritis, Other GI Medical History: GERD, Gallbladder Disease, Hernia History: No Pertinent History Psycho-Social History: Anxiety, Depression Female Reproductive Disorders: No Pertinent History Other Medical History: lupus, - Past Surgical History Past Surgical History: Yes Neuro Surgical History: No Pertinent History Cardiac: No Pertinent History Respiratory: No Pertinent History Gastrointestinal: Cholecystectomy, Hernia Repair Genitourinary: No Pertinent History Female Surgical History: Tubal Ligation Other Surgical History: bilat carpal tunnel, left ovarian cyst removed,bilat cataract,. tonsillectomy as a child - Social History Smoking Status: Current every day smoker How long have you smoked: 50y Exposure to second hand smoke: Yes Drug Use: marijuana Patient Lives Alone: No - Social Determinants of Health Will the patient participate in the screening: Yes Do you worry about a steady place to live?: No In the past 12 months,have you had to go without utilities?: No Transportation Issues: No Has anyone in your support network made you feel unsafe?: No Have you or anyone in your house had to go without enough: No - Nursing Vital Signs Nursing Vital Signs: Initial Vital Signs Temperature 97.8 F 03/30/24 12:02 Pulse Rate 84 03/30/24 12:02 Respiratory Rate 18 03/30/24 12:02 Blood Pressure 149/100 03/30/24 12:02 O2 Sat by Pulse Oximetry 97 03/30/24 12:02 Pain Scale Pain Intensity 10 - Physical Exam General Appearance: mild distress, alert, anxiety, thin Eye Exam: PERRL/EOMI, eyes nml inspection Ears, Nose, Throat Exam: normal ENT inspection, moist mucous membranes Neck Exam: normal inspection, supple, other (No midline tenderness. No tenderness on palpation of her cervical spine. The pain is paraspinous musculature bilaterally) Respiratory Exam: airway intact, No chest tenderness, No respiratory distress Gastrointestinal/Abdomen Exam: No tenderness Pelvic Exam: not done Rectal Exam: not done Back Exam: normal inspection, normal range of motion, No CVA tenderness, No vertebral tenderness Extremity Exam: normal inspection, normal range of motion, pelvis stable Neurologic Exam: alert, oriented x 3, cooperative, hotbed transfer operator II-XII nml as tested, nml cerebellar function, nml station & gait, sensation nml Skin Exam: normal color, warm, dry Lymphatic Exam: No adenopathy SpO2 Interpretation: normal O2 Delivery: Room Air - Course Nursing assessment & vital signs reviewed: Yes Ordered Tests: Medication Summary Discontinued Medications Generic Name Dose Route Start Last Admin Trade Name Courtney PRN Reason Stop Dose Admin Methylprednisolone Sodium 0 mg 03/30/24 12:47 03/30/24 12:56 Succinate 125 mg/ Sterile IM 03/30/24 12:48 125 mg Water 2 ml STAT ONE Administration Methylprednisolone Sodium Succinate Confirm 03/30/24 12:51 Methylprednis Sod Succ 125 Mg/2 Ml Vial Administered 03/30/24 12:52 Dose 125 mg .ROUTE .STK-MED ONE Orphenadrine Citrate 60 mg 03/30/24 12:47 03/30/24 12:55 Orphenadrine Citrate 60 Mg/2 Ml Vial IM 03/30/24 12:48 60 mg STAT ONE Administration Orphenadrine Citrate Confirm 03/30/24 12:51 Orphenadrine Citrate 60 Mg/2 Ml Vial Administered 03/30/24 12:52 Dose 60 mg .ROUTE .STK-MED ONE Oxycodone/Acetaminophen 1 tab 03/30/24 12:46 03/30/24 12:53 Oxycodone Hcl/Apap 5 Mg/325 Mg Tablet PO 03/30/24 12:47 1 tab STAT STA Administration Oxycodone/Acetaminophen Confirm 03/30/24 12:51 Oxycodone Hcl/Apap 5 Mg/325 Mg Tablet Administered 03/30/24 12:52 Dose 1 tab .ROUTE .STK-MED ONE Sterile Water Confirm 03/30/24 12:51 Water For Injection,Sterile 10 Ml Vial Administered 03/30/24 12:52 Dose 10 ml IJ .STK-MED ONE - Progress Progress: improved, pain not gone completely Progress Note: 03/30/24 13:09 My medical decision making and the assignment of low complexity to this patient's medical issue today, is based on review of the patient's past medical history, review the patient's medication list, reviewed patient drug allergy list, history present illness and physical findings on examination. The workup today does not include any laboratory or radiographic studies. The patient has not suffered any acute injury to the neck. She has chronic arthritis and the pain has been worsening. Patient does not want any radiographic studies as well. She has no motor or sensory deficits. Differential diagnosis includes but is not limited to paraspinous muscle pain, cervical spine arthritis Counseled pt/family regarding: diagnosis, need for follow-up Medical Desision Making - Independent Historian Additional History obtained from: Spouse - Diagnostic Testing Diagnostic test were ordered, analyzed, and reviewed by me: No - Risk of complications Low Risk: Low risk of morbidity from additional dx testing or treatment - Departure Departure Disposition: Home Clinical Impression: Cervical spine arthritis Condition: Stable Critical Care Time: No Referrals: CLAUDIA CERVANTES NP [Primary Care Provider] - Follow up/PCP as directed Additional Instructions: Take your medications as prescribed. Call your primary care provider today, to make arrangements for a follow-up appointment to be seen in their office in the next 2 days to discuss further management and possible referral to pain specialist. Prescriptions: Oxycodone HCl/Acetaminophen [Percocet 5-325 mg Tablet] 1 each PO Q8H PRN PRN #6 tablet MDD 3 PRN Reason: Moderate To Severe Pain Prednisone 10 mg [Deltasone 10 mg] 10 mg PO TID #12 tablet
[2024-03-30 12:07] VITALS: RESP 18; TEMP 97.8
[2024-03-30] MEDS ORDERED: Norflex 60 MG/2 ML ONE (12:51)
[2024-03-30] MEDS ORDERED: Sterile H2O 10 ml IJ ONE (12:51)
[2024-03-30] MEDS ORDERED: PERCOCET TABLET 5/325MG ONE (12:51)
[2024-03-30] MEDS ORDERED: solu-MEDROL ONE (12:51)
[2024-03-30] MEDS: PERCOCET TABLET 5/325MG PO STA (12:53)
[2024-03-30] MEDS: Norflex 60 MG/2 ML IM ONE (12:55)
[2024-03-30] MEDS: solu-MEDROL 125 MG, Sterile H2O 10 ml 2 ML IM ONE (12:56)
[2024-03-30 13:13] VITALS: BP 169/96; PULSE 74; O2SAT 97
== END 2024-03-30 13:26 | disposition home or self-care (01) ==
LOC: ED 11:40
DX: M47.812 Spondylosis without myelopathy or radiculopathy, cervical region (principal); M54.2 Cervicalgia
CPT/HCPCS: 96372; 99283; J2360; J2919; A9270-GY

== ENCOUNTER 2024-08-11 11:35 | Observation (INO) | payer MEDICARE ==
[2024-08-11] MEDS ORDERED: DUONEB 0.5-3 MG/3 ml Neb IH ONE (11:58)
[2024-08-11] MEDS: DUONEB 0.5-3 MG/3 ml Neb IH ONE (12:00)
[2024-08-11] MEDS ORDERED: solu-MEDROL ONE (12:11)
[2024-08-11] MEDS ORDERED: Sterile H2O 10 ml IJ ONE (12:11)
[2024-08-11] MEDS: solu-MEDROL 125 MG, Sterile H2O 10 ml 2 ML IV ONE (12:12)
--- NOTE | 2024-08-11 12:17 | ERPHSYRPT ---
- History of Present Illness Time Seen by Provider: 08/11/24 12:13 Source: patient Exam Limitations: no limitations Patient Subjective Stated Complaint: pt states that she has been short of breath for the past 3 months. pt states that it has got worse 3 days ago Triage Nursing Assessment: pt came into the er via wheelchair; pt transfer to cot per self; pt is axo x4; c/o SOB; pt denies pain; pt was 89% on room air, pt was put on 2L via nasal cannula, O2 at 95% on 2L; skin PDW; hypertensive Physician History: Patient is a 68-year-old female current smoker history of COPD presents to our ED for evaluation of shortness of breath. Patient states that she has been more short of breath over the past 3 months than normal. Patient states shortness of breath got significantly worse over the past 3 days. No trauma no fever no chest pain no nausea vomiting or diaphoresis. Patient normally does not require oxygen at home. However upon arrival to our ED patient was hypoxic at 89% on room air. Patient started on 2 L nasal cannula. O2 sat at rest is 95%. Patient symptoms are progressive. Symptoms are moderate in intensity. Shortness of breath worse with exertion. Symptoms improved at rest. Patient voices no other complaints or concerns at this time. Patient adds that she has a history of leukemia and sees an oncologist Dr. Rios in [place] Portions of this note were created with voice recognition technology. There may be grammatical, spelling, punctuation or sound alike errors Timing/Duration: day(s) (Days) Activities at Onset: activity Severity of Dyspnea-Max: severe Severity of Dyspnea-Current: moderate Possible Cause: occasional episodes Modifying Factors: Improves With: activity Associated Symptoms: denies symptoms Allergies/Adverse Reactions: codeine Allergy (Mild, Verified 08/11/24 11:36) Swelling SWELLING AND VOMITTING Sulfa (Sulfonamide Antibiotics) Allergy (Mild, Verified 08/11/24 11:36) Swelling Home Medications: Folic Acid 1 mg [Folate 1 mg] 1 mg PO DAILY 05/05/21 [History] Mirabegron [Myrbetriq] 50 mg PO DAILY 05/05/21 [History] Amlodipine Besylate 10 mg PO DAILY 12/13/21 [History] PANTOPRAZOLE 40 mg Tablet [Protonix 40MG Tablet] 40 mg PO QAM 12/13/21 [History] Alendronate Sodium 70 mg [Fosamax 70 MG] 70 mg PO WEEKLY 05/13/23 [History] Atorvastatin Calcium 80 mg PO QHS 05/13/23 [History] Levothyroxine Sodium [Synthroid] 25 mcg PO DAILY 05/13/23 [History] Pyridoxine HCl (Vitamin B6) [Vitamin B-6] 100 mg PO DAILY 05/13/23 [History] Ropinirole HCl 0.5 mg [Requip 0.5 MG] 0.5 mg PO TID 05/13/23 [History] Upadacitinib [Rinvoq] 15 mg PO DAILY 05/13/23 [History] terbinafine HCL [Terbinafine] 1 applic TOP BID 05/13/23 [History] Hx Tetanus, Diphtheria Vaccination/Date Given: No Hx Influenza Vaccination/Date Given: Yes Hx Pneumococcal Vaccination/Date Given: Yes Travel Risk - International Travel Have you traveled outside of the country in past 3 weeks: No - Emerging Infectious Disease Are you exhibiting symptoms associated with any current EIDs: Yes Symptoms: Shortness of Breath - Review of Systems Constitutional: No Symptoms, No Fever, No Chills Eyes: No Symptoms Ears, Nose, & Throat: No Symptoms Respiratory: No Symptoms, No Cough, No Dyspnea Cardiac: No Symptoms, No Chest Pain, No Edema, No Syncope Abdominal/Gastrointestinal: No Symptoms, No Abdominal Pain, No Nausea, No Vomiting, No Diarrhea Genitourinary Symptoms: No Symptoms, No Dysuria Musculoskeletal: No Symptoms, No Back Pain, No Neck Pain Skin: No Symptoms, No Rash Neurological: No Symptoms, No Dizziness, No Focal Weakness, No Sensory Changes Psychological: No Symptoms Endocrine: No Symptoms Hematologic/Lymphatic: No Symptoms Immunological/Allergic: No Symptoms All Other Systems: Reviewed and Negative - Past Medical History Pertinent Past Medical History: Yes Neurological History: No Pertinent History ENT History: No Pertinent History Cardiac History: No Pertinent History Respiratory History: Asthma, Bronchitis, COPD, Emphysema, Other Endocrine Medical History: No Pertinent History Musculoskeletal History: Degenerative Disk Disease, Fibromyalgia, Rheumatoid Arthritis, Other GI Medical History: GERD, Gallbladder Disease, Hernia History: No Pertinent History Psycho-Social History: Anxiety, Depression Female Reproductive Disorders: No Pertinent History Other Medical History: lupus, - Past Surgical History Past Surgical History: Yes Neuro Surgical History: No Pertinent History Cardiac: No Pertinent History Respiratory: No Pertinent History Gastrointestinal: Cholecystectomy, Hernia Repair Genitourinary: No Pertinent History Female Surgical History: Tubal Ligation Other Surgical History: bilat carpal tunnel, left ovarian cyst removed,bilat cataract,. tonsillectomy as a child - Social History Smoking Status: Current every day smoker How long have you smoked: 50y Exposure to second hand smoke: Yes Drug Use: marijuana - Social Determinants of Health Will the patient participate in the screening: Yes Do you worry about a steady place to live?: No Do you have any problems with any of the following?: No known problems In the past 12 months,have you had to go without utilities?: No Transportation Issues: No Has anyone in your support network made you feel unsafe?: No Have you or anyone in your house had to go w/o enough food: No - Nursing Vital Signs Nursing Vital Signs: Initial Vital Signs Temperature 97.2 F 08/11/24 11:36 Pulse Rate 101 H 08/11/24 11:36 Respiratory Rate 28 H 08/11/24 11:36 Blood Pressure 170/103 08/11/24 11:36 O2 Sat by Pulse Oximetry 89 L 08/11/24 11:36 Pain Scale Pain Intensity 0 - Physical Exam General Appearance: no apparent distress, alert Eye Exam: PERRL/EOMI Ears, Nose, Throat Exam: hearing grossly normal, normal ENT inspection, normal pharynx Neck Exam: normal inspection, supple, full range of motion Respiratory Exam: diminished breath sounds, crackles/rales, wheezing Cardiovascular/Chest Exam: normal heart sounds, regular rate/rhythm Abdominal/Gastrointestinal Exam: soft, No tenderness, No distention, No mass Extremity Exam: non-tender, normal range of motion, normal inspection, no calf tenderness, no pedal edema Neurologic Exam: alert, oriented x 3, cooperative, roller varnisher II-XII nml as tested, sensation nml, No motor deficits Skin Exam: normal color, warm, No dry Lymphatic Exam: No adenopathy SpO2 Interpretation: normal SpO2: 95 O2 Delivery: Room Air - Course Nursing assessment & vital signs reviewed: Yes EKG Interpreted by Me: RATE (99), Sinus Rhythm, NORMAL AXIS, NORMAL INTERVALS, NORMAL QRS - Radiology Exams Chest X-ray Interpretation: Interpreted by me (Hyperinflated lungs, no acute findings) Ordered Tests: Active Orders 24 hr Category Date Time Status Evp Sales STAT Care 08/11/24 11:52 Active EKG-ER Only STAT Care 08/11/24 11:52 Active IV Insertion STAT Care 08/11/24 11:52 Active Pulse Oximetry (ED) STAT Care 08/11/24 11:52 Active CHEST 1 VIEW (PORTABLE) Stat Exams 08/11/24 12:47 Taken BLOOD CULTURE Stat Lab 08/11/24 12:11 Received CBC W DIFF Stat Lab 08/11/24 12:05 Completed CMP Stat Lab 08/11/24 12:05 Completed D-DIMER QUANTITATIVE Stat Lab 08/11/24 12:05 Completed NT PRO BNPII Stat Lab 08/11/24 12:05 Completed TROPONIN Q4H Lab 08/11/24 12:05 Completed TROPONIN Q4H Lab 08/11/24 16:00 Ordered TROPONIN Q4H Lab 08/11/24 20:00 Ordered UA W/RFX UR CULTURE Stat Lab 08/11/24 11:52 Ordered Flutter Therapy UD RT 08/11/24 12:06 Active Respiratory Therapy Assessment DAILY RT 08/11/24 12:03 Active Transfer Order Routine Transfer 08/11/24 Ordered Medication Summary Generic Name Dose Route Start Last Admin Trade Name Freq PRN Reason Stop Dose Admin Azithromycin 500 mg/ Sodium 250 mls @ 250 mls/hr 08/11/24 12:28 Chloride IV 08/11/24 13:27 STAT STA Discontinued Medications Generic Name Dose Route Start Last Admin Trade Name Freq PRN Reason Stop Dose Admin Albuterol/Ipratropium 3 ml 08/11/24 11:52 08/11/24 12:00 Ipratropium/Albuterol Sulfate 3 Ml Ampul.Neb IH 08/11/24 11:53 3 ml STAT ONE Administration Albuterol/Ipratropium Confirm 08/11/24 11:58 Ipratropium/Albuterol Sulfate 3 Ml Ampul.Neb Administered 08/11/24 11:59 Dose 3 ml IH .STK-MED ONE Methylprednisolone Sodium 0 mg 08/11/24 11:52 08/11/24 12:12 Succinate 125 mg/ Sterile IV 08/11/24 11:53 125 mg Water 2 ml STAT ONE Administration Ceftriaxone Sodium 2 gm in 100 mls @ 200 mls/hr 08/11/24 12:28 08/11/24 12:32 Rocephin 2 Gm/100 Ml Nacl IV 08/11/24 12:57 200 mls/hr STAT ONE 200 mls/hr Administration Ceftriaxone Sodium Confirm 08/11/24 12:31 Rocephin 2 Gm/100 Ml Nacl Administered 08/11/24 12:32 Dose 2 gm in 100 mls @ ud IV .STK-MED ONE Methylprednisolone Sodium Succinate Confirm 08/11/24 12:11 Methylprednis Sod Succ 125 Mg/2 Ml Vial Administered 08/11/24 12:12 Dose 125 mg .ROUTE .STK-MED ONE Sterile Water Confirm 08/11/24 12:11 Water For Injection,Sterile 10 Ml Vial Administered 08/11/24 12:12 Dose 10 ml IJ .STK-MED ONE Lab/Rad Data: Laboratory Result Diagrams 08/11/24 12:05 08/11/24 12:05 Laboratory Results 08/11/24 08/11/24 08/11/24 Range/Units 12:10 12:05 12:05 WBC (3.98-10.04) x10^3/uL RBC (3.93-5.22) x10^6/uL Hgb (11.2-15.7) g/dL Hct (34.1-44.9) % MCV (79.4-94.8) fL MCH (25.6-32.2) pg MCHC (32.2-35.5) g/dL RDW (11.7-14.4) % Plt Count (182-369) x10^3/uL MPV (9.4-12.3) fL Gran % (34.0-71.1) % Immature Gran % (Auto) (0.001-0.429) % Nucleat RBC Rel Count (0.00-0.2) % Eos # (Auto) (0.04-0.36) x10^3/uL Immature Gran # (Auto) (0.001-0.031) x10^3u/L Absolute Lymphs (auto) (1.18-3.74) x10^3/uL Absolute Monos (auto) (0.24-0.86) x10^3/uL Absolute Nucleated RBC (0.00-0.012) x10^3u/L Lymphocytes % (19.3-51.7) % Monocytes % (4.7-12.5) % Eosinophils % (0.7-5.8) % Basophils % (0.1-1.2) % Absolute Granulocytes (1.56-6.13) x10^3/uL Basophils # (0.01-0.08) x10^3/uL D-Dimer 0.51 H (0.0-0.50) mg/L Sodium (135-145) mmol/L Potassium (3.5-5.1) mmol/L Chloride (98-107) mmol/L Carbon Dioxide (22-30) mmol/L Anion Gap (5-15) MEQ/L BUN (7-17) mg/dL Creatinine (0.52-1.04) mg/dL Estimated GFR ML/MIN Glucose (74-106) mg/dL Calcium (8.4-10.2) mg/dL Total Bilirubin (0.2-1.3) mg/dL AST (14-36) U/L ALT (0-35) U/L Alkaline Phosphatase (38-126) U/L Troponin I < 0.012 (0.000-0.033) ng/mL NT-Pro-B Natriuret Pep 82.8 (<300) pg/mL Serum Total Protein (6.3-8.2) g/dL Albumin (3.5-5.0) g/dL Influenza Type A Ag NEGATIVE (NEGATIVE) Influenza Type B Ag NEGATIVE (NEGATIVE) RSV (PCR) NEGATIVE (NEGATIVE) SARS-CoV-2 (PCR) NEGATIVE (NEGATIVE) 08/11/24 08/11/24 Range/Units 12:05 12:05 WBC 5.9 (3.98-10.04) x10^3/uL RBC 3.85 L (3.93-5.22) x10^6/uL Hgb 12.8 (11.2-15.7) g/dL Hct 38.8 (34.1-44.9) % MCV 100.8 H (79.4-94.8) fL MCH 33.2 H (25.6-32.2) pg MCHC 33.0 (32.2-35.5) g/dL RDW 13.2 (11.7-14.4) % Plt Count 304 (182-369) x10^3/uL MPV 8.4 L (9.4-12.3) fL Gran % 41.7 (34.0-71.1) % Immature Gran % (Auto) 0.3 (0.001-0.429) % Nucleat RBC Rel Count 0.0 (0.00-0.2) % Eos # (Auto) 0.08 (0.04-0.36) x10^3/uL Immature Gran # (Auto) 0.02 (0.001-0.031) x10^3u/L Absolute Lymphs (auto) 2.19 (1.18-3.74) x10^3/uL Absolute Monos (auto) 1.13 H (0.24-0.86) x10^3/uL Absolute Nucleated RBC 0.00 (0.00-0.012) x10^3u/L Lymphocytes % 37.0 (19.3-51.7) % Monocytes % 19.1 H (4.7-12.5) % Eosinophils % 1.4 (0.7-5.8) % Basophils % 0.5 (0.1-1.2) % Absolute Granulocytes 2.47 (1.56-6.13) x10^3/uL Basophils # 0.03 (0.01-0.08) x10^3/uL D-Dimer (0.0-0.50) mg/L Sodium 137 (135-145) mmol/L Potassium 4.1 (3.5-5.1) mmol/L Chloride 99 (98-107) mmol/L Carbon Dioxide 27 (22-30) mmol/L Anion Gap 15.0 (5-15) MEQ/L BUN 6 L (7-17) mg/dL Creatinine 0.52 (0.52-1.04) mg/dL Estimated GFR 100.5 ML/MIN Glucose 118 H (74-106) mg/dL Calcium 9.5 (8.4-10.2) mg/dL Total Bilirubin 0.30 (0.2-1.3) mg/dL AST 31 (14-36) U/L ALT 18 (0-35) U/L Alkaline Phosphatase 77 (38-126) U/L Troponin I (0.000-0.033) ng/mL NT-Pro-B Natriuret Pep (<300) pg/mL Serum Total Protein 6.8 (6.3-8.2) g/dL Albumin 4.3 (3.5-5.0) g/dL Influenza Type A Ag (NEGATIVE) Influenza Type B Ag (NEGATIVE) RSV (PCR) (NEGATIVE) SARS-CoV-2 (PCR) (NEGATIVE) - Progress Progress: improved Air Movement: good Progress Note: 68-year-old female current smoker history of COPD presents to our ED for evaluation of shortness of breath over the past 3 days. Upon arrival to our ED patient was hypoxic on room air. Supplemental oxygen in the form of 2 L nasal cannula administered. O2 sat increased to 95%. Physical exam reveals coarse breath sounds diminished with scattered wheezes. D-dimer negative after age adjustment. Troponin negative. Laboratory workup otherwise noncontributory. Patient received Solu-Medrol, albuterol breathing treatment and antibiotics. Blood cultures obtained. Viral panel negative. Patient will require hospitalization for further evaluation and treatment of hypoxia. Plan of care discussed with patient. She agrees to admission at [facility] for further evaluation and treatment. Case discussed with hospitalist Dr. Helm who accepts admission to observation at 1 PM. Portions of this note were created with voice recognition technology. There may be grammatical, spelling, punctuation or sound alike errors Complexity of problem addressed is moderate acute complicated. No critical care time. Complexity of data reviewed and analyzed is extensive. Test ordered test reviewed results analyzed and correlated clinically with history and physical exam. Management discussed with hospitalist who accepts admission to observation. Risk of complication and or risk of morbidity/mortality of patient management is high. Patient requires hospitalization for further evaluation and treatment. Vital stable. Time spent to admit patient is approximately 20 minutes. Plan of care established for shared decision making. No social determinants of health present to impede follow-up. Portions of this note were created with voice recognition technology. There may be grammatical, spelling, punctuation or sound alike errors 08/11/24 13:03 08/11/24 13:09 Blood Culture(s) Obtained: Yes Antibiotics given: Yes Will see patient in: hospital (observation) Counseled pt/family regarding: lab results, diagnosis, rad results - Departure Departure Disposition: Observation Clinical Impression: COPD exacerbation, Hypoxia, Shortness of breath Condition: Stable Critical Care Time: No Referrals: CLAUDIA CERVANTES NP [Primary Care Provider, UNKNOWN] - Follow up/PCP as directed Instructions: Chronic Obstructive Pulmonary Disease
[2024-08-11 12:21] LABS: Absolute Neutrophil Ct (ANC) 2.47 x10^3/uL (1.56-6.13); BASOPHIL % 0.5 % (0.1-1.2); Basophil (Absolute #) 0.03 x10^3/uL (0.01-0.08); Eosinophil % 1.4 % (0.7-5.8); Eosinophil (Absolute #) 0.08 x10^3/uL (0.04-0.36); Hematocrit 38.8 % (34.1-44.9); Hemoglobin 12.8 g/dL (11.2-15.7); IMMATURE GRAN # 0.02 x10^3u/L (0.001-0.031); IMMATURE GRAN % 0.3 % (0.001-0.429); Lymphocyte (Absolute #) 2.19 x10^3/uL (1.18-3.74); Mean Cell Volume 100.8 fL (79.4-94.8); Mean Corpuscular Hemoglobin 33.2 pg (25.6-32.2); Mean Platelet Volume 8.4 fL (9.4-12.3); Monocyte (Absolute #) 1.13 x10^3/uL (0.24-0.86); Monocytes % 19.1 % (4.7-12.5); Neutrophil % 41.7 % (34.0-71.1); Platelet Count 304 x10^3/uL (182-369); Red Blood Count 3.85 x10^6/uL (3.93-5.22); Red Cell Distribution Width 13.2 % (11.7-14.4); White Blood Count 5.9 x10^3/uL (3.98-10.04)
[2024-08-11] MEDS ORDERED: ROCEPHIN 2 GM/100 ML NACL 2 GM/100 ML IVPB IV ONE (12:31)
[2024-08-11] MEDS: ROCEPHIN 2 GM/100 ML NACL 2 GM/100 ML IVPB IV ONE (12:32)
[2024-08-11 12:33] LABS: ALBUMIN 4.3 g/dL (3.5-5.0); BILIRUBIN,TOTAL 0.3 mg/dL (0.2-1.3); Calcium 9.5 mg/dL (8.4-10.2); Creatinine 1 0.52 mg/dL (0.52-1.04); EST GLOMERULAR FILTRATION RATE 100.5 ML/MIN; Potassium 4.1 mmol/L (3.5-5.1); Total Protein 6.8 g/dL (6.3-8.2)
[2024-08-11 12:45] LABS: NT PRO BNPII 82.8 pg/mL (<300); TROPONIN < 0.012 ng/mL (0.000-0.033)
[2024-08-11 12:59] LABS: INFLUENZA A NEGATIVE (NEGATIVE); INFLUENZA B NEGATIVE (NEGATIVE); RESPIRATORY SYNCTIAL VIRUS NEGATIVE (NEGATIVE); SARS-CoV-2 Xpert Express NEGATIVE (NEGATIVE)
[2024-08-11] MEDS ORDERED: ZITHROMAX IV IV ONE (13:08)
[2024-08-11] MEDS ORDERED: Sodium Chloride 0.9% 250 ML 250 ML IV ONE (13:08)
[2024-08-11] MEDS: ZITHROMAX IV*** 500 MG in Sodium Chloride 0.9% 250 ML 250 ML IV STA (13:09)
[2024-08-11] MEDS ORDERED: Zofran 4 MG/2 ML VIAL ONE (13:25)
[2024-08-11] MEDS: Zofran 4 MG/2 ML VIAL IV ONE (13:26)
--- NOTE | 2024-08-11 13:41 | XRAY ---
Indication: Short of breath. Comparison: May 14, 2023 Portable chest again hyperinflated and is now clear. Heart not enlarged. Bony thorax intact again with osteopenia and mild degenerative changes. No acute findings.
--- NOTE | 2024-08-11 15:01 | PCM.HP ---
<BONIFACIO FREEDMAN - Last Filed: 08/11/24 16:07> History of Present Illness - Chief Complaint Chief Complaint: COPD exacerbation, hypoxia Date: 08/11/24 History of Present Illness: is a 68 year old female with a history of HTN, hypothyroid, HLD, anxiety/depression, fibromyalgia, tobacco dependence, neuropathy, RLS, COPD (RA at baseline), and leukemia, currently under the care of Dr. Miguel (oncology) in [place], who presented to the ED 08/11/24 with progressive shortness of breath. Patient states that she has been more short of breath over the past 3 months than normal. Patient states shortness of breath got significantly worse over the past 3 days. No trauma no fever no chest pain no nausea vomiting or diaphoresis. Patient normally does not require oxygen at home. However upon arrival to our ED patient was hypoxic at 89% on room air. Patient started on 3 L nasal cannula. Patient symptoms are progressive. Symptoms are moderate in intensity. Shortness of breath worse with exertion making ambulation difficult. Symptoms improved at rest. Cough is productive with copious amounts of clear, thick sputum. She also reports sinus congestion. Multiple sick contacts. Upon arrival to ED the patient was hypertensive, tachycardic, tachypneic, and hypoxic. EKG showed sinus rhythm at a rate of 99 bpm, with normal axis, intervals, and QRS complexes. Chest X-ray, showed hyperinflated lung echavarria consistent with COPD but no acute infiltrates, effusions, or cardiomegaly. Laboratory evaluation revealed an elevated D-dimer, though age-adjusted interpretation rendered it nonconcerning; troponin and BNP were within normal limits. A viral respiratory panel including COVID-19, influenza, and RSV was negative. Blood cultures were obtained. The patient was treated in the ED with intravenous Solu-Medrol, albuterol/ipratropium nebulizers (DuoNeb), ceftriaxone, azithromycin, and an IV fluid bolus, resulting in some clinical improvement. Given her ongoing oxygen requirement and clinical presentation consistent with COPD exacerbation with acute respiratory failure with hypoxia, she was admitted for further monitoring and treatment. - Review of Systems Constitutional: Weakness Eyes: No Symptoms Ears, Nose, & Throat: Nose Congestion Respiratory: Cough, Short Of Breath, Wheezing Cardiac: No Symptoms Abdominal/Gastrointestinal: No Symptoms Genitourinary Symptoms: No Symptoms Musculoskeletal: No Symptoms Skin: No Symptoms Neurological: No Symptoms Psychological: No Symptoms Endocrine: No Symptoms Hematologic/Lymphatic: No Symptoms Immunological/Allergic: No Symptoms Medications & Allergies Home Medications: Home Medication List Albuterol/Ipratropium 3ml Neb* [DUONEB 0.5-3 MG/3 ml Neb] 3 ml IH Q4H PRN PRN #30 ampul.neb 03/03/16 [Rx Confirmed 08/11/24] Folic Acid 1 mg [Folate 1 mg] 1 mg PO DAILY 05/05/21 [History Confirmed 08/11/24] Mirabegron [Myrbetriq] 50 mg PO DAILY 05/05/21 [History Confirmed 08/11/24] Amlodipine Besylate 10 mg PO DAILY 12/13/21 [History Confirmed 08/11/24] PANTOPRAZOLE 40 mg Tablet [Protonix 40MG Tablet] 40 mg PO QAM 12/13/21 [History Confirmed 08/11/24] Potassium Chloride Tab* [Klor Con] 20 meq PO BID 5 Days #20 tab 03/19/23 [Rx Confirmed 08/11/24] Atorvastatin Calcium 80 mg PO QHS 05/13/23 [History Confirmed 08/11/24] Levothyroxine Sodium [Synthroid] 50 tab PO DAILY 05/13/23 [History Confirmed 08/11/24] Pyridoxine HCl (Vitamin B6) [Vitamin B-6] 100 mg PO DAILY 05/13/23 [History Confirmed 08/11/24] Upadacitinib [Rinvoq] 15 mg PO DAILY 05/13/23 [History Confirmed 08/11/24] Albuterol 8 gm Mdi Hfa [Ventolin Hfa MDI] 8 gm IH Q4H PRN PRN 08/11/24 [History Confirmed 08/11/24] Alendronate Sodium 70 mg [Fosamax 70 MG] 70 mg PO Q7D@0600 08/11/24 [History Confirmed 08/11/24] Baclofen 10 mg [Lioresal 10 mg] 10 mg PO HS 08/11/24 [History Confirmed 08/11/24] Cholecalciferol (Vitd3)/Vit K2 [Vit D3-Vit K2 125-100 Mcg Sfgl] 1.25 cap PO WEEKLY 08/11/24 [History Confirmed 08/11/24] Duloxetine HCl 30 mg [Cymbalta 30 MG Capsule] 60 mg PO BID 08/11/24 [History Confirmed 08/11/24] Epinephrine Epi-Pen [Epipen 0.3 MG Syringe] 0.3 mg IM DAILY PRN PRN 08/11/24 [History Confirmed 08/11/24] Fluticasone/Umeclidin/Vilanter [Trelegy Ellipta 100-62.5-25] 1 each IH DAILY 08/11/24 [History Confirmed 08/11/24] Loratadine 10 mg [Claritin 10 mg] 10 mg PO DAILY 08/11/24 [History Confirmed 08/11/24] Nitroglycerin 0.4 mg Tablet [Nitrostat 0.4 MG Tablet] 0.4 mg SL DAILY PRN PRN 08/11/24 [History Confirmed 08/11/24] Polyethylene Glycol 3350 17 gm [Miralax Powder 17GM PACKET] 17 gm PO DAILY PRN PRN 08/11/24 [History Confirmed 08/11/24] Allergies/Adverse Reactions: Allergies Allergy/AdvReac Type Severity Reaction Status Date / Time codeine Allergy Mild Swelling Verified 08/11/24 11:36 Sulfa (Sulfonamide Allergy Mild Swelling Verified 08/11/24 11:36 Antibiotics) - Past Medical History Past Medical History: Yes Neurological History: No Pertinent History ENT History: No Pertinent History Cardiac History: No Pertinent History Respiratory History: Asthma, Bronchitis, COPD, Emphysema, Other Endocrine Medical History: No Pertinent History Musculoskelatal History: Degenerative Disk Disease, Fibromyalgia, Rheumatoid Arthritis, Other GI Medical History: GERD, Gallbladder Disease, Hernia History: No Pertinent History Pyscho-Social History: Anxiety, Depression Reproductive Disorders: No Pertinent History Comment: lupus, - Past Surgical History Past Surgical History: Yes Neuro Surgical History: No Pertinent History Cardiac History: No Pertinent History Respiratory Surgery: No Pertinent History GI Surgical History: Cholecystectomy, Hernia Repair Genitourinary Surgical Hx: No Pertinent History Female Surgical History: Tubal Ligation Other Surgical History: bilat carpal tunnel, left ovarian cyst removed,bilat cataract,. tonsillectomy as a child Significant Family History: heart disease, diabetes, stroke, other (RA) - Social History Smoking Status: Current every day smoker How long have you smoked: 50y Exposure to second hand smoke: Yes Alcohol: Daily Drug Use: marijuana - Social Determinants of Health Will the patient participate in the screening: Yes Do you worry about a steady place to live?: No Do you have any problems with any of the following?: No known problems In the past 12 months,have you had to go without utilities?: No Have you or anyone in your house had to go without enough: No Transportation Issues: No Has anyone in your support network made you feel unsafe?: No Does the patient want assistance with any of the above?: No - Physical Exam Vital Signs: Vital Signs - 24 hr Temp Pulse Resp BP BP Pulse Ox 08/11/24 14:00 89 21 112/75 96 08/11/24 13:30 92 H 21 148/108 93 L 08/11/24 13:10 95 08/11/24 13:01 93 H 26 H 148/79 94 L 08/11/24 12:31 95 H 30 H 156/101 90 L 08/11/24 12:04 94 H 22 95 08/11/24 12:01 96 08/11/24 12:00 88 20 159/101 08/11/24 11:38 101 H 25 H 176/98 97 08/11/24 11:36 97.2 F 102 H 28 H 170/103 170/103 89 L General Appearance: no apparent distress Neurologic Exam: alert, oriented x 3, cooperative Eye Exam: PERRL/EOMI Ears, Nose, Throat Exam: normal ENT inspection Neck Exam: normal inspection Respiratory Exam: diminished breath sounds, crackles/rales, wheezing Cardiovascular Exam: regular rate/rhythm, normal heart sounds Pelvic Exam: not done Rectal Exam: deferred Back Exam: normal inspection Extremity Exam: normal inspection Skin Exam: normal color Results - Labs Lab/Micro Results: Lab Results-Last 24 Hours 08/11/24 08/11/24 08/11/24 Range/Units 12:05 12:05 12:05 WBC 5.9 (3.98-10.04) x10^3/uL RBC 3.85 L (3.93-5.22) x10^6/uL Hgb 12.8 (11.2-15.7) g/dL Hct 38.8 (34.1-44.9) % MCV 100.8 H (79.4-94.8) fL MCH 33.2 H (25.6-32.2) pg MCHC 33.0 (32.2-35.5) g/dL RDW 13.2 (11.7-14.4) % Plt Count 304 (182-369) x10^3/uL MPV 8.4 L (9.4-12.3) fL Gran % 41.7 (34.0-71.1) % Immature Gran % (Auto) 0.3 (0.001-0.429) % Nucleat RBC Rel Count 0.0 (0.00-0.2) % Eos # (Auto) 0.08 (0.04-0.36) x10^3/uL Immature Gran # (Auto) 0.02 (0.001-0.031) x10^3u/L Absolute Lymphs (auto) 2.19 (1.18-3.74) x10^3/uL Absolute Monos (auto) 1.13 H (0.24-0.86) x10^3/uL Absolute Nucleated RBC 0.00 (0.00-0.012) x10^3u/L Lymphocytes % 37.0 (19.3-51.7) % Monocytes % 19.1 H (4.7-12.5) % Eosinophils % 1.4 (0.7-5.8) % Basophils % 0.5 (0.1-1.2) % Absolute Granulocytes 2.47 (1.56-6.13) x10^3/uL Basophils # 0.03 (0.01-0.08) x10^3/uL D-Dimer 0.51 H (0.0-0.50) mg/L Sodium 137 (135-145) mmol/L Potassium 4.1 (3.5-5.1) mmol/L Chloride 99 (98-107) mmol/L Carbon Dioxide 27 (22-30) mmol/L Anion Gap 15.0 (5-15) MEQ/L BUN 6 L (7-17) mg/dL Creatinine 0.52 (0.52-1.04) mg/dL Estimated GFR 100.5 ML/MIN Glucose 118 H (74-106) mg/dL Calcium 9.5 (8.4-10.2) mg/dL Total Bilirubin 0.30 (0.2-1.3) mg/dL AST 31 (14-36) U/L ALT 18 (0-35) U/L Alkaline Phosphatase 77 (38-126) U/L Troponin I (0.000-0.033) ng/mL NT-Pro-B Natriuret Pep (<300) pg/mL Serum Total Protein 6.8 (6.3-8.2) g/dL Albumin 4.3 (3.5-5.0) g/dL Influenza Type A Ag (NEGATIVE) Influenza Type B Ag (NEGATIVE) RSV (PCR) (NEGATIVE) SARS-CoV-2 (PCR) (NEGATIVE) 08/11/24 08/11/24 Range/Units 12:05 12:10 WBC (3.98-10.04) x10^3/uL RBC (3.93-5.22) x10^6/uL Hgb (11.2-15.7) g/dL Hct (34.1-44.9) % MCV (79.4-94.8) fL MCH (25.6-32.2) pg MCHC (32.2-35.5) g/dL RDW (11.7-14.4) % Plt Count (182-369) x10^3/uL MPV (9.4-12.3) fL Gran % (34.0-71.1) % Immature Gran % (Auto) (0.001-0.429) % Nucleat RBC Rel Count (0.00-0.2) % Eos # (Auto) (0.04-0.36) x10^3/uL Immature Gran # (Auto) (0.001-0.031) x10^3u/L Absolute Lymphs (auto) (1.18-3.74) x10^3/uL Absolute Monos (auto) (0.24-0.86) x10^3/uL Absolute Nucleated RBC (0.00-0.012) x10^3u/L Lymphocytes % (19.3-51.7) % Monocytes % (4.7-12.5) % Eosinophils % (0.7-5.8) % Basophils % (0.1-1.2) % Absolute Granulocytes (1.56-6.13) x10^3/uL Basophils # (0.01-0.08) x10^3/uL D-Dimer (0.0-0.50) mg/L Sodium (135-145) mmol/L Potassium (3.5-5.1) mmol/L Chloride (98-107) mmol/L Carbon Dioxide (22-30) mmol/L Anion Gap (5-15) MEQ/L BUN (7-17) mg/dL Creatinine (0.52-1.04) mg/dL Estimated GFR ML/MIN Glucose (74-106) mg/dL Calcium (8.4-10.2) mg/dL Total Bilirubin (0.2-1.3) mg/dL AST (14-36) U/L ALT (0-35) U/L Alkaline Phosphatase (38-126) U/L Troponin I < 0.012 (0.000-0.033) ng/mL NT-Pro-B Natriuret Pep 82.8 (<300) pg/mL Serum Total Protein (6.3-8.2) g/dL Albumin (3.5-5.0) g/dL Influenza Type A Ag NEGATIVE (NEGATIVE) Influenza Type B Ag NEGATIVE (NEGATIVE) RSV (PCR) NEGATIVE (NEGATIVE) SARS-CoV-2 (PCR) NEGATIVE (NEGATIVE) - Radiology Impressions Radiology Exams & Impressions: Radiology Procedures Category Date Time Status CHEST 1 VIEW (PORTABLE) Stat Exams 08/11/24 12:47 Completed - Other Procedures and Tests Respiratory Therapy 08/11/24 12:03 Respiratory Therapy Assessment DAILY 08/11/24 12:06 Flutter Therapy UD Assessment/Plan (1) Acute respiratory failure with hypoxia Current Visit: Yes Status: Acute Assessment & Plan: Worsening dyspnea, wheezing, and hypoxia in a patient with known COPD and active smoking history. -Likely secondary to mild infectious or environmental insult, though no acute infiltrate on imaging and viral panel is negative -Continue oxygen therapy to maintain SpO2> 92%. -Continue scheduled DuoNeb treatments every 46 hours. -Continue IV Solu-Medrol; a transition to oral prednisone when appropriate -Continue ceftriaxone and azithromycin -Monitor respiratory status, wean oxygen as tolerated -CT chest Code(s): J96.01 - ACUTE RESPIRATORY FAILURE WITH HYPOXIA (2) Leukemia Current Visit: Yes Status: Acute Assessment & Plan: -Follows with Dr. Miguel OP -No current signs of infection, cytopenia, or leukemic progression noted Code(s): C95.90 - LEUKEMIA, UNSPECIFIED NOT HAVING ACHIEVED REMISSION (3) Elevated d-dimer Current Visit: Yes Status: Acute Assessment & Plan: -CTA chest Code(s): R79.89 - OTHER SPECIFIED ABNORMAL FINDINGS OF BLOOD CHEMISTRY (4) Tobacco abuse Current Visit: Yes Status: Acute Assessment & Plan: -Advised cessation - pt 1/2PPD for 50 years -Nicotine patch Code(s): Z72.0 - TOBACCO USE (5) COPD exacerbation Current Visit: Yes Status: Acute Assessment & Plan: -see ARF Code(s): J44.1 - CHRONIC OBSTRUCTIVE PULMONARY DISEASE W (ACUTE) EXACERBATION (6) Hypothyroid Current Visit: Yes Status: Acute Assessment & Plan: -continue home levothyroxine Code(s): E03.9 - HYPOTHYROIDISM, UNSPECIFIED (7) HLD (hyperlipidemia) Current Visit: Yes Status: Acute Assessment & Plan: -continue home regimen Code(s): E78.5 - HYPERLIPIDEMIA, UNSPECIFIED (8) HTN (hypertension) Current Visit: Yes Status: Acute Assessment & Plan: -BP stable continue home meds Code(s): I10 - ESSENTIAL (PRIMARY) HYPERTENSION (9) Rheumatoid arthritis Current Visit: Yes Status: Acute Assessment & Plan: -continue home meds and pain control Code(s): M06.9 - RHEUMATOID ARTHRITIS, UNSPECIFIED (10) Anxiety and depression Current Visit: Yes Status: Acute Assessment & Plan: -continue home meds Code(s): F41.9 - ANXIETY DISORDER, UNSPECIFIED; F32.A - DEPRESSION, UNSPECIFIED (11) RLS (restless legs syndrome) Current Visit: Yes Status: Acute Assessment & Plan: -continue home meds VTE: lovenox PPI: protonix Dispo: 1-2 days Code status: Full Diet: Regular Telemedicine Encounter - Telemedicine Encounter Telemedicine Encounter: "The entirety of this encounter was performed via Telemedicine" This visit was performed using real-time audio and video connection between my location and thepatients locationwith the assistance of a surrogateat the patients location. Written or verbal consent was obtained from the patient/guardian to perform this visit [email or web address] technology. Any patient questions regarding the telemedicine interaction were answered. <ALBERTA RAJAN - Last Filed: 08/11/24 18:41> History of Present Illness - Chief Complaint History of Present Illness: is a 68 year old female. - Physical Exam Vital Signs: Vital Signs - 24 hr Temp Pulse Resp BP BP Pulse Ox 08/11/24 16:42 90 08/11/24 15:39 97.3 F 94 H 20 153/83 94 L 08/11/24 14:00 89 21 112/75 96 08/11/24 13:30 92 H 21 148/108 93 L 08/11/24 13:10 95 08/11/24 13:01 93 H 26 H 148/79 94 L 08/11/24 12:31 95 H 30 H 156/101 90 L 08/11/24 12:04 94 H 22 95 08/11/24 12:01 96 08/11/24 12:00 88 20 159/101 08/11/24 11:38 101 H 25 H 176/98 97 08/11/24 11:36 97.2 F 102 H 28 H 170/103 170/103 89 L Results - Labs Lab/Micro Results: Lab Results-Last 24 Hours 08/11/24 08/11/24 08/11/24 Range/Units 12:05 12:05 12:05 WBC 5.9 (3.98-10.04) x10^3/uL RBC 3.85 L (3.93-5.22) x10^6/uL Hgb 12.8 (11.2-15.7) g/dL Hct 38.8 (34.1-44.9) % MCV 100.8 H (79.4-94.8) fL MCH 33.2 H (25.6-32.2) pg MCHC 33.0 (32.2-35.5) g/dL RDW 13.2 (11.7-14.4) % Plt Count 304 (182-369) x10^3/uL MPV 8.4 L (9.4-12.3) fL Gran % 41.7 (34.0-71.1) % Immature Gran % (Auto) 0.3 (0.001-0.429) % Nucleat RBC Rel Count 0.0 (0.00-0.2) % Eos # (Auto) 0.08 (0.04-0.36) x10^3/uL Immature Gran # (Auto) 0.02 (0.001-0.031) x10^3u/L Absolute Lymphs (auto) 2.19 (1.18-3.74) x10^3/uL Absolute Monos (auto) 1.13 H (0.24-0.86) x10^3/uL Absolute Nucleated RBC 0.00 (0.00-0.012) x10^3u/L Lymphocytes % 37.0 (19.3-51.7) % Monocytes % 19.1 H (4.7-12.5) % Eosinophils % 1.4 (0.7-5.8) % Basophils % 0.5 (0.1-1.2) % Absolute Granulocytes 2.47 (1.56-6.13) x10^3/uL Basophils # 0.03 (0.01-0.08) x10^3/uL D-Dimer 0.51 H (0.0-0.50) mg/L Sodium 137 (135-145) mmol/L Potassium 4.1 (3.5-5.1) mmol/L Chloride 99 (98-107) mmol/L Carbon Dioxide 27 (22-30) mmol/L Anion Gap 15.0 (5-15) MEQ/L BUN 6 L (7-17) mg/dL Creatinine 0.52 (0.52-1.04) mg/dL Estimated GFR 100.5 ML/MIN Glucose 118 H (74-106) mg/dL Calcium 9.5 (8.4-10.2) mg/dL Total Bilirubin 0.30 (0.2-1.3) mg/dL AST 31 (14-36) U/L ALT 18 (0-35) U/L Alkaline Phosphatase 77 (38-126) U/L Troponin I (0.000-0.033) ng/mL NT-Pro-B Natriuret Pep (<300) pg/mL Serum Total Protein 6.8 (6.3-8.2) g/dL Albumin 4.3 (3.5-5.0) g/dL Influenza Type A Ag (NEGATIVE) Influenza Type B Ag (NEGATIVE) RSV (PCR) (NEGATIVE) SARS-CoV-2 (PCR) (NEGATIVE) 08/11/24 08/11/24 08/11/24 Range/Units 12:05 12:10 16:40 WBC (3.98-10.04) x10^3/uL RBC (3.93-5.22) x10^6/uL Hgb (11.2-15.7) g/dL Hct (34.1-44.9) % MCV (79.4-94.8) fL MCH (25.6-32.2) pg MCHC (32.2-35.5) g/dL RDW (11.7-14.4) % Plt Count (182-369) x10^3/uL MPV (9.4-12.3) fL Gran % (34.0-71.1) % Immature Gran % (Auto) (0.001-0.429) % Nucleat RBC Rel Count (0.00-0.2) % Eos # (Auto) (0.04-0.36) x10^3/uL Immature Gran # (Auto) (0.001-0.031) x10^3u/L Absolute Lymphs (auto) (1.18-3.74) x10^3/uL Absolute Monos (auto) (0.24-0.86) x10^3/uL Absolute Nucleated RBC (0.00-0.012) x10^3u/L Lymphocytes % (19.3-51.7) % Monocytes % (4.7-12.5) % Eosinophils % (0.7-5.8) % Basophils % (0.1-1.2) % Absolute Granulocytes (1.56-6.13) x10^3/uL Basophils # (0.01-0.08) x10^3/uL D-Dimer (0.0-0.50) mg/L Sodium (135-145) mmol/L Potassium (3.5-5.1) mmol/L Chloride (98-107) mmol/L Carbon Dioxide (22-30) mmol/L Anion Gap (5-15) MEQ/L BUN (7-17) mg/dL Creatinine (0.52-1.04) mg/dL Estimated GFR ML/MIN Glucose (74-106) mg/dL Calcium (8.4-10.2) mg/dL Total Bilirubin (0.2-1.3) mg/dL AST (14-36) U/L ALT (0-35) U/L Alkaline Phosphatase (38-126) U/L Troponin I < 0.012 < 0.012 (0.000-0.033) ng/mL NT-Pro-B Natriuret Pep 82.8 (<300) pg/mL Serum Total Protein (6.3-8.2) g/dL Albumin (3.5-5.0) g/dL Influenza Type A Ag NEGATIVE (NEGATIVE) Influenza Type B Ag NEGATIVE (NEGATIVE) RSV (PCR) NEGATIVE (NEGATIVE) SARS-CoV-2 (PCR) NEGATIVE (NEGATIVE) - Radiology Impressions Radiology Exams & Impressions: Radiology Procedures Category Date Time Status CHEST 1 VIEW (PORTABLE) Stat Exams 08/11/24 12:47 Completed CHEST WITH CONTRAST [CT] Urgent Exams 08/11/24 16:17 Completed - Other Procedures and Tests Respiratory Therapy 08/11/24 12:03 Respiratory Therapy Assessment DAILY 08/11/24 12:06 Flutter Therapy UD 08/11/24 15:04 Incentive Spirometry UD 08/11/24 15:05 Oxygen Nasal Cannula 3 lpm 08/11/24 15:46 BiPap/CPAP ROUTINE Telemedicine Encounter - Telemedicine Encounter Telemedicine Encounter: "The entirety of this encounter was performed via Telemedicine" This visit was performed using real-time audio and video connection between my location and thepatients locationwith the assistance of a surrogateat the patients location. Written or verbal consent was obtained from the patient/guardian to perform this visit usingca[facility]st[facility]apolisSkyengcine technology. Any patient questions regarding the telemedicine interaction were answered. JOSE CRUZ Encounter - JOSE CRUZ Encounter Attestation JOSE CRUZ Encounter Attestation: "NellipersonallyseenJOSEFINA Tam andankitavediscussed pertinent aspects of their care with Bonifacio Paul agree with the history, physical exam (any modifications based on my personal exam will be noted below), assessment, and plan as outlined in original note. Please see immediately below for my summary of findings and additional assessment and plan along with any meaningful corrections/explanations to the Subjective/Objective portions of the JOSE CRUZ note will be noted." My portion of the encounter took place via telemedicine. -acute hypoxic respiratory failure due to COPD exacerbation likely secondary to ongoing tobacco use. Patient smokes half PPD. Counseled against smoking and nicotine patches ordered. Will treat COPD exac with steroids, nebs, oxygen support. No indication for antibiotics at this time.
[2024-08-11] MEDS ORDERED: DUONEB 0.5-3 MG/3 ml Neb IH PRN (15:46)
[2024-08-11] MEDS ORDERED: TYLENOL 325 MG PO PRN (16:12)
[2024-08-11] MEDS ORDERED: Miralax Powder 17GM PACKET PO PRN (16:19)
[2024-08-11] MEDS ORDERED: Nitrostat 0.4 MG Tablet SL PRN (16:19)
[2024-08-11] MEDS ORDERED: [UNRECOGNIZED DRUG - OTHER] PO SCH (16:30)
[2024-08-11] MEDS ORDERED: CHOLECALCIFEROL PO SCH (16:30)
[2024-08-11] MEDS ORDERED: VIT K2 PO SCH (16:30)
[2024-08-11] MEDS ORDERED: Epinephrine Preservative Free 1 MG/ML SQ PRN (16:36)
[2024-08-11] MEDS ORDERED: VENTOLIN COMMON CANISTER IH PRN (16:36)
[2024-08-11] MEDS ORDERED: MEDICATION INTERVENTION MC SCH ×2 (16:45)
[2024-08-11] MEDS: Nicoderm CQ 21 MG TOP SCH (17:12)
[2024-08-11] MEDS: ENOXAPARIN SODIUM SQ SCH (17:13)
[2024-08-11] MEDS: MYRBETRIQ PO SCH (17:13)
[2024-08-11] MEDS: FOLATE 1 MG PO SCH (17:13)
[2024-08-11] MEDS: NORVASC 5 MG PO SCH (17:13)
[2024-08-11] MEDS: CLARITIN 10 MG PO SCH (17:14)
[2024-08-11] MEDS: SYNTHROID 50 MCG PO SCH (17:14)
[2024-08-11] MEDS: Vitamin B-6 (Pyridoxine) 100 MG PO SCH (17:14)
[2024-08-11] MEDS: Protonix 40MG Tablet PO SCH (17:14)
--- NOTE | 2024-08-11 17:21 | XRAY ---
Indication: Dyspnea. Elevated d-dimer. Multiple contiguous axial images obtained through the chest using 80 cc Isovue 370 contrast and using PE protocol. Comparison: December 09, 2023 Good opacification pulmonary arteries including lobar and segmental branches. No pulmonary embolus. Heart not enlarged. Aorta mildly arteriosclerotic without aneurysm/dissection. Tiny mediastinal and right hilar calcified nodes. No pathologic mediastinal/hilar lymphadenopathy. Lungs again demonstrates diffuse pulmonary emphysema, bilateral mid-upper lung subpleural cystic changes, and left lower lobe fibrosis/scarring. No suspicious pulmonary mass/nodule, infiltrate, or effusion. Bony thorax intact with osteopenia, mild/moderate degenerative changes throughout spine, and remote T6 inferior endplate fracture. Limited upper abdomen again demonstrates cholecystectomy clips. Impression: 1. Negative pulmonary embolus. No new/acute cardiopulmonary abnormalities. 2. Again chronic findings including pulmonary emphysema, fibrosis/scarring, arteriosclerotic disease, chronic bony findings, and old granulomatous disease.
[2024-08-11] MEDS: DUONEB 0.5-3 MG/3 ml Neb IH SCH (19:35)
[2024-08-11] MEDS: Advair Hfa 115/21 Common canister IH SCH (19:36)
[2024-08-11] MEDS: ZOCOR 20MG PO SCH (21:32)
[2024-08-11] MEDS: LIORESAL 10 MG PO SCH (21:32)
[2024-08-11] MEDS: Klor Con PO SCH (21:32)
[2024-08-11] MEDS: solu-MEDROL 40 MG, Sterile H2O 10 ml 1 ML IV SCH (21:32)
[2024-08-11] MEDS: Cymbalta 30 MG Capsule PO SCH (21:32)
[2024-08-12 05:02] LABS: Absolute Neutrophil Ct (ANC) 4.22 x10^3/uL (1.56-6.13); BASOPHIL % 0.2 % (0.1-1.2); Basophil (Absolute #) 0.01 x10^3/uL (0.01-0.08); Eosinophil (Absolute #) 0 x10^3/uL (0.04-0.36); Hematocrit 37.8 % (34.1-44.9); Hemoglobin 12.5 g/dL (11.2-15.7); IMMATURE GRAN # 0.02 x10^3u/L (0.001-0.031); IMMATURE GRAN % 0.3 % (0.001-0.429); Lymphocyte (Absolute #) 1.22 x10^3/uL (1.18-3.74); Lymphocytes % 21.1 % (19.3-51.7); Mean Cell Volume 102.7 fL (79.4-94.8); Mean Corpuscular Hgb Concent. 33.1 g/dL (32.2-35.5); Mean Platelet Volume 8.4 fL (9.4-12.3); Monocyte (Absolute #) 0.31 x10^3/uL (0.24-0.86); Monocytes % 5.4 % (4.7-12.5); Platelet Count 307 x10^3/uL (182-369); Red Blood Count 3.68 x10^6/uL (3.93-5.22); Red Cell Distribution Width 13.1 % (11.7-14.4); White Blood Count 5.8 x10^3/uL (3.98-10.04)
[2024-08-12 05:19] LABS: ALBUMIN 4.5 g/dL (3.5-5.0); BILIRUBIN,TOTAL 0.3 mg/dL (0.2-1.3); Calcium 9.9 mg/dL (8.4-10.2); Creatinine 1 0.54 mg/dL (0.52-1.04); EST GLOMERULAR FILTRATION RATE 99.6 ML/MIN; Potassium 4.1 mmol/L (3.5-5.1); Total Protein 7.4 g/dL (6.3-8.2)
--- NOTE | 2024-08-12 05:20 | PCM.NOTE ---
Date and Time: 08/12/24519 Subjective Assessment: is a 68 year old female with a history of HTN, hypothyroid, HLD, anxiety/depression, fibromyalgia, tobacco dependence, neuropathy, RLS, COPD (RA at baseline), and leukemia, currently under the care of Dr. Miguel (oncology) in [place], who presented to the ED 08/11/24 with progressive shortness of br eath. Patient states that she has been more short of breath over the past 3 months than normal. Patient states shortness of breath got significantly worse over the past 3 days. No trauma no fever no chest pain no nausea vomiting or diaphoresis. Patient normally does not require oxygen at home. However upon arrival to our ED patient was hypoxic at 89% on room air. Patient started on 3 L nasal cannula. Patient symptoms are progressive. Symptoms are moderate in intensity. Shortness of breath worse with exertion making ambulation difficult. Symptoms improved at rest. Cough is productive with copious amounts of clear, thick sputum. She also reports sinus congestion. Multiple sick contacts. Upon arrival to ED the patient was hypertensive, tachycardic, tachypneic, and hypoxic. EKG showed sinus rhythm at a rate of 99 bpm, with normal axis, intervals, and QRS complexes. Chest X-ray, showed hyperinflated lung echavarria consistent with COPD but no acute infiltrates, effusions, or cardiomegaly. Laboratory evaluation revealed an elevated D-dimer, though age-adjusted interpretation rendered it nonconcerning; troponin and BNP were within normal limits. A viral respiratory panel including COVID-19, influenza, and RSV was negative. Blood cultures were obtained. The patient was treated in the ED with intravenous Solu-Medrol, albuterol/ipratropium nebulizers (DuoNeb), ceftriaxone, azithromycin, and an IV fluid bolus, resulting in some clinical improvement. Given her ongoing oxygen requirement and clinical presentation consistent with COPD exacerbation with acute respiratory failure with hypoxia, she was admitted for further monitoring and treatment. Objective Data Vital Signs: Vital Signs - 24 hr Temp Pulse Resp BP BP Pulse Ox 08/12/24 03:29 97.7 F 84 16 118/58 94 L 08/12/24 00:00 97.1 F 86 16 103/58 96 08/11/24 20:00 98.1 F 94 H 19 141/82 96 08/11/24 19:37 69 16 98 08/11/24 16:42 90 08/11/24 15:39 97.3 F 94 H 20 153/83 94 L 08/11/24 14:00 89 21 112/75 96 08/11/24 13:30 92 H 21 148/108 93 L 08/11/24 13:10 95 08/11/24 13:01 93 H 26 H 148/79 94 L 08/11/24 12:31 95 H 30 H 156/101 90 L 08/11/24 12:04 94 H 22 95 08/11/24 12:01 96 08/11/24 12:00 88 20 159/101 08/11/24 11:38 101 H 25 H 176/98 97 08/11/24 11:36 97.2 F 102 H 28 H 170/103 170/103 89 L Pain Assessment - Last Documented Pain Intensity 0 Intake and Output: Intake & Output 08/09/24 08/10/24 08/11/24 08/12/24 11:59 11:59 11:59 11:59 Intake Total 960 Balance 960 Weight 53.3 kg 56.3 kg Lab Results: Lab Results-Last 24 Hours 08/11/24 08/11/24 08/11/24 Range/Units 12:05 12:05 12:05 WBC 5.9 (3.98-10.04) x10^3/uL RBC 3.85 L (3.93-5.22) x10^6/uL Hgb 12.8 (11.2-15.7) g/dL Hct 38.8 (34.1-44.9) % MCV 100.8 H (79.4-94.8) fL MCH 33.2 H (25.6-32.2) pg MCHC 33.0 (32.2-35.5) g/dL RDW 13.2 (11.7-14.4) % Plt Count 304 (182-369) x10^3/uL MPV 8.4 L (9.4-12.3) fL Gran % 41.7 (34.0-71.1) % Immature Gran % (Auto) 0.3 (0.001-0.429) % Nucleat RBC Rel Count 0.0 (0.00-0.2) % Eos # (Auto) 0.08 (0.04-0.36) x10^3/uL Immature Gran # (Auto) 0.02 (0.001-0.031) x10^3u/L Absolute Lymphs (auto) 2.19 (1.18-3.74) x10^3/uL Absolute Monos (auto) 1.13 H (0.24-0.86) x10^3/uL Absolute Nucleated RBC 0.00 (0.00-0.012) x10^3u/L Lymphocytes % 37.0 (19.3-51.7) % Monocytes % 19.1 H (4.7-12.5) % Eosinophils % 1.4 (0.7-5.8) % Basophils % 0.5 (0.1-1.2) % Absolute Granulocytes 2.47 (1.56-6.13) x10^3/uL Basophils # 0.03 (0.01-0.08) x10^3/uL D-Dimer 0.51 H (0.0-0.50) mg/L Sodium 137 (135-145) mmol/L Potassium 4.1 (3.5-5.1) mmol/L Chloride 99 (98-107) mmol/L Carbon Dioxide 27 (22-30) mmol/L Anion Gap 15.0 (5-15) MEQ/L BUN 6 L (7-17) mg/dL Creatinine 0.52 (0.52-1.04) mg/dL Estimated GFR 100.5 ML/MIN Glucose 118 H (74-106) mg/dL Calcium 9.5 (8.4-10.2) mg/dL Total Bilirubin 0.30 (0.2-1.3) mg/dL AST 31 (14-36) U/L ALT 18 (0-35) U/L Alkaline Phosphatase 77 (38-126) U/L Troponin I (0.000-0.033) ng/mL NT-Pro-B Natriuret Pep (<300) pg/mL Serum Total Protein 6.8 (6.3-8.2) g/dL Albumin 4.3 (3.5-5.0) g/dL Influenza Type A Ag (NEGATIVE) Influenza Type B Ag (NEGATIVE) RSV (PCR) (NEGATIVE) SARS-CoV-2 (PCR) (NEGATIVE) 08/11/24 08/11/24 08/11/24 Range/Units 12:05 12:10 16:40 WBC (3.98-10.04) x10^3/uL RBC (3.93-5.22) x10^6/uL Hgb (11.2-15.7) g/dL Hct (34.1-44.9) % MCV (79.4-94.8) fL MCH (25.6-32.2) pg MCHC (32.2-35.5) g/dL RDW (11.7-14.4) % Plt Count (182-369) x10^3/uL MPV (9.4-12.3) fL Gran % (34.0-71.1) % Immature Gran % (Auto) (0.001-0.429) % Nucleat RBC Rel Count (0.00-0.2) % Eos # (Auto) (0.04-0.36) x10^3/uL Immature Gran # (Auto) (0.001-0.031) x10^3u/L Absolute Lymphs (auto) (1.18-3.74) x10^3/uL Absolute Monos (auto) (0.24-0.86) x10^3/uL Absolute Nucleated RBC (0.00-0.012) x10^3u/L Lymphocytes % (19.3-51.7) % Monocytes % (4.7-12.5) % Eosinophils % (0.7-5.8) % Basophils % (0.1-1.2) % Absolute Granulocytes (1.56-6.13) x10^3/uL Basophils # (0.01-0.08) x10^3/uL D-Dimer (0.0-0.50) mg/L Sodium (135-145) mmol/L Potassium (3.5-5.1) mmol/L Chloride (98-107) mmol/L Carbon Dioxide (22-30) mmol/L Anion Gap (5-15) MEQ/L BUN (7-17) mg/dL Creatinine (0.52-1.04) mg/dL Estimated GFR ML/MIN Glucose (74-106) mg/dL Calcium (8.4-10.2) mg/dL Total Bilirubin (0.2-1.3) mg/dL AST (14-36) U/L ALT (0-35) U/L Alkaline Phosphatase (38-126) U/L Troponin I < 0.012 < 0.012 (0.000-0.033) ng/mL NT-Pro-B Natriuret Pep 82.8 (<300) pg/mL Serum Total Protein (6.3-8.2) g/dL Albumin (3.5-5.0) g/dL Influenza Type A Ag NEGATIVE (NEGATIVE) Influenza Type B Ag NEGATIVE (NEGATIVE) RSV (PCR) NEGATIVE (NEGATIVE) SARS-CoV-2 (PCR) NEGATIVE (NEGATIVE) 08/11/24 08/12/24 Range/Units 19:58 04:56 WBC 5.8 (3.98-10.04) x10^3/uL RBC 3.68 L (3.93-5.22) x10^6/uL Hgb 12.5 (11.2-15.7) g/dL Hct 37.8 (34.1-44.9) % MCV 102.7 H (79.4-94.8) fL MCH 34.0 H (25.6-32.2) pg MCHC 33.1 (32.2-35.5) g/dL RDW 13.1 (11.7-14.4) % Plt Count 307 (182-369) x10^3/uL MPV 8.4 L (9.4-12.3) fL Gran % 73.0 H (34.0-71.1) % Immature Gran % (Auto) 0.3 (0.001-0.429) % Nucleat RBC Rel Count 0.0 (0.00-0.2) % Eos # (Auto) 0 L (0.04-0.36) x10^3/uL Immature Gran # (Auto) 0.02 (0.001-0.031) x10^3u/L Absolute Lymphs (auto) 1.22 (1.18-3.74) x10^3/uL Absolute Monos (auto) 0.31 (0.24-0.86) x10^3/uL Absolute Nucleated RBC 0.00 (0.00-0.012) x10^3u/L Lymphocytes % 21.1 (19.3-51.7) % Monocytes % 5.4 (4.7-12.5) % Eosinophils % 0.0 L (0.7-5.8) % Basophils % 0.2 (0.1-1.2) % Absolute Granulocytes 4.22 (1.56-6.13) x10^3/uL Basophils # 0.01 (0.01-0.08) x10^3/uL D-Dimer (0.0-0.50) mg/L Sodium (135-145) mmol/L Potassium (3.5-5.1) mmol/L Chloride (98-107) mmol/L Carbon Dioxide (22-30) mmol/L Anion Gap (5-15) MEQ/L BUN (7-17) mg/dL Creatinine (0.52-1.04) mg/dL Estimated GFR ML/MIN Glucose (74-106) mg/dL Calcium (8.4-10.2) mg/dL Total Bilirubin (0.2-1.3) mg/dL AST (14-36) U/L ALT (0-35) U/L Alkaline Phosphatase (38-126) U/L Troponin I < 0.012 (0.000-0.033) ng/mL NT-Pro-B Natriuret Pep (<300) pg/mL Serum Total Protein (6.3-8.2) g/dL Albumin (3.5-5.0) g/dL Influenza Type A Ag (NEGATIVE) Influenza Type B Ag (NEGATIVE) RSV (PCR) (NEGATIVE) SARS-CoV-2 (PCR) (NEGATIVE) Radiology Exams: Radiology Procedures Category Date Time Status CHEST 1 VIEW (PORTABLE) Stat Exams 08/11/24 12:47 Completed CHEST WITH CONTRAST [CT] Urgent Exams 08/11/24 16:17 Completed Medications: Medications Generic Name Dose Route Start Last Admin Trade Name Freq PRN Reason Stop Dose Admin Acetaminophen 650 mg 08/11/24 16:12 Acetaminophen 325 Mg Tablet PO 09/10/24 16:11 Q4H PRN PRN PAIN, FEVER, HEADACHE Albuterol Sulfate 2 puff 08/11/24 16:36 Albuterol Common Canister Inhaler IH 09/10/24 16:35 Q4H PRN PRN SHORTNESS OF BREATH Albuterol/Ipratropium 3 ml 08/11/24 19:00 05/01/25 19:35 Ipratropium/Albuterol Sulfate 3 Ml Ampul.[facility] 09/10/24 18:59 3 ml QIDRT CANDY Administration Albuterol/Ipratropium 3 ml 08/11/24 15:46 Ipratropium/Albuterol Sulfate 3 Ml Ampul.[facility] 09/10/24 15:45 Q4HPRN PRN SHORTNESS OF BREATH/WHEEZING Amlodipine Besylate 10 mg 08/11/24 17:00 08/11/24 17:13 Amlodipine Besylate 5 Mg Tablet PO 09/10/24 16:59 10 mg DAILY CANDY Administration Baclofen 10 mg 08/11/24 22:00 08/11/24 21:32 Baclofen 10 Mg Tablet PO 09/10/24 21:59 10 mg HS CANDY Administration Methylprednisolone Sodium 0 mg 08/11/24 22:00 08/11/24 21:32 Succinate 40 mg/ Sterile Water IV 09/10/24 21:59 40 mg 1 ml Q12HT CANDY Administration Duloxetine HCl 60 mg 08/11/24 22:00 08/11/24 21:32 Duloxetine Hcl 30 Mg Cap PO 09/10/24 21:59 60 mg BID CANDY Administration Enoxaparin Sodium 40 mg 08/11/24 17:00 08/11/24 17:13 Enoxaparin Sodium 40 Mg/0.4 Ml Syringe SQ 09/10/24 16:59 40 mg DAILY CANDY Administration Epinephrine HCl 0.3 mg 08/11/24 16:36 Epinephrine 1 Mg/1 Ml Pf Amp 1 Mg/Ml Ml SQ 09/10/24 16:35 DAILY PRN PRN ALLERGIES Folic Acid 1 mg 08/11/24 17:00 08/11/24 17:13 Folic Acid 1 Mg Tablet PO 09/10/24 16:59 1 mg DAILY CANDY Administration Levothyroxine Sodium 50 mcg 08/11/24 17:00 08/11/24 17:14 Levothyroxine Sodium 50 Mcg Tablet PO 09/10/24 16:59 50 mcg DAILY CANDY Administration Loratadine 10 mg 08/11/24 17:00 08/11/24 17:14 Loratadine 10 Mg Tablet PO 09/10/24 16:59 10 mg DAILY CANDY Administration Mirabegron 50 mg 08/11/24 17:00 08/11/24 17:13 Mirabegron 25 Mg Tab.Er.24h PO 09/10/24 16:59 50 mg DAILY CANDY Administration Miscellaneous Information 1 each 08/11/24 16:45 Medication Intervention 1 Each Each 09/10/24 16:44 .RN TO CHECK CANDY Nicotine 21 mg 08/11/24 16:15 08/11/24 17:21 Nicotine 21 Mg/Patch Patch TOP 09/10/24 16:14 21 mg Q24H10 CANDY Administration Nitroglycerin 0.4 mg 08/11/24 16:19 Nitroglycerin 0.4 Mg Tablet Bottle SL 09/10/24 16:18 DAILY PRN PRN CHEST PAIN Ondansetron HCl 4 mg 08/11/24 16:12 Ondansetron Hcl 4 Mg/2 Ml Vial IV 09/10/24 16:11 Q6H PRN PRN NAUSEA/VOMITING Pantoprazole Sodium 40 mg 08/11/24 17:00 08/11/24 17:14 Protonix (Pantoprazole) 40 Mg Tablet PO 09/10/24 16:59 40 mg DAILY CANDY Administration Polyethylene Glycol 17 gm 08/11/24 16:19 Polyethylene Glycol 3350 17 Gm Packet PO 09/10/24 16:18 DAILY PRN PRN CONSTIPATION Potassium Chloride 20 meq 08/11/24 22:00 08/11/24 21:32 Potassium Chloride Tab 10 Meq Tab PO 09/10/24 21:59 20 meq BID CANDY Administration Pyridoxine HCl 100 mg 08/11/24 17:00 08/11/24 17:14 Pyridoxine Hcl 100 Mg Tablet PO 09/10/24 16:59 100 mg DAILY CANDY Administration Fluticasone/Salmeterol 2 puff 08/11/24 19:00 08/11/24 19:36 Fluticasone/Salmeterol 115/21 60 Puff Aer.W.Adap IH 09/10/24 18:59 2 puff BIDRT CANDY Administration Simvastatin 40 mg 08/11/24 22:00 08/11/24 21:32 Simvastatin 20 Mg Tablet PO 09/10/24 21:59 40 mg QHS CANDY Administration Discontinued Medications Generic Name Dose Route Start Last Admin Trade Name Freq PRN Reason Stop Dose Admin Albuterol/Ipratropium 3 ml 08/11/24 11:52 08/11/24 12:00 Ipratropium/Albuterol Sulfate 3 Ml Ampul.Neb IH 08/11/24 11:53 3 ml STAT ONE Administration Albuterol/Ipratropium Confirm 08/11/24 11:58 Ipratropium/Albuterol Sulfate 3 Ml Ampul.Neb Administered 08/11/24 11:59 Dose 3 ml IH .STK-MED ONE Azithromycin Confirm 08/11/24 13:08 Azithromycin Inj Administered 08/11/24 13:09 Dose 500 mg IV .STK-MED ONE Methylprednisolone Sodium 0 mg 08/11/24 11:52 08/11/24 12:12 Succinate 125 mg/ Sterile IV 08/11/24 11:53 125 mg Water 2 ml STAT ONE Administration Ceftriaxone Sodium 2 gm in 100 mls @ 200 mls/hr 08/11/24 12:28 08/11/24 13:09 Rocephin 2 Gm/100 Ml Nacl IV 08/11/24 12:57 Infused STAT ONE Infusion Azithromycin 500 mg/ Sodium 250 mls @ 250 mls/hr 08/11/24 12:28 08/11/24 14:12 Chloride IV 08/11/24 13:27 Infused STAT STA Infusion Ceftriaxone Sodium Confirm 08/11/24 12:31 Rocephin 2 Gm/100 Ml Nacl Administered 08/11/24 12:32 Dose 2 gm in 100 mls @ ud IV .STK-MED ONE Sodium Chloride Confirm 08/11/24 13:08 Sodium Chloride 0.9% 250 Ml Administered 08/11/24 13:09 Dose 250 mls @ ud IV .STK-MED ONE Ceftriaxone Sodium 1 gm in 100 mls @ 200 mls/hr 08/12/24 10:00 Rocephin 1 Gm / 100 Ml Nacl IV 09/11/24 09:59 Q24H10 CANDY Azithromycin 500 mg/ Sodium 250 mls @ 250 mls/hr 08/12/24 10:00 Chloride IV 09/11/24 09:59 Q24H10 CANDY Methylprednisolone Sodium Succinate Confirm 08/11/24 12:11 Methylprednis Sod Succ 125 Mg/2 Ml Vial Administered 08/11/24 12:12 Dose 125 mg .ROUTE .STK-MED ONE Miscellaneous Information 1 each 08/11/24 16:45 Medication Intervention 1 Each Each 09/10/24 16:44 .RN TO CHECK CANDY Ondansetron HCl 4 mg 08/11/24 13:23 08/11/24 13:26 Ondansetron Hcl 4 Mg/2 Ml Vial IV 08/11/24 13:24 4 mg STAT ONE Administration Ondansetron HCl Confirm 08/11/24 13:25 Ondansetron Hcl 4 Mg/2 Ml Vial Administered 08/11/24 13:26 Dose 4 mg .ROUTE .STK-MED ONE Sterile Water Confirm 08/11/24 12:11 Water For Injection,Sterile 10 Ml Vial Administered 08/11/24 12:12 Dose 10 ml IJ .STK-MED ONE Multi-Disciplinary Progress Notes: Multi-Disciplinary Progress Notes 08/11/24 17:25 Respiratory Note by Kaley Arroyo ASKED PT ABOUT BRINGING IN HER TRELEGY INHALER. SHE WASN'T SURE HOW MANY DOSES WERE LEFT. SHE IS OK WITH [facility] WHILE SHE IS HERE.ORDER PLACED FOR ADVAIR 115/21 BID. Initialized on 08/11/24 17:25 - END OF NOTE Assessment/Plan (1) Acute respiratory failure with hypoxia Current Visit: Yes Status: Acute Assessment & Plan: Worsening dyspnea, wheezing, and hypoxia in a patient with known COPD and active smoking history. -Likely secondary to mild infectious or environmental insult, though no acute infiltrate on imaging and viral panel is negative -Continue oxygen therapy to maintain SpO2> 92%. -Continue scheduled DuoNeb treatments every 46 hours. -Continue IV Solu-Medrol; a transition to oral prednisone when appropriate -Continue ceftriaxone and azithromycin -Monitor respiratory status, wean oxygen as tolerated -CT chest Code(s): J96.01 - ACUTE RESPIRATORY FAILURE WITH HYPOXIA (2) Leukemia Current Visit: Yes Status: Acute Assessment & Plan: -Follows with Dr. Miguel OP -No current signs of infection, cytopenia, or leukemic progression noted Code(s): C95.90 - LEUKEMIA, UNSPECIFIED NOT HAVING ACHIEVED REMISSION (3) Elevated d-dimer Current Visit: Yes Status: Acute Assessment & Plan: -CTA chest Code(s): R79.89 - OTHER SPECIFIED ABNORMAL FINDINGS OF BLOOD CHEMISTRY (4) Tobacco abuse Current Visit: Yes Status: Acute Assessment & Plan: -Advised cessation - pt 1/2PPD for 50 years -Nicotine patch Code(s): Z72.0 - TOBACCO USE (5) COPD exacerbation Current Visit: Yes Status: Acute Assessment & Plan: -see ARF Code(s): J44.1 - CHRONIC OBSTRUCTIVE PULMONARY DISEASE W (ACUTE) EXACERBATION (6) Hypothyroid Current Visit: Yes Status: Acute Assessment & Plan: -continue home levothyroxine Code(s): E03.9 - HYPOTHYROIDISM, UNSPECIFIED (7) HLD (hyperlipidemia) Current Visit: Yes Status: Acute Assessment & Plan: -continue home regimen Code(s): E78.5 - HYPERLIPIDEMIA, UNSPECIFIED (8) HTN (hypertension) Current Visit: Yes Status: Acute Assessment & Plan: -BP stable continue home meds Code(s): I10 - ESSENTIAL (PRIMARY) HYPERTENSION (9) Rheumatoid arthritis Current Visit: Yes Status: Acute Assessment & Plan: -continue home meds and pain control Code(s): M06.9 - RHEUMATOID ARTHRITIS, UNSPECIFIED (10) Anxiety and depression Current Visit: Yes Status: Acute Assessment & Plan: -continue home meds Code(s): F41.9 - ANXIETY DISORDER, UNSPECIFIED; F32.A - DEPRESSION, UNSPECIFIED (11) RLS (restless legs syndrome) Current Visit: Yes Status: Acute Assessment & Plan: -continue home meds VTE: lovenox PPI: protonix Dispo: 1-2 days Code status: Full Diet: Regular Code(s): J96.01 - ACUTE RESPIRATORY FAILURE WITH HYPOXIA (2) Leukemia Current Visit: Yes Status: Acute Code(s): C95.90 - LEUKEMIA, UNSPECIFIED NOT HAVING ACHIEVED REMISSION (3) Elevated d-dimer Current Visit: Yes Status: Acute Code(s): R79.89 - OTHER SPECIFIED ABNORMAL FINDINGS OF BLOOD CHEMISTRY (4) Tobacco abuse Current Visit: Yes Status: Acute Code(s): Z72.0 - TOBACCO USE (5) COPD exacerbation Current Visit: Yes Status: Acute Code(s): J44.1 - CHRONIC OBSTRUCTIVE PULMONARY DISEASE W (ACUTE) EXACERBATION (6) Hypothyroid Current Visit: Yes Status: Acute Code(s): E03.9 - HYPOTHYROIDISM, UNSPECIFIED (7) HLD (hyperlipidemia) Current Visit: Yes Status: Acute Code(s): E78.5 - HYPERLIPIDEMIA, UNSPECIFIED (8) HTN (hypertension) Current Visit: Yes Status: Acute Code(s): I10 - ESSENTIAL (PRIMARY) HYPERTENSION (9) Rheumatoid arthritis Current Visit: Yes Status: Acute Code(s): M06.9 - RHEUMATOID ARTHRITIS, UNSPECIFIED (10) Anxiety and depression Current Visit: Yes Status: Acute Code(s): F41.9 - ANXIETY DISORDER, UNSPECIFIED; F32.A - DEPRESSION, UNSPECIFIED (11) RLS (restless legs syndrome) Current Visit: Yes Status: Acute
[2024-08-12 08:13] VITALS: TEMP 97.6
[2024-08-12] MEDS ORDERED: ROCEPHIN 1 GM / 100 ML NaCl 1 GM/100 ML IVPB IV SCH (10:00)
[2024-08-12] MEDS ORDERED: ZITHROMAX IV*** 500 MG in Sodium Chloride 0.9% 250 ML 250 ML IV SCH (10:00)
[2024-08-12] MEDS ORDERED: NON-FORMULARY ITEM (Fluticasone/Umeclidin/Vilanter [Trelegy Ellipta 100-62.5-25] 1 EACH Bl IH SCH (10:00)
[2024-08-12 11:17] VITALS: BP 133/63
[2024-08-12] MEDS: Zofran 4 MG/2 ML VIAL IV PRN (11:34)
--- NOTE | 2024-08-12 11:56 | PCM.DS ---
Discharge Summary Date of Admission: 08/11/24 14:32 Date of Discharge: 08/12/24 Admitting Physician: ALBERTA RAJAN MD Primary Care Provider: CLAUDIA CERVANTES Allergies Allergies codeine Allergy (Mild, Verified 08/11/24 11:36) Swelling SWELLING AND VOMITTING Sulfa (Sulfonamide Antibiotics) Allergy (Mild, Verified 08/11/24 11:36) Swelling Hospital Summary - Hospital Course Hospital Course: Ms. Medina is a 68-year-old woman with a history of hypertension, hypothyroidism, hyperlipidemia, anxiety and depression, fibromyalgia, tobacco dependence, peripheral neuropathy, restless leg syndrome (RLS), COPD (room air at baseline), and leukemia under the care of Dr. Miguel (oncology) in [place], who presented to the ED on 08/11/24, with worsening shortness of breath. The patient reported progressive dyspnea over the past three months, with significant worsening in the three days prior to presentation. She denied chest pain, fever, nausea, vomiting, or diaphoresis, but described increased difficulty with ambulation due to exertional dyspnea. She also endorsed a productive cough with thick, clear sputum and sinus congestion, in the setting of multiple sick contacts. On arrival, she was noted to be hypertensive, tachycardic, tachypneic, and hypoxic with an oxygen saturation of 89% on room air. She was started on 3L nasal cannula. EKG showed normal sinus rhythm with no acute ischemic changes. Chest X- ray demonstrated hyperinflated lung echavarria consistent with COPD but no acute infiltrates or effusions. Laboratory workup showed an elevated D-dimer, but age- adjusted interpretation and a negative CT angiogram ruled out pulmonary embolism. Troponin and BNP were within normal limits. Respiratory viral panel including COVID-19, influenza, and RSV was negative. Blood cultures were obtained. She was treated in the ED with IV Solu-Medrol, albuterol/ipratropium nebulizers, ceftriaxone, azithromycin, and IV fluids, with clinical improvement. The patient was admitted for acute hypoxic respiratory failure secondary to a COPD exacerbation, likely triggered by a mild infectious or environmental insult. She remained on supplemental oxygen during her hospital stay and improved clinically. CT chest confirmed no acute pathology. She was weaned to room air with oxygen available PRN (2L), and this was arranged for home use. She was transitioned to oral prednisone on discharge to complete a steroid taper. She was counseled on smoking cessation and started on a nicotine patch. A DuoNeb refill was sent to her pharmacy for home nebulizer use. She reported no new leukemic symptoms, and no evidence of cytopenia or disease progression was noted during this hospitalization. She was discharged home in stable condition with instructions to follow up with her PCP and oncology as scheduled. I spent 35 minutes [id number] with the patient on the day of discharge performing discharge exam, discussing hospital stay and discharge instructions with patient and caregivers, preparation of discharge records, prescriptions & referral forms and addressing any questions/concerns the patient had as documented above. - Vitals & Intake/Output Vital Signs: Vital Signs Temperature 97.6 F 08/12/24 11:17 Pulse Rate 97 H 08/12/24 11:17 Respiratory Rate 16 08/12/24 11:17 Blood Pressure 133/63 08/12/24 11:17 O2 Sat by Pulse Oximetry 91 L 08/12/24 11:17 Intake & Output: Intake & Output 08/09/24 08/10/24 08/11/24 08/12/24 11:59 11:59 11:59 11:59 Intake Total 1440 Balance 1440 Weight 53.3 kg 55.9 kg - Lab Result Diagrams: 08/12/24 04:56 08/12/24 04:56 Lab Results-Last 24 Hrs: Lab Results-Last 24 Hours 08/11/24 08/11/24 08/11/24 Range/Units 12:05 12:05 12:05 WBC 5.9 (3.98-10.04) x10^3/uL RBC 3.85 L (3.93-5.22) x10^6/uL Hgb 12.8 (11.2-15.7) g/dL Hct 38.8 (34.1-44.9) % MCV 100.8 H (79.4-94.8) fL MCH 33.2 H (25.6-32.2) pg MCHC 33.0 (32.2-35.5) g/dL RDW 13.2 (11.7-14.4) % Plt Count 304 (182-369) x10^3/uL MPV 8.4 L (9.4-12.3) fL Gran % 41.7 (34.0-71.1) % Immature Gran % (Auto) 0.3 (0.001-0.429) % Nucleat RBC Rel Count 0.0 (0.00-0.2) % Eos # (Auto) 0.08 (0.04-0.36) x10^3/uL Immature Gran # (Auto) 0.02 (0.001-0.031) x10^3u/L Absolute Lymphs (auto) 2.19 (1.18-3.74) x10^3/uL Absolute Monos (auto) 1.13 H (0.24-0.86) x10^3/uL Absolute Nucleated RBC 0.00 (0.00-0.012) x10^3u/L Lymphocytes % 37.0 (19.3-51.7) % Monocytes % 19.1 H (4.7-12.5) % Eosinophils % 1.4 (0.7-5.8) % Basophils % 0.5 (0.1-1.2) % Absolute Granulocytes 2.47 (1.56-6.13) x10^3/uL Basophils # 0.03 (0.01-0.08) x10^3/uL D-Dimer 0.51 H (0.0-0.50) mg/L Sodium 137 (135-145) mmol/L Potassium 4.1 (3.5-5.1) mmol/L Chloride 99 (98-107) mmol/L Carbon Dioxide 27 (22-30) mmol/L Anion Gap 15.0 (5-15) MEQ/L BUN 6 L (7-17) mg/dL Creatinine 0.52 (0.52-1.04) mg/dL Estimated GFR 100.5 ML/MIN Glucose 118 H (74-106) mg/dL Calcium 9.5 (8.4-10.2) mg/dL Total Bilirubin 0.30 (0.2-1.3) mg/dL AST 31 (14-36) U/L ALT 18 (0-35) U/L Alkaline Phosphatase 77 (38-126) U/L Troponin I (0.000-0.033) ng/mL NT-Pro-B Natriuret Pep (<300) pg/mL Serum Total Protein 6.8 (6.3-8.2) g/dL Albumin 4.3 (3.5-5.0) g/dL Influenza Type A Ag (NEGATIVE) Influenza Type B Ag (NEGATIVE) RSV (PCR) (NEGATIVE) SARS-CoV-2 (PCR) (NEGATIVE) 08/11/24 08/11/24 08/11/24 Range/Units 12:05 12:10 16:40 WBC (3.98-10.04) x10^3/uL RBC (3.93-5.22) x10^6/uL Hgb (11.2-15.7) g/dL Hct (34.1-44.9) % MCV (79.4-94.8) fL MCH (25.6-32.2) pg MCHC (32.2-35.5) g/dL RDW (11.7-14.4) % Plt Count (182-369) x10^3/uL MPV (9.4-12.3) fL Gran % (34.0-71.1) % Immature Gran % (Auto) (0.001-0.429) % Nucleat RBC Rel Count (0.00-0.2) % Eos # (Auto) (0.04-0.36) x10^3/uL Immature Gran # (Auto) (0.001-0.031) x10^3u/L Absolute Lymphs (auto) (1.18-3.74) x10^3/uL Absolute Monos (auto) (0.24-0.86) x10^3/uL Absolute Nucleated RBC (0.00-0.012) x10^3u/L Lymphocytes % (19.3-51.7) % Monocytes % (4.7-12.5) % Eosinophils % (0.7-5.8) % Basophils % (0.1-1.2) % Absolute Granulocytes (1.56-6.13) x10^3/uL Basophils # (0.01-0.08) x10^3/uL D-Dimer (0.0-0.50) mg/L Sodium (135-145) mmol/L Potassium (3.5-5.1) mmol/L Chloride (98-107) mmol/L Carbon Dioxide (22-30) mmol/L Anion Gap (5-15) MEQ/L BUN (7-17) mg/dL Creatinine (0.52-1.04) mg/dL Estimated GFR ML/MIN Glucose (74-106) mg/dL Calcium (8.4-10.2) mg/dL Total Bilirubin (0.2-1.3) mg/dL AST (14-36) U/L ALT (0-35) U/L Alkaline Phosphatase (38-126) U/L Troponin I < 0.012 < 0.012 (0.000-0.033) ng/mL NT-Pro-B Natriuret Pep 82.8 (<300) pg/mL Serum Total Protein (6.3-8.2) g/dL Albumin (3.5-5.0) g/dL Influenza Type A Ag NEGATIVE (NEGATIVE) Influenza Type B Ag NEGATIVE (NEGATIVE) RSV (PCR) NEGATIVE (NEGATIVE) SARS-CoV-2 (PCR) NEGATIVE (NEGATIVE) 08/11/24 08/12/24 08/12/24 Range/Units 19:58 04:56 04:56 WBC 5.8 (3.98-10.04) x10^3/uL RBC 3.68 L (3.93-5.22) x10^6/uL Hgb 12.5 (11.2-15.7) g/dL Hct 37.8 (34.1-44.9) % MCV 102.7 H (79.4-94.8) fL MCH 34.0 H (25.6-32.2) pg MCHC 33.1 (32.2-35.5) g/dL RDW 13.1 (11.7-14.4) % Plt Count 307 (182-369) x10^3/uL MPV 8.4 L (9.4-12.3) fL Gran % 73.0 H (34.0-71.1) % Immature Gran % (Auto) 0.3 (0.001-0.429) % Nucleat RBC Rel Count 0.0 (0.00-0.2) % Eos # (Auto) 0 L (0.04-0.36) x10^3/uL Immature Gran # (Auto) 0.02 (0.001-0.031) x10^3u/L Absolute Lymphs (auto) 1.22 (1.18-3.74) x10^3/uL Absolute Monos (auto) 0.31 (0.24-0.86) x10^3/uL Absolute Nucleated RBC 0.00 (0.00-0.012) x10^3u/L Lymphocytes % 21.1 (19.3-51.7) % Monocytes % 5.4 (4.7-12.5) % Eosinophils % 0.0 L (0.7-5.8) % Basophils % 0.2 (0.1-1.2) % Absolute Granulocytes 4.22 (1.56-6.13) x10^3/uL Basophils # 0.01 (0.01-0.08) x10^3/uL D-Dimer (0.0-0.50) mg/L Sodium 137 (135-145) mmol/L Potassium 4.1 (3.5-5.1) mmol/L Chloride 99 (98-107) mmol/L Carbon Dioxide 23 (22-30) mmol/L Anion Gap 19.0 H (5-15) MEQ/L BUN 7 (7-17) mg/dL Creatinine 0.54 (0.52-1.04) mg/dL Estimated GFR 99.6 ML/MIN Glucose 207 H (74-106) mg/dL Calcium 9.9 (8.4-10.2) mg/dL Total Bilirubin 0.30 (0.2-1.3) mg/dL AST 48 H (14-36) U/L ALT 32 (0-35) U/L Alkaline Phosphatase 79 (38-126) U/L Troponin I < 0.012 (0.000-0.033) ng/mL NT-Pro-B Natriuret Pep (<300) pg/mL Serum Total Protein 7.4 (6.3-8.2) g/dL Albumin 4.5 (3.5-5.0) g/dL Influenza Type A Ag (NEGATIVE) Influenza Type B Ag (NEGATIVE) RSV (PCR) (NEGATIVE) SARS-CoV-2 (PCR) (NEGATIVE) - Radiology Exams Ordered Rad Exams-Entire Visit: Radiology Procedures Category Date Time Status CHEST 1 VIEW (PORTABLE) Stat Exams 08/11/24 12:47 Completed CHEST WITH CONTRAST [CT] Urgent Exams 08/11/24 16:17 Completed - Procedures and Test Procedures and Tests throughout Hospitalization: Therapy Orders & Screens 08/11/24 12:03 Respiratory Therapy Assessment DAILY Comment: 08/11/24 12:06 Flutter Therapy UD Comment: 08/11/24 15:04 Incentive Spirometry UD Comment: Diagnosis: COPD exacerbation, hypoxia 08/11/24 15:05 Oxygen Nasal Cannula 3 lpm Comment: Diagnosis: COPD exacerbation, hypoxia 08/11/24 15:46 BiPap/CPAP ROUTINE Comment: CPAP +8 PER HOME SETTING Diagnosis: COPD exacerbation, hypoxia 08/11/24 15:54 RT Screen per Nursing Assess ONCE Comment: Protocol Order Physician Instructions: Greater than 3 points order RT Admission Screen Reason For Exam: Triggered on Admission Diagnosis: COPD exacerbation, hypoxia Diagnosis: COPD exacerbation, hypoxia Pneumonia: No Home O2: No Asthma: No CHF: No Home CPAP/BIPAP: Yes Home Nebs/MDI: Yes Total Points: 10 Smoking Cessation Education ONCE Comment: Diagnosis: COPD exacerbation, hypoxia Smoking Status: Current every day smoker How long have you smoked: 50y Have you smoked in the past 12 months: Yes Approximately how many cigarettes per day: 1ppd Do you dip or chew tobacco: No 08/11/24 16:12 Respiratory Therapy Consult ONCE Comment: Reason For Exam: Diagnosis: COPD exacerbation, hypoxia Discharge Exam General Appearance: no apparent distress Neurologic Exam: alert, oriented x 3, cooperative Eye Exam: PERRL Ears, Nose, Throat Exam: normal ENT inspection Neck Exam: normal inspection Respiratory Exam: lungs clear, diminished breath sounds Cardiovascular Exam: regular rate/rhythm, normal heart sounds Gastrointestinal/Abdomen Exam: soft, normal bowel sounds Pelvic Exam: deferred Rectal Exam: deferred Back Exam: normal inspection Extremity Exam: normal inspection Skin Exam: normal color Final Diagnosis/Problem List - Final Discharge Diagnosis/Problem (1) Acute respiratory failure with hypoxia Current Visit: Yes Status: Resolved Assessment & Plan: -Secondary to COPD exacerbation -Continue PRN oxygen to maintain SpO2 > 92% -Discharge with prednisone taper -Discharge with DuoNeb refill for home nebulizer use -Monitor for recurrence of symptoms; follow-up with PCP Code(s): J96.01 - ACUTE RESPIRATORY FAILURE WITH HYPOXIA (2) Leukemia Current Visit: Yes Status: Chronic Assessment & Plan: -Under active outpatient management with oncology (Dr. Miguel) -No cytopenias or signs of progression during admission -Follow up with oncology as scheduled Code(s): C95.90 - LEUKEMIA, UNSPECIFIED NOT HAVING ACHIEVED REMISSION (3) Elevated d-dimer Current Visit: Yes Status: Acute Assessment & Plan: -CTA chest performed and negative for PE -No further intervention needed Code(s): R79.89 - OTHER SPECIFIED ABNORMAL FINDINGS OF BLOOD CHEMISTRY (4) Tobacco abuse Current Visit: Yes Status: Chronic Assessment & Plan: - pack per day for ~50 years -Counseled on cessation -Nicotine patch started Code(s): Z72.0 - TOBACCO USE (5) COPD exacerbation Current Visit: Yes Status: Acute Assessment & Plan: -Likely triggered by mild infectious or environmental irritants -Completed IV steroids in hospital -Continue oral prednisone burst -No need for further abx Code(s): J44.1 - CHRONIC OBSTRUCTIVE PULMONARY DISEASE W (ACUTE) EXACERBATION (6) Hypothyroid Current Visit: Yes Status: Chronic Assessment & Plan: -continue home meds Code(s): E03.9 - HYPOTHYROIDISM, UNSPECIFIED (7) HLD (hyperlipidemia) Current Visit: Yes Status: Chronic Assessment & Plan: -continue home meds Code(s): E78.5 - HYPERLIPIDEMIA, UNSPECIFIED (8) HTN (hypertension) Current Visit: Yes Status: Chronic Assessment & Plan: BP remained stable throughout admission Continue home antihypertensives Code(s): I10 - ESSENTIAL (PRIMARY) HYPERTENSION (9) Rheumatoid arthritis Current Visit: Yes Status: Chronic Code(s): M06.9 - RHEUMATOID ARTHRITIS, UNSPECIFIED (10) Anxiety and depression Current Visit: Yes Status: Chronic Code(s): F41.9 - ANXIETY DISORDER, UNSPECIFIED; F32.A - DEPRESSION, UNSPECIFIED (11) RLS (restless legs syndrome) Current Visit: Yes Status: Chronic - Discharge Discharge Date: 08/12/24 Disposition: Home, Self-Care Condition: Stable Prescriptions: New Prednisone 20 mg [Deltasone 20 mg] 20 mg PO BID 5 Days #10 tablet Nicotine 21 mg [Nicoderm CQ 21 MG] 21 mg TOP Q24H10 42 Days #42 patch Continue Folic Acid 1 mg [Folate 1 mg] 1 mg PO DAILY Mirabegron [Myrbetriq] 50 mg PO DAILY PANTOPRAZOLE 40 mg Tablet [Protonix 40MG Tablet] 40 mg PO QAM Amlodipine Besylate 10 mg PO DAILY Potassium Chloride Tab* [Klor Con] 20 meq PO BID 5 Days #20 tab Upadacitinib [Rinvoq] 15 mg PO DAILY Levothyroxine Sodium [Synthroid] 50 tab PO DAILY Atorvastatin Calcium 80 mg PO QHS Pyridoxine HCl (Vitamin B6) [Vitamin B-6] 100 mg PO DAILY Baclofen 10 mg [Lioresal 10 mg] 10 mg PO HS Duloxetine HCl 30 mg [Cymbalta 30 MG Capsule] 60 mg PO BID Cholecalciferol (Vitd3)/Vit K2 [Vit D3-Vit K2 125-100 Mcg Sfgl] 1.25 cap PO WEEKLY Alendronate Sodium 70 mg [Fosamax 70 MG] 70 mg PO Q7D@0600 Polyethylene Glycol 3350 17 gm [Miralax Powder 17GM PACKET] 17 gm PO DAILY PRN PRN PRN Reason: Constipation Fluticasone/Umeclidin/Vilanter [Trelegy Ellipta 100-62.5-25] 1 each IH DAILY Albuterol 8 gm Mdi Hfa [Ventolin Hfa MDI] 8 gm IH Q4H PRN PRN PRN Reason: Shortness Of Breath Epinephrine Epi-Pen [Epipen 0.3 MG Syringe] 0.3 mg IM DAILY PRN PRN PRN Reason: Allergies Loratadine 10 mg [Claritin 10 mg] 10 mg PO DAILY Nitroglycerin 0.4 mg Tablet [Nitrostat 0.4 MG Tablet] 0.4 mg SL DAILY PRN PRN PRN Reason: Chest Pain Albuterol/Ipratropium 3ml Neb* [DUONEB 0.5-3 MG/3 ml Neb] 3 ml IH Q4H PRN PRN 30 Days #120 amp PRN Reason: DIFFICULTY BREATHING Follow up with: CLAUDIA CERVANTES NP [Primary Care Provider, UNKNOWN] - 1 Week
[2024-08-12 12:05] VITALS: PULSE 85; RESP 18; O2SAT 96
== END 2024-08-12 13:30 | disposition home or self-care (01) ==
LOC: ED 11:35 → MED SURG 14:32 → INTOOBSV 14:32
PROVIDERS: ADMIT Internal Medicine; ATTEND Internal Medicine
DX: J96.01 Acute respiratory failure with hypoxia (principal); C95.90 Leukemia, unspecified not having achieved remission; R79.89 Other specified abnormal findings of blood chemistry; J44.1 Chronic obstructive pulmonary disease with (acute) exacerbation; E03.9 Hypothyroidism, unspecified; E78.5 Hyperlipidemia, unspecified; I10 Essential (primary) hypertension; M06.9 Rheumatoid arthritis, unspecified; F41.9 Anxiety disorder, unspecified; F32.A Depression, unspecified; G25.81 Restless legs syndrome; Z72.0 Tobacco use; Z79.899 Other long term (current) drug therapy
CPT/HCPCS: 0241U; 36415; 71045; 71260; 80053; 83880; 84484; 85025; 85379; 87040; 93005; 93041; 94640; 94660; 94667; 94760; 96374; 99285; Q3014; 93268; J0456; J0696; J1650; J2405; J2919; A9270-GY; G0378